=== PATIENT | female | born 1970 | race Caucasian/White ===

== ENCOUNTER 2016-07-25 18:33 | Emergency (ER) | payer SELFPAY ==
[~2016-07-25] VITALS: Ht 149.9 cm; Wt 72.6 kg
--- NOTE | 2016-07-25 18:50 | NUR ---
CALLED PT FOR TRIAGE ASSESSMENT, NO ANSWER.
[2016-07-25 18:57] VITALS: BP 153/98
--- NOTE | 2016-07-25 20:18 | NUR ---
AMBULATED TO ER OF3
--- NOTE | 2016-07-25 20:30 | NUR ---
PT PRESENTS TO ER W/C/O HEADACHE X1 WEEK. PT STATES HER CHILDREN WERE SENT HOME FROM SCHOOL W/LICE, SO SHE SPRAYED HER OWN HEAD W/RAID IN EFFORT TO PREVENT HERSELF FROM GETTING THE LICE, AND IMMEDIATELY FELT RASH AND PAIN ON HER SCALP, AND INTERMITTENT HEADACHE SINCE THAT TIME. HX DM.
[2016-07-25 21:15] VITALS: BP 135/80
--- NOTE | 2016-07-25 21:15 | NUR ---
Patient discharged with v/s stable. Written and verbal after care instructions given and explained. Patient alert, oriented and verbalized understanding of instructions. Ambulatory with steady gait. All questions addressed prior to discharge. ID band removed. Patient advised to follow up with PMD. Rx of FIORICET [id number] TAB, 1 TAB EVERY 6 HOURS NEEDED FOR HEADACHE , HYDROXYZINE HYDROCHLORIDE 25MG TAB, 1 TAB ORally 4 TIMES A DAY BY MOUTH NEEDED given. Patient educated on indication of medication including possible reaction and side effects. Opportunity to ask questions provided and answered.
== END 2016-07-25 21:15 | disposition home or self-care (01) ==
LOC: MED 18:33
DX: G44.209 Tension-type headache, unspecified, not intractable (principal); S00.01XA Abrasion of scalp, initial encounter; E11.9 Type 2 diabetes mellitus without complications; X58.XXXA Exposure to other specified factors, initial encounter; Y93.89 Activity, other specified; Y92.89 Other specified places as the place of occurrence of the external cause; Y99.8 Other external cause status

== ENCOUNTER 2017-10-23 07:10 | Emergency (ER) | payer MEDICAID ==
[~2017-10-23] VITALS: Ht 149.9 cm; Wt 61.2 kg
--- NOTE | 2017-10-23 07:13 | NUR ---
PT JAVY MOJICA. TAKEN TO BED 11
--- NOTE | 2017-10-23 07:23 | NUR ---
PT. CAME IN VIA BLS DUE TO ABD PAIN AND VOMITING X 3 DAYS. PT. IS AAOX4 , RR EVEN AND UNLABORED. PT. DENIES SOB, PT HAS 8/10 PAIN ABD PAIN IN THE EPIGASTRIC AREA THAT IS NON RADIATING. PT. DENIES ANY BLOOD IN STOOL OR VOMIT. PT. HAS 6/10 PAIN IN R UPPER CHEST AREA THAT IS NON RADIATING , PT. STATES " I HAVE HAD THIS PROBLEM OF PAIN BECAUSE OF MY BREATHING". ABD ROUND AND SOFT . PT HAS BOYFRIEND AT BEDSIDE. ER MD NOTIFIED. WILL CONTINUE TO MONITOR.
[2017-10-23 07:25] VITALS: BP 129/91
--- NOTE | 2017-10-23 08:09 | NUR ---
PT. UNABLE TO PROVIDE A URINE SAMPLE AT THIS TIME, ER MD OLIVAS NOTIFIED.
[2017-10-23] MEDS ORDERED: ONDANSETRON 4 MG/2 ML VIAL IVP ONE (08:20)
[2017-10-23] MEDS ORDERED: NACL 0.9% 500 ML IV ONE (08:20)
[2017-10-23] MEDS ORDERED: KETOROLAC 30 MG/ML VIAL IVP ONE (08:20)
[2017-10-23 09:04] LABS: BASOPHILS # (AUTO) 0.1 K/uL (0.00-0.22); BASOPHILS % (AUTO) 0.5 % (0.0-2.0); EOSINOPHILS # (AUTO) 0.1 K/uL (0-0.4); EOSINOPHILS % (AUTO) 0.9 % (0.0-4.0); HEMATOCRIT 40.9 % (36-48); HEMOGLOBIN 13.7 g/dL (12.0-16.0); LYMPHOCYTES # (AUTO) 1.2 K/uL (2.5-16.5); LYMPHOCYTES % (AUTO) 7.4 % (20.5-51.1); MEAN CORPUSCULAR HEMOGLOBIN 29 pg (27-31); MEAN CORPUSCULAR HGB CONC 34 g/dL (33-37); MEAN CORPUSCULAR VOLUME 84.9 fL (80-94); MONOCYTES # (AUTO) 0.9 K/uL (0.8-1.0); MONOCYTES % (AUTO) 5.7 % (1.7-9.3); NEUTROPHILS # (AUTO) 13.9 K/uL (1.8-7.7); NEUTROPHILS % (AUTO) 85.5 % (42.2-75.2); PLATELET COUNT (AUTO) 359 K/uL (140-450); RED BLOOD CELL COUNT(AUTO) 4.81 MIL/uL (4.20-5.40); WHITE BLOOD COUNT (AUTO) 16.2 K/uL (4.8-10.8)
[2017-10-23 09:10] LABS: ANION GAP 10.4 (8-16); CARBON DIOXIDE 28.9 mmol/L (21-32); CREATININE 0.9 mg/dL (0.6-1.3); POTASSIUM 3.3 mmol/L (3.5-5.1)
--- NOTE | 2017-10-23 09:10 | NUR ---
PT. IN BED RESTING COMFORTABLY, RR EVEN AND UNLABORED. PT. AAOX4. BED IN LOWEST POSITION. WILL CONTINUE TO MONITOR.
[2017-10-23 09:16] LABS: ALBUMIN 3.2 g/dL (3.4-5.0); TOTAL BILIRUBIN 0.3 mg/dL (0.0-1.0)
[2017-10-23] MEDS ORDERED: NACL 0.9% 1,000 ML IV SCH (10:24)
[2017-10-23] MEDS ORDERED: DOCUSATE SODIUM 100 MG GELCAP PO PRN (10:25)
[2017-10-23] MEDS ORDERED: LORazepam 2 MG/ML VIAL IM/IVP PRN (10:25)
[2017-10-23] MEDS ORDERED: ONDANSETRON 4 MG/2 ML VIAL IM/IVP PRN (10:25)
[2017-10-23] MEDS ORDERED: ACETAMINOPHEN 325 MG TAB PO PRN (10:25)
[2017-10-23] MEDS ORDERED: MORPHINE SULFATE 2 MG/ML SYR IVP PRN (10:25)
[2017-10-23] MEDS ORDERED: ZOLPIDEM 5 MG TAB PO PRN (10:25)
[2017-10-23] MEDS ORDERED: HYDROcodone/APAP 5/325 MG 1 TAB TAB PO PRN (10:25)
--- NOTE | 2017-10-23 10:30 | NUR ---
PT. RESTING COMFORTABLY, RR EVEN AND UNLABORED. BED IN LOWEST POSITION. BOYFRIEND AT BEDSIDE. WILL CONTINUE TO MONITOR.
[2017-10-23 10:57] LABS: PROTHROMBIN TIME 10.2 secs (10.8-13.4)
[2017-10-23 11:09] LABS: CHOL/HDL RATIO 4.1 (1-4.5); MAGNESIUM 1.4 mg/dL (1.8-2.4); PHOSPHORUS 2.2 mg/dL (2.5-4.9); THYROID STIMULATING HORMONE 2.61 uIU/mL (0.34-3.74)
--- NOTE | 2017-10-23 12:07 | NUR ---
PT INFORMED STAFF THAT SHE WISHES TO AMA
--- NOTE | 2017-10-23 12:10 | NUR ---
PT HAS CHANGED HER MIND AND WILL GO THROUGH WITH TRANSFER
--- NOTE | 2017-10-23 12:12 | NUR ---
CALLED KIMBERLYN GONZALES TO GIVE REPORT, CHARGE NURSE WAS AWAY AND NURSE TO TAKE OVER CARE WAS AT [place] SPOKE TO MODESTO HUGGINS PROVIDED PHONE NUMBER AND SAID THAT CHARGE NURSE WOULD CALL BACK OR THE NURSE TAKING OVER.
--- NOTE | 2017-10-23 12:15 | NUR ---
PT. CALLED HER BROTHER, AND DECIDED TO BE TRANSFERRED TO [facility]. PT. STATES " I GUESS IM GOING, MY BROTHER WANTS ME TO GO". PT. IS TO BE TRANSFERRED AT THIS TIME.
[2017-10-23 12:36] VITALS: BP 100/65
--- NOTE | 2017-10-23 12:36 | NUR ---
Patient to be transferred to [facility]. Is being transferred due to INSURANCE COVERAGE AND PANCREATITIS AND ACUTE GASTROENTERITIS . Receiving facility has accepting physician and available space. ER physician has signed transfer form. Patient or responsible green party has agreed to transfer and signed form. Patient belongings inventoried and will be sent with patient. Copy of nursing notes, lab reports, EKG, Physicians Orders and X-rays to be sent with patient. Report called to MIREYA Blackwell RN at receiving facility. [facility] ambulance service has been called for transfer. ETA is 55 MIN .
--- NOTE | 2017-10-23 12:36 | NUR ---
LATE ENTRY: NACL 0.9% 1L @100ML/ HR WAS STOPPED AT 1236PM. 400ML INFUSED.
== END 2017-10-23 12:36 | disposition short-term general hospital (02) ==
LOC: MED 07:10
DX: K52.9 Noninfective gastroenteritis and colitis, unspecified (principal); K85.90 Acute pancreatitis without necrosis or infection, unspecified; E11.9 Type 2 diabetes mellitus without complications
CPT/HCPCS: 36415; 71045; 76705; 80053; 80061; 82150; 83605; 83690; 83735; 84100; 84443; 85025; 85610; 85730; 87040; 96361; 96374; 96375; 99285; J1885; J2405; Q0092; J7030

== ENCOUNTER 2018-04-29 17:06 | Inpatient (IN) | payer MEDICAID ==
[~2018-04-29] VITALS: Ht 149.9 cm; Wt 70.8 kg
[2018-04-29 17:11] VITALS: BP 181/85
[2018-04-29] MEDS ORDERED: ALBUTEROL SULFATE/IPRATROPIU 3 ML SOL IH ONE (17:20)
[2018-04-29] MEDS ORDERED: NACL 0.9% 1,000 ML IV ONE (17:25)
--- NOTE | 2018-04-29 17:33 | NUR ---
X-RAY AT BEDSIDE.
--- NOTE | 2018-04-29 17:37 | NUR ---
RT AT BEDSIDE FOR TREATMENT.
[2018-04-29] MEDS ORDERED: cefTRIAXone 1,000 MG VIAL ONE (17:42)
[2018-04-29] MEDS ORDERED: AZITHROMYCIN 500 MG in DEXTROSE 5% 250 ML IV ONE (17:45)
--- NOTE | 2018-04-29 17:51 | NUR ---
PT TO CT VIA [facility] BY [email or web address].
--- NOTE | 2018-04-29 17:53 | NUR ---
C/O SOB, COUGH, CONGESTION, FATIGUE X 2 DAYS ADDS HAS BEEN USING SON'S ALBUTEROL INHALOR WITH NO RELIEF 3-4 WORD SPEECH WITH MODERATE ACCESSORY MUSCLE USE NOTED TO SUPRACLAVICULAR AND NARES BLE MILD SWELLING HX--DM, HTN RX--METFORMIN, GLIPIZIDE, LISINOPRIL, MAGNESIUM, ASA
--- NOTE | 2018-04-29 18:03 | NUR ---
PT BACK FROM CT.
[2018-04-29] MEDS ORDERED: AZITHROMYCIN 500 MG INJ VIAL IV ONE (18:15)
[2018-04-29 18:21] LABS: BASOPHILS # (AUTO) 0.1 K/uL (0.00-0.22); BASOPHILS % (AUTO) 0.9 % (0.0-2.0); EOSINOPHILS # (AUTO) 0.3 K/uL (0-0.4); HEMATOCRIT 31.1 % (36-48); HEMOGLOBIN 10.2 g/dL (12.0-16.0); LYMPHOCYTES % (AUTO) 20.7 % (20.5-51.1); MEAN CORPUSCULAR HEMOGLOBIN 29 pg (27-31); MEAN CORPUSCULAR HGB CONC 33 g/dL (33-37); MONOCYTES # (AUTO) 0.5 K/uL (0.8-1.0); MONOCYTES % (AUTO) 5.5 % (1.7-9.3); NEUTROPHILS # (AUTO) 6.6 K/uL (1.8-7.7); NEUTROPHILS % (AUTO) 69.9 % (42.2-75.2); PLATELET COUNT (AUTO) 352 K/uL (140-450); RED BLOOD CELL COUNT(AUTO) 3.57 MIL/uL (4.20-5.40); RED CELL DISTRIBUTION WIDTH 13.6 % (11.6-13.7); WHITE BLOOD COUNT (AUTO) 9.5 K/uL (4.8-10.8)
--- NOTE | 2018-04-29 18:28 | NUR ---
REPORT TO RADHAMES SALVADOR
[2018-04-29] MEDS ORDERED: FUROSEMIDE 40 MG/4 ML VIAL IVP ONE (18:35)
[2018-04-29 19:00] LABS: PROTHROMBIN TIME 9.3 secs (10.8-13.4)
[2018-04-29 19:04] LABS: ALBUMIN 2.2 g/dL (3.4-5.0); ANION GAP 8.7 (8-16); CREATININE 0.8 mg/dL (0.6-1.3); POTASSIUM 3.7 mmol/L (3.5-5.1); TOTAL BILIRUBIN 0.2 mg/dL (0.0-1.0)
--- NOTE | 2018-04-29 19:30 | NUR ---
RECEIVED REPORT FROM PREVIOUS RN. PT LAYING IN BED, RR EVEN AND UNLABORED. ALL NEEDS MET.
--- NOTE | 2018-04-29 20:38 | NUR ---
PT LAYING IN BED, RR EVEN AND UNLABORED. VSS. ON 2L O2 NC. PT GIVEN SANDWICH. ALL NEEDS MET AT THIS TIME.
[2018-04-29] MEDS: NACL 0.9% 1,000 ML IV SCH (21:48)
[2018-04-29] MEDS ORDERED: ACETAMINOPHEN 325 MG TAB PO PRN (21:55)
[2018-04-29] MEDS ORDERED: DOCUSATE SODIUM 100 MG GELCAP PO PRN (21:55)
[2018-04-29] MEDS ORDERED: ONDANSETRON 4 MG/2 ML VIAL IM/IVP PRN (21:55)
[2018-04-29] MEDS ORDERED: ZOLPIDEM 5 MG TAB PO PRN (21:55)
[2018-04-29] MEDS ORDERED: LORazepam 2 MG/ML VIAL IM/IVP PRN (21:55)
--- NOTE | 2018-04-29 22:30 | NUR ---
Patient will be admitted to care of DR. MABRY. Admited to TELE. Will go to room 111B Belongings list completed. Report to MODESTO SHORT.
--- NOTE | 2018-04-29 22:32 | NUR ---
PT TAKEN TO TELE FLOOR VIA [facility] BY RN AND EMT
[2018-04-29 22:35] VITALS: BP 134/82
--- NOTE | 2018-04-29 22:35 | NUR ---
PT ARRIVED ON UNIT VIA [facility] WITH ER NURSE AND TECH. PT ABLE TO AMBULATE FROM [facility] INTO BED. PT I SAAOX4. PT IS ON RA WITH RESPIRATIONS EVEN AND UNLABORED. PT HAS NONPRODUCTIVE COUGH. IV ACCESS IN L AC 20G. IV IS PATENT AND INTACT. PT SKIN IS INTACT. NO C/O PAIN AT THIS TIME. MRSA SWAB COLLECTED. VS TAKEN AND WNL. ORIENTED PT TO USE OF CALL LIGHT AND ROOM. BED IS LOCKED, LOW POSITION WITH SIDE RAILS UPX2. BOARD UPDATED. CALL LIGHT WITHIN REACH. WILL CONTINUE TO MONITOR PT.
[2018-04-29 22:42] LABS: CHOL/HDL RATIO 4.4 (1-4.5); FREE T4 (FREE THYROXINE) 0.98 ng/dL (0.76-1.46); MAGNESIUM 1.9 mg/dL (1.8-2.4); PHOSPHORUS 3.5 mg/dL (2.5-4.9); THYROID STIMULATING HORMONE 3.61 uIU/mL (0.34-3.74)
[2018-04-29] MEDS ORDERED: ALBUTEROL SULFATE/IPRATROPIU 3 ML SOL IH PRN (23:00)
[2018-04-29] MEDS ORDERED: DEXTROSE 50% 50 ML SYR IVP PRN (23:15)
[2018-04-29] MEDS ORDERED: GLIP5TAB13 PO (23:23)
[2018-04-29] MEDS ORDERED: METF1000 PO (23:23)
[2018-04-29] MEDS ORDERED: LISI-420 PO (23:23)
[2018-04-29] MEDS ORDERED: INSU100S22 SUBQ (23:23)
--- NOTE | 2018-04-29 23:38 | NUR ---
ORDERED IVF STARTED. RT AT PT BEDSIDE. PT REQUESTING SNACK, SANDWICH AND JUICE GIVEN. NO S/S OF DISTRESS. WILL CONTINUE TO MONITOR.
[2018-04-30] VITALS: BP 144/87
--- NOTE | 2018-04-30 01:59 | NUR ---
PT ASLEEP IN BED. NO SIGNS OR SYMPTOMS OF DISTRESS. WILL CONTINUE TO MONITOR.
[2018-04-30 04:00] VITALS: BP 123/75
--- NOTE | 2018-04-30 04:34 | NUR ---
NO CHANGE IN CONDITION. PT ASLEEP IN BED. NO SIGNS OR SYMPTOMS OF DISTRESS. WILL CONTINUE TO MONITOR.
[2018-04-30] MEDS: BLOOD GLUCOSE MONITORING 1 DEV DEV FS SCH ×4 (05:31→20:00)
[2018-04-30] MEDS: INSULIN LISPRO SLIDING SCALE 100 UNITS/ML VIAL SUBQ PRN ×3 (05:35→20:04)
--- NOTE | 2018-04-30 05:35 | NUR ---
INSULIN COVERAGE GIVEN FOR BS 231. PT TOLERATED WELL. NO SIGNS OR SYMPTOMS OF DISTRESS. WILL CONTINUE TO MONITOR.
--- NOTE | 2018-04-30 07:29 | NUR ---
ENDORSED PT TO DAY SHIFT NURSE FOR CONTINUITY OF CARE. PT IN STABLE CONDITION.
--- NOTE | 2018-04-30 07:30 | NUR ---
RECEIVED PT AAOX4. NO SOB NOTED, ON O2 AT 2LPM VIA [employer]. NO SIGNS OF PAIN AT THIS TIME. IV TO LT AC PATENT AND INTACT. CHEST DIMINISHED AIR ENTRY TO THE BASES, SLIGHT WHEEZING HEARD BILATERALLY. ABDOMEN SOFT, BOWEL SOUND PRESENT. BLE EDEMA +1, PITTING NOTED. INSTRUCTED PT TO CALL FOR ASSISTANCE, CALL LIGHT WITHIN REACH, BED ON LOWEST POSITION, VERBALIZED UNDERSTANDING.
[2018-04-30 08:00] VITALS: BP 153/98
[2018-04-30] MEDS ORDERED: ALBUTEROL SULFATE/IPRATROPIU 3 ML SOL IH PRN (08:30)
[2018-04-30] MEDS: cefTRIAXone 2,000 MG in DEXTROSE 5% 100 ML IV SCH (08:35)
[2018-04-30] MEDS: metFORMIN 500 MG TAB PO SCH ×2 (08:35→17:49)
[2018-04-30] MEDS: AZITHROMYCIN 250 MG TAB PO SCH (08:36)
[2018-04-30] MEDS: LISINOPRIL 20 MG TAB PO SCH (08:36)
--- NOTE | 2018-04-30 08:36 | NUR ---
PATIENT HAS BEEN SCREENED AND CATEGORIZED MODERATE NUTRITION RISK. PATIENT WILL BE SEEN WITHIN 3-5 DAYS OF ADMISSION. 05/02/18 05/04/[address]
--- NOTE | 2018-04-30 08:42 | NUR ---
AWAKE AND ALERT VERBALLY RESPONSIVE C/O SOB POST AMBULATION TO BATHROOM HHN PATIENT ASSESSMENT DONE HHN PRN THERAPY GIVEN AT THIS TIME Addendum: 04/30/18 at 0856 by Osmel Alvarado RT PATIENT C/O OF NASAL DRYNESS WITH SUPPLEMENTAL OXYGEN USAGE SVP RESEARCH AND STRATEGIC ANALYSIS TO ADD HUMIDIFIER
[2018-04-30] MEDS ORDERED: glipiZIDE 5 MG TAB PO SCH (09:00)
[2018-04-30] MEDS ORDERED: FUROSEMIDE 20 MG/2 ML VIAL IVP SCH (09:00)
[2018-04-30] MEDS ORDERED: GLIPIZIDE PO SCH (09:00)
[2018-04-30] MEDS ORDERED: ATORVASTATIN 20 MG TAB PO SCH (09:03)
[2018-04-30 09:44] LABS: BASOPHILS # (AUTO) 0.1 K/uL (0.00-0.22); BASOPHILS % (AUTO) 1.1 % (0.0-2.0); EOSINOPHILS # (AUTO) 0.3 K/uL (0-0.4); EOSINOPHILS % (AUTO) 3.1 % (0.0-4.0); HEMATOCRIT 33.3 % (36-48); HEMOGLOBIN 10.9 g/dL (12.0-16.0); LYMPHOCYTES # (AUTO) 1.8 K/uL (2.5-16.5); LYMPHOCYTES % (AUTO) 17.9 % (20.5-51.1); MEAN CORPUSCULAR HEMOGLOBIN 29 pg (27-31); MEAN CORPUSCULAR HGB CONC 33 g/dL (33-37); MEAN CORPUSCULAR VOLUME 86.9 fL (80-94); MONOCYTES # (AUTO) 0.7 K/uL (0.8-1.0); MONOCYTES % (AUTO) 7.3 % (1.7-9.3); NEUTROPHILS # (AUTO) 6.9 K/uL (1.8-7.7); NEUTROPHILS % (AUTO) 70.6 % (42.2-75.2); PLATELET COUNT (AUTO) 374 K/uL (140-450); RED BLOOD CELL COUNT(AUTO) 3.84 MIL/uL (4.20-5.40); RED CELL DISTRIBUTION WIDTH 13.6 % (11.6-13.7); WHITE BLOOD COUNT (AUTO) 9.8 K/uL (4.8-10.8)
[2018-04-30 09:57] LABS: ANION GAP 10.1 (8-16); CARBON DIOXIDE 32.4 mmol/L (21-32); CREATININE 0.6 mg/dL (0.6-1.3); POTASSIUM 3.5 mmol/L (3.5-5.1)
[2018-04-30 12:00] VITALS: BP 146/92
[2018-04-30] MEDS: ALBUTEROL SULFATE/IPRATROPIU 3 ML SOL IH SCH ×2 (13:00→19:45)
[2018-04-30] MEDS: FUROSEMIDE 40 MG/4 ML VIAL IVP SCH (13:26)
[2018-04-30 13:31] LABS: CHOL/HDL RATIO 4.7 (1-4.5)
[2018-04-30 16:00] VITALS: BP 132/83
--- NOTE | 2018-04-30 16:00 | NUR ---
CONSENT FOR ULTRASOUND GUIDED THORACENTESIS SIGNED BY PT. PROCEDURE RISKS AND BENEFITS EXPLAINED BY DR. MCELROY EARLIER, PT VERBALIZED UNDERSTANDING. PER RADIOLOGY ANGI, PROCEDURE WILL BE DONE TOMORROW FIRST THING IN THE MORNING. DR. MCELROY AND PT MADE AWARE.
--- NOTE | 2018-04-30 17:15 | NUR ---
URINE SPECIMEN COLLECTED AND SENT TO LAB.
--- NOTE | 2018-04-30 17:23 | NUR ---
AWAKE AND ALERT VERBALLY RESPONSIVE PRESENTING WITH INTERMITTENT COUGHING TOLERATED INCENTIVE SPIROMETRY THERAPY WELL WITHOUT INCIDENT ENCOURAGED PATIENT WITH ACKNOWLEDGEMENT TI USE INCENTIVE SPIROMETRY EVERY 1-2 HOURS WHILE AWAKE EDUCATION GIVEN FOR SPUTUM CULTURE COLLECTION SPECIMEN PALCED ON PATIENT TABLE
[2018-04-30] MEDS: glipiZIDE 5 MG TAB PO SCH (17:49)
--- NOTE | 2018-04-30 18:00 | NUR ---
RECEIVED A CALL FROM THE LAB EARLIER THAT SPUTUM PREVIOUSLY COLLECTED WAS CONTAMINATED. ANOTHER SPUTUM SPECIMEN COLLECTED AND SENT TO LAB.
[2018-04-30 18:38] LABS: APPEARANCE,URINE CLEAR (CLEAR); BILIRUBIN,URINE NEGATIVE (NEGATIVE); BLOOD, URINE 1+ (NEGATIVE); COLOR,URINE STRAW (YELLOW); LEUKOCYTE ESTERASE ,URINE 2+ (NEGATIVE); NITRITE, URINE NEGATIVE (NEGATIVE); UGLUCOSE TRACE (NEGATIVE)
[2018-04-30 18:48] LABS: RBC,URINE 0-5 (RARE) /HPF (0-5)
--- NOTE | 2018-04-30 19:00 | NUR ---
PT AWAKE TALKING TO SIGNIFICANT OTHER AT THE BEDSIDE. NO SOB NOTED. NO COMPLAINTS MADE. WILL ENDORSE TO NEXT SHIFT NURSE FOR CONTINUITY OF CARE.
--- NOTE | 2018-04-30 19:35 | NUR ---
RECEIVED REPORT FROM DAY SHIFT NURSE, CHIRAG, AT PT BEDSIDE. PT FAMILY IS AT BEDSIDE. PT IS AAOX4. PT IS ON NC 2L WITH RESPIRATIONS EVEN AND UNLABORED. PT HAS NONPRODUCTIVE COUGH. IV ACCESS IN L AC 20G. IV IS PATENT AND INTACT. PT SKIN IS INTACT. NO C/O PAIN AT THIS TIME. BED IS LOCKED, LOW POSITION WITH SIDE RAILS UP X2. BOARD UPDATED. CALL LIGHT WITHIN REACH. WILL CONTINUE TO MONITOR PT.
[2018-04-30 19:48] LABS: BARBITURATE, URINE NEG. ng/ml (NEG <=200); BENZODIAZEPINE, URINE NEG. ng/mL (NEG <=200); CANNABINOID, URINE NEG. ng/mL (NEG <=50); COCAINE, URINE NEG. ng/mL (NEG <=300); OPIATE, URINE NEG. ng/mL (NEG <=2000); PHENCYCLIDINE SCREEN,URINE NEG. ng/mL (NEG <=25)
--- NOTE | 2018-04-30 19:51 | NUR ---
RCV'D PT ON ROOM AIR WITH SPO2 OF 94%. PT IS SITTING DOWN ON BED IN PAIN SAYING HER SIDE HURTS. FAMILY AT BEDSIDE. RN DEJA EVALUATING PT AT BEDSIDE WELL. HHN GIVEN. PT SAYS IT HELPED HER ALOT. ADVISED PT TO LET ME KNOW IF SHE GETS SOB AT NIGHT. PT VERBALIZED UNDERSTANDING. PT IMPROVED AFTER HHN TX. WILL CONTINUE TO MONITOR.
[2018-04-30] MEDS: HYDROcodone/APAP 5/325 MG 1 TAB TAB PO PRN (19:55)
[2018-04-30 20:00] VITALS: BP 144/78
[2018-04-30] MEDS: INSULIN LANTUS 100 UNITS/ML 10 ML VIAL SUBQ SCH (20:03)
--- NOTE | 2018-04-30 20:04 | NUR ---
RT AT BEDSIDE. EDUCATION ON I.S. GIVEN. PT VERBALIZED UNDERSTANDING. ADMINISTERED SCHEDULED MEDICATION. INSULIN COVERAGE GIVEN FOR BS 196, PER MD ORDERS. PT C/O NAUSEA, ZOFRAN GIVEN. PT C/O PAIN, NORCO GIVEN. PT TOLERATED WELL. NO SIGNS OR SYMPTOMS OF DISTRESS. WILL CONTINUE TO MONITOR.
--- NOTE | 2018-04-30 20:55 | NUR ---
PT NOW SLEEPING IN BED. NO SIGNS OR SYMPTOMS OF DISTRESS. WILL CONTINUE TO MONITOR.
[2018-04-30] MEDS ORDERED: NON-FORMULARY ITEM (Insulin Glargine,Hum.rec.anlog (Lantus Solostar) 20 UNIT) SUBQ SCH (21:00)
[2018-04-30] MEDS: NACL 0.9% 1,000 ML IV SCH (21:51)
--- NOTE | 2018-04-30 22:44 | NUR ---
NO CHANGE IN CONDITION. PT ASLEEP IN BED. NO SIGNS OR SYMPTOMS OF DISTRESS. WILL CONTINUE TO MONITOR.
[2018-05-01] VITALS: BP 139/82
--- NOTE | 2018-05-01 00:11 | NUR ---
NO CHANGE IN CONDITION. WILL CONTINUE TO MONITOR PT.
--- NOTE | 2018-05-01 02:06 | NUR ---
NO CHANGE IN CONDITION. PT ASLEEP IN BED. NO SIGNS OR SYMPTOMS OF DISTRESS. WILL CONTINUE TO MONITOR.
[2018-05-01 04:00] VITALS: BP 137/90
--- NOTE | 2018-05-01 04:10 | NUR ---
VS WNL. NO SIGNS OR SYMPTOMS OF DISTRESS. WILL CONTINUE TO MONITOR.
--- NOTE | 2018-05-01 05:40 | NUR ---
BS CHECKED, 85. NO COVERAGE NEEDED PER MD ORDERS. FOREIGN CLERK AT BEDSIDE.
[2018-05-01] MEDS ORDERED: guaiFENesin DM 200/20 MG-10 ML 10 ML UDC PO PRN (06:20)
--- NOTE | 2018-05-01 07:07 | NUR ---
ENDORSED PT TO DAY SHIFT NURSE FOR CONTINUITY OF CARE. PT IN STABLE CONDITION.
[2018-05-01 07:28] LABS: ANION GAP 10.9 (8-16); CARBON DIOXIDE 31.8 mmol/L (21-32); CREATININE 0.8 mg/dL (0.6-1.3); POTASSIUM 3.7 mmol/L (3.5-5.1)
[2018-05-01] MEDS: BLOOD GLUCOSE MONITORING 1 DEV DEV FS SCH ×4 (07:30→21:36)
[2018-05-01 07:31] LABS: MAGNESIUM 1.7 mg/dL (1.8-2.4); PHOSPHORUS 4.8 mg/dL (2.5-4.9)
[2018-05-01] MEDS: ALBUTEROL SULFATE/IPRATROPIU 3 ML SOL IH SCH ×3 (07:36→19:29)
[2018-05-01 07:44] LABS: BASOPHILS # (AUTO) 0.1 K/uL (0.00-0.22); BASOPHILS % (AUTO) 0.6 % (0.0-2.0); EOSINOPHILS # (AUTO) 0.3 K/uL (0-0.4); EOSINOPHILS % (AUTO) 3.8 % (0.0-4.0); HEMATOCRIT 31.2 % (36-48); HEMOGLOBIN 10.3 g/dL (12.0-16.0); LYMPHOCYTES # (AUTO) 2.3 K/uL (2.5-16.5); LYMPHOCYTES % (AUTO) 26.8 % (20.5-51.1); MEAN CORPUSCULAR HEMOGLOBIN 29 pg (27-31); MEAN CORPUSCULAR HGB CONC 33 g/dL (33-37); MEAN CORPUSCULAR VOLUME 86.8 fL (80-94); MONOCYTES # (AUTO) 0.6 K/uL (0.8-1.0); MONOCYTES % (AUTO) 6.8 % (1.7-9.3); NEUTROPHILS # (AUTO) 5.3 K/uL (1.8-7.7); PLATELET COUNT (AUTO) 377 K/uL (140-450); RED BLOOD CELL COUNT(AUTO) 3.59 MIL/uL (4.20-5.40); RED CELL DISTRIBUTION WIDTH 13.5 % (11.6-13.7); WHITE BLOOD COUNT (AUTO) 8.5 K/uL (4.8-10.8)
[2018-05-01 08:00] VITALS: BP 148/94
[2018-05-01] MEDS: ATORVASTATIN 20 MG TAB PO SCH (08:35)
[2018-05-01] MEDS: metFORMIN 500 MG TAB PO SCH ×2 (08:35→16:51)
[2018-05-01] MEDS: LISINOPRIL 20 MG TAB PO SCH (08:36)
[2018-05-01] MEDS: AZITHROMYCIN 250 MG TAB PO SCH (08:36)
[2018-05-01] MEDS: FUROSEMIDE 40 MG/4 ML VIAL IVP SCH (08:37)
[2018-05-01] MEDS: cefTRIAXone 2,000 MG in DEXTROSE 5% 100 ML IV SCH (08:37)
[2018-05-01] MEDS: glipiZIDE 5 MG TAB PO SCH ×2 (08:38→16:51)
--- NOTE | 2018-05-01 08:47 | NUR ---
ADMINISTERED MEDS TO PT ORDERED. TOLERATED WELL. PT SLEEPING , NO SIGN OF DISTRESS NOTED. CALL LIGHT WITHIN OPT REACH. PT TO GET THORACENTESIS TODAY. BED AT LOWER POSITION. WILL CONTINUE TO MONITOR PT.
--- NOTE | 2018-05-01 09:53 | NUR ---
FAMILY AT BEDSIDE. PT TO GET THORACENTESIS PROCEDURE AT BESIDE. CONSENT AND TIME OUT FORM IN PT FILE. NO SIGN OF DISTRESS NOTED. ALL SAFETY MEASURE IN PLACE. WILL CONTINUE TO MONITOR PT.
[2018-05-01] MEDS: MAGNESIUM OXIDE 400 MG TAB PO SCH ×2 (10:00→20:22)
--- NOTE | 2018-05-01 10:05 | NUR ---
DR HOLLIS AT THE BEDSIDE. PERFORMING THORACENTESIS PROCEDURE. ARIA OCAMPO AT BEDSIDE. TIME OUT SESSION COMPLETED. PT STABLE. NO SIGN OF DISTRESS NOTED. WILL CONTINUE TO MONITOR PT.
--- NOTE | 2018-05-01 10:23 | NUR ---
THORACENTESIS PROCEDURE COMPLETED. 1000 ML OUTPUT FROM RT SIDE OF THE LUNGS. PT TOLERATED WELL. NO SIGN OF DISTRESS NOTED. SAMPLE SENT TO THE LAB FOR POSSIBLE FURTHER ANALYSIS. WILL CONTINUE TO MONITOR PT.
[2018-05-01] MEDS: INSULIN LISPRO SLIDING SCALE 100 UNITS/ML VIAL SUBQ PRN ×2 (11:30→20:33)
--- NOTE | 2018-05-01 13:00 | NUR ---
CHECKED ON PT. PT FAMILY AT BEDSIDE. ASKING ABOUT THE PROCEDURE DONE IN AM. INFORMED HER THAT FLUID HAS BEEN SENT TO LAB, NO OTHER SIGN OF DISTRESS NOTED. WILL INFORM FAMILY FOR ANY CHANGE OR NEW FINDINGS IN PATIENT. VERBALSIED UNDERSTANDING. VERBALIZED UNDERSTANDING. WILL CONTINUE TO MONITOR PT.
[2018-05-01 16:00] VITALS: BP 113/75
--- NOTE | 2018-05-01 16:59 | NUR ---
CHECKED ON PT. SLEEPING ON HER BED, DENISES ANY DISCOMFORT. DENIES ANY PAIN . BS 133. ADMINISTERED MEDS ORDERED TO PT. TOLERATED WELL. CALL LIGHT WTIHIN PT REACH. NO SIGN OF DISTRESS NOTED. WILL CONTINUE TO MONITOR TO PT.
--- NOTE | 2018-05-01 19:30 | NUR ---
RECEIVED REPORT FROM BEVERLY AT BEDSIDE FOR CONTINUITY OF CARE. PT AAOX4. PT IV NOTED LAC 20G NS 10ML/HR. NO SOB NO S/S OF DISTRESS ON 2L NC. BED LOWERED CALL LIGHT WITHIN REACH. PT POST OP THORACENTESIS. WILL CONTINUE TO MONITOR.
[2018-05-01 20:00] VITALS: BP 130/82
--- NOTE | 2018-05-01 20:00 | NUR ---
ENDORSED PT TO PM NURSE AT BEDSIDE. PT IN STABLE CONDITION.
[2018-05-01 20:27] LABS: APPEARANCE,SPUN,BODY FLUID CLEAR (CLEAR); APPEARANCE,UNSPUN,BODY FLUID CLEAR (CLEAR); COLOR,BODY FLUID LT YELLOW (LT YELLOW); SPECIMENTYPE,BODY FLUID THORACENTHESIS
[2018-05-01] MEDS: INSULIN LANTUS 100 UNITS/ML 10 ML VIAL SUBQ SCH (20:33)
[2018-05-01 20:38] LABS: GLUCOSE,BODY FLUID 138 mg/dL
[2018-05-01 20:40] LABS: TOTAL VOLUME,BODY FLUID 1000 mL
[2018-05-01] MEDS: NACL 0.9% 1,000 ML IV SCH (21:51)
[2018-05-01 21:52] LABS: RBC, BODY FLUID 236 /cu. mm.
[2018-05-01 21:53] LABS: WBC, BODY FLUID 190 /cu. mm.
[2018-05-01 23:45] VITALS: BP 122/73
--- NOTE | 2018-05-02 | NUR ---
PT SLEEPING NO SOB NO S/S OF DISTRESS. WILL CONTINUE TO MONITOR.
[2018-05-02] MEDS: HYDROcodone/APAP 5/325 MG 1 TAB TAB PO PRN (01:42)
[2018-05-02 04:00] VITALS: BP 130/70
[2018-05-02] MEDS: BLOOD GLUCOSE MONITORING 1 DEV DEV FS SCH ×4 (05:08→21:00)
[2018-05-02] MEDS: glipiZIDE 5 MG TAB PO SCH ×2 (06:32→16:21)
[2018-05-02 06:34] LABS: BASOPHILS # (AUTO) 0.1 K/uL (0.00-0.22); BASOPHILS % (AUTO) 0.9 % (0.0-2.0); EOSINOPHILS # (AUTO) 0.4 K/uL (0-0.4); EOSINOPHILS % (AUTO) 3.7 % (0.0-4.0); HEMATOCRIT 27.4 % (36-48); LYMPHOCYTES # (AUTO) 2.1 K/uL (2.5-16.5); LYMPHOCYTES % (AUTO) 21.2 % (20.5-51.1); MEAN CORPUSCULAR HEMOGLOBIN 29 pg (27-31); MEAN CORPUSCULAR HGB CONC 33 g/dL (33-37); MEAN CORPUSCULAR VOLUME 86.9 fL (80-94); MONOCYTES # (AUTO) 0.7 K/uL (0.8-1.0); NEUTROPHILS # (AUTO) 6.7 K/uL (1.8-7.7); NEUTROPHILS % (AUTO) 67.2 % (42.2-75.2); PLATELET COUNT (AUTO) 324 K/uL (140-450); RED BLOOD CELL COUNT(AUTO) 3.16 MIL/uL (4.20-5.40); RED CELL DISTRIBUTION WIDTH 13.3 % (11.6-13.7)
[2018-05-02 06:49] LABS: ANION GAP 7.1 (8-16); CARBON DIOXIDE 32.8 mmol/L (21-32); CREATININE 0.7 mg/dL (0.6-1.3); POTASSIUM 3.9 mmol/L (3.5-5.1)
[2018-05-02] MEDS: ALBUTEROL SULFATE/IPRATROPIU 3 ML SOL IH SCH ×3 (06:51→18:51)
--- NOTE | 2018-05-02 06:51 | NUR ---
PT SLEEPING WITH NO SIGNS OF DISTRESS NOTED AT THIS TIME NO HHN GIVEN
[2018-05-02 07:01] LABS: MAGNESIUM 1.7 mg/dL (1.8-2.4); PHOSPHORUS 4.1 mg/dL (2.5-4.9)
--- NOTE | 2018-05-02 07:15 | NUR ---
ENDORSED REPORT TO DAYSHIFT NURSE AT BEDSIDE FOR CONTINUITY OF CARE.
--- NOTE | 2018-05-02 07:20 | NUR ---
RECEIVED PT FROM CRANE CHASER NURSEMAGDALENA, PT IS AWAKE AND LYING ON THE BED WITH SIDE RAILS UP AND CALL LIGHT WITHIN REACH, PT HAS AN IV LINE ON THE LEFT AC G. 20 ON SALINE LOCK, INTACT, BEDSIDE COMMODE IS IN PLACE, PT DENIES PAIN AND NO SIGN OF DISTRESS NOTED. WILL CONTINUE TO MONITOR PT.
[2018-05-02 08:00] VITALS: BP 116/75
[2018-05-02] MEDS: metFORMIN 500 MG TAB PO SCH ×2 (08:18→16:21)
[2018-05-02] MEDS: AZITHROMYCIN 250 MG TAB PO SCH (08:19)
[2018-05-02] MEDS: ATORVASTATIN 20 MG TAB PO SCH (08:19)
[2018-05-02] MEDS: LISINOPRIL 20 MG TAB PO SCH (08:19)
[2018-05-02] MEDS: cefTRIAXone 2,000 MG in DEXTROSE 5% 100 ML IV SCH (08:20)
[2018-05-02] MEDS: FUROSEMIDE 40 MG/4 ML VIAL IVP SCH (08:22)
--- NOTE | 2018-05-02 08:33 | NUR ---
PT IS AWAKE AND SEATED ON THE BED, WAS ASSISTED TO THE BEDSIDE COMMODE, AND BACK TO BED, VITAL SIGNS TAKEN PRIOR TO MEDICATION ADMINISTRATION AND RESULT IS WITHIN NORMAL LIMITS, PT WAS ABLER TO TOLERATED THE ORAL MEDICATIONS WELL THE IV MEDICATIONS, NO SIGN OF DISTRESS NOTED AND WILL CONTINUE TO MONITOR PT.
[2018-05-02] MEDS: FLUCONAZOLE 100 MG TAB PO SCH ×2 (09:30→10:43)
--- NOTE | 2018-05-02 10:00 | NUR ---
IV LINE IS LEAKING AND ATTEMPTED TO START A NEW LINE TWICE ON THE RT ARM BUT VEIN IS NOT GOOD ENOUGH. WILL ATTEMPT TO RE-INSERT LATER.
--- NOTE | 2018-05-02 11:39 | NUR ---
PT IS AWAKE AND SEATED ON THE BED, VITAL SIGNS TAKEN AND IS WITHIN NORMAL LIMIT, BLOOD GLUCOSE CHECK DONE AND RESULT IS 108, NO INSULIN COVERAGE NEEDED, NO SIGN OF DISTRESS NOTED AND WILL CONTINUE TO MONITOR PT.
--- NOTE | 2018-05-02 11:45 | NUR ---
A NEW IV LINE WAS STARTED ON THE PT'S RT FA G. 22 ON SALINE LOCK.
[2018-05-02 12:00] VITALS: BP 127/86
--- NOTE | 2018-05-02 13:31 | NUR ---
PT SLEEPING WOULD NOT WAKE UP FOR BREATHING TX NO TX GIVEN NO SIGNS OF DISTRESS NOTED AT THIS TIME MODESTO BORJA NOTIFIED
[2018-05-02 16:00] VITALS: BP 142/92
--- NOTE | 2018-05-02 17:51 | NUR ---
PT WAS TRANSFERRED TO MED-SURG NOW, HEART MONITOR WAS REMOVED AND HANDED TO CERAMIC ENGINEERING PROFESSOR, ROSE.
--- NOTE | 2018-05-02 18:58 | NUR ---
SPUTUM CUP LEFT AT BEDSIDE. PT UNABLE TO PRODUCE SPUTUM AT THIS TIME.
--- NOTE | 2018-05-02 19:15 | NUR ---
ENDORSED PT TO SUPERVISOR EPOXY FABRICATION NURSEMAGDALENA FOR CONTINUITY OF CARE, PT IS STABLE AT THIS TIME.
--- NOTE | 2018-05-02 19:16 | NUR ---
RECEIVED REPORT FROM DAYSHIFT NURSE AT BEDSIDE FOR CONTINUTY OF CARE. PT AAOX4. PT IV NOTED RAC 20G SALINE LOCK. NO SOB NO S/S OF DISTRESS ON RA. BED LOWERED CALL LIGHT WITHIN REACH WILL CONTINUE TO MONITOR.
[2018-05-02 20:00] VITALS: BP 128/74
[2018-05-02] MEDS: INSULIN LANTUS 100 UNITS/ML 10 ML VIAL SUBQ SCH (21:08)
[2018-05-02] MEDS: NACL 0.9% 1,000 ML IV SCH (21:51)
[2018-05-03] VITALS: BP 122/75
[2018-05-03] MEDS: BLOOD GLUCOSE MONITORING 1 DEV DEV FS SCH ×3 (06:44→15:31)
[2018-05-03] MEDS: glipiZIDE 5 MG TAB PO SCH (06:52)
[2018-05-03] MEDS: ALBUTEROL SULFATE/IPRATROPIU 3 ML SOL IH SCH ×2 (07:00→13:00)
--- NOTE | 2018-05-03 07:15 | NUR ---
ENDORSED REPORT TO DAYSHIFT FOR CONTINUITY OF CARE.
--- NOTE | 2018-05-03 07:21 | NUR ---
RECEIVED BEDSIDE REPORT FROM WINDOWS DESKTOP SUPPORT NURSE. PT IS AWAKE, RESTING IN BED, AOX4. NO S/S DISTRESS. DENIES PAIN AND DISCOMFORT. PT IS AMBULATORY. SKIN INTACT. IV SITE PATENT AND ASYMPTOMATIC, ON SL. HAS EXPLAINED POC TO PT THIS MORNING. PT TO BE D/C HOME TODAY. ALL SAFETY PRECAUTIONS IN PLACE, WILL CONTINUE TO MONITOR.
[2018-05-03 08:00] VITALS: BP 134/86
[2018-05-03] MEDS ORDERED: MAGNESIUM OXIDE 400 MG TAB PO SCH (09:00)
[2018-05-03] MEDS: cefTRIAXone 2,000 MG in DEXTROSE 5% 100 ML IV SCH (09:01)
[2018-05-03] MEDS: metFORMIN 500 MG TAB PO SCH (09:01)
--- NOTE | 2018-05-03 09:01 | NUR ---
SCHEDULED ABX ADMINISTERED. PT DENIES PAIN AND DISCOMFORT. ALL SAFETY PRECAUTIONS IN PLACE, WILL CONTINUE TO MONITOR.
[2018-05-03] MEDS: ATORVASTATIN 20 MG TAB PO SCH (09:02)
[2018-05-03] MEDS: LISINOPRIL 20 MG TAB PO SCH (09:02)
[2018-05-03] MEDS: FUROSEMIDE 40 MG/4 ML VIAL IVP SCH (09:03)
--- NOTE | 2018-05-03 09:45 | NUR ---
(05/03/18) RD INITIAL ASSESSMENT COMPLETED PLEASE REFER TO NUTRITION ASSESSMENT UNDER CARE ACTIVITY FOR ESTIMATED NUTRITIONAL NEEDS. RD RECOMMENDATIONS: 1. CONTINUE ON CARDIAC/CCHO 60 GM DIET TOLERATED. 2. CONSULT RDN PRN. 3. RD WILL F/U 3-5 DAYS; MODERATE RISK. 4. RDN PROVIDED CARDIAC/DM DIET EDUCATION TO PATIENT; PT ACCEPTED CARDIAC/DM DIET EDUCATION. JONAH FRITZ, , RDN
--- NOTE | 2018-05-03 11:30 | NUR ---
BLOOD GLUCOSE CHECKED WITH 92 MG/DL RESULT. NO SLIDING SCALE COVERAGE NEEDED.
--- NOTE | 2018-05-03 13:48 | NUR ---
PT RESTING IN BED, WATCHING TV. DENIES PAIN AND DISCOMFORT. WILL CONTINUE TO MONITOR.
[2018-05-03] MEDS ORDERED: FURO-572 PO (13:59)
[2018-05-03] MEDS ORDERED: ATOR20TA40 PO (13:59)
[2018-05-03] MEDS ORDERED: SULF-58 PO (15:18)
[2018-05-03] MEDS ORDERED: AZIT250T11 PO (15:26)
--- NOTE | 2018-05-03 15:31 | NUR ---
BLOOD GLUCOSE IS 65 MG/DL. NO SYMPTOMS OF HYPOGLYCEMIA. GAVE PT CHOCOLATE PUDDING (SUGAR) AND ONE APPLE JUICE.
[2018-05-03 16:00] VITALS: BP 146/88
--- NOTE | 2018-05-03 16:00 | NUR ---
DISCHARGE PAPERWORK, INCLUDING INSTRUCTIONS TO F/U WITH PCP AND NEW RX, GIVEN TO PT. INSTRUCTED PT TO SEEK EMS OR SEE PCP IMMEDIATELY IF CHEST PAIN, WORSENING SOB, SIGNIFICANT WEIGHT CHANGES. CHF TEACHING GIVEN. PT REFUSED FLU VACCINE AND PNEUMOVAX. VACCINATION DECLINATION TEACHING GIVEN. PT VERBALIZED COMPLETE UNDERSTANDING OF ALL D/C TEACHING. IV SITE REMOVED WITH MINIMAL BLOOD LOSS AND LUMEN COMPLETELY INTACT. ID BANDS REMOVED. ALL PERSONAL BELONGINGS WITH PT. PT IN STABLE CONDITION. AWAITING FAMILY MEMBER TO MINK RANCHER PT FROM HOSPITAL.
--- NOTE | 2018-05-03 17:15 | NUR ---
PT LEFT UNIT AND WILL GO HOME VIA PRIVATE VEHICLE WITH FAMILY. ALL PERSONAL BELONGINGS WITH PT.
== END 2018-05-03 17:15 | disposition home or self-care (01) | DRG 720 ==
LOC: MED 17:06 → MTU 21:51
PROVIDERS: ADMIT General Practice; ATTEND General Practice
PROC: 0W993ZZ Drainage of Right Pleural Cavity, Percutaneous Approach (ICD-10-PCS; principal; 2018-05-01)
DX: A41.9 Sepsis, unspecified organism (principal); N17.0 Acute kidney failure with tubular necrosis; E43 Unspecified severe protein-calorie malnutrition; I50.43 Acute on chronic combined systolic (congestive) and diastolic (congestive) heart failure; J18.9 Pneumonia, unspecified organism; E11.21 Type 2 diabetes mellitus with diabetic nephropathy; I11.0 Hypertensive heart disease with heart failure; D64.9 Anemia, unspecified; B37.49 Other urogenital candidiasis; I16.0 Hypertensive urgency; E11.65 Type 2 diabetes mellitus with hyperglycemia; J98.11 Atelectasis; E66.9 Obesity, unspecified; R31.9 Hematuria, unspecified; E83.42 Hypomagnesemia; F15.10 Other stimulant abuse, uncomplicated; E78.2 Mixed hyperlipidemia; Z68.31 Body mass index [BMI] 31.0-31.9, adult; Z87.891 Personal history of nicotine dependence; Z79.4 Long term (current) use of insulin; Z71.3 Dietary counseling and surveillance
CPT/HCPCS: 36415; 71045; 71250; 76604; 76942; 80048; 80053; 80305; 81001; 82150; 82607; 82728; 82746; 82945; 82948; 83036; 83540; 83615; 83690; 83735; 83880; 84100; 84134; 84157; 84439; 84443; 84484; 85025; 85045; 85610; 85730; 87040; 87070; 87075; 87081; 87086; 87102; 87116; 87190; 87205; 87206; 87804; 89051; 93925; 93970; 94640; 96365; 96368; 99285; J0456; J0696; J1815; J1940; J2001; J7030; J7060; J7620; Q0092

== ENCOUNTER 2018-05-09 23:40 | Inpatient (IN) | payer MEDICAID ==
[~2018-05-09] VITALS: Ht 149.9 cm; Wt 63.0 kg
[~2018-05-09 23:40] MED LIST: ATOR20TA40 PO; AZIT250T11 PO; FURO-572 PO; GLIP5TAB13 PO; INSU100S22 SUBQ; LISI-420 PO; METF1000 PO
[2018-05-09 23:44] VITALS: BP 145/90
--- NOTE | 2018-05-09 23:44 | NUR ---
TO BED # 6 AMBULATORY, REPORT GIVEN TO JULIEN SALVADOR
--- NOTE | 2018-05-09 23:58 | NUR ---
X-Ray at bedside.
[2018-05-10 00:22] LABS: HEMOGLOBIN 10.7 g/dL (12.0-16.0); MEAN CORPUSCULAR HEMOGLOBIN 28 pg (27-31); MEAN CORPUSCULAR HGB CONC 32 g/dL (33-37); MEAN CORPUSCULAR VOLUME 87.4 fL (80-94); PLATELET COUNT (AUTO) 425 K/uL (140-450); RED BLOOD CELL COUNT(AUTO) 3.78 MIL/uL (4.20-5.40); RED CELL DISTRIBUTION WIDTH 14.2 % (11.6-13.7); WHITE BLOOD COUNT (AUTO) 14.4 K/uL (4.8-10.8)
--- NOTE | 2018-05-10 00:28 | NUR ---
PT BIB SELF C/P COUGH AND SOB FOR PAST WEEK/SINCE D/C FROM HOSPITAL FOR SAME S/S. PT STATES SHE WAS PRESCRIBED HOME ABX AND FINISHED MEDS. PT IS SPEAKING FULL CLEAR SENTENCES, RR EVEN AND UNLABORED, BL UPPER BS COARSE, BL LOWER BS CLEAR/DIMINISHED. PT HAS DRY, HACKING COUGH. PT IS SITTING IN BED, AT BEDSIDE, ER MD AWARE OF PT STATUS. PMH DM, HTN
[2018-05-10 00:33] LABS: EOSINOPHILS % (MANUAL) 3 % (0-4); LYMPHOCYTES % (MANUAL) 17 % (20-46); MONOCYTES % (MANUAL) 5 % (5-12)
[2018-05-10 00:40] LABS: APPEARANCE,URINE HAZY (CLEAR); BILIRUBIN,URINE NEGATIVE (NEGATIVE); BLOOD, URINE 3+ (NEGATIVE); COLOR,URINE YELLOW (YELLOW); LEUKOCYTE ESTERASE ,URINE NEGATIVE (NEGATIVE); NITRITE, URINE NEGATIVE (NEGATIVE); UGLUCOSE 3+ (NEGATIVE)
[2018-05-10 00:44] LABS: ALBUMIN 2.8 g/dL (3.4-5.0); CREATININE 0.8 mg/dL (0.6-1.3); POTASSIUM 3.8 mmol/L (3.5-5.1); TOTAL BILIRUBIN 0.2 mg/dL (0.0-1.0)
[2018-05-10] MEDS ORDERED: NACL 0.9% 1,000 ML IV ONE (00:45)
[2018-05-10] MEDS ORDERED: VANCOMYCIN 1,000 MG in DEXTROSE 5% 250 ML IV ONE (00:45)
[2018-05-10] MEDS ORDERED: PIPERACILLIN/TAZOBACTAM 3.375 GM in DEXTROSE 5% 50 ML IV ONE (00:45)
[2018-05-10 00:48] LABS: ANION GAP 10.9 (8-16); CARBON DIOXIDE 26.9 mmol/L (21-32)
[2018-05-10 00:56] LABS: RBC,URINE 0-5 (RARE) /HPF (0-5); WBC,URINE 0-5 (RARE) /HPF (0-5)
[2018-05-10] MEDS ORDERED: PIPERACILLIN/TAZOBACTAM 3.375 GM VIAL IV ONE ×2 (00:56→05:06)
[2018-05-10] MEDS ORDERED: VANCOMYCIN 1,000 MG VIAL ONE (00:56)
[2018-05-10 00:57] LABS: YEAST,URINE Rare /HPF (None Seen)
--- NOTE | 2018-05-10 00:58 | NUR ---
Dr. Grullon evaluating patient at bedside.
[2018-05-10 00:59] LABS: BARBITURATE, URINE NEGATIVE ng/ml (NEG <=200); BENZODIAZEPINE, URINE NEGATIVE ng/mL (NEG <=200); CANNABINOID, URINE NEGATIVE ng/mL (NEG <=50); COCAINE, URINE NEGATIVE ng/mL (NEG <=300); OPIATE, URINE NEGATIVE ng/mL (NEG <=2000); PHENCYCLIDINE SCREEN,URINE NEGATIVE ng/mL (NEG <=25)
[2018-05-10] MEDS ORDERED: INSULIN REGULAR, HUMAN 100 UNIT/ML VIAL SUBQ ONE (01:55)
--- NOTE | 2018-05-10 02:00 | NUR ---
PT LAYING IN BED AWAKE, IN NO RESPIRATORY DISTRESS, AT BEDSIDE.
--- NOTE | 2018-05-10 03:20 | NUR ---
RESIDENT DOCTOR EVALUATING PATIENT
[2018-05-10] MEDS ORDERED: ZOLPIDEM 5 MG TAB PO PRN (03:30)
[2018-05-10] MEDS ORDERED: MORPHINE SULFATE 4 MG/ML SYR IVP PRN (03:30)
[2018-05-10] MEDS ORDERED: DOCUSATE SODIUM 100 MG GELCAP PO PRN (03:30)
[2018-05-10] MEDS ORDERED: ONDANSETRON 4 MG/2 ML VIAL IM/IVP PRN (03:30)
[2018-05-10] MEDS ORDERED: LORazepam 2 MG/ML VIAL IM/IVP PRN (03:30)
--- NOTE | 2018-05-10 03:43 | NUR ---
PT IN BED SLEEPING , VSS, PENDING ADMISSION
--- NOTE | 2018-05-10 03:55 | NUR ---
ADMITTED A 47 Y/O FEMALE FROM [facility] WITH CHIEF COMPLAINT OF DIFFICULTY OF BREATHING. PATIENT AMBULATE TO TRANSFER TO BED.PATIENT ALERT ,ORIENTED X4. ABLE TO VERBALIZED HER NEEDS AND FOLLOW COMMANDS. SKIN INTACT. MRSA NASAL SWAB DONE. PERSONAL BELONGINGS AT BEDSIDE. ROUTINE ADMISSION CARE DONE AND CARRY OUT ORDERS. DISCUSSED PLAN OF CARE AND VERBALIZED UNDERSTANDING. FALL PRECAUTION APPLIED. CALL LIGHT WITHIN REACH. EXPLAINED TO USE THE CALL LIGHTS FOR ASSISTANCE. ALL NEEDS ATTENDED. WILL CONTINUE TO MONITOR.
--- NOTE | 2018-05-10 03:55 | NUR ---
Patient will be admitted to care of DR MABRY. Admited to TELE. Will go to [id number]. Belongings list completed. Report to MODESTO BRIGHT.
[2018-05-10 03:58] LABS: PROTHROMBIN TIME 9.2 secs (10.8-13.4)
[2018-05-10 04:06] LABS: CHOL/HDL RATIO 3.2 (1-4.5); FREE T4 (FREE THYROXINE) 0.93 ng/dL (0.76-1.46); MAGNESIUM 1.7 mg/dL (1.8-2.4); PHOSPHORUS 3.4 mg/dL (2.5-4.9); THYROID STIMULATING HORMONE 3.79 uIU/mL (0.34-3.74)
[2018-05-10] MEDS ORDERED: DEXTROSE 50% 50 ML SYR IVP PRN (04:20)
[2018-05-10] MEDS: NACL 0.9% 1,000 ML IV SCH (04:24)
[2018-05-10] MEDS: FUROSEMIDE 40 MG/4 ML VIAL IVP SCH ×2 (04:52→09:13)
[2018-05-10] MEDS ORDERED: ALBUTEROL SULFATE/IPRATROPIU 3 ML SOL IH PRN (04:55)
[2018-05-10] MEDS ORDERED: FUROSEMIDE 40 MG/4 ML VIAL IVP ONE (04:57)
[2018-05-10] MEDS ORDERED: PIPER/TAZO 3.375GM/D5W PREMIX 50 ML IV SCH (05:00)
[2018-05-10] MEDS ORDERED: MAGNESIUM OXIDE 400 MG TAB PO SCH (05:30)
--- NOTE | 2018-05-10 07:20 | NUR ---
ENDORSEMENT GIVEN TO AM SHIFT RN AT BEDSIDE FOR CONTINUITY OF CARE. PATIENT IN STABLE CONDITION.
--- NOTE | 2018-05-10 07:21 | NUR ---
Received report from pm nurse Rajan. Ultrasound techs at bedside for test. Pt awake, FLACC 0, respirations even & nonlabored on O2 @ 2lpm via n/c. Call light within reach.
[2018-05-10 08:00] VITALS: BP 131/76
[2018-05-10] MEDS: BLOOD GLUCOSE MONITORING 1 DEV DEV FS SCH ×4 (08:02→21:02)
[2018-05-10] MEDS ORDERED: NON-FORMULARY ITEM (Atorvastatin Calcium 20 MG) PO SCH (09:00)
[2018-05-10] MEDS ORDERED: FUROSEMIDE 20 MG TAB PO SCH (09:00)
[2018-05-10] MEDS ORDERED: LACTOBACILLUS RHAMNOSUS GG 1 EACH CAP PO SCH (09:00)
[2018-05-10] MEDS: LISINOPRIL 20 MG TAB PO SCH (09:13)
[2018-05-10] MEDS: ACETAMINOPHEN 325 MG TAB PO PRN ×2 (09:14→21:07)
[2018-05-10] MEDS: metFORMIN 500 MG TAB PO SCH ×2 (09:14→20:31)
--- NOTE | 2018-05-10 09:20 | NUR ---
Pt amb from bed to toilet with steady gait, with nasal canula off. Needs min cues to avoid obstacles in room while maneuvering IV pole. Pt voided x1 in toilet, able to provide pericare & handwashing independently. Returned to sitting at edge of bed. Pt observed with mild SOB without O2 supp, SaO2 90-93% in room air. Reapplied n/c with O2 @ 2Lpm. SaO2 increased 93-94%. No SOB. Call light within reach. Left hand IV asymptomatic with ongoing NS @ 10ml/hr.
[2018-05-10 12:00] VITALS: BP 114/72
[2018-05-10] MEDS ORDERED: FLUCONAZOLE 100 MG TAB PO SCH (12:00)
--- NOTE | 2018-05-10 12:10 | NUR ---
Pt sitting up at edge of bed eating lunch, no SOB, no c/o discomfort at this time. Left hand IV asymptomatic with ongoing NS @ 10ml/hr. Call light within reach.
--- NOTE | 2018-05-10 15:00 | NUR ---
Pt c/o 310 pain to left brachial area r/t infiltrated IV. Warm compress applied. Left hand IV intact & asypmtomatic. Call light within reach.
[2018-05-10] MEDS: HYDROcodone/APAP 5/325 MG 1 TAB TAB PO PRN (15:24)
[2018-05-10 16:00] VITALS: BP 125/72
[2018-05-10] MEDS: glipiZIDE 5 MG TAB PO SCH (17:14)
--- NOTE | 2018-05-10 17:30 | NUR ---
Pt sitting up in bed, no c/o discomfort, respirations even & nonlabored on O2 @ 2lpm via n/c. Spouse at bedside. Pt interacting appropriately. Call light within reach.
--- NOTE | 2018-05-10 19:17 | NUR ---
Report given to pm nurse Rajan.
--- NOTE | 2018-05-10 19:20 | NUR ---
RECEIVED PATIENT WALKING IN THE HALLWAY ACCOMPANIED BY FAMILY MEMBER. RESPIRATION EVEN AND UNLABORED. EXPLAINED TO PATIENT PLAN OF CARE. PATIENT ABLE TO VERBALIZED HER NEEDS AND OBEY COMMANDS. FALL PRECAUTION APPLIED. CALL LIGHT WITHIN REACH. WILL CONTINUE TO MONITOR.
[2018-05-10 20:00] VITALS: BP 129/79
--- NOTE | 2018-05-10 20:00 | NUR ---
V/S TAKEN AND RECORDED WNL. PATIENT ACCOMPANIED BY FAMILY MEMBERS. ENCOURAGED TO USE CALL LIGHT FOR ASSISTANCE AND VERBALIZED UNDERSTANDING. FALL PRECAUTION APPLIED. CALL LIGHT WITHIN REACH.
[2018-05-10] MEDS: INSULIN LANTUS 100 UNITS/ML 10 ML VIAL SUBQ SCH (20:26)
[2018-05-10] MEDS: INSULIN LISPRO SLIDING SCALE 100 UNITS/ML VIAL SUBQ PRN (20:27)
[2018-05-10] MEDS: ATORVASTATIN 20 MG TAB PO SCH (20:32)
--- NOTE | 2018-05-10 21:00 | NUR ---
SCHEDULE MEDICATION GIVEN TOLERATED WELL. NO S/S OF DISTRESS NOTED AT THIS TIME. APPLIED WARM COMPRESS TO HER LEFT ARM FOR PAIN. PAIN MEDICATION GIVEN PER PATIENT REQUEST.[address]L IN [address]. SEEN PATIENT RESTING COMFORTABLE ON BED. CALL LIGHT WITHIN REACH. ALL NEEDS ATTENDED.
[2018-05-11] VITALS: BP 107/61
--- NOTE | 2018-05-11 | NUR ---
SEEN PATIENT ASLEEP. V/S TAKEN AND RECORDED. NO S/S OF DISTRESS NOTED. ALL NEEDS ATTENDED.
--- NOTE | 2018-05-11 02:00 | NUR ---
CHECKED PATIENT ASLEEP IN HIGH FOWLERS POSITION. RESPIRATION EVEN AND UNLABORED. CALL LIGHT WITHIN REACH. WILL CONTINUE TO MONITOR.
[2018-05-11 04:00] VITALS: BP 114/70
--- NOTE | 2018-05-11 04:00 | NUR ---
PATIENT RESTING, NO S/S OF DISTRESS NOTED. CALL LIGHT WITHIN REACH. ALL NEEDS ATTENDED.
[2018-05-11] MEDS: NACL 0.9% 1,000 ML IV SCH (04:20)
[2018-05-11 06:19] LABS: BASOPHILS # (AUTO) 0.1 K/uL (0.00-0.22); BASOPHILS % (AUTO) 1.2 % (0.0-2.0); EOSINOPHILS # (AUTO) 0.3 K/uL (0-0.4); EOSINOPHILS % (AUTO) 2.9 % (0.0-4.0); HEMATOCRIT 30.6 % (36-48); LYMPHOCYTES # (AUTO) 1.1 K/uL (2.5-16.5); LYMPHOCYTES % (AUTO) 9.8 % (20.5-51.1); MEAN CORPUSCULAR HEMOGLOBIN 29 pg (27-31); MEAN CORPUSCULAR HGB CONC 33 g/dL (33-37); MEAN CORPUSCULAR VOLUME 88.1 fL (80-94); MONOCYTES # (AUTO) 0.9 K/uL (0.8-1.0); NEUTROPHILS # (AUTO) 8.6 K/uL (1.8-7.7); NEUTROPHILS % (AUTO) 78.1 % (42.2-75.2); PLATELET COUNT (AUTO) 366 K/uL (140-450); RED BLOOD CELL COUNT(AUTO) 3.47 MIL/uL (4.20-5.40); RED CELL DISTRIBUTION WIDTH 13.9 % (11.6-13.7)
[2018-05-11] MEDS: BLOOD GLUCOSE MONITORING 1 DEV DEV FS SCH ×4 (06:22→21:34)
[2018-05-11] MEDS ORDERED: glipiZIDE 5 MG TAB PO SCH (06:30)
[2018-05-11] MEDS: glipiZIDE 5 MG TAB PO SCH ×2 (06:37→16:38)
--- NOTE | 2018-05-11 07:10 | NUR ---
GAVE REPORT TO AM SHIFT RN AT BEDSIDE FOR CONTINUITY OF CARE. ALL NEEDS ATTENDED. PATIENT IN STABLE CONDITION.CALL LIGHT WITHIN REACH.
--- NOTE | 2018-05-11 07:15 | NUR ---
PT REPORT RECEIVED AT BEDSIDE FROM PACKAGING SUPERVISOR NURSE. PT IS SLEEPING AT THIS TIME. NO S/S OF DISTRESS OR SOB NOTED AT THIS TIME. PT IS ON 2L O2 NC. SKIN IS INTACT. THORACENTESIS IS PLANNED FOR TODAY FOR PLURAL EFFUSION, CONSENT HAS ALREADY BEEN SIGNED. IV SITE NOTED IN THE L HAND, 22 GAUGE, INFUSING NS 10 ML/HR. BED IS IN LOW POSITION, CALL LIGHT WITHIN REACH. WILL CONTINUE TO MONITOR PT.
[2018-05-11 07:32] LABS: ANION GAP 11.7 (8-16); CARBON DIOXIDE 29.6 mmol/L (21-32); CREATININE 0.8 mg/dL (0.6-1.3); POTASSIUM 4.3 mmol/L (3.5-5.1)
[2018-05-11 07:37] LABS: MAGNESIUM 1.9 mg/dL (1.8-2.4); PHOSPHORUS 4.7 mg/dL (2.5-4.9)
--- NOTE | 2018-05-11 07:54 | NUR ---
PATIENT HAS BEEN SCREENED AND CATEGORIZED HIGH NUTRITION RISK. PATIENT WILL BE SEEN WITHIN 1-2 DAYS OF ADMISSION. 05/11/[address]
[2018-05-11 08:00] VITALS: BP 113/73
[2018-05-11] MEDS: LISINOPRIL 20 MG TAB PO SCH (08:50)
[2018-05-11] MEDS: metFORMIN 500 MG TAB PO SCH ×2 (08:51→21:26)
[2018-05-11] MEDS: FUROSEMIDE 40 MG/4 ML VIAL IVP SCH (08:51)
--- NOTE | 2018-05-11 11:31 | NUR ---
SATURATION 84% ON ROOM AIR POST HHN THERAPY PLACED BACK ON SUPPLEMENTAL OXYGEN AT 2 LPM VIA DANIE WU/RN NOTIFIED ACUTE CARE ASSISTANT TO MONITOR
--- NOTE | 2018-05-11 11:58 | NUR ---
CURRENT VS: BP 99/53, TEMP 100.2, O2 95% ON 2L NC, HR 92, RR 18. MD NOTIFIED OF PT'S DECREASED BP AND ELEVATED TEMP. IV FLUID RATE INCREASED TO 50 ML/HR PER ORDER. ICE PACKS APPLIED TO PATIENT FOR COOLING, BLANKETS REMOVED, AIR CONDITIONER ON. WILL CONTINUE TO MONITOR PT.
[2018-05-11 12:00] VITALS: BP 99/53
--- NOTE | 2018-05-11 12:26 | NUR ---
PT WENT TO THE BATHROOM, NO C/O DIZZINESS OR SOB WHILE AMBULATING. NO C/O PAIN. PT EATING LUNCH NOW. CALL LIGHT WITHIN REACH. WILL CONTINUE TO MONITOR.
--- NOTE | 2018-05-11 12:49 | NUR ---
VS RECHECKED: BP 141/84, TEMP 99.6 AT THIS TIME. PT ATE 90% OF HER LUNCH, IV FLUIDS INFUSING 50 ML/HR. WILL CONTINUE TO MONITOR PT.
--- NOTE | 2018-05-11 13:13 | NUR ---
05/11/18 RD INITIAL ASSESSMENT COMPLETED PLEASE REFER TO NUTRITION ASSESSMENT UNDER CARE ACTIVITY FOR ESTIMATED NUTRITIONAL NEEDS. 1. [facility] 2. RECOMMEND GLUCERNA QD TO MEET ENERGY NEEDS 3. RD OFFERED NUTRITION EDUCATION, PATIENT REFUSED 4. RD TO FOLLOW-UP 3-5 DAYS, MODERATE RISK ZACH HOOKS RD
--- NOTE | 2018-05-11 13:50 | NUR ---
RECHECKED PT'S VITAL SIGNS. AT THIS TIME: BP 118/70, HR 99, TEMP 99.1, O2 95% ON 2L, RESP 18. WILL CONTINUE TO MONITOR PT.
[2018-05-11] MEDS: HYDROcodone/APAP 5/325 MG 1 TAB TAB PO PRN (15:08)
[2018-05-11 16:00] VITALS: BP 125/78
--- NOTE | 2018-05-11 16:00 | NUR ---
PT HAD US GUIDED THORACENTESIS OF THE R LUNG. 600 ML OF CLEAR YELLOW FLUID DRAINED, AND TAKEN TO LAB. PT TOLERATED WELL. PT WILL HAVE CHEST POST-PROCEDURE X-RAY. Addendum: 05/11/18 at 1617 by Leatha Candelaria RN DR GALEANA PERFORMED THORACENTESIS. CONSENT SIGNED, AND TIME-OUT FORM WAS COMPLETED.
--- NOTE | 2018-05-11 16:45 | NUR ---
POST-THORACENTESIS X RAY PERFORMED AT THIS TIME
[2018-05-11 18:07] LABS: GLUCOSE,BODY FLUID 139 mg/dL
--- NOTE | 2018-05-11 19:15 | NUR ---
ENDORSED PT TO [employer] IN STABLE CONDITION
--- NOTE | 2018-05-11 19:25 | NUR ---
RECEIVED FROM AM RN IN BED SLEEPING. WAKES UP EASILY WHEN TOUCHED OR CALLED BY NAME. NO SOB. NO RESTLESSNESS. CALL LIGHT WITH IN REACH. ENCOURAGED TO CALL FOR ANY HELP SHE MAY NEED OR IF IN PAIN. TELEMETRY MONITORING.
[2018-05-11 20:22] LABS: APPEARANCE,SPUN,BODY FLUID CLEAR (CLEAR); APPEARANCE,UNSPUN,BODY FLUID HAZY (CLEAR); COLOR,BODY FLUID COLORLESS (LT YELLOW); POLYNUCLEAR, BODY FLUID 16 %; RBC, BODY FLUID 916 /cu. mm.; SPECIMENTYPE,BODY FLUID THORACENTESIS; TOTAL VOLUME,BODY FLUID 600 mL; WBC, BODY FLUID 196 /cu. mm.
[2018-05-11] MEDS: ATORVASTATIN 20 MG TAB PO SCH (21:26)
[2018-05-11] MEDS: CARVEDILOL 3.125 MG TAB PO SCH (21:26)
[2018-05-11 21:27] VITALS: BP 125/76
[2018-05-11] MEDS: INSULIN LANTUS 100 UNITS/ML 10 ML VIAL SUBQ SCH (21:38)
--- NOTE | 2018-05-11 23:22 | NUR ---
SLEEPING AT THIS TIME.
[2018-05-12 00:45] VITALS: BP 90/60
--- NOTE | 2018-05-12 01:36 | NUR ---
PT. WOKE UP AT THIS TIME AND PROVIDED WITH SNACK REQUESTED. A/O X 4. ROM X 4.
--- NOTE | 2018-05-12 03:00 | NUR ---
SLEEPING. CALL LIGHT WITH IN REACH. NO COMPLAINTS. SLEEPING WELL.
[2018-05-12] MEDS: NACL 0.9% 1,000 ML IV SCH (03:29)
[2018-05-12 05:00] VITALS: BP 124/76
--- NOTE | 2018-05-12 05:44 | NUR ---
SLEPT WELL THIS SHIFT. NO COMPLAINTS OF PAIN DONE.
[2018-05-12] MEDS: glipiZIDE 5 MG TAB PO SCH ×2 (06:02→16:30)
[2018-05-12] MEDS: BLOOD GLUCOSE MONITORING 1 DEV DEV FS SCH ×4 (06:03→21:17)
[2018-05-12 06:46] LABS: BASOPHILS # (AUTO) 0.1 K/uL (0.00-0.22); BASOPHILS % (AUTO) 1.1 % (0.0-2.0); EOSINOPHILS # (AUTO) 0.5 K/uL (0-0.4); EOSINOPHILS % (AUTO) 4.3 % (0.0-4.0); HEMATOCRIT 29.4 % (36-48); HEMOGLOBIN 9.7 g/dL (12.0-16.0); LYMPHOCYTES # (AUTO) 1.3 K/uL (2.5-16.5); LYMPHOCYTES % (AUTO) 12.1 % (20.5-51.1); MEAN CORPUSCULAR HEMOGLOBIN 29 pg (27-31); MEAN CORPUSCULAR HGB CONC 33 g/dL (33-37); MEAN CORPUSCULAR VOLUME 87.5 fL (80-94); MONOCYTES # (AUTO) 0.8 K/uL (0.8-1.0); MONOCYTES % (AUTO) 7.8 % (1.7-9.3); NEUTROPHILS % (AUTO) 74.7 % (42.2-75.2); PLATELET COUNT (AUTO) 354 K/uL (140-450); RED BLOOD CELL COUNT(AUTO) 3.36 MIL/uL (4.20-5.40); RED CELL DISTRIBUTION WIDTH 14.1 % (11.6-13.7); WHITE BLOOD COUNT (AUTO) 10.7 K/uL (4.8-10.8)
[2018-05-12 06:50] LABS: ANION GAP 11.9 (8-16); CREATININE 0.8 mg/dL (0.6-1.3); POTASSIUM 4.9 mmol/L (3.5-5.1)
[2018-05-12 06:54] LABS: MAGNESIUM 1.9 mg/dL (1.8-2.4); PHOSPHORUS 4.5 mg/dL (2.5-4.9)
--- NOTE | 2018-05-12 07:15 | NUR ---
RECEIVED BEDSIDE REPORT FROM TOOL SHARPENER NURSE. PATIENT IS ALERTED AND ORIENTED X4. NO SIGN OF DISTRESS WITH 2L NC. PATIENT HAS TELE MONITOR ATTACHED. PATIENT AMBULATES WITH MINIMAL ASSISTANCE. SKIN INTACT, DRY, WARM AND CLEAN. IV ON LAC 22G INFUSING NS AT 10ML/HR. IV SITE IS CLEAN, INTACT AND PATENT. PATIENT IS CONTINENT. BED IN LOW POSITION, CALL LIGHT WITHIN REACH. WILL CONTINUE TO MONITOR.
[2018-05-12 08:00] VITALS: BP 133/79
[2018-05-12] MEDS: metFORMIN 500 MG TAB PO SCH ×2 (10:17→20:29)
[2018-05-12] MEDS: LISINOPRIL 20 MG TAB PO SCH (10:17)
[2018-05-12] MEDS: CARVEDILOL 3.125 MG TAB PO SCH ×2 (10:18→21:00)
--- NOTE | 2018-05-12 10:22 | NUR ---
ADMINISTERED MEDS ORDERED. PATIENT TOLERATED WELL. NO SIGNS OF DISTRESS. WILL CONTINUE TO MONITOR.
[2018-05-12 12:00] VITALS: BP 102/62
--- NOTE | 2018-05-12 12:15 | NUR ---
PATIENT IS SLEEPING. VITAL SIGNS ARE STABLE. NO SIGNS OF DISTRESS. WILL CONTINUE TO MONITOR.
[2018-05-12] MEDS ORDERED: ALBUTEROL SULFATE/IPRATROPIU 3 ML SOL IH SCH (13:00)
--- NOTE | 2018-05-12 14:23 | NUR ---
PATIENT IS SLEEPING. NO SIGNS OF DISTRESS. WILL CONTINUE TO MONITOR THE PATIENT
[2018-05-12 16:00] VITALS: BP 143/65
--- NOTE | 2018-05-12 16:00 | NUR ---
PATIENT IS TALKING ON HER PHONE. VITAL SIGNS ARE WITHIN NORMAL. NO SIGNS OF DISTRESS. WILL CONTINUE TO MONITOR.
--- NOTE | 2018-05-12 17:28 | NUR ---
HELD GLIPIZIDE DUE TO PT'S BLOOD GLUCOSE OF 83. WILL CONTINUE TO MONITOR.
--- NOTE | 2018-05-12 19:05 | NUR ---
GAVE BEDSIDE REPORT TO ENGINEERING SECRETARY NURSE FOR CONTINUITY OF CARE. PATIENT ENDORSED IN STABLE CONDITION. NO SIGNS OF DISTRESS.
--- NOTE | 2018-05-12 19:10 | NUR ---
RECEIVED REPORT FROM DAYSHIFT NURSE AT BEDSIDE FOR CONTINUITY OF CARE. PT AAOX4. PT IV NOTED LAC 22G NS 10. NO SOB NO S/S OF DISTRESS ON 2L NC O2. BED LOWERED CALL LIGHT WITHIN REACH WILL CONTINUE TO MONITOR.
[2018-05-12 20:00] VITALS: BP 153/82
[2018-05-12] MEDS: ATORVASTATIN 20 MG TAB PO SCH (20:29)
[2018-05-12] MEDS: HYDROcodone/APAP 5/325 MG 1 TAB TAB PO PRN (20:30)
[2018-05-12] MEDS: INSULIN LANTUS 100 UNITS/ML 10 ML VIAL SUBQ SCH (20:40)
[2018-05-12] MEDS: INSULIN LISPRO SLIDING SCALE 100 UNITS/ML VIAL SUBQ PRN (20:40)
[2018-05-12] MEDS ORDERED: guaiFENesin 20 MG/ML UDC PO PRN (20:55)
[2018-05-13] VITALS: BP 133/87
[2018-05-13] MEDS: NACL 0.9% 1,000 ML IV SCH (01:17)
[2018-05-13 04:00] VITALS: BP 103/84
[2018-05-13] MEDS: glipiZIDE 5 MG TAB PO SCH (05:52)
[2018-05-13] MEDS: BLOOD GLUCOSE MONITORING 1 DEV DEV FS SCH ×2 (06:42→11:30)
[2018-05-13 06:59] LABS: BASOPHILS # (AUTO) 0.1 K/uL (0.00-0.22); BASOPHILS % (AUTO) 1.2 % (0.0-2.0); EOSINOPHILS # (AUTO) 0.5 K/uL (0-0.4); HEMATOCRIT 27.8 % (36-48); HEMOGLOBIN 9.1 g/dL (12.0-16.0); LYMPHOCYTES # (AUTO) 1.9 K/uL (2.5-16.5); LYMPHOCYTES % (AUTO) 23.3 % (20.5-51.1); MEAN CORPUSCULAR HEMOGLOBIN 29 pg (27-31); MEAN CORPUSCULAR HGB CONC 33 g/dL (33-37); MONOCYTES # (AUTO) 0.9 K/uL (0.8-1.0); NEUTROPHILS # (AUTO) 4.8 K/uL (1.8-7.7); NEUTROPHILS % (AUTO) 58.5 % (42.2-75.2); PLATELET COUNT (AUTO) 333 K/uL (140-450); RED BLOOD CELL COUNT(AUTO) 3.16 MIL/uL (4.20-5.40); RED CELL DISTRIBUTION WIDTH 13.8 % (11.6-13.7); WHITE BLOOD COUNT (AUTO) 8.3 K/uL (4.8-10.8)
--- NOTE | 2018-05-13 07:15 | NUR ---
ENDORSED REPORT TO DAYSHIFT NURSE AT BEDSIDE FOR CONTINUITY OF CARE.
--- NOTE | 2018-05-13 07:16 | NUR ---
RECEIVED BEDSIDE REPORT FROM KNITTING DEMONSTRATOR NURSE. PATIENT IS APHASIC. TBAR TO AEROSOL MIST. SACRAL WOUND AND ABD WOUND, DRESSINGS ARE CLEAN, DRY AND INTACT. RECTAL BAG AND SUTTON IN PLACE. PATIENT IS INCONTINENT. PICC LINE LEONARDO INFUSING MORPHINE DRIP AT 44. CLEAN, DRY AND INTACT. FALL RISK PROTOCOL IN PLACE. TELE MONITOR IN PLACE. CONTACT PRECAUTIONS ESBL AND MDRO URINE, MDRO WOUND. BED IN LOW POSITION. CALL LIGHT WITHIN REACH. WILL CONTINUE TO MONITOR. FAMILY AT BEDSIDE.
[2018-05-13 07:40] LABS: CARBON DIOXIDE 30.5 mmol/L (21-32); CREATININE 0.7 mg/dL (0.6-1.3); POTASSIUM 4.5 mmol/L (3.5-5.1)
[2018-05-13 07:49] LABS: MAGNESIUM 1.9 mg/dL (1.8-2.4); PHOSPHORUS 3.8 mg/dL (2.5-4.9)
[2018-05-13 08:00] VITALS: BP 108/66
[2018-05-13] MEDS ORDERED: FUROSEMIDE 40 MG/4 ML VIAL IVP SCH (09:00)
[2018-05-13] MEDS ORDERED: CARV3.122 PO (09:41)
[2018-05-13] MEDS ORDERED: FURO-570 PO (09:41)
[2018-05-13] MEDS: CARVEDILOL 3.125 MG TAB PO SCH (09:58)
[2018-05-13] MEDS: metFORMIN 500 MG TAB PO SCH (09:58)
--- NOTE | 2018-05-13 10:00 | NUR ---
ADMINISTERED MEDS. PATIENT TOLERATED WELL. DR MCELROY SAID TO GIVE LASIX AND LISINOPRIL LATER IF B/P STILL OK. BED IN LOW POSITION. CALL LIGHT WITHIN REACH
[2018-05-13 12:00] VITALS: BP 118/53
[2018-05-13] MEDS: LISINOPRIL 20 MG TAB PO SCH (12:54)
--- NOTE | 2018-05-13 12:55 | NUR ---
ADMINISTERED LISINOPRIL AND LASIX. VITALS ARE WNL. WILL CONTINUE TO MONITOR
--- NOTE | 2018-05-13 13:10 | NUR ---
EDUCATED PATIENT ON DISEASE PROCESS, ABN S/SX, WHEN TO GO TO THE ER, EDUCATED ON REFUSAL OF PNA AND FLU VACCINES, EDUCATED ON F/U W PCP AND GET LOSS CONTROL TECHNICIAN REFERRAL, EDUCATED ON MEDS IT IS SENT TO HER PHARMACY ELECTRONICALLY. REMOVED IV, TIP INTACT. REMOVED ID BAND. PATIENT LEFT IN STABLE CONDITION.
== END 2018-05-13 13:10 | disposition home or self-care (01) | DRG 469 ==
LOC: MED 23:40 → MTU 05-10 03:34
PROVIDERS: ADMIT General Practice; ATTEND General Practice
PROC: 0W993ZZ Drainage of Right Pleural Cavity, Percutaneous Approach (ICD-10-PCS; principal; 2018-05-11)
DX: N17.0 Acute kidney failure with tubular necrosis (principal); J96.00 Acute respiratory failure, unspecified whether with hypoxia or hypercapnia; I50.43 Acute on chronic combined systolic (congestive) and diastolic (congestive) heart failure; E43 Unspecified severe protein-calorie malnutrition; J18.9 Pneumonia, unspecified organism; J91.8 Pleural effusion in other conditions classified elsewhere; D68.59 Other primary thrombophilia; E11.21 Type 2 diabetes mellitus with diabetic nephropathy; I11.0 Hypertensive heart disease with heart failure; E11.65 Type 2 diabetes mellitus with hyperglycemia; E11.69 Type 2 diabetes mellitus with other specified complication; I27.20 Pulmonary hypertension, unspecified; E83.42 Hypomagnesemia; B37.3 Candidiasis of vulva and vagina; D64.9 Anemia, unspecified; R65.10 Systemic inflammatory response syndrome (SIRS) of non-infectious origin without acute organ dysfunction; R31.9 Hematuria, unspecified; F15.10 Other stimulant abuse, uncomplicated; E02 Subclinical iodine-deficiency hypothyroidism; E78.5 Hyperlipidemia, unspecified; E66.9 Obesity, unspecified; Z68.28 Body mass index [BMI] 28.0-28.9, adult; Z79.2 Long term (current) use of antibiotics; Z79.84 Long term (current) use of oral hypoglycemic drugs
CPT/HCPCS: 36415; 71045; 76604; 76942; 80048; 80053; 80305; 81001; 82150; 82945; 82948; 83605; 83690; 83735; 83880; 84100; 84157; 84439; 84443; 84484; 85025; 85610; 85730; 87040; 87070; 87075; 87081; 87086; 87102; 87116; 87190; 87205; 87206; 88305; 88342; 89051; 93005; 94640; 96361; 96365; 96368; 96372; 99285; J1815; J1940; J2001; J2543; J3370; J7030; J7060; J7620; Q0092

== ENCOUNTER 2018-06-08 16:26 | Emergency (ER) | payer MEDICAID ==
[~2018-06-08] VITALS: Ht 149.9 cm; Wt 68.5 kg
[~2018-06-08 16:26] MED LIST changes: -AZIT250T11 PO; +CARV3.122 PO; +FURO-570 PO; -FURO-572 PO
[2018-06-08 16:51] VITALS: BP 135/81
--- NOTE | 2018-06-08 17:08 | NUR ---
47 Y/O F W/ C/O OF CHEST PAIN STATES, "MY HEART HURTS", PATIENT WAS GIVEN PRESCRIPTION OF CARVIDOL, PATIENT ALREADY TAKING MEDICATION, HAS BEEN DOUBLING DOSE. PT DENIES N/V/D; SKIN IS INTACT, PINK/WARM/DRY; AAOX4, PERRL, WITH EVEN AND STEADY GAIT; LUNGS CLEAR BL, BREATHING UNLABORED; HR EVEN AND REGULAR, BL PERIPHERAL PULSES PRESENT; BS ACTIVE X4, NO TENDERNESS TO PALPATION, NO HEPATOSPLENOMEGALLY PALPATED, RESONANT TO PERCUSSION; PT STATES 10/10 PAIN AT THIS TIME; VSS; PATIENT POSITIONED FOR COMFORT; HOB ELEVATED; BEDRAILS UP X2; BED DOWN. HX: CHF, DM, PENUMONIA RX ON FILE
--- NOTE | 2018-06-08 17:10 | NUR ---
URINE COLLECTED AT THIS TIME.
[2018-06-08] MEDS ORDERED: ASPI-1718 PO (17:18)
[2018-06-08] MEDS ORDERED: METF1000 PO (17:18)
[2018-06-08] MEDS ORDERED: GLIP5TER PO (17:18)
[2018-06-08] MEDS ORDERED: OMEP20TC12 PO (17:18)
[2018-06-08] MEDS ORDERED: CARV3.12 PO (17:18)
[2018-06-08] MEDS ORDERED: FERR325E14 PO (17:18)
[2018-06-08 18:07] LABS: BASOPHILS # (AUTO) 0.1 K/uL (0.00-0.22); BASOPHILS % (AUTO) 1.2 % (0.0-2.0); EOSINOPHILS # (AUTO) 0.4 K/uL (0-0.4); EOSINOPHILS % (AUTO) 4.1 % (0.0-4.0); HEMATOCRIT 36.2 % (36-48); HEMOGLOBIN 11.9 g/dL (12.0-16.0); LYMPHOCYTES # (AUTO) 1.4 K/uL (2.5-16.5); LYMPHOCYTES % (AUTO) 15.1 % (20.5-51.1); MEAN CORPUSCULAR HEMOGLOBIN 28 pg (27-31); MEAN CORPUSCULAR HGB CONC 33 g/dL (33-37); MEAN CORPUSCULAR VOLUME 85.5 fL (80-94); MONOCYTES # (AUTO) 0.6 K/uL (0.8-1.0); MONOCYTES % (AUTO) 6.3 % (1.7-9.3); NEUTROPHILS # (AUTO) 6.7 K/uL (1.8-7.7); NEUTROPHILS % (AUTO) 73.3 % (42.2-75.2); PLATELET COUNT (AUTO) 367 K/uL (140-450); RED BLOOD CELL COUNT(AUTO) 4.23 MIL/uL (4.20-5.40); RED CELL DISTRIBUTION WIDTH 13.7 % (11.6-13.7); WHITE BLOOD COUNT (AUTO) 9.2 K/uL (4.8-10.8)
[2018-06-08 18:19] LABS: ANION GAP 9.5 (8-16); CARBON DIOXIDE 30.8 mmol/L (21-32); CREATININE 0.8 mg/dL (0.6-1.3); POTASSIUM 4.3 mmol/L (3.5-5.1)
[2018-06-08 18:25] LABS: ALBUMIN 2.9 g/dL (3.4-5.0); TOTAL BILIRUBIN 0.3 mg/dL (0.0-1.0)
[2018-06-08 18:32] LABS: PROTHROMBIN TIME 9.1 secs (10.8-13.4)
[2018-06-08 19:04] VITALS: BP 135/82
--- NOTE | 2018-06-08 19:05 | NUR ---
Patient discharged with v/s stable. Written and verbal after care instructions given and explained. Patient verbalized understanding. Ambulatory with steady gait. All questions addressed prior to discharge. Advised to follow up with PMD.
== END 2018-06-08 19:05 | disposition home or self-care (01) ==
LOC: MED 16:26
DX: R07.89 Other chest pain (principal); R05 Cough
CPT/HCPCS: 36415; 71045; 80053; 83880; 84484; 85025; 85610; 85730; 93005; 99284; Q0092

== ENCOUNTER 2018-09-05 10:12 | Inpatient (IN) | payer MEDICAID ==
[~2018-09-05] VITALS: Ht 149.9 cm; Wt 80.3 kg
[~2018-09-05 10:12] MED LIST changes: +ASPI-1718 PO; +CARV3.12 PO; +FERR325E14 PO; +GLIP5TER PO; +OMEP20TC12 PO
[2018-09-05 10:21] VITALS: BP 189/75
--- NOTE | 2018-09-05 10:27 | NUR ---
Patient ambulated to bed 5 with family. RN evaluating patient at bedside.
--- NOTE | 2018-09-05 10:27 | NUR ---
BIB SON. AAO X4 C/O SOB X4 DAYS. PT STATES COUGH WITH LIGHT YELLOW PHLEGM. TELLY UPPER LOBES WHEEZING UPON AUSCULTATION. DRY HACKING COUGH. PT O2 SAT 98% RA. PT STATES FEVER AND CHILLS LAST NIGHT. PER PT WAS RECENTLY HOSPITALIZED FOR PNA. PT HAS A HX OF CHF AND PT JUST TOOK LASIX 40 MG 1 TAB. HOB UP. BED SIDE RAILS UP X1. ON LOW BED POSITION, LOCKED. ER MADE AWARE OF PT STATUS.
--- NOTE | 2018-09-05 10:35 | NUR ---
DR OLIVAS AT BEDSIDE FOR PT EVALUATION
[2018-09-05] MEDS ORDERED: NITROGLYCERIN 2% 1 GM PKT TP ONE (10:50)
[2018-09-05] MEDS ORDERED: ALBUTEROL SULFATE/IPRATROPIU 3 ML SOL IH ONE (10:50)
[2018-09-05 11:14] LABS: BASOPHILS # (AUTO) 0.1 K/uL (0.00-0.22); BASOPHILS % (AUTO) 0.9 % (0.0-2.0); EOSINOPHILS # (AUTO) 0.4 K/uL (0-0.4); EOSINOPHILS % (AUTO) 3.3 % (0.0-4.0); HEMATOCRIT 28.2 % (36-48); HEMOGLOBIN 9.4 g/dL (12.0-16.0); LYMPHOCYTES # (AUTO) 1.6 K/uL (2.5-16.5); LYMPHOCYTES % (AUTO) 14.3 % (20.5-51.1); MEAN CORPUSCULAR HEMOGLOBIN 28 pg (27-31); MEAN CORPUSCULAR HGB CONC 33 g/dL (33-37); MEAN CORPUSCULAR VOLUME 84.1 fL (80-94); MONOCYTES # (AUTO) 0.9 K/uL (0.8-1.0); MONOCYTES % (AUTO) 7.9 % (1.7-9.3); NEUTROPHILS # (AUTO) 8.2 K/uL (1.8-7.7); NEUTROPHILS % (AUTO) 73.6 % (42.2-75.2); PLATELET COUNT (AUTO) 304 K/uL (140-450); RED BLOOD CELL COUNT(AUTO) 3.35 MIL/uL (4.20-5.40); RED CELL DISTRIBUTION WIDTH 14.1 % (11.6-13.7); WHITE BLOOD COUNT (AUTO) 11.1 K/uL (4.8-10.8)
--- NOTE | 2018-09-05 11:14 | NUR ---
PT AAO X4. O2 SATURATION 100% RA. ACTING AND CONVERSING APPROPRIATELY. NO SIGNS AND SYMPTOMS OF RESPIRATORY DISTRESS NOTED. WILL CONTINUE TO MONITOR.
[2018-09-05 11:20] LABS: APPEARANCE,URINE SLIGHTLY HAZY (CLEAR); BILIRUBIN,URINE NEGATIVE (NEGATIVE); BLOOD, URINE 2+ (NEGATIVE); COLOR,URINE YELLOW (YELLOW); LEUKOCYTE ESTERASE ,URINE NEGATIVE (NEGATIVE); NITRITE, URINE NEGATIVE (NEGATIVE); PH,URINE 5.5 (5.0-9.0); UGLUCOSE NEGATIVE (NEGATIVE)
[2018-09-05 11:23] LABS: ANION GAP 8.4 (8-16); CARBON DIOXIDE 30.2 mmol/L (21-32); CREATININE 0.9 mg/dL (0.6-1.3); POTASSIUM 3.6 mmol/L (3.5-5.1)
[2018-09-05 11:27] LABS: PROTHROMBIN TIME 9.7 secs (10.8-13.4)
[2018-09-05 11:29] LABS: ALBUMIN 2.8 g/dL (3.4-5.0); TOTAL BILIRUBIN 0.3 mg/dL (0.0-1.0)
[2018-09-05 11:30] LABS: WBC,URINE NONE SEEN /HPF (0-5)
[2018-09-05 11:31] LABS: HYALINE CASTS, URINE 0-10 /LPF (None Seen)
[2018-09-05 11:40] VITALS: BP 155/83
[2018-09-05] MEDS ORDERED: PIPERACILLIN/TAZOBACTAM 3.375 GM in DEXTROSE 5% 50 ML IV ONE (11:40)
[2018-09-05] MEDS ORDERED: MORPHINE SULFATE 2 MG/ML SYR IVP PRN (11:55)
[2018-09-05] MEDS ORDERED: HYDROcodone/APAP 7.5/325 MG 1 TAB PO PRN (11:55)
[2018-09-05] MEDS ORDERED: ACETAMINOPHEN 325 MG TAB PO PRN (11:55)
[2018-09-05] MEDS ORDERED: PIPERACILLIN/TAZOBACTAM 3.375 GM VIAL IV ONE (11:58)
[2018-09-05] MEDS ORDERED: CARV6.25 PO (12:20)
[2018-09-05] MEDS ORDERED: FURO-570 PO (12:20)
[2018-09-05] MEDS ORDERED: LISI30TA6 PO (12:20)
--- NOTE | 2018-09-05 12:40 | NUR ---
Patient will be admitted to care of Dr. Mercado. Admited to Med Surg. Will go to [id number]. Belongings list completed. Report to MODESTO Valentine.
--- NOTE | 2018-09-05 12:40 | NUR ---
PATIENT WAS TRANSFERRED FROM ED, AMBULATED TO BED, STEADY GAIT. REPORT WAS GIVEN AT BEDSIDE. VS WAS TAKEN. MRSA WAS SWABBED. PATIENT WAS AWAKE, ALERT. RESPIRATION EVEN, UNLABOR ON ROOM AIR. SKIN DRY AND WARM. IV PATENT AND INTACT. DENIED PAIN, SOB AT THIS TIME. PATIENT WAS ORIENTED TO ROOM ,STAFF, AND CALL LIGHT. PLAN OF CARE WAS DISCUSSED WITH PATIENT. BED AT LOW POSITION, SIDE RAILS UP. CALL LIGHT WITHIN REACH
[2018-09-05 12:46] LABS: BARBITURATE, URINE NEG. ng/ml (NEG <=200); BENZODIAZEPINE, URINE NEG. ng/mL (NEG <=200); CANNABINOID, URINE NEG. ng/mL (NEG <=50); COCAINE, URINE NEG. ng/mL (NEG <=300); OPIATE, URINE NEG. ng/mL (NEG <=2000); PHENCYCLIDINE SCREEN,URINE NEG. ng/mL (NEG <=25)
[2018-09-05] MEDS ORDERED: FUROSEMIDE 40 MG/4 ML VIAL IVP SCH (12:48)
[2018-09-05 12:49] LABS: CHOL/HDL RATIO 4.2 (1-4.5); MAGNESIUM 1.8 mg/dL (1.8-2.4); THYROID STIMULATING HORMONE 4.65 uIU/mL (0.34-3.74)
[2018-09-05] MEDS: NACL 0.9% 1,000 ML IV SCH (13:39)
[2018-09-05] MEDS ORDERED: ALBUTEROL SULFATE/IPRATROPIU 3 ML SOL IH PRN (13:45)
[2018-09-05] MEDS ORDERED: LISI-420 PO (13:47)
[2018-09-05] MEDS ORDERED: DEXTROSE 50% 50 ML SYR IVP PRN (14:10)
--- NOTE | 2018-09-05 14:30 | NUR ---
PATIENT WAS SLEEPING COMFORTABLY. RESPIRATION EVEN, UNLABOR ON ROOM AIR. NO DISTRESS NOTED AT THIS TIME
[2018-09-05] MEDS: AZITHROMYCIN 250 MG in DEXTROSE 5% 250 ML IV SCH (15:10)
--- NOTE | 2018-09-05 15:57 | NUR ---
PATIENT COMPLAINED OF IV SITE GOT SWOLLEN. IV 20G WAS REMOVED, CATHETER INTACT, NO ACTIVE BLEEDING SEEN. NEW IV 22G WAS INSERTED ON RIGHT FOREARM. PATIENT TOLERATED WELL
[2018-09-05 16:00] VITALS: BP 147/81
[2018-09-05] MEDS: metFORMIN 500 MG TAB PO SCH (16:48)
[2018-09-05] MEDS: FUROSEMIDE 40 MG/4 ML VIAL IVP SCH (16:48)
[2018-09-05] MEDS: BLOOD GLUCOSE MONITORING 1 DEV DEV FS SCH ×2 (16:49→20:22)
[2018-09-05] MEDS: INSULIN LISPRO SLIDING SCALE 100 UNITS/ML VIAL SUBQ PRN (16:55)
--- NOTE | 2018-09-05 17:00 | NUR ---
ADMINISTERED SCHEDULED MEDICATIONS TO PATIENT. AT BEDSIDE. PT DENIES PAIN AT THIS TIME. PATIENT RESTING IN BED. WILL CONTINUE TO MONITOR.
--- NOTE | 2018-09-05 18:19 | NUR ---
PATIENT WAS AWAKE, ALERT. RESPIRATION EVEN, UNLABOR ON ROOM AIR. IV PATENT AND INTACT. NO DISTRESS NOTED AT THIS TIME
[2018-09-05 18:55] VITALS: BP 141/78
--- NOTE | 2018-09-05 19:01 | NUR ---
PATIENT COMPLAINED OF "NOT FEELING TOO GOOD", WITH HEADACHE 3/10. DENIED PAIN CHEST PAIN, SOB. NO WHEEZING UPON AUSCULTATION. VS WAS STABLE. PAIN MED WAS GIVEN PER ORDER.
--- NOTE | 2018-09-05 19:34 | NUR ---
ENDORSEMENT GIVEN TO PACKER SAUSAGE AND WIENER NURSE. PATIENT IS STABLE AT THIS TIME
--- NOTE | 2018-09-05 19:35 | NUR ---
RECEIVED FROM AM RN IN BED SLEEPING. NO RESTLESSNESS. WOKE UP EASILY WHEN TOUCHED. ABLE TO VERBALIZE NEEDS WELL. AFEBRILE. DX. OF PNA. RE-ORIENTED TO CALL LIGHT USE. NO COMPLAINTS DONE. ENCOURAGED TO CALL FOR ANY HELP SHE MAY NEED.
[2018-09-05] MEDS: glipiZIDE ER 5 MG TABER PO SCH (20:21)
[2018-09-05] MEDS: ONDANSETRON 4 MG/2 ML VIAL IM/IVP PRN (20:21)
[2018-09-05] MEDS: CARVEDILOL 6.25 MG TAB PO SCH (20:22)
[2018-09-05] MEDS: INSULIN LANTUS 100 UNITS/ML 10 ML VIAL SUBQ SCH (20:22)
--- NOTE | 2018-09-05 20:29 | NUR ---
BLOOD SUGAR DONE PER FINGERSTICK. 74 AND NO INSULIN COVERAGE ADMINISTERED. PROVIDED WITH DM SNACK. GOOD AFFECT. SPOUSE IN HERE VISITING. DENIES PAIN. HELADIO IVP ADMINISTERED RT STATED SHE IS NAUSEOUS . PT. ON IV ABT . VERBALIZING WELL.
[2018-09-05] MEDS: ALBUTEROL SULFATE/IPRATROPIU 3 ML SOL IH SCH (20:49)
[2018-09-05] MEDS ORDERED: FUROSEMIDE 40 MG TAB PO SCH (21:00)
--- NOTE | 2018-09-06 00:15 | NUR ---
PT. STILL AWAKE AND MALE PT. FROM 106 IN HERE AND STILL VISITING HER. ADVISED MALE PT. AND PT. TO SLEEP AND REST NOW. "OK" NO COMPLAINTS DONE.
[2018-09-06 00:26] VITALS: BP 144/83
--- NOTE | 2018-09-06 02:15 | NUR ---
SLEEPING. NO RESTLESSNESS. CALL LIGHT WITH IN REACH.
--- NOTE | 2018-09-06 04:02 | NUR ---
PT. CHECKED. SLEEPING WELL. CALL LIGHT WITH IN REACH.
[2018-09-06] MEDS: BLOOD GLUCOSE MONITORING 1 DEV DEV FS SCH ×4 (05:08→20:09)
--- NOTE | 2018-09-06 05:50 | NUR ---
PATIENT HAS BEEN SCREENED AND CATEGORIZED LOW NUTRITION RISK. PATIENT WILL BE SEEN WITHIN 7 DAYS OF ADMISSION. 09/12/18 JONAH FRITZ MS, RDN
--- NOTE | 2018-09-06 05:52 | NUR ---
AM PERSONAL HYGIENE RENDERED BY CNAS. NO COMPLAINTS DONE. WENT BACK TO BED EASILY. ABLE TO VERBALIZE NEEDS WELL.
[2018-09-06] MEDS: ALBUTEROL SULFATE/IPRATROPIU 3 ML SOL IH SCH ×3 (07:00→19:41)
--- NOTE | 2018-09-06 07:31 | NUR ---
ENDORSED TO THE NEXT RN FOR CONTINUITY OF CARE AWAKE AND ALERT. VERBALIZING WELL.
[2018-09-06 07:45] LABS: BASOPHILS # (AUTO) 0.1 K/uL (0.00-0.22); BASOPHILS % (AUTO) 1.1 % (0.0-2.0); EOSINOPHILS # (AUTO) 0.4 K/uL (0-0.4); HEMATOCRIT 25.9 % (36-48); LYMPHOCYTES # (AUTO) 1.9 K/uL (2.5-16.5); LYMPHOCYTES % (AUTO) 18.9 % (20.5-51.1); MEAN CORPUSCULAR HEMOGLOBIN 29 pg (27-31); MEAN CORPUSCULAR HGB CONC 35 g/dL (33-37); MEAN CORPUSCULAR VOLUME 83.5 fL (80-94); MONOCYTES # (AUTO) 0.8 K/uL (0.8-1.0); MONOCYTES % (AUTO) 8.4 % (1.7-9.3); NEUTROPHILS # (AUTO) 6.7 K/uL (1.8-7.7); NEUTROPHILS % (AUTO) 67.6 % (42.2-75.2); PLATELET COUNT (AUTO) 306 K/uL (140-450); RED CELL DISTRIBUTION WIDTH 14.2 % (11.6-13.7); WHITE BLOOD COUNT (AUTO) 9.9 K/uL (4.8-10.8)
--- NOTE | 2018-09-06 07:46 | NUR ---
RECEIVED HAND OFF REPORT FROM DOOR MANAGER NURSE PT AWAKE IN BED. PT APPEARS STABLE AND IN NO APPARENT DISTRESS. ALL SAFETY MEASURES ARE IN PLACE. WILL CONTINUE TO MONITOR.
[2018-09-06 07:52] LABS: ANION GAP 12.8 (8-16); POTASSIUM 3.8 mmol/L (3.5-5.1)
[2018-09-06 08:02] LABS: MAGNESIUM 1.8 mg/dL (1.8-2.4); PHOSPHORUS 4.8 mg/dL (2.5-4.9)
[2018-09-06] MEDS: FERROUS SULFATE 325 MG TABEC PO SCH (08:50)
[2018-09-06] MEDS: CARVEDILOL 6.25 MG TAB PO SCH ×2 (08:51→20:11)
[2018-09-06] MEDS: metFORMIN 500 MG TAB PO SCH ×2 (08:51→17:00)
[2018-09-06] MEDS: LISINOPRIL 20 MG TAB PO SCH (08:52)
[2018-09-06] MEDS: LACTOBACILLUS RHAMNOSUS GG 1 EACH CAP PO SCH (08:52)
[2018-09-06] MEDS: FUROSEMIDE 40 MG/4 ML VIAL IVP SCH ×2 (08:53→17:00)
--- NOTE | 2018-09-06 10:15 | NUR ---
PT COMPLAINED OF 7/10 PAIN MEDICATION WILL ADMINISTER PAIN MEDICATION PER ORDERS.
[2018-09-06] MEDS: glipiZIDE ER 5 MG TABER PO SCH ×2 (10:23→20:11)
--- NOTE | 2018-09-06 10:41 | NUR ---
FREQUENT ROUNDING ON PT PT IS STABLE AND IN NO APPARENT DISTRESS. ALL SAFETY MEASURES ARE IN PLACE. WILL CONTINUE TO MONITOR.
[2018-09-06] MEDS: NACL 0.9% 1,000 ML IV SCH (11:54)
--- NOTE | 2018-09-06 13:05 | NUR ---
FREQUENT ROUNDING PT IS STABLE AND IN NO APPARENT DISTRESS ALL SAFETY MEASURES ARE IN PLACE WILL CONTINUE TO MONITOR.
[2018-09-06] MEDS: AZITHROMYCIN 250 MG in DEXTROSE 5% 250 ML IV SCH (15:26)
[2018-09-06 16:00] VITALS: BP 140/71
--- NOTE | 2018-09-06 16:05 | NUR ---
FREQUENT ROUNDING PT IS STABLE AND IN NO APPARENT DISTRESS ALL SAFETY MEASURES ARE IN PLACE WILL CONTINUE TO MONITOR.
--- NOTE | 2018-09-06 19:41 | NUR ---
RECIEVED ENDORSEMENT FROM RN DAYSHIFT NURSE AT BEDSIDE FOR CONTINUITY OF CARE, PT IN STABLE CONDITION.
--- NOTE | 2018-09-06 19:41 | NUR ---
ENDORSED PT TO NIGHT NURSE PT IS STABLE AND IN NO APPARENT DISTRESS. ALL SAFETY MEASURES ARE IN PLACE.
--- NOTE | 2018-09-06 19:48 | NUR ---
PATIENT ASKED TO PROVIDE SPUTUM SAMPLE BUT IS CURRENTLY UNABLE. PATIENT'S COUGH IS DRY. SPUTUM SAMPLE CUP LEFT AT BEDSIDE AND WITHIN REACH.
--- NOTE | 2018-09-06 20:00 | NUR ---
PT IN BED WITH ALL FALLS PRECAUTIONS OBSERVED. PT C/O THAT SHE HAD VOMITED X2 AND WOULD LIKE SOMETHING FOR NAUSEAS AND A SHOWER.
[2018-09-06] MEDS: ONDANSETRON 4 MG/2 ML VIAL IM/IVP PRN (20:13)
[2018-09-06] MEDS: INSULIN LISPRO SLIDING SCALE 100 UNITS/ML VIAL SUBQ PRN (20:26)
[2018-09-06] MEDS: INSULIN LANTUS 100 UNITS/ML 10 ML VIAL SUBQ SCH (20:28)
--- NOTE | 2018-09-06 20:30 | NUR ---
PT GIVEN ZOFRAN IVP AND ASSISTED TO SHOWER. PT AMBULATED WITH STANDBY ASSIST TO THE SHOWER ROOM.
--- NOTE | 2018-09-06 23:00 | NUR ---
PT MOVED FORM ROOM 120B TO ROOM 115 TO BE CLOSER TO .
[2018-09-07] VITALS: BP 147/79
--- NOTE | 2018-09-07 00:30 | NUR ---
PT IN BED SITTING UP ALL FALLS PRECAUTIONS OBSERVED AND AT BEDSIDE. V/S FOLLOWS T 97 P 77 R 18 B/P 02 98% ON ROOM AIR. NO C/O VOICED BY PT. IV SITE INTACT AND RUNNING N/S AT 10 TO KVO.
--- NOTE | 2018-09-07 03:00 | NUR ---
PT IN BED SLEEPING NO S/S OF PAIN OR DISTRESS NOTED.
[2018-09-07 06:25] LABS: BASOPHILS # (AUTO) 0.1 K/uL (0.00-0.22); BASOPHILS % (AUTO) 0.8 % (0.0-2.0); EOSINOPHILS # (AUTO) 0.5 K/uL (0-0.4); EOSINOPHILS % (AUTO) 4.6 % (0.0-4.0); HEMATOCRIT 26.2 % (36-48); HEMOGLOBIN 8.9 g/dL (12.0-16.0); LYMPHOCYTES % (AUTO) 19.3 % (20.5-51.1); MEAN CORPUSCULAR HEMOGLOBIN 29 pg (27-31); MEAN CORPUSCULAR HGB CONC 34 g/dL (33-37); MEAN CORPUSCULAR VOLUME 83.6 fL (80-94); MONOCYTES # (AUTO) 0.9 K/uL (0.8-1.0); MONOCYTES % (AUTO) 8.8 % (1.7-9.3); NEUTROPHILS # (AUTO) 6.9 K/uL (1.8-7.7); NEUTROPHILS % (AUTO) 66.5 % (42.2-75.2); PLATELET COUNT (AUTO) 293 K/uL (140-450); RED BLOOD CELL COUNT(AUTO) 3.14 MIL/uL (4.20-5.40); RED CELL DISTRIBUTION WIDTH 14.5 % (11.6-13.7); WHITE BLOOD COUNT (AUTO) 10.4 K/uL (4.8-10.8)
[2018-09-07] MEDS: ALBUTEROL SULFATE/IPRATROPIU 3 ML SOL IH SCH ×2 (06:36→13:00)
[2018-09-07 06:43] LABS: ANION GAP 9.9 (8-16); CARBON DIOXIDE 30.7 mmol/L (21-32); CREATININE 0.9 mg/dL (0.6-1.3); POTASSIUM 3.6 mmol/L (3.5-5.1)
[2018-09-07 06:47] LABS: PHOSPHORUS 4.2 mg/dL (2.5-4.9)
--- NOTE | 2018-09-07 06:48 | NUR ---
MORNING F/S IS 61 PT GIVEN 2 JUICES WILL ENDORSE TO NEXT SHIFT TO RECHECK.
--- NOTE | 2018-09-07 07:30 | NUR ---
RECEIVED BEDSIDE REPORT FROM MODESTO SALES. PATIENT ON MED SURGE AND STANDARD PRECAUTIONS IN PLACE. PATIENT AAOX4 AND ON ROOM AIR, NO DISTRESS NOTED. SKIN INTACT. FALL RISK PROTOCOL IN PLACE. IV ON L AC 20 G INFUSING NS AT 10, IV ASYMPTOMATIC PATENT AND INTACT. PATIENT AMBULATORY AND CONTINENT. BED IN LOW POSITION, CALL LIGHT WITHIN REACH, SIDE RAILS X2 UP
[2018-09-07] MEDS: BLOOD GLUCOSE MONITORING 1 DEV DEV FS SCH ×2 (07:51→11:30)
[2018-09-07 08:00] VITALS: BP 145/78
[2018-09-07] MEDS: metFORMIN 500 MG TAB PO SCH (08:44)
[2018-09-07] MEDS: FUROSEMIDE 40 MG/4 ML VIAL IVP SCH (08:44)
[2018-09-07] MEDS: CARVEDILOL 6.25 MG TAB PO SCH (08:45)
[2018-09-07] MEDS: LISINOPRIL 20 MG TAB PO SCH (08:45)
[2018-09-07] MEDS: LACTOBACILLUS RHAMNOSUS GG 1 EACH CAP PO SCH (08:45)
[2018-09-07] MEDS: FERROUS SULFATE 325 MG TABEC PO SCH (08:45)
[2018-09-07] MEDS: glipiZIDE ER 5 MG TABER PO SCH (08:46)
--- NOTE | 2018-09-07 08:50 | NUR ---
ADMINISTERED SCHEDULED MEDS. PATIENT TOLERATED WELL
--- NOTE | 2018-09-07 11:22 | NUR ---
PATIENT WATCHING TV, ON ROOM AIR, NO DISTRESS NOTED
[2018-09-07] MEDS: NACL 0.9% 1,000 ML IV SCH (11:54)
[2018-09-07] MEDS ORDERED: CYCLOBENZAPRINE 10 MG TAB PO SCH (13:00)
--- NOTE | 2018-09-07 13:06 | NUR ---
ADMINISTERED SCHEDULED MEDS. PATIENT TOLERATED WELL
--- NOTE | 2018-09-07 14:10 | NUR ---
DISCHARGE INSTRUCTIONS PROVIDED TO PATIENT. PATIENT REFUSED PNA VACCINE AT THIS TIME. SKIN INTACT. INFORMED PATIENT WILL PROVIDE HER WITH BUS PASS, PATIENT VERBALIZED UNDERSTANDING. INSTRUCTED TO RETURN TO NEAREST ER IF SHE EXPERIENCES SOB, FEVER, PAIN, ETC. INFORMED PATIENT TO CONTINUE WITH HOME MEDICATIONS AND PROVIDED WITH FOLLOW UP APPOINTMENT. ALL BELONGINGS SENT HOME WITH PATIENT. REMOVED WRIST BANDS AND IV, IV TIP INTACT. ANSWERED ALL QUESTIONS AND CONCERNS
[2018-09-08 09:22] LABS: FOLIC ACID 14.7 ng/mL (>3.0)
== END 2018-09-07 14:10 | disposition home or self-care (01) | DRG 194 ==
LOC: MED 10:12 → MTU 13:12
PROVIDERS: ADMIT General Practice; ATTEND General Practice
DX: I11.0 Hypertensive heart disease with heart failure (principal); E44.0 Moderate protein-calorie malnutrition; I50.43 Acute on chronic combined systolic (congestive) and diastolic (congestive) heart failure; E11.65 Type 2 diabetes mellitus with hyperglycemia; E66.9 Obesity, unspecified; E02 Subclinical iodine-deficiency hypothyroidism; D63.8 Anemia in other chronic diseases classified elsewhere; Z68.35 Body mass index [BMI] 35.0-35.9, adult; Z71.3 Dietary counseling and surveillance; Z79.84 Long term (current) use of oral hypoglycemic drugs; Z79.4 Long term (current) use of insulin; Z79.899 Other long term (current) drug therapy
CPT/HCPCS: 36415; 71045; 80048; 80053; 80305; 81001; 82150; 82607; 82746; 82948; 83036; 83540; 83605; 83690; 83735; 83880; 84100; 84443; 84484; 85025; 85045; 85610; 85730; 87040; 87081; 93005; 94640; 96365; 99285; J0456; J0696; J1815; J1940; J2270; J2405; J2543; J7030; J7060; J7620; Q0092

== ENCOUNTER 2018-10-26 15:50 | Emergency (ER) | payer MEDICAID ==
[~2018-10-26] VITALS: Ht 149.9 cm; Wt 78.6 kg
[~2018-10-26 15:50] MED LIST changes: -ASPI-1718 PO; -ATOR20TA40 PO; -CARV3.12 PO; -CARV3.122 PO; +CARV6.25 PO; -GLIP5TAB13 PO; -OMEP20TC12 PO
[2018-10-26 15:53] VITALS: BP 137/70
--- NOTE | 2018-10-26 16:00 | NUR ---
Patient ambulated to bed 2. RN evaluating patient at bedside.
--- NOTE | 2018-10-26 16:02 | NUR ---
DR OJEDA AT BEDSIDE FOR PT EVALUATION
[2018-10-26] MEDS ORDERED: ALBUTEROL SULFATE/IPRATROPIU 3 ML SOL IH ONE ×2 (16:20→16:40)
--- NOTE | 2018-10-26 16:26 | NUR ---
RT IS BEDSIDE TO DO BREATHING TX.
--- NOTE | 2018-10-26 16:27 | NUR ---
ADMITTING DX: DIFFICULTY BREATHING HX: CHF DENIES ASTHMA COPD LOC AWAKE AND ALERT VERBALLY RESPONSIVE EDUCATION PROVIDED TO PATIENT WITH ACKNOWLEDGEMENT ON [facility] THERAPY AND RESPIRATORY DRUG FORMENTIONED GIVEN ORDERED ENCOURAGED PATIENT FOR INTERMITTENT DEEP BREATHING DURING THERAPY
[2018-10-26 16:37] LABS: BASOPHILS # (AUTO) 0.1 K/uL (0.00-0.22); BASOPHILS % (AUTO) 1.2 % (0.0-2.0); EOSINOPHILS # (AUTO) 0.4 K/uL (0-0.4); EOSINOPHILS % (AUTO) 4.6 % (0.0-4.0); HEMATOCRIT 30.1 % (36-48); HEMOGLOBIN 10.3 g/dL (12.0-16.0); LYMPHOCYTES # (AUTO) 1.6 K/uL (2.5-16.5); LYMPHOCYTES % (AUTO) 19.2 % (20.5-51.1); MEAN CORPUSCULAR HEMOGLOBIN 29 pg (27-31); MEAN CORPUSCULAR HGB CONC 34 g/dL (33-37); MEAN CORPUSCULAR VOLUME 83.9 fL (80-94); MONOCYTES # (AUTO) 0.7 K/uL (0.8-1.0); MONOCYTES % (AUTO) 8.4 % (1.7-9.3); NEUTROPHILS # (AUTO) 5.5 K/uL (1.8-7.7); NEUTROPHILS % (AUTO) 66.6 % (42.2-75.2); PLATELET COUNT (AUTO) 322 K/uL (140-450); RED BLOOD CELL COUNT(AUTO) 3.59 MIL/uL (4.20-5.40); RED CELL DISTRIBUTION WIDTH 13.5 % (11.6-13.7); WHITE BLOOD COUNT (AUTO) 8.3 K/uL (4.8-10.8)
[2018-10-26] MEDS ORDERED: methylPREDNISolone SS 125 MG/2 ML VIAL IVP ONE (16:40)
[2018-10-26 17:02] LABS: ANION GAP 15.6 (8-16); CARBON DIOXIDE 25.7 mmol/L (21-32); CREATININE 1.7 mg/dL (0.6-1.3); POTASSIUM 4.3 mmol/L (3.5-5.1)
[2018-10-26 17:06] LABS: ALBUMIN 2.9 g/dL (3.4-5.0); TOTAL BILIRUBIN 0.4 mg/dL (0.0-1.0)
[2018-10-26 17:08] LABS: PROTHROMBIN TIME 9.3 secs (10.8-13.4)
[2018-10-26 17:21] LABS: THYROID STIMULATING HORMONE 2.47 uIU/mL (0.34-3.74)
--- NOTE | 2018-10-26 17:25 | NUR ---
PT WALKED TO BATH THEN URINE SAMPLE WAS COLLECTED. SL ESTABLISHED. SOLUMEDROL IVP GIVEN.
[2018-10-26 17:54] LABS: APPEARANCE,URINE HAZY (CLEAR); COLOR,URINE YELLOW (YELLOW)
[2018-10-26 17:55] LABS: BILIRUBIN,URINE NEGATIVE (NEGATIVE); BLOOD, URINE 2+ (NEGATIVE); LEUKOCYTE ESTERASE ,URINE NEGATIVE (NEGATIVE); NITRITE, URINE NEGATIVE (NEGATIVE); UGLUCOSE NEGATIVE (NEGATIVE)
[2018-10-26 17:56] LABS: RBC,URINE 11-20 (MOD) /HPF (0-5); WBC,URINE 0-5 /HPF (0-5)
[2018-10-26 18:12] LABS: BARBITURATE, URINE NEG. ng/ml (NEG <=200); BENZODIAZEPINE, URINE NEG. ng/mL (NEG <=200); CANNABINOID, URINE NEG. ng/mL (NEG <=50); COCAINE, URINE NEG. ng/mL (NEG <=300); OPIATE, URINE NEG. ng/mL (NEG <=2000); PHENCYCLIDINE SCREEN,URINE NEG. ng/mL (NEG <=25)
[2018-10-26 18:13] VITALS: BP 141/82
--- NOTE | 2018-10-26 18:13 | NUR ---
Patient discharged with v/s stable. Written and verbal after care instructions given and explained. Patient alert, oriented and verbalized understanding of instructions. Ambulatory with steady gait. All questions addressed prior to discharge. ID band removed. Patient advised to follow up with PMD. Rx of Albuterol, Levaquin, Tessalon Perles, Prednisone given. Patient educated on indication of medication including possible reaction and side effects. Opportunity to ask questions provided and answered.
== END 2018-10-26 18:13 | disposition home or self-care (01) ==
LOC: MED 15:50
DX: J20.9 Acute bronchitis, unspecified (principal); N17.9 Acute kidney failure, unspecified; E11.9 Type 2 diabetes mellitus without complications; I11.0 Hypertensive heart disease with heart failure; I50.9 Heart failure, unspecified; E03.9 Hypothyroidism, unspecified; Z79.4 Long term (current) use of insulin; Z79.899 Other long term (current) drug therapy
CPT/HCPCS: 36415; 71045; 80053; 80305; 81001; 83880; 84443; 84484; 85025; 85610; 85730; 87086; 93005; 94640; 96374; 99284; G0482; J2930; J7620; Q0092

== ENCOUNTER 2018-11-02 00:19 | Emergency (ER) | payer MEDICAID ==
[~2018-11-02] VITALS: Ht 149.9 cm; Wt 78.5 kg
[2018-11-02 00:22] VITALS: BP 170/97
--- NOTE | 2018-11-02 00:42 | NUR ---
PT C/O OF SHORTNESS OF BREATHE AND VOMITTING X4 SINCE YESTERDAY. BREATHE SOUNDS BILATERALLY CLEAR. RESPIRATIONS EVEN AND UNLABORED. PT STATES PAIN LEVEL 7/10 WITH BREATHING. PT STATES SHE HAS NAUSEA. SAFETY MEASURES IN PLACE. ERMD AT BEDSIDE. WILL CONTINUE TO MONITOR.
[2018-11-02 00:53] LABS: EOSINOPHILS # (AUTO) 0.5 K/uL (0-0.4); HEMOGLOBIN 11.1 g/dL (12.0-16.0); MEAN CORPUSCULAR VOLUME 83.9 fL (80-94)
[2018-11-02 00:59] LABS: BASOPHILS % (AUTO) 0.2 % (0.0-2.0); EOSINOPHILS % (AUTO) 2.7 % (0.0-4.0); HEMATOCRIT 33.3 % (36-48); LYMPHOCYTES # (AUTO) 3.4 K/uL (2.5-16.5); MEAN CORPUSCULAR HEMOGLOBIN 28 pg (27-31); MEAN CORPUSCULAR HGB CONC 33 g/dL (33-37); MONOCYTES # (AUTO) 1.3 K/uL (0.8-1.0); MONOCYTES % (AUTO) 7.4 % (1.7-9.3); NEUTROPHILS # (AUTO) 12.6 K/uL (1.8-7.7); NEUTROPHILS % (AUTO) 70.7 % (42.2-75.2); PLATELET COUNT (AUTO) 404 K/uL (140-450); RED BLOOD CELL COUNT(AUTO) 3.97 MIL/uL (4.20-5.40); RED CELL DISTRIBUTION WIDTH 13.2 % (11.6-13.7)
[2018-11-02 01:03] LABS: ANION GAP 11.4 (8-16); CREATININE 1.3 mg/dL (0.6-1.3); POTASSIUM 4.4 mmol/L (3.5-5.1); WHITE BLOOD COUNT (AUTO) 17.9 K/uL (4.8-10.8)
[2018-11-02 01:08] LABS: ALBUMIN 2.8 g/dL (3.4-5.0); TOTAL BILIRUBIN 0.2 mg/dL (0.0-1.0)
[2018-11-02] MEDS ORDERED: PIPERACILLIN/TAZOBACTAM 3.375 GM in DEXTROSE 5% 50 ML IV ONE (01:15)
[2018-11-02] MEDS ORDERED: INSULIN REGULAR, HUMAN 100 UNIT/ML VIAL SUBQ ONE (01:25)
[2018-11-02 01:39] LABS: APPEARANCE,URINE CLEAR (CLEAR); BILIRUBIN,URINE NEGATIVE (NEGATIVE); BLOOD, URINE 2+ (NEGATIVE); COLOR,URINE YELLOW (YELLOW); LEUKOCYTE ESTERASE ,URINE NEGATIVE (NEGATIVE); NITRITE, URINE NEGATIVE (NEGATIVE); PH,URINE 5.5 (5.0-9.0); UGLUCOSE 1+ (NEGATIVE)
[2018-11-02 01:49] LABS: WBC,URINE 0-5 /HPF (0-5)
[2018-11-02] MEDS ORDERED: PIPERACILLIN/TAZOBACTAM 3.375 GM VIAL IV ONE (01:55)
--- NOTE | 2018-11-02 02:05 | NUR ---
PT AMBULATED TO RESTROOM
[2018-11-02 02:37] VITALS: BP 169/92
--- NOTE | 2018-11-02 03:17 | NUR ---
Patient discharged with v/s stable. Written and verbal after care instructions given and explained. Patient alert, oriented and verbalized understanding of instructions. Ambulatory with steady gait. All questions addressed prior to discharge. ID band removed. Patient advised to follow up with PMD. Rx of PROMETHAZINE, LEVAQUIN WAS given. Patient educated on indication of medication including possible reaction and side effects. Opportunity to ask questions provided and answered.
== END 2018-11-02 02:37 | disposition home or self-care (01) ==
LOC: MED 00:19
DX: R06.00 Dyspnea, unspecified (principal); I11.0 Hypertensive heart disease with heart failure; I50.9 Heart failure, unspecified; E11.9 Type 2 diabetes mellitus without complications; E03.9 Hypothyroidism, unspecified; Z79.4 Long term (current) use of insulin; Z79.899 Other long term (current) drug therapy
CPT/HCPCS: 36415; 71045; 80053; 81001; 83605; 83880; 85025; 87040; 87086; 96365; 96372; 99284; J1815; J2543; Q0092

== ENCOUNTER 2018-11-15 15:03 | Inpatient (IN) | payer MEDICAID ==
[~2018-11-15] VITALS: Ht 149.9 cm; Wt 72.6 kg
[2018-11-15 15:28] VITALS: BP 154/81
--- NOTE | 2018-11-15 15:39 | NUR ---
PT AMBULATED TO [facility]
--- NOTE | 2018-11-15 16:23 | NUR ---
PT AMBULATED TO BED 10
--- NOTE | 2018-11-15 16:38 | NUR ---
PT BIB DAUGHTER. AAO X4 C/O ABDOMINAL PAIN, N/V X 2 WEEKS. PT WENT TO [place] X 3 DAYS AGO AND WAS DX WITH STOMACH ULCERS AND WAS PRESCRIBED WITH SULCRAFATE. PT STATES THAT THERE IS NO RELIEF. SKIN IS PINK/WARM/DRY; AAOX4 WITH EVEN AND STEADY GAIT; PT DENIES ANY FEVER, CP, SOB, OR COUGH AT THIS TIME; PATIENT STATES PAIN OF 9/10 AT THIS TIME; VSS; PATIENT POSITIONED FOR COMFORT; HOB ELEVATED; BEDRAILS UP X1; BED DOWN. ER MD MADE AWARE OF PT STATUS.
[2018-11-15] MEDS ORDERED: NACL 0.9% 1,000 ML IV ONE (16:42)
[2018-11-15] MEDS ORDERED: KETOROLAC 30 MG/ML VIAL IVP ONE (16:45)
[2018-11-15] MEDS ORDERED: MORPHINE SULFATE 4 MG/ML SYR IVP ONE (16:45)
[2018-11-15] MEDS ORDERED: ONDANSETRON 4 MG/2 ML VIAL IVP ONE (16:45)
--- NOTE | 2018-11-15 17:04 | NUR ---
ULTRASOUND AT BEDSIDE
[2018-11-15 17:24] LABS: BASOPHILS # (AUTO) 0.1 K/uL (0.00-0.22); BASOPHILS % (AUTO) 0.8 % (0.0-2.0); EOSINOPHILS # (AUTO) 0.4 K/uL (0-0.4); EOSINOPHILS % (AUTO) 3.5 % (0.0-4.0); HEMATOCRIT 30.9 % (36-48); HEMOGLOBIN 10.5 g/dL (12.0-16.0); LYMPHOCYTES % (AUTO) 8.7 % (20.5-51.1); MEAN CORPUSCULAR HEMOGLOBIN 29 pg (27-31); MEAN CORPUSCULAR HGB CONC 34 g/dL (33-37); MEAN CORPUSCULAR VOLUME 84.1 fL (80-94); MONOCYTES # (AUTO) 0.6 K/uL (0.8-1.0); MONOCYTES % (AUTO) 5.7 % (1.7-9.3); NEUTROPHILS % (AUTO) 81.3 % (42.2-75.2); PLATELET COUNT (AUTO) 320 K/uL (140-450); RED BLOOD CELL COUNT(AUTO) 3.68 MIL/uL (4.20-5.40); RED CELL DISTRIBUTION WIDTH 13.5 % (11.6-13.7)
[2018-11-15 17:32] LABS: PROTHROMBIN TIME 8.6 secs (10.8-13.4)
[2018-11-15 17:33] LABS: ANION GAP 13.3 (8-16); CARBON DIOXIDE 27.2 mmol/L (21-32); CHLORIDE 97 mmol/L (98-107); CREATININE 2.3 mg/dL (0.6-1.3); GFR ARICAN-AMERICAN 29 mL/min (>90); GLUCOSE 383 mg/dL (74-106); POTASSIUM 4.5 mmol/L (3.5-5.1); SODIUM SERUM 133 mmol/L (136-145); UREA NITROGEN, BLOOD 56 mg/dL (7-18)
--- NOTE | 2018-11-15 17:35 | NUR ---
EKG PERFORMED AT BEDSIDE
[2018-11-15 17:38] LABS: ALBUMIN 2.9 g/dL (3.4-5.0); AMYLASE 34 U/L (25-115); ASPARTATE AMINOTRANSFERASE 19 U/L (15-37); GAMMA GLUTAMYL TRANSFERASE 18 U/L (7-51); LIPASE 113 U/L (73-393); MAGNESIUM 1.8 mg/dL (1.8-2.4); TOTAL BILIRUBIN 0.3 mg/dL (0.0-1.0)
[2018-11-15 17:52] LABS: ACETONE, SERUM NEGATIVE (NEGATIVE); URIC ACID 10.7 mg/dL (2.6-7.2)
--- NOTE | 2018-11-15 18:53 | NUR ---
Patient returned from CT scan. RN re-evaluating patient at bedside.
[2018-11-15 18:54] LABS: APPEARANCE,URINE CLEAR (CLEAR); BILIRUBIN,URINE NEGATIVE (NEGATIVE); BLOOD, URINE 3+ (NEGATIVE); COLOR,URINE YELLOW (YELLOW); LEUKOCYTE ESTERASE ,URINE NEGATIVE (NEGATIVE); NITRITE, URINE NEGATIVE (NEGATIVE); PH,URINE 5.5 (5.0-9.0); UGLUCOSE 3+ (NEGATIVE)
[2018-11-15 19:13] LABS: WBC,URINE 0-5 /HPF (0-5)
--- NOTE | 2018-11-15 19:17 | NUR ---
REPORT GIVEN TO JULIEN, CARE TRANSFERED AT THIS TIME.
--- NOTE | 2018-11-15 19:30 | NUR ---
RECEIVED REPORT FROM AM NURSE. PT LAYING IN BED, RR EVEN AND UNLABORED. REPORTS TOLERABLE EPIGASTRIC PAIN AT THIS TIME, DENIES NAUSEA. ALL NEEDS MET.
[2018-11-15 19:35] LABS: BARBITURATE, URINE NEG. ng/ml (NEG <=200); BENZODIAZEPINE, URINE NEG. ng/mL (NEG <=200); CANNABINOID, URINE NEG. ng/mL (NEG <=50); COCAINE, URINE NEG. ng/mL (NEG <=300); OPIATE, URINE POS. ng/mL (NEG <=2000); PHENCYCLIDINE SCREEN,URINE NEG. ng/mL (NEG <=25)
[2018-11-15] MEDS ORDERED: DOCUSATE SODIUM 100 MG GELCAP PO PRN (19:40)
[2018-11-15] MEDS ORDERED: ACETAMINOPHEN 325 MG TAB PO PRN (19:40)
[2018-11-15] MEDS ORDERED: LORazepam 2 MG/ML VIAL IM/IVP PRN (19:40)
[2018-11-15] MEDS ORDERED: HYDROcodone/APAP 5/325 MG 1 TAB TAB PO PRN (19:40)
[2018-11-15] MEDS ORDERED: MORPHINE SULFATE 2 MG/ML SYR IVP PRN (19:40)
--- NOTE | 2018-11-15 19:40 | NUR ---
DR SIMONS RESIDENT MD AT BEDSIDE
[2018-11-15] MEDS ORDERED: DEXTROSE 50% 50 ML SYR IVP PRN (19:45)
[2018-11-15] MEDS ORDERED: LISI30TA6 PO (19:46)
[2018-11-15] MEDS ORDERED: SUCR1TAB7 PO (19:46)
[2018-11-15] MEDS ORDERED: PAX10 PO (19:46)
[2018-11-15] MEDS ORDERED: PANT40EC PO (19:46)
[2018-11-15] MEDS ORDERED: BENZ200C4 PO (19:46)
[2018-11-15] MEDS ORDERED: FERR325E14 PO (19:46)
[2018-11-15] MEDS ORDERED: ASPI-1173 PO (19:46)
[2018-11-15] MEDS ORDERED: DIPH25CA86 PO (19:46)
[2018-11-15] MEDS ORDERED: BACL10TA4 PO (19:46)
--- NOTE | 2018-11-15 20:00 | NUR ---
Patient will be admitted to care of DR MABRY. Admited to TELE. Will go to room 105A. Belongings list completed. Report to NANCI SALVADOR AT BEDSIDE.
--- NOTE | 2018-11-15 20:07 | NUR ---
RECEIVED BEDSIDE REPORT FROM CHEMICAL RECLAMATION EQUIPMENT OPERATORMODESTO SEALS VIA RAMSES. PT A/O X4. PERSON, PLACE, TIME AND EVENT. ABLE TO MAKE NEEDS KNOWN. DISCUSSED PLAN OF CARE. VERBALIZED UNDERSTANDING. STANDARD PRECAUTIONS. ROOM AIR. NO SIGNS OF RESP DISTRESS. SKIN IS INTACT. L AC 22G INFUSING SALINE LOCK. PATENT AND INTACT. CONTINENT. AMBULATORY. STEADY GAIT. BED IN LOWEST POSITION. CALL LIGHT WITHIN REACH. WILL CONTINUE TO MONITOR.
[2018-11-15] MEDS ORDERED: ALUMINUM HYD/MAG/SIMETHICONE 30 ML UDC PO SCH (20:15)
[2018-11-15 20:24] LABS: MAGNESIUM 1.8 mg/dL (1.8-2.4); PHOSPHORUS 4.5 mg/dL (2.5-4.9); THYROID STIMULATING HORMONE 1.65 uIU/mL (0.34-3.74)
[2018-11-15] MEDS ORDERED: DICYCLOMINE HCL LIQUID 10 MG/5 ML UDC PO SCH (20:25)
[2018-11-15] MEDS ORDERED: LIDOCAINE VISCOUS 2% 20 ML UDC PO SCH (20:30)
[2018-11-15] MEDS ORDERED: INSULIN LANTUS 100 UNITS/ML 10 ML VIAL SUBQ ONE (21:00)
[2018-11-15] MEDS ORDERED: metFORMIN 500 MG TAB PO SCH (21:00)
[2018-11-15] MEDS ORDERED: FUROSEMIDE 40 MG TAB PO SCH (21:00)
[2018-11-15] MEDS ORDERED: glipiZIDE ER 5 MG TABER PO SCH (21:00)
[2018-11-15] MEDS: BLOOD GLUCOSE MONITORING 1 DEV DEV FS SCH (21:23)
[2018-11-15] MEDS: SUCRALFATE 1 GM TAB PO SCH (21:25)
[2018-11-15] MEDS: BACLOFEN 10 MG TAB PO SCH (21:25)
[2018-11-15] MEDS: CARVEDILOL 6.25 MG TAB PO SCH (21:26)
[2018-11-15] MEDS: FERROUS SULFATE 325 MG TABEC PO SCH (21:37)
[2018-11-15] MEDS: INSULIN LISPRO SLIDING SCALE 100 UNITS/ML VIAL SUBQ PRN (21:41)
--- NOTE | 2018-11-15 21:49 | NUR ---
GLIPIZIDE SCHEDULED FOR 2100 UNABLE TO ADMINISTER. MEDICATION NOT AVAILABLE. NOT IN PT CASSETTE AND UNABLE TO OVERRIDE IN MED PYXIS. CHARGE NURSE AND REAL ESTATE TRANSACTION MANAGER MADE AWARE.
--- NOTE | 2018-11-15 22:10 | NUR ---
FOLLOWING SIGNS PLACED ABOVE DOOR: NPO AFTER MIDNIGHT, BLOOD STOOL OCCULT COLLECTION, STRICT I/O, AND RESTRICTION OF 1.5 L DAILY INTAKE.
--- NOTE | 2018-11-16 | NUR ---
RECIEVED PT AAOX4 , NID ,IV SITE INTACT AND PATENT , ON O2 3LPM/NC , ON TELE , PLAN OF CARE DISCUSSED AND VEBALIZE UNDERSTANDING , BED IN LOW POSITION ,SIDERAILS UPX2 ,CALL LIGHT WITHIN REACH , WILL CONT. TO MONITOR , ON BED ALARM
--- NOTE | 2018-11-16 00:23 | NUR ---
PT NO SIGNS OF DISTRESS. VITALS WNL. NO PAIN REPORTED. SINUS RHYTHM. CALL LIGHT WITHIN REACH. WILL CONTINUE TO MONITOR.
[2018-11-16 00:24] VITALS: BP 89/58
--- NOTE | 2018-11-16 02:48 | NUR ---
PT IS SLEEPING IN BED. EASILY AROUSABLE. DENIES PAIN. NO SOB. NO SIGNS OF DISTRESS. WILL CONTINUE TO MONITOR.
[2018-11-16 04:00] VITALS: BP 136/70
--- NOTE | 2018-11-16 04:31 | NUR ---
PT COMPLAINS OF NAUSEA. REQUESTS ZOFRAN. WILL MEDICATE WITH ZOFRAN PRN. WILL CONTINUE TO MONITOR.
[2018-11-16] MEDS: ONDANSETRON 4 MG/2 ML VIAL IM/IVP PRN ×2 (04:33→10:49)
--- NOTE | 2018-11-16 06:00 | NUR ---
PT IS EASILY AROUSABLE. NO SIGNS OF DISTRESS. EVEN CHEST RISE. ABLE TO MAKE NEEDS KNOWN. CALL LIGHT WITHIN REACH. WILL CONTINUE TO MONITOR.
[2018-11-16] MEDS: BLOOD GLUCOSE MONITORING 1 DEV DEV FS SCH ×4 (06:54→21:00)
--- NOTE | 2018-11-16 06:54 | NUR ---
BLOOD SUGAR 157. WILL ADMINISTER 2 UNITS HUMALOG PER SLIDING SCALE. PT REPORTS ABD PAIN 6/10. WILL ADMINISTER NORCO PRN. WILL CONTINUE TO MONITOR.
[2018-11-16] MEDS ORDERED: NACL 0.9% 1,000 ML IV SCH ×2 (06:57→12:45)
[2018-11-16] MEDS ORDERED: FUROSEMIDE 40 MG TAB PO SCH (06:59)
[2018-11-16] MEDS: INSULIN LISPRO SLIDING SCALE 100 UNITS/ML VIAL SUBQ PRN (07:02)
--- NOTE | 2018-11-16 07:16 | NUR ---
ENDORSED PT TO DAYSHIFT MODESTO DWYER FOR CONTINUITY OF CARE. PT IS IN STABLE CONDITION. VITALS ARE WNL. BED IN LOWEST POSITION. CALL LIGHT WITHIN REACH.
--- NOTE | 2018-11-16 07:17 | NUR ---
RECEIVED ENDORSEMENT FROM CHARGER OPERATOR HELPER NURSE NANCI. PATIENT IS SLEEPING, EASILY AROUSABLE. PATIENT IS AAOX4, ERITREAN SPEAKING. RESPIRATIONS ARE EVEN AND UNLABORED ON ROOM AIR. PATIENT DENIES ANY PAIN AT THIS TIME. LEFT AC 22G IV INTACT AND SL. PLAN OF CARE WAS REVIEWED WITH PATIENT, PATIENT VERBALIZED UNDERSTANDING. SAFETY MEASURES IN PLACE, CALL LIGHT WITHIN REACH.
[2018-11-16 07:34] LABS: ANION GAP 10.5 (8-16); CARBON DIOXIDE 30.6 mmol/L (21-32); CREATININE 2.2 mg/dL (0.6-1.3); POTASSIUM 4.1 mmol/L (3.5-5.1)
[2018-11-16 07:37] LABS: BASOPHILS # (AUTO) 0.1 K/uL (0.00-0.22); BASOPHILS % (AUTO) 0.8 % (0.0-2.0); EOSINOPHILS # (AUTO) 0.4 K/uL (0-0.4); HEMATOCRIT 25.9 % (36-48); HEMOGLOBIN 8.9 g/dL (12.0-16.0); LYMPHOCYTES # (AUTO) 1.9 K/uL (2.5-16.5); LYMPHOCYTES % (AUTO) 21.3 % (20.5-51.1); MEAN CORPUSCULAR HEMOGLOBIN 29 pg (27-31); MEAN CORPUSCULAR HGB CONC 35 g/dL (33-37); MEAN CORPUSCULAR VOLUME 84.4 fL (80-94); MONOCYTES # (AUTO) 0.6 K/uL (0.8-1.0); MONOCYTES % (AUTO) 6.4 % (1.7-9.3); NEUTROPHILS % (AUTO) 66.5 % (42.2-75.2); PLATELET COUNT (AUTO) 273 K/uL (140-450); RED BLOOD CELL COUNT(AUTO) 3.06 MIL/uL (4.20-5.40); RED CELL DISTRIBUTION WIDTH 13.6 % (11.6-13.7)
[2018-11-16 07:55] LABS: CHOL/HDL RATIO 4.8 (1-4.5); MAGNESIUM 1.8 mg/dL (1.8-2.4); PHOSPHORUS 4.5 mg/dL (2.5-4.9)
[2018-11-16 08:00] VITALS: BP 129/55
[2018-11-16] MEDS: glipiZIDE 5 MG TAB PO SCH ×2 (08:09→16:30)
--- NOTE | 2018-11-16 08:10 | NUR ---
ADMINISTERED SCHEDULED MEDICATION. PATIENT TOLERATED WELL. NO OTHER NEEDS AT THIS TIME, WILL CONTINUE TO MONITOR.
--- NOTE | 2018-11-16 08:32 | NUR ---
PATIENT HAS BEEN SCREENED AND CATEGORIZED HIGH NUTRITION RISK. PATIENT WILL BE SEEN WITHIN 1-2 DAYS OF ADMISSION. 11/16/[address]
[2018-11-16] MEDS: CARVEDILOL 6.25 MG TAB PO SCH ×2 (09:01→22:20)
[2018-11-16] MEDS: PANTOPRAZOLE 40 MG TABEC PO SCH (09:01)
[2018-11-16] MEDS: PARoxetine 10 MG TAB PO SCH (09:02)
[2018-11-16] MEDS: BACLOFEN 10 MG TAB PO SCH (09:02)
[2018-11-16] MEDS: SUCRALFATE 1 GM TAB PO SCH (09:02)
[2018-11-16] MEDS: FERROUS SULFATE 325 MG TABEC PO SCH (09:02)
--- NOTE | 2018-11-16 09:05 | NUR ---
ADMINISTERED SCHEDULED MEDICATIONS. PATIENT TOLERATED WELL. NO OTHER NEEDS AT THIS TIME, WILL CONTINUE TO MONITOR.
--- NOTE | 2018-11-16 09:20 | NUR ---
PREOP CHECKLIST COMPLETED. PATIENT HAS SIGNED CONSENT FOR EGD. Addendum: 11/16/18 at 0954 by Vicky Warren RN SCHEDULED AT 11 AM PER CHARGE NURSE CHIRAG.
--- NOTE | 2018-11-16 10:20 | NUR ---
PATIENT VOMITED 100 ML OF CLEAR EMESIS. DR. GARCIA PRESENT AT BEDSIDE. NO OTHER NEEDS AT THIS TIME.
[2018-11-16] MEDS ORDERED: diphenhydrAMINE 50 MG/ML VIAL ONE (10:36)
[2018-11-16] MEDS ORDERED: fentaNYL 0.05 MG/ML VIAL ONE (10:36)
[2018-11-16] MEDS ORDERED: MIDAZOLAM 2 MG/2 ML VIAL ONE (10:36)
--- NOTE | 2018-11-16 10:49 | NUR ---
PATIENT DRY HEAVING. ADMINISTERED ZOFRAN PRN IVP FOR NAUSEA AND VOMITING. PATIENT WAS OBSERVED AMBULATING FROM RESTROOM TO BED WITH UNSTEADY GAIT. PATIENT PLACED ON SAFETY MEASURES. YELLOW ID BAND, GOWN, AND SOCKS WERE PLACED. BED ALARM IS ON.
[2018-11-16] MEDS: NACL 0.9% 1,000 ML IV SCH (10:58)
--- NOTE | 2018-11-16 11:10 | NUR ---
PATIENT LEFT FOR EGD. WILL CONTINUE TO MONITOR UPON RETURN
[2018-11-16] MEDS: MIDAZOLAM 2 MG/2 ML VIAL IVP SCH ×2 (11:51→12:30)
[2018-11-16] MEDS: fentaNYL 0.05 MG/ML VIAL IVP SCH ×2 (11:52→12:30)
[2018-11-16] MEDS: PROMETHAZINE 25 MG/ML VIAL IVP SCH ×2 (11:53→12:30)
[2018-11-16 12:30] VITALS: BP 66/26
--- NOTE | 2018-11-16 12:30 | NUR ---
PATIENT RETURNED FROM EGD. RECEIVED REPORT FROM OR NURSE, BRYCE. PATIENT AROUSED BUT WENT BACK TO SLEEP.
--- NOTE | 2018-11-16 12:32 | NUR ---
VS WERE OBTAINED. CALLED A RAPID RESPONSE FOR LOW BP OF 66/26. PATIENT BECAME UNRESPONSIVE. BLOOD SUGAR WAS CHECKED, NS SALINE BOLUS WAS GIVEN, NARCAN WAS GIVEN AND BP WENT UP TO 96/52. PATIENT BECAME RESPONSIVE. NEW IV WAS INSERTED. NO OTHER NEEDS AT THIS TIME, WILL CONTINUE TO MONITOR.
[2018-11-16] MEDS ORDERED: NALOXONE PFS 2 MG/2 ML SYR ONE (12:48)
--- NOTE | 2018-11-16 12:56 | NUR ---
RAPID RESPONSE FINISHED, PATIENT IS STABLE AT THIS TIME.
[2018-11-16] MEDS ORDERED: AMMONIA AROMATIC 1 INHL INH ONE (12:58)
[2018-11-16] MEDS ORDERED: MAGNESIUM CITRATE 300 ML BTL PO SCH (13:00)
[2018-11-16] MEDS: LACTULOSE 20 GM/30 ML UDC PO SCH ×3 (13:00→22:19)
[2018-11-16] MEDS: SENNA 8.6 MG TAB PO SCH ×2 (13:00→16:53)
--- NOTE | 2018-11-16 13:00 | NUR ---
PATIENT IS STILL SEDATED FROM PROCEDURE. SHE IS AROUSABLE BUT MEDS WERE HELD UNTIL PATIENT IS COMPLETELY ALERT.
[2018-11-16] MEDS ORDERED: SODIUM FERRIC GLUCONATE 125 MG in NACL 0.9% 100 ML IV SCH (14:00)
[2018-11-16] MEDS ORDERED: NALOXONE 0.4 MG/ML VIAL IVP ONE (14:05)
--- NOTE | 2018-11-16 14:30 | NUR ---
11/16/18 RD INITIAL ASSESSMENT COMPLETED PLEASE REFER TO NUTRITION ASSESSMENT UNDER CARE ACTIVITY FOR ESTIMATED NUTRITIONAL NEEDS. 1. CONTINUE NPO MEDICALLY NECESSARY 2. IF/WHEN PATIENT BECOMES MEDICALLY STABLE, AND VOMITING RESOLVED, CONSIDER ADVANCING TO CARDIAC AND CCHO 60 GM SOFT DIET. 3. IF PATIENT DOES NOT IMPROVE AND DOES NOT TOLERATE SOLID FOODS OR LIQUIDS, CONSIDER TPN 4. RD TO FOLLOW-UP 2-3 DAYS, HIGH RISK ZACH HOOKS RD
[2018-11-16 16:00] VITALS: BP 110/56
--- NOTE | 2018-11-16 16:21 | NUR ---
PATIENT SLEEPING, EASILY AROUSABLE. VS ARE STABLE, WILL CONTINUE TO MONITOR.
[2018-11-16] MEDS: METOCLOPRAMIDE 10 MG TAB PO SCH (16:30)
--- NOTE | 2018-11-16 16:30 | NUR ---
PATIENT IS SLEEPING, EASILY AROUSABLE. PATIENT IS STILL SEDATED. MEDICATIONS WERE NOT ADMINISTERED. DR. BARNES AWARE THAT PATIENT IS STILL SLEEPING. PER , HOLD OFF 24 HOUR URINE UNTIL PATIENT IS AWAKE.
--- NOTE | 2018-11-16 16:54 | NUR ---
1700 MEDICATIONS ALSO HELD UNTIL PATIENT FULLY AWAKE TO AVOID ASPIRATION.
--- NOTE | 2018-11-16 18:02 | NUR ---
PATIENT SLEEPING, EASILY AROUSABLE. PATIENT SEEMS MORE ALERT BUT IS STILL LETHARGIC. VS ARE STABLE AT THIS TIME. WILL CONTINUE TO MONITOR.
--- NOTE | 2018-11-16 19:23 | NUR ---
ENDORSED TO CEMENT LOADER NURSE JONES FOR CONTINUITY OF CARE. PATIENT IS STABLE AT THIS TIME. Addendum: 11/16/18 at 1925 by Vicky Warren RN PATIENT AMBULATED TO RESTROOM, PATIENT IS NOW FULLY ALERT. INSTRUCTED TO CEMENT LOADER TO BEGIN 24 HOUR URINE COLLECTION.
[2018-11-16 20:00] VITALS: BP 140/70
[2018-11-16] MEDS: POLYETHYLENE GLYCOL 17 GM/PKT PO SCH (21:00)
--- NOTE | 2018-11-16 22:00 | NUR ---
MADE ROUNDS , RESPIRATION EVEN AND UNLABORED , NO COMPLAIN MADE AT THIS TIME , CALL LIGHT WITHIN REACH.
[2018-11-16] MEDS: AMITRIPTYLINE 10 MG TAB PO SCH (22:20)
[2018-11-17] VITALS (7 sets, daily range): BP systolic 102–168; BP diastolic 54–90
--- NOTE | 2018-11-17 | NUR ---
MADE ROUNDS , RESPIRATION EVEN AND UNLABORED , NO COMPLAIN MADE AT THIS TIME , CALL LIGHT WITHIN REACH
--- NOTE | 2018-11-17 02:00 | NUR ---
VOIDED FREELY , AMBULATORY TO THE REST ROOM . ON 24 HRS URINE COLLECTION.
--- NOTE | 2018-11-17 04:00 | NUR ---
MADE ROUNDS ,RESPIRATION EVEN AND UNLABORED , NO COMPLAIN MADE AT THIS TIME , CALL LIGHT WITHIN REACH
[2018-11-17] MEDS: BLOOD GLUCOSE MONITORING 1 DEV DEV FS SCH ×4 (06:18→21:00)
[2018-11-17 06:22] LABS: T4 (THYROXINE) 6.5 ug/dL (4.5-12.0)
[2018-11-17] MEDS: glipiZIDE 5 MG TAB PO SCH ×2 (06:22→17:34)
[2018-11-17] MEDS: METOCLOPRAMIDE 10 MG TAB PO SCH ×3 (06:23→17:38)
--- NOTE | 2018-11-17 07:25 | NUR ---
ENDORSED TO AM SHIFT . WITH STABLE CONDITION
--- NOTE | 2018-11-17 07:26 | NUR ---
RECEIVED BEDSIDE REPORT FROM GREY GOODS TESTER RN. PATIENT RESTING IN BED, NO SIGNS OF DISTRESS ON RA, PATIENT DOES HAVE ORDER FOR SUPPLEMENTAL O2 AT 2L VIA NC. REMINDED PATIENT TO WEAR NASAL CANULA. NO C/O PAIN. SAFETY PRECAUTIONS IN PLACE. IV INFUSING WELL AT 50ML/HR TO RIGHT HAND IV. IV SITE WRAPPED IN PROTECTIVE GAUZE, NO C/O OF PAIN OR TENDERNESS AT IV SITE. WILL CONTINUE TO MONITOR.
[2018-11-17 07:28] LABS: BASOPHILS # (AUTO) 0.1 K/uL (0.00-0.22); BASOPHILS % (AUTO) 0.8 % (0.0-2.0); EOSINOPHILS # (AUTO) 0.4 K/uL (0-0.4); EOSINOPHILS % (AUTO) 4.2 % (0.0-4.0); HEMATOCRIT 25.6 % (36-48); HEMOGLOBIN 8.7 g/dL (12.0-16.0); LYMPHOCYTES # (AUTO) 1.3 K/uL (2.5-16.5); LYMPHOCYTES % (AUTO) 13.6 % (20.5-51.1); MEAN CORPUSCULAR HEMOGLOBIN 29 pg (27-31); MEAN CORPUSCULAR HGB CONC 34 g/dL (33-37); MEAN CORPUSCULAR VOLUME 85.3 fL (80-94); MONOCYTES # (AUTO) 0.7 K/uL (0.8-1.0); NEUTROPHILS # (AUTO) 7.2 K/uL (1.8-7.7); NEUTROPHILS % (AUTO) 74.4 % (42.2-75.2); PLATELET COUNT (AUTO) 297 K/uL (140-450); RED CELL DISTRIBUTION WIDTH 13.6 % (11.6-13.7); WHITE BLOOD COUNT (AUTO) 9.7 K/uL (4.8-10.8)
[2018-11-17 07:55] LABS: ANION GAP 12.5 (8-16); CARBON DIOXIDE 27.3 mmol/L (21-32); CREATININE 1.5 mg/dL (0.6-1.3); POTASSIUM 3.8 mmol/L (3.5-5.1)
[2018-11-17] MEDS: SENNA 8.6 MG TAB PO SCH ×3 (09:46→17:37)
[2018-11-17] MEDS: PANTOPRAZOLE 40 MG TABEC PO SCH (09:46)
[2018-11-17] MEDS: LACTULOSE 20 GM/30 ML UDC PO SCH ×5 (09:46→21:00)
[2018-11-17] MEDS: CARVEDILOL 6.25 MG TAB PO SCH ×2 (09:47→20:55)
[2018-11-17] MEDS: POLYETHYLENE GLYCOL 17 GM/PKT PO SCH ×3 (09:47→21:00)
--- NOTE | 2018-11-17 09:50 | NUR ---
ADMINISTERED SCHEDULED MEDICATIONS, PATIENT TOLERATED WELL. NO C/O PAIN, IV INFUSING WELL TO RIGHT HAND 22 GAUGE. BP WAS ELEVATED AT 168/90, PATIENT RECEIVED BLOOD PRESSURE MEDICATIONS. WILL RECHECK IN 1 HOUR. SAFETY PRECAUTIONS IN PLACE. CALL LIGHT IN REACH.
[2018-11-17] MEDS: NACL 0.9% 1,000 ML IV SCH (09:56)
[2018-11-17] MEDS: PARoxetine 10 MG TAB PO SCH (09:56)
[2018-11-17 12:07] LABS: FOLIC ACID 7.5 ng/mL (>3.0)
[2018-11-17] MEDS: INSULIN LISPRO SLIDING SCALE 100 UNITS/ML VIAL SUBQ PRN ×3 (12:33→21:01)
--- NOTE | 2018-11-17 12:35 | NUR ---
ADMINISTERED SCHEDULED MEDICATIONS AND 4 UNITS OF HUMALOG FOR GLUCOSE OF 224. NO SIGNS OF DISTRESS OR C/O PAIN. WILL CONTINUE TO MONITOR.
--- NOTE | 2018-11-17 13:45 | NUR ---
PATIENT WATCHING TV. NO SIGNS OF DISTRESS CALL LIGHT IN REACH. WILL CONTINUE TO MONITOR.
--- NOTE | 2018-11-17 15:05 | NUR ---
PATIENT RESTING IN BED, TALKING ON PHONE. NO SIGNS OF DISTRESS. ALL NEEDS MET AT THIS TIME. WILL CONTINUE TO MONITOR.
--- NOTE | 2018-11-17 17:42 | NUR ---
ADMINISTERED SCHEDULED MEDICATIONS AND 2 UNITS OF HUMALOG FOR GLUCOSE OF 188. SAFEY PRECAUTIONS IN PLACE. PATIENT SATING 95% ON RA. CALL LIGHT IN REACH. NO SIGNS OF DISTRESS. NO C/O PAIN.
--- NOTE | 2018-11-17 19:25 | NUR ---
GAVE REPORT TO WEB SITE DESIGNER RN, RANJEET. PATIENT IN TABLE CONDITION.
--- NOTE | 2018-11-17 19:30 | NUR ---
RECEIVED FROM AM RN IN BED SITTING UP. GOOD AFFECT. SMILING. N O COMPLAINTS DONE. PT. GETTING READY AND WAITING FOR A VISITOR . IVP SITE INTACT AND NO INFILTRATION. NO PAIN COMPLAINT AT THIS TIME. CALL LIGHT WITH IN REACH. NO SOB. CARE PLANS FOR THE NIGHT DISCUSSED WITH HER.
--- NOTE | 2018-11-17 19:39 | NUR ---
24 HOUR URINE COLLECTION DONE AND SENT TO LAB.
[2018-11-17] MEDS: AMITRIPTYLINE 10 MG TAB PO SCH (20:55)
--- NOTE | 2018-11-17 21:21 | NUR ---
PT. REFUSED LACTULOSE AND MIRALAX. RESIDENT MD AGUIRRE AWARE.
--- NOTE | 2018-11-18 02:04 | NUR ---
PT. SLEEPING WELL AT THIS TIME. NO SOB. NO RESTLESSNESS. CALL LIGHT WITH IN REACH.
--- NOTE | 2018-11-18 04:24 | NUR ---
SLEEPING WELL. NO RESTLESSNESS. CALL LIGHT WITH IN REACH.
[2018-11-18] MEDS: BLOOD GLUCOSE MONITORING 1 DEV DEV FS SCH ×2 (05:24→12:02)
[2018-11-18] MEDS: METOCLOPRAMIDE 10 MG TAB PO SCH ×2 (05:29→12:23)
[2018-11-18] MEDS: glipiZIDE 5 MG TAB PO SCH (05:29)
[2018-11-18] MEDS: INSULIN LISPRO SLIDING SCALE 100 UNITS/ML VIAL SUBQ PRN ×2 (05:30→12:31)
--- NOTE | 2018-11-18 05:56 | NUR ---
PT. BLOOD SUGAR TAKEN PER FINGERSTICK = 190. ABLE TO VERBALIZE NEEDS WELL. CALL LIGHT WITH IN REACH. PT. NO COMPLAINTS DONE.
--- NOTE | 2018-11-18 07:05 | NUR ---
RECEIVED BEDSIDE REPORT FROM PACKING ROOM INSPECTOR NURSE. PATIENT ON MED SURGE FLOOR AND STANDARD PRECAUTIONS IN PLACE. PATIENT AAOX4, ON ROOM AIR, NO DISTRESS NOTED. SKIN INTACT, AMBULATORY AND CONTINENT. IV ON R AC 22G INFUSING NS AT 50, IV PATENT AND INTACT. BED IN LOW POSITION, CALL LIGHT WITHIN REACH, SIDE RAILS X2 UP
[2018-11-18 07:20] LABS: BASOPHILS # (AUTO) 0.1 K/uL (0.00-0.22); BASOPHILS % (AUTO) 0.9 % (0.0-2.0); EOSINOPHILS # (AUTO) 0.5 K/uL (0-0.4); EOSINOPHILS % (AUTO) 5.4 % (0.0-4.0); HEMATOCRIT 24.5 % (36-48); HEMOGLOBIN 8.3 g/dL (12.0-16.0); LYMPHOCYTES # (AUTO) 1.6 K/uL (2.5-16.5); LYMPHOCYTES % (AUTO) 18.4 % (20.5-51.1); MEAN CORPUSCULAR HEMOGLOBIN 29 pg (27-31); MEAN CORPUSCULAR HGB CONC 34 g/dL (33-37); MEAN CORPUSCULAR VOLUME 85.5 fL (80-94); MONOCYTES # (AUTO) 0.7 K/uL (0.8-1.0); MONOCYTES % (AUTO) 8.5 % (1.7-9.3); NEUTROPHILS # (AUTO) 5.7 K/uL (1.8-7.7); NEUTROPHILS % (AUTO) 66.8 % (42.2-75.2); PLATELET COUNT (AUTO) 268 K/uL (140-450); RED BLOOD CELL COUNT(AUTO) 2.86 MIL/uL (4.20-5.40); RED CELL DISTRIBUTION WIDTH 13.7 % (11.6-13.7); WHITE BLOOD COUNT (AUTO) 8.5 K/uL (4.8-10.8)
[2018-11-18 07:32] LABS: ANION GAP 10.2 (8-16); CARBON DIOXIDE 24.8 mmol/L (21-32); CREATININE 1.3 mg/dL (0.6-1.3)
[2018-11-18 07:44] LABS: MAGNESIUM 2.1 mg/dL (1.8-2.4); PHOSPHORUS 3.4 mg/dL (2.5-4.9)
[2018-11-18 08:00] VITALS: BP 152/84
[2018-11-18] MEDS: CARVEDILOL 6.25 MG TAB PO SCH (08:34)
[2018-11-18] MEDS: PARoxetine 10 MG TAB PO SCH (08:35)
[2018-11-18] MEDS: LACTULOSE 20 GM/30 ML UDC PO SCH ×2 (08:35→12:23)
[2018-11-18] MEDS: POLYETHYLENE GLYCOL 17 GM/PKT PO SCH (08:35)
[2018-11-18] MEDS: SENNA 8.6 MG TAB PO SCH ×2 (08:36→12:23)
[2018-11-18] MEDS: PANTOPRAZOLE 40 MG TABEC PO SCH (08:36)
--- NOTE | 2018-11-18 08:46 | NUR ---
ADMINISTERED SCHEDULED MEDS. PATIENT TOLERATED WELL
[2018-11-18] MEDS ORDERED: ELA10 PO (11:04)
[2018-11-18] MEDS ORDERED: FURO-570 PO (11:09)
--- NOTE | 2018-11-18 11:25 | NUR ---
PATIENT AMBULATED TO RESTROOM
--- NOTE | 2018-11-18 12:25 | NUR ---
ADMINISTERED SCHEDULED MEDS
--- NOTE | 2018-11-18 15:27 | NUR ---
Search Engine Optimization Strategist Notes: I met with patient at bedside to discuss discharge plan. She reported she has never received home health services before. I provided her with information on home health services. Patient is in agreement with home health services. I confirmed with her, her home address [address] [place] [address]. I called and spoke with Winchman/Crane Operator Génesis , fax regarding MD's home health order. Per Génesis, I can contact [facility] , fax , authorization for home health [id number] and can contact [facility] for fww, / , fax , authorization [id number]. I called and spoke with Chelsie from [facility], she stated they will review referral and call me back. I called and spoke with Gilberto from [facility], he stated they don't have a service parts driver available today to deliver fww to hospital, however, one of their drivers is able to deliver fww to patient's home tomorrow, he is unsure what time, Charge Nurse Ambar made aware.
--- NOTE | 2018-11-18 16:17 | NUR ---
Media Production Manager Note: Jose Guerrier from [email or web address] , fax , they checked insurance eligibility benefits and at this time they are not accepting [facility] referrals, unable to accept referral. I faxed referral to another home health company ([facility] [phone]) Bench Lay Out Technician Génesis , fax told me to contact. Addendum: 11/18/18 at 1622 by Eloise ARGUELLO I spoke with Mary from [facility], I obtained their fax number from her. Addendum: 11/18/18 at 1623 by Eloise ARGUELLO [facility] fax number
--- NOTE | 2018-11-18 16:39 | NUR ---
Instant Potato Processing Supervisor Notes: Per Mary from [facility] [phone], they are not accepting [facility] referrals at this time.
--- NOTE | 2018-11-18 16:40 | NUR ---
PATIENT DISCHARGED ORDERED HOME. PATIENT REFUSED PNA VACCINE, FLU VACCINE NOT IN SEASON. ALL BELONGING SENT HOME WITH PATIENT. SKIN INTACT. EDUCATED PATIENT TO FOLLOW UP WITH PCP WITHIN 1 WEEK AND TO CONTINUE MEDICATIONS AND NEW MEDICATIONS, PROVIDED PATIENT WITH PRESCRIPTIONS. PATIENT VERBALIZED UNDERSTANDING. REMOVED WRIST BANDS AND IVS, BOTH IV TIPS INTACT. INSTRUCTED TO RETURN TO NEAREST ER IF SHE EXPERIENCES SOB, FEVER, PAIN, ETC SOON POSSIBLE. ANSWERED ALL QUESTIONS AND CONCERNS. PROVIDED PATIENT WITH HOSPITAL FWW AND REMINDED PATIENT TO RETURN FWW BACK TOMORROW WHEN HOME HEALTH DELIVERS HER OWN PERSONAL FWW TO HER HOME. PATIENT THEN STATED SHE WOULD RATHER JUST WAIT FOR HER OWN WALKER TO BE DELIVERED THAN TO HAVE TO COME BACK THE NEXT DAY TO RETURN HOSPITAL FWW. PATIENT DID NOT GO HOME WITH HOSPITAL FWW. CHARGE NURSE AWARE.
--- NOTE | 2018-11-19 15:50 | NUR ---
Museum Assistant Note: Late entry for 11/18/18: I faxed inquiry to [facility], fax . Per Eleanor from [facility] , they are able to accept referral and will send a nurse to patient's home tomorrow 11/19/18.
== END 2018-11-18 16:40 | disposition home health service (06) | DRG 241 ==
LOC: MED 15:03 → MTU 19:41
PROVIDERS: ADMIT General Practice; ATTEND General Practice
PROC: 0D778ZZ Dilation of Stomach, Pylorus, Via Natural or Artificial Opening Endoscopic (ICD-10-PCS; principal; 2018-11-16 11:00)
PROC: 0DB68ZX Excision of Stomach, Via Natural or Artificial Opening Endoscopic, Diagnostic (ICD-10-PCS; 2018-11-16 11:00)
DX: K29.70 Gastritis, unspecified, without bleeding (principal); N17.0 Acute kidney failure with tubular necrosis; I50.43 Acute on chronic combined systolic (congestive) and diastolic (congestive) heart failure; E87.3 Alkalosis; E44.0 Moderate protein-calorie malnutrition; K31.3 Pylorospasm, not elsewhere classified; E11.22 Type 2 diabetes mellitus with diabetic chronic kidney disease; E87.1 Hypo-osmolality and hyponatremia; K21.9 Gastro-esophageal reflux disease without esophagitis; E78.5 Hyperlipidemia, unspecified; I13.0 Hypertensive heart and chronic kidney disease with heart failure and stage 1 through stage 4 chronic kidney disease, or unspecified chronic kidney disease; F41.9 Anxiety disorder, unspecified; E86.0 Dehydration; G89.29 Other chronic pain; D63.8 Anemia in other chronic diseases classified elsewhere; E66.9 Obesity, unspecified; E86.9 Volume depletion, unspecified; N18.4 Chronic kidney disease, stage 4 (severe); Z68.32 Body mass index [BMI] 32.0-32.9, adult
CPT/HCPCS: 36415; 43245; 71045; 76705; 76770; 80048; 80053; 80305; 81001; 81025; 82009; 82150; 82272; 82570; 82607; 82728; 82746; 82948; 82977; 83036; 83540; 83605; 83690; 83735; 83880; 83935; 84100; 84300; 84436; 84443; 84484; 84550; 84703; 85025; 85045; 85610; 86677; 87040; 87081; 87086; 93005; 93925; 96361; 96374; 96375; 97116; 97161-GP; 99285; G0482; J1200; J1815; J1885; J2250; J2270; J2310; J2405; J2916; J3010; J7030; J8597; Q0092; Q0163

== ENCOUNTER 2018-12-20 21:26 | Emergency (ER) | payer MEDICAID ==
[~2018-12-20] VITALS: Ht 149.9 cm; Wt 81.6 kg
[~2018-12-20 21:26] MED LIST changes: +ASPI-1173 PO; +BACL10TA4 PO; +BENZ200C4 PO; +DIPH25CA86 PO; +ELA10 PO; -LISI-420 PO; +LISI30TA6 PO; +PANT40EC PO; +PAX10 PO; +SUCR1TAB7 PO
[2018-12-20 21:45] VITALS: BP 128/72
--- NOTE | 2018-12-20 21:54 | NUR ---
PT TO [facility].
--- NOTE | 2018-12-21 00:06 | NUR ---
PT CALLED. NO RESPONSE.
--- NOTE | 2018-12-21 00:12 | NUR ---
PT CALLED. NO RESPONSE.
--- NOTE | 2018-12-21 00:18 | NUR ---
PT CALLED. NO RESPONSE. PT LWBS AT 006
[2018-12-22] MEDS ORDERED: GLIP5TER PO (04:29)
[2018-12-22] MEDS ORDERED: LISI30TA6 PO (04:29)
== END 2018-12-21 00:06 | disposition left against medical advice (07) ==
LOC: MED 21:26
DX: R06.00 Dyspnea, unspecified (principal); R05 Cough; Z53.21 Procedure and treatment not carried out due to patient leaving prior to being seen by health care provider
CPT/HCPCS: 82948

== ENCOUNTER 2018-12-21 00:48 | Emergency (ER) | payer MEDICAID ==
[~2018-12-21] VITALS: Ht 149.9 cm; Wt 81.6 kg
[2018-12-21 00:54] VITALS: BP 145/90
--- NOTE | 2018-12-21 00:56 | NUR ---
to lobby a/w bed ambulatory
--- NOTE | 2018-12-21 03:30 | NUR ---
PATIENT CALLED TO PUT ON A BED NO RESPONSE
--- NOTE | 2018-12-21 03:35 | NUR ---
CALLED FOR THE SECOND TIME , NO RESPONSE
--- NOTE | 2018-12-21 03:40 | NUR ---
CALLED FOR THE THIRD TIME NO RESPONSE
[2018-12-22] MEDS ORDERED: GLIP5TER PO (04:29)
[2018-12-22] MEDS ORDERED: LISI30TA6 PO (04:29)
== END 2018-12-21 03:30 | disposition left against medical advice (07) ==
LOC: MED 00:48
DX: R05 Cough (principal); R06.00 Dyspnea, unspecified; Z53.21 Procedure and treatment not carried out due to patient leaving prior to being seen by health care provider

== ENCOUNTER 2018-12-21 20:04 | Inpatient (IN) | payer MEDICAID ==
[~2018-12-21] VITALS: Ht 149.9 cm; Wt 81.6 kg
[2018-12-21 20:07] VITALS: BP 97/63
--- NOTE | 2018-12-21 20:07 | NUR ---
PT AMBULATED TO BED 01 WITH STEADY GAIT.
--- NOTE | 2018-12-21 20:15 | NUR ---
48 YO F BIB SELF FROM HOME PRESENTS TO ED C/O DIFFICULTY BREATHING X 5 DAYS. PT STATES "I WENT TO MY DOCTOR TODAY AND SHE SAID MY LUNGS WERE CLEAR BUT SHE TOLD ME TO GO TO THE ER IF I CONTINUE TO FEEL SOB". PT ALSO REPORTS CHEST DISCOMFORT BUT STATES THAT SHE HAS THIS "ALL THE TIME". PT ALSO STATES "MY BLOOD SUGAR WAS 4-SOMETHING AT THE DOCTOR TODAY." -- PT AWAKE, A/O X 4, CALM, COOPERATIVE. ANSWERS QUESTIONS APPROPRIATELY. BEHAVIOR AGE APPROPRIATE. -- SKIN PINK, WARM, DRY. BREATHING EVEN, UNLABORED. LUNGS CTA. SPO2 97% ON RA. PMH-- CHF, KIDNEY FAILIURE STAGE 3, DM, HTN
--- NOTE | 2018-12-21 20:20 | NUR ---
PT AMBULATED TO WITH STEADY GAIT. URINE CUP PROVIDED.
--- NOTE | 2018-12-21 20:30 | NUR ---
ILENE KING EVALUATING AT BEDSIDE.
--- NOTE | 2018-12-21 21:14 | NUR ---
PT TAKEN TO RAD
[2018-12-21 21:24] LABS: BASOPHILS # (AUTO) 0.1 K/uL (0.00-0.22); BASOPHILS % (AUTO) 1.1 % (0.0-2.0); EOSINOPHILS # (AUTO) 0.4 K/uL (0-0.4); EOSINOPHILS % (AUTO) 4.3 % (0.0-4.0); HEMATOCRIT 30.4 % (36-48); HEMOGLOBIN 10.3 g/dL (12.0-16.0); LYMPHOCYTES # (AUTO) 1.9 K/uL (2.5-16.5); MEAN CORPUSCULAR HEMOGLOBIN 29 pg (27-31); MEAN CORPUSCULAR HGB CONC 34 g/dL (33-37); MEAN CORPUSCULAR VOLUME 84.7 fL (80-94); MONOCYTES # (AUTO) 0.7 K/uL (0.8-1.0); MONOCYTES % (AUTO) 7.4 % (1.7-9.3); NEUTROPHILS # (AUTO) 6.9 K/uL (1.8-7.7); NEUTROPHILS % (AUTO) 68.2 % (42.2-75.2); PLATELET COUNT (AUTO) 309 K/uL (140-450); RED BLOOD CELL COUNT(AUTO) 3.59 MIL/uL (4.20-5.40); RED CELL DISTRIBUTION WIDTH 13.7 % (11.6-13.7); WHITE BLOOD COUNT (AUTO) 10.2 K/uL (4.8-10.8)
--- NOTE | 2018-12-21 21:35 | NUR ---
EMT PERFORMING EKG AT BEDSIDE.
[2018-12-21 21:42] LABS: ALBUMIN 2.6 g/dL (3.4-5.0); ANION GAP 10.7 (8-16); CARBON DIOXIDE 28.9 mmol/L (21-32); CREATININE 1.4 mg/dL (0.6-1.3); POTASSIUM 4.6 mmol/L (3.5-5.1); TOTAL BILIRUBIN 0.2 mg/dL (0.0-1.0)
--- NOTE | 2018-12-21 22:30 | NUR ---
PT RESTING COMFORTABLY IN BED AWAKE, ALERT WITH VSS. NO S/SX RESPIRATORY DISTRESS, INCREASED WOB NOTED. SKIN PINK, WARM, DRY. BREATHING EVEN, UNLABORED.
[2018-12-21 22:54] LABS: APPEARANCE,URINE SL CLOUDY (CLEAR); BILIRUBIN,URINE NEGATIVE (NEGATIVE); BLOOD, URINE 1+ (NEGATIVE); COLOR,URINE YELLOW (YELLOW); LEUKOCYTE ESTERASE ,URINE NEGATIVE (NEGATIVE); NITRITE, URINE NEGATIVE (NEGATIVE); UGLUCOSE 2+ (NEGATIVE)
[2018-12-21 23:09] LABS: WBC,URINE 0-5 /HPF (0-5)
--- NOTE | 2018-12-21 23:30 | NUR ---
PT RESTING COMFORTABLY IN BED AWAKE, ALERT WITH VSS. NO S/SX RESPIRATORY DISTRESS, INCREASED WOB NOTED. SKIN PINK, WARM, DRY. BREATHING EVEN, UNLABORED.
--- NOTE | 2018-12-22 00:14 | NUR ---
PT RESTING COMFORTABLY IN BED AWAKE, ALERT WITH VSS. PT EATING CRACKERS. SKIN PINK, WARM, DRY. BREATHING EVEN, UNLABORED.
[2018-12-22] MEDS ORDERED: FAMOTIDINE 20 MG/2 ML VIAL IV PRN (00:15)
[2018-12-22] MEDS ORDERED: DOCUSATE SODIUM 100 MG GELCAP PO PRN (00:15)
[2018-12-22] MEDS ORDERED: ONDANSETRON 4 MG/2 ML VIAL IM/IVP PRN (00:15)
[2018-12-22] MEDS ORDERED: HYDROcodone/APAP 7.5/325 MG 1 TAB PO PRN (00:15)
[2018-12-22] MEDS ORDERED: LORazepam 2 MG/ML VIAL IM/IVP PRN (00:15)
[2018-12-22] MEDS ORDERED: DEXTROSE 50% 50 ML SYR IVP PRN (00:40)
[2018-12-22] MEDS ORDERED: GLUCAGON 1 MG VIAL IVP PRN (00:40)
[2018-12-22 00:50] VITALS: BP 168/88
--- NOTE | 2018-12-22 00:50 | NUR ---
RECEIVED BEDSIDE REPORT FROM ER NURSE. PATIENT IS AWAKE, ALERT, AND COOPERATIVE. ADMITTING DIAGNOSIS CHEST PAIN POSSIBLE ACS. RESPIRATION EVEN UNLABORED ON ROOM AIR. SKIN IS WARM AND DRY. IV PATENT AND INTACT. DENIES PAIN. HEART RATE REGULAR. S1&S2 NOTED. LUNGS SOUNDS CLEAR ON AUSCULTATION. NO DISTRESS NOTED. ABDOMEN SOFT AND NON-TENDER. BOWEL SOUNDS PRESENT IN ALL 4 QUADRANTS. LAST BM 12/21/18. VITALS WERE TAKEN. MRSA SCREEN DONE. PATIENT IS LEGALLY BLIND. ALL SAFETY MEASURES IN PLACE. PLAN OF CARE WAS DISCUSSED. ORIENT PATIENT TO ROOM, STAFF, AND CALL LIGHT. BED IS AT LOW POSITION. CALL LIGHT WITHIN REACH AND VERBALIZES ITS USE. WILL CONTINUE TO MONITOR.
--- NOTE | 2018-12-22 00:50 | NUR ---
Patient will be admitted to care of Dr. Mercado. Admited to TELE. Will go to room 122B. Belongings list completed. Report to MODESTO Bryan .
[2018-12-22 00:58] LABS: PROTHROMBIN TIME 8.7 secs (10.8-13.4)
[2018-12-22 01:22] LABS: BARBITURATE, URINE NEG. ng/ml (NEG <=200); BENZODIAZEPINE, URINE NEG. ng/mL (NEG <=200); CANNABINOID, URINE NEG. ng/mL (NEG <=50); COCAINE, URINE NEG. ng/mL (NEG <=300); OPIATE, URINE POS. ng/mL (NEG <=2000); PHENCYCLIDINE SCREEN,URINE NEG. ng/mL (NEG <=25)
[2018-12-22 01:24] LABS: CHOL/HDL RATIO 5.9 (1-4.5); FREE T4 (FREE THYROXINE) 0.87 ng/dL (0.76-1.46); MAGNESIUM 2.4 mg/dL (1.8-2.4); PHOSPHORUS 3.4 mg/dL (2.5-4.9)
[2018-12-22] MEDS ORDERED: ALBUTEROL SULFATE/IPRATROPIU 3 ML SOL IH PRN (01:35)
--- NOTE | 2018-12-22 01:58 | NUR ---
PATIENT IN BED ON THE PHONE NO DISTRESS NOTED. WILL CONTINUE TO MONITOR
[2018-12-22 04:00] VITALS: BP 109/60
--- NOTE | 2018-12-22 04:00 | NUR ---
CHECKED PATIENT. PATIENT SLEEPING RESPIRATION EVEN UNLABORED ON ROOM AIR. NO DISTRESS NOTED. CALL LIGHT WITHIN REACH. WILL CONTINUE TO MONITOR.
[2018-12-22] MEDS ORDERED: hydrALAZINE 20 MG/ML VIAL IVP PRN (04:05)
[2018-12-22] MEDS ORDERED: GLIP5TER PO (04:29)
[2018-12-22] MEDS ORDERED: LISI30TA6 PO (04:29)
[2018-12-22] MEDS ORDERED: ALBUTEROL SULFATE/IPRATROPIU 3 ML SOL IH SCH ×2 (06:00→13:14)
--- NOTE | 2018-12-22 06:15 | NUR ---
PATIENT BLOOD GLUCOSE 433. NOTIFIED THE RESIDENTS AND ORDERED 12UNITS OF INSULIN. WILL MONITOR S/SX OF HYPO-HYPERGLYCEMIA.
--- NOTE | 2018-12-22 06:15 | NUR ---
PATIENT WOKE UP WITH HEADACHE 7/10 PRN TYLENOL GIVEN PER ORDER. WILL MONITOR ITS EFFECTIVENESS.
[2018-12-22] MEDS: ACETAMINOPHEN 325 MG TAB PO PRN (06:16)
[2018-12-22] MEDS: INSULIN LISPRO SLIDING SCALE 100 UNITS/ML VIAL SUBQ PRN ×4 (06:25→20:23)
[2018-12-22] MEDS: BLOOD GLUCOSE MONITORING 1 DEV DEV FS SCH ×4 (06:28→20:16)
[2018-12-22 06:34] LABS: ANION GAP 10.8 (8-16); CARBON DIOXIDE 26.7 mmol/L (21-32); CREATININE 1.4 mg/dL (0.6-1.3); POTASSIUM 4.5 mmol/L (3.5-5.1)
--- NOTE | 2018-12-22 07:08 | NUR ---
ENDORSED PATIENT TO DAY SHIFT NURSE. PATIENT IN STABLE CONDITION.
[2018-12-22 07:24] LABS: BASOPHILS # (AUTO) 0.1 K/uL (0.00-0.22); BASOPHILS % (AUTO) 0.5 % (0.0-2.0); EOSINOPHILS # (AUTO) 0.4 K/uL (0-0.4); EOSINOPHILS % (AUTO) 4.2 % (0.0-4.0); HEMATOCRIT 27.2 % (36-48); HEMOGLOBIN 9.1 g/dL (12.0-16.0); LYMPHOCYTES # (AUTO) 2.2 K/uL (2.5-16.5); LYMPHOCYTES % (AUTO) 21.3 % (20.5-51.1); MEAN CORPUSCULAR HEMOGLOBIN 29 pg (27-31); MEAN CORPUSCULAR HGB CONC 33 g/dL (33-37); MONOCYTES # (AUTO) 0.8 K/uL (0.8-1.0); MONOCYTES % (AUTO) 8.1 % (1.7-9.3); NEUTROPHILS # (AUTO) 6.8 K/uL (1.8-7.7); NEUTROPHILS % (AUTO) 65.9 % (42.2-75.2); PLATELET COUNT (AUTO) 275 K/uL (140-450); RED BLOOD CELL COUNT(AUTO) 3.16 MIL/uL (4.20-5.40); WHITE BLOOD COUNT (AUTO) 10.3 K/uL (4.8-10.8)
--- NOTE | 2018-12-22 07:25 | NUR ---
RECEIVED BEDSIDE REPORT FROM AIRCRAFT TOOL MAKER NURSE, PT IS AWAKE AND ALERT, NO S/S OF ANY ACUTE DISTRESS NOTED. PT IS ON ROOM AIR, SKIN INTACT, IV SITE NOTED ON THE R AC 20 G, SALINE LOCKED. FALL PRECAUTIONS ARE IN PLACE, CALL LIGHT IS WITHIN REACH. WILL CONTINUE TO MONITOR.
[2018-12-22] MEDS ORDERED: PANTOPRAZOLE 40 MG TABEC PO SCH (07:39)
[2018-12-22 08:00] VITALS: BP 161/86
--- NOTE | 2018-12-22 08:02 | NUR ---
PATIENT HAS BEEN SCREENED AND CATEGORIZED HIGH NUTRITION RISK. PATIENT WILL BE SEEN WITHIN 1-2 DAYS OF ADMISSION. 12/22/18-12/23/[address]
[2018-12-22] MEDS ORDERED: CARVEDILOL 6.25 MG TAB PO SCH ×2 (09:00→10:45)
[2018-12-22] MEDS ORDERED: glipiZIDE ER 5 MG TABER PO SCH (09:00)
[2018-12-22] MEDS ORDERED: LISINOPRIL 10 MG TAB PO SCH (09:00)
[2018-12-22] MEDS: ASPIRIN 81 MG TAB.CHEW PO SCH (09:57)
[2018-12-22] MEDS: FERROUS SULFATE 325 MG TABEC PO SCH ×2 (09:57→20:27)
[2018-12-22] MEDS: BACLOFEN 10 MG TAB PO SCH ×2 (09:57→20:26)
[2018-12-22] MEDS: PARoxetine 10 MG TAB PO SCH (09:57)
[2018-12-22] MEDS: FUROSEMIDE 20 MG/2 ML VIAL IVP SCH (09:58)
--- NOTE | 2018-12-22 10:00 | NUR ---
AM MEDS ADMINISTERED, PT TOLERATED WELL. PT C/O A HEADACHE, SAYS THAT TYLENOL DOES NOT USUALLY HELP HER HEADACHES, AND THAT SHE TAKES IBUPROFEN AT HOME. DR DOBBS IS AWARE AND WILL ORDER IBUPROFEN.
[2018-12-22] MEDS ORDERED: IBUPROFEN 600 MG TAB PO PRN (10:20)
--- NOTE | 2018-12-22 10:35 | NUR ---
PT'S BP IS 148/[address] DOBBS IS AWARE.
--- NOTE | 2018-12-22 10:40 | NUR ---
ADMINISTERED THE EXTRA ONE-TIME DOSE OF CARVEDILOL AND ONE-TIME DOSE OF LISINOPRIL PER MD ORDER. WILL RECHECK PT'S BP WITHIN AN HOUR.
[2018-12-22] MEDS ORDERED: LISINOPRIL 5 MG TAB PO SCH (10:45)
[2018-12-22] MEDS ORDERED: ASCORBIC ACID 500 MG TAB PO SCH (11:00)
--- NOTE | 2018-12-22 11:21 | NUR ---
PT'S STEFANO IS 125/74 AT THIS TIME
[2018-12-22 12:00] VITALS: BP 125/74
--- NOTE | 2018-12-22 13:26 | NUR ---
12/22/18 RD INITIAL ASSESSMENT COMPLETED PLEASE REFER TO NUTRITION ASSESSMENT UNDER CARE ACTIVITY FOR ESTIMATED NUTRITIONAL NEEDS. 1. CONTINUE CCHO 60 GM, NA2GM DIET AND FLUID RESTRICTION OF [address] PROVIDED NUTRITION EDUCATION THERAPY FOR HEART FAILURE AND DIABETES. PATIENT ACCEPTED 3. RD TO FOLLOW-UP 5-7 DAYS, LOW RISK ZACH [address]OOKS RD
--- NOTE | 2018-12-22 14:50 | NUR ---
RECEIVED REPORT ABOUT THE PT FROM MODESTO WU, PT IS ASLEEP AND LYING ON THE BED, RESPIRATION IS EVEN AND NO SIGN OF DISTRESS NOTED. WILL MONITOR PT.
--- NOTE | 2018-12-22 14:57 | NUR ---
PT ENDORSED TO JONH SALVADOR FOR CONTINUITY OF CARE.
[2018-12-22 16:00] VITALS: BP 132/69
--- NOTE | 2018-12-22 16:49 | NUR ---
BLOOD GLUCOSE CHECK DONE TO PTY AND RESULT IS 235, INSULIN COVERAGE NEEDED, WILL ADMINISTER INSYULIN.
[2018-12-22] MEDS: glipiZIDE 5 MG TAB PO SCH (17:22)
[2018-12-22] MEDS: CARVEDILOL 6.25 MG TAB PO SCH (17:22)
--- NOTE | 2018-12-22 17:22 | NUR ---
PT IS AWAKE INSULIN 4 UNITS WAS GIVEN ON THE RT UA, ORAL MEDICATIONS WERE GIVEN AND PT TOLERATED IT. WILL MONITORMPT.
--- NOTE | 2018-12-22 19:00 | NUR ---
ENDORSED PATIENT TO SALOON KEEPER NURSE, JULY FOR CONTINUING OF CARE
--- NOTE | 2018-12-22 19:01 | NUR ---
RECEIVED REPORT FROM AM NURSE. PT SITTING UP IN CHAIR AT BEDSIDE. AWAKE, ALERT AND ORIENTED X4. ABLE TO ANSWER QUESTIONS AND FOLLOW COMMANDS. VISIBLE CHEST RISE AND FALL ON ROOM AIR, NO DISTRESS NOTED. LEFT AC 22G INTACT AND PATENT WITH SALINE FLUSH. AT BEDSIDE. PT C/O HEADACHE, GIVEN NORCO 172 BUT PT STATES "IT DIDN'T WORK". ON FALL PRECAUTIONS, BED IN LOW POSITION, BED ALARM ON. PT BLIND, SIGN ABOVE BED. CALL LIGHT WITHIN REACH.
[2018-12-22] MEDS: ALBUTEROL SULFATE/IPRATROPIU 3 ML SOL IH SCH (19:15)
[2018-12-22 20:00] VITALS: BP 116/68
--- NOTE | 2018-12-22 20:23 | NUR ---
MEDICATION ADMINISTERED. INSULIN GIVEN FOR BLOOD GLUCOSE LEVEL 381. PT C/O HEADACHE, WILL INFORM
[2018-12-22] MEDS ORDERED: INSULIN LANTUS 100 UNITS/ML 10 ML VIAL SUBQ SCH ×2 (21:00)
[2018-12-22] MEDS ORDERED: KETOROLAC 15 MG/ML VIAL IVP SCH (21:15)
--- NOTE | 2018-12-22 21:21 | NUR ---
TORADOL ADMINISTERED FOR HEADACHE.
--- NOTE | 2018-12-22 22:21 | NUR ---
ROUNDED ON PT. PT SLEEPING. VISIBLE CHEST RISE AND FALL ON ROOM AIR. NO VISIBLE SIGNS OF DISTRESS. CALL LIGHT WITHIN REACH.
[2018-12-23] VITALS: BP 114/67
--- NOTE | 2018-12-23 | NUR ---
VITALS TAKEN. PT SLEEPING BUT EASILY AWAKEN BY VOICE. DENIES PAIN. CALL LIGHT WITHIN REACH.
--- NOTE | 2018-12-23 02:30 | NUR ---
ASSISTED PT TO BATHROOM AND BACK TO BED. NO C/O DISCOMFORT.
[2018-12-23] MEDS: ACETAMINOPHEN 325 MG TAB PO PRN (02:46)
[2018-12-23 04:00] VITALS: BP 143/79
--- NOTE | 2018-12-23 04:00 | NUR ---
VITALS TAKEN. PT SLEEPING IN RIGHT LATERAL POSITION. EASILY AWAKEN BY TOUCH. BREATHING SYMMETRICAL AND UNLABORED. CALL LIGHT WITHIN REACH.
[2018-12-23] MEDS ORDERED: PANTOPRAZOLE 40 MG TABEC PO SCH (06:30)
[2018-12-23] MEDS: glipiZIDE 5 MG TAB PO SCH (06:32)
[2018-12-23 06:33] LABS: MAGNESIUM 2.5 mg/dL (1.8-2.4); PHOSPHORUS 3.9 mg/dL (2.5-4.9)
[2018-12-23] MEDS: INSULIN LISPRO SLIDING SCALE 100 UNITS/ML VIAL SUBQ PRN ×3 (06:33→12:30)
--- NOTE | 2018-12-23 06:33 | NUR ---
MEDICATION ADMINISTERED. INSULIN GIVEN FOR BLOOD GLUCOSE LEVEL 269
[2018-12-23] MEDS: ALBUTEROL SULFATE/IPRATROPIU 3 ML SOL IH SCH (06:37)
[2018-12-23] MEDS: BLOOD GLUCOSE MONITORING 1 DEV DEV FS SCH ×2 (06:42→10:09)
[2018-12-23 06:45] LABS: MEAN CORPUSCULAR HEMOGLOBIN 29 pg (27-31); MEAN CORPUSCULAR HGB CONC 33 g/dL (33-37); MEAN CORPUSCULAR VOLUME 85.3 fL (80-94); PLATELET COUNT (AUTO) 300 K/uL (140-450); RED BLOOD CELL COUNT(AUTO) 3.52 MIL/uL (4.20-5.40); RED CELL DISTRIBUTION WIDTH 13.6 % (11.6-13.7); WHITE BLOOD COUNT (AUTO) 10.2 K/uL (4.8-10.8)
[2018-12-23 07:08] LABS: ANION GAP 12.6 (8-16); CARBON DIOXIDE 23.9 mmol/L (21-32); CREATININE 1.4 mg/dL (0.6-1.3); POTASSIUM 4.5 mmol/L (3.5-5.1)
--- NOTE | 2018-12-23 07:10 | NUR ---
LAB CALLED TO REPORT BUN 70. ENDORSED TO DAY SHIFT.
--- NOTE | 2018-12-23 07:15 | NUR ---
RECEIVED BEDSIDE REPORT FROM IRRIGATION SYSTEM OPERATOR NURSE. PT SLEEPING IN BED. AROUSED BY NAME, ORIENTED X4. ABLE TO ANSWER QUESTIONS AND FOLLOW COMMANDS. NO S/S OF DISTRESS ON ROOM AIR. LUNG SOUNDS CLEAR,BOWELS SOUNDS ACTIVE. LEFT AC 22G INTACT AND PATENT, SL. NO COMPLAIN OF PAIN. FALL PRECAUTIONS IN PLACE, BED IN LOWEST POSITION, BED ALARM ON. CALL LIGHT WITHIN REACH.
[2018-12-23 08:00] VITALS: BP 107/58
[2018-12-23] MEDS: CARVEDILOL 6.25 MG TAB PO SCH (08:00)
[2018-12-23] MEDS: FERROUS SULFATE 325 MG TABEC PO SCH (08:23)
[2018-12-23] MEDS: BACLOFEN 10 MG TAB PO SCH (08:23)
[2018-12-23] MEDS: ASPIRIN 81 MG TAB.CHEW PO SCH (08:23)
[2018-12-23] MEDS: FUROSEMIDE 20 MG/2 ML VIAL IVP SCH (08:24)
[2018-12-23] MEDS: PARoxetine 10 MG TAB PO SCH (08:29)
[2018-12-23 08:56] LABS: EOSINOPHILS % (MANUAL) 7 % (0-4); LYMPHOCYTES % (MANUAL) 20 % (20-46); MONOCYTES % (MANUAL) 6 % (5-12)
[2018-12-23] MEDS ORDERED: LISINOPRIL 5 MG TAB PO SCH (09:00)
[2018-12-23] MEDS ORDERED: ASCORBIC ACID 500 MG TAB PO SCH (09:00)
--- NOTE | 2018-12-23 10:00 | NUR ---
PT WALKING IN THE HALLWAY, STATING SHE WANTS TO LEAVE. NOTHING WORKS FOR HER HEADACHE. SHE SAID SHE HAS TRIED TYLENOL AND NORCO. SHE SAID HER HEADACHE JUST GOT WORSE AFTER THE BREAKFAST. TOLD PT THAT I WILL ASK THE DR TO GIVE HER SOMETHING DIFFERENT FOR THE HEADACHE, PT AGREED. WALKED HER BACK TO HER ROOM.
--- NOTE | 2018-12-23 10:09 | NUR ---
CHECKED PT'S BLOOD SUGAR 299, WILL GIVE INSULIN. AND DR ORDERED TORADOL IVP FOR HEADACHE
--- NOTE | 2018-12-23 10:25 | NUR ---
PT WALKING IN THE HALLWAY, STATING SHE WANTS TO LEAVE. NOTHING WORKS FOR HER HEADACHE. SHE SAID SHE HAS TRIED TYLENOL AND NORCO. SHE SAID HER HEADACHE JUST GOT WORSE AFTER THE BREAKFAST. TOLD PT THAT I WILL ASK THE DR TO GIVE HER SOMETHING DIFFERENT FOR THE HEADACHE, PT AGREED. WALKED HER BACK TO HER ROOM. Addendum: 12/23/18 at 1054 by José Miguel Hogan RN TIME WAS 1000AM
[2018-12-23] MEDS ORDERED: KETOROLAC 15 MG/ML VIAL IM SCH (10:30)
[2018-12-23] MEDS ORDERED: VITC500 PO (11:09)
[2018-12-23] MEDS ORDERED: PANT40EC28 PO (11:09)
[2018-12-23] MEDS ORDERED: LANTUS SUBQ (11:09)
[2018-12-23] MEDS ORDERED: CARV6.252 PO (11:09)
[2018-12-23] MEDS ORDERED: LISI-424 PO (11:09)
[2018-12-23 12:00] VITALS: BP 154/77
[2018-12-23] MEDS ORDERED: PNEUMOCOCCAL VACCINE 23 MCG/0.5 ML VIAL IMVAC SCH (12:00)
--- NOTE | 2018-12-23 12:15 | NUR ---
PT C/O N/V. WILL GIVE ZOFRAN.
--- NOTE | 2018-12-23 12:30 | NUR ---
PT ATE LUNCH. FINISHED 90% OF THE PLATE.
--- NOTE | 2018-12-23 13:35 | NUR ---
DISCHARGE INSTRUCTIONS AND MED TEACHING GIVEN. PT VERBALIZED UNDERSTANDING. PT IS AWARE OF HER NEXT PCP APPOINTMENT. DC'D IV, TIP INTACT, PRESSURE APPLIED. TELE BOX REMOVED. PT DRESSED HERSELF. PT WHEELED OUT BY CONSTRUCTION ADMINISTRATIVE ASSISTANT.
[2018-12-23 15:07] LABS: FOLIC ACID 8.6 ng/mL (>3.0)
== END 2018-12-23 13:32 | disposition home or self-care (01) | DRG 194 ==
LOC: MED 20:04 → MTU 12-22 00:26
PROVIDERS: ADMIT General Practice; ATTEND General Practice
PROC: 3E0234Z Introduction of Serum, Toxoid and Vaccine into Muscle, Percutaneous Approach (ICD-10-PCS; principal; 2018-12-23)
DX: I13.0 Hypertensive heart and chronic kidney disease with heart failure and stage 1 through stage 4 chronic kidney disease, or unspecified chronic kidney disease (principal); N17.0 Acute kidney failure with tubular necrosis; E44.0 Moderate protein-calorie malnutrition; E11.22 Type 2 diabetes mellitus with diabetic chronic kidney disease; D68.59 Other primary thrombophilia; E11.65 Type 2 diabetes mellitus with hyperglycemia; I50.43 Acute on chronic combined systolic (congestive) and diastolic (congestive) heart failure; K21.9 Gastro-esophageal reflux disease without esophagitis; F32.9 Major depressive disorder, single episode, unspecified; N18.9 Chronic kidney disease, unspecified; F41.9 Anxiety disorder, unspecified; G89.29 Other chronic pain; D63.8 Anemia in other chronic diseases classified elsewhere; D50.9 Iron deficiency anemia, unspecified; Z68.36 Body mass index [BMI] 36.0-36.9, adult; Z86.73 Personal history of transient ischemic attack (TIA), and cerebral infarction without residual deficits; Z79.82 Long term (current) use of aspirin; Z79.4 Long term (current) use of insulin; Z79.899 Other long term (current) drug therapy; Z87.891 Personal history of nicotine dependence; Z23 Encounter for immunization
CPT/HCPCS: 36415; 71045; 71046; 80048; 80053; 80305; 81001; 82140; 82150; 82550; 82607; 82728; 82746; 82948; 83540; 83605; 83615; 83690; 83735; 83880; 84100; 84439; 84443; 84484; 84550; 85025; 85045; 85610; 85730; 87081; 87086; 90732; 93005; 94640; 99285; J1815; J1885; J1940; J2405; J7620; Q0163

== ENCOUNTER 2018-12-23 19:03 | Emergency (ER) | payer MEDICAID ==
[~2018-12-23] VITALS: Ht 149.9 cm; Wt 78.7 kg
[~2018-12-23 19:03] MED LIST changes: -BENZ200C4 PO; +CARV6.252 PO; -ELA10 PO; +LANTUS SUBQ; +LISI-424 PO; -METF1000 PO; -PANT40EC PO; +PANT40EC28 PO; -SUCR1TAB7 PO; +VITC500 PO
--- NOTE | 2018-12-23 19:09 | NUR ---
PT TAKEN TO BED 1.
[2018-12-23 19:13] VITALS: BP 165/83
--- NOTE | 2018-12-23 19:20 | NUR ---
48 Y/O FEMALE, BIB PT WAS HERE THIS MORNING FOR PAUL, DIZZINESS AND ABD PAIN X3 DAYS, CAME BACK TONIGHT STILL C/O OF SAME ISSUE AND NOW WITH VOMITING, PT STATED "AFTER THEY GAVE ME TORADOL I FELT NAUSEATED AND I VOMITTED AT HOME", C/O EPIGASTRIC PAIN 10/10 NON-RADIATING. -DIARRHEA, PT AAOX4, RR EVEN UNLABORED, GCS 15, ED MD DR SAMUELS MADE AWARE, WILL CONTINUE TO MONITOR CLOSELY. BED LOCKED IN LOWEST POSITION. SIDERAIL UPX1.
--- NOTE | 2018-12-23 19:20 | NUR ---
Fly mej[facility] in [facility] - 12/23/18 at 1952 by CASS BIB FAMILY W/ C/O PAUL, DIZZINESS, VOMITING, ABDOMINAL PAIN SINCE YESTERDAY
[2018-12-23] MEDS ORDERED: KETOROLAC 30 MG/ML VIAL IVP ONE (19:25)
[2018-12-23] MEDS ORDERED: ONDANSETRON 4 MG/2 ML VIAL IVP ONE (19:25)
[2018-12-23] MEDS ORDERED: NACL 0.9% 1,000 ML IV ONE (19:25)
[2018-12-23] MEDS ORDERED: diphenhydrAMINE 50 MG/ML VIAL IVP ONE (19:50)
[2018-12-23] MEDS ORDERED: METOCLOPRAMIDE 10 MG/2 ML INJ VIAL IVP ONE (19:50)
--- NOTE | 2018-12-23 21:00 | NUR ---
PT RESTING IN BED, VSS AT THIS TIME. WILL CONTINUE TO MONITOR CLOSELY.
[2018-12-23 22:44] VITALS: BP 117/65
--- NOTE | 2018-12-23 22:44 | NUR ---
Patient discharged with v/s stable. Written and verbal after care instructions given and explained. Patient alert, oriented and verbalized understanding of instructions. Ambulatory with steady gait. All questions addressed prior to discharge. ID band removed. Patient advised to follow up with PMD. Rx of ZOFRAN 8MG, MOTRIN 800MG AND PERCOCET 5MG-325MG given. Patient educated on indication of medication including possible reaction and side effects. Opportunity to ask questions provided and answered.
== END 2018-12-23 22:44 | disposition home or self-care (01) ==
LOC: MED 19:03
DX: R51 Headache (principal); R11.2 Nausea with vomiting, unspecified; I11.0 Hypertensive heart disease with heart failure; I50.9 Heart failure, unspecified; E11.9 Type 2 diabetes mellitus without complications; Z87.448 Personal history of other diseases of urinary system; Z98.890 Other specified postprocedural states; Z79.899 Other long term (current) drug therapy; Z79.82 Long term (current) use of aspirin
CPT/HCPCS: 81002; 82948; 96361; 96374; 96375; 99283; J1200; J2765; J7030

== ENCOUNTER 2019-01-21 00:27 | Emergency (ER) | payer MEDICAID ==
[~2019-01-21] VITALS: Ht 149.9 cm; Wt 87.5 kg
[~2019-01-21 00:27] MED LIST changes: -CARV6.25 PO; -DIPH25CA86 PO; -INSU100S22 SUBQ; -LISI30TA6 PO
[2019-01-21 00:35] VITALS: BP 167/87
[2019-01-21] MEDS: FUROSEMIDE 40 MG/4 ML VIAL IVP ONE (01:19)
[2019-01-21 01:21] LABS: BASOPHILS # (AUTO) 0.1 K/uL (0.00-0.22); BASOPHILS % (AUTO) 0.8 % (0.0-2.0); EOSINOPHILS # (AUTO) 0.4 K/uL (0-0.4); EOSINOPHILS % (AUTO) 3.7 % (0.0-4.0); HEMATOCRIT 26.5 % (36-48); HEMOGLOBIN 8.6 g/dL (12.0-16.0); LYMPHOCYTES # (AUTO) 1.9 K/uL (2.5-16.5); MEAN CORPUSCULAR HEMOGLOBIN 28 pg (27-31); MEAN CORPUSCULAR HGB CONC 33 g/dL (33-37); MEAN CORPUSCULAR VOLUME 87.3 fL (80-94); MONOCYTES # (AUTO) 0.8 K/uL (0.8-1.0); NEUTROPHILS % (AUTO) 71.5 % (42.2-75.2); PLATELET COUNT (AUTO) 308 K/uL (140-450); RED BLOOD CELL COUNT(AUTO) 3.03 MIL/uL (4.20-5.40); RED CELL DISTRIBUTION WIDTH 13.5 % (11.6-13.7); WHITE BLOOD COUNT (AUTO) 11.2 K/uL (4.8-10.8)
[2019-01-21 01:36] LABS: ALBUMIN 2.8 g/dL (3.4-5.0); ANION GAP 11.2 (8-16); CREATININE 1.1 mg/dL (0.6-1.3); POTASSIUM 4.2 mmol/L (3.5-5.1); TOTAL BILIRUBIN 0.3 mg/dL (0.0-1.0)
[2019-01-21 03:30] VITALS: BP 168/88
== END 2019-01-21 03:07 | disposition home or self-care (01) ==
LOC: MED 00:27
DX: R06.02 Shortness of breath (principal); I50.9 Heart failure, unspecified; E11.9 Type 2 diabetes mellitus without complications; I10 Essential (primary) hypertension; Z98.890 Other specified postprocedural states; Z79.4 Long term (current) use of insulin; Z79.899 Other long term (current) drug therapy
CPT/HCPCS: 36415; 71045; 80053; 83880; 84484; 85025; 93005; 96374; 99284; J1940; Q0092

== ENCOUNTER 2019-04-04 05:06 | Inpatient (IN) | payer MEDICAID ==
[~2019-04-04] VITALS: Ht 149.9 cm; Wt 92.1 kg
[2019-04-04 05:10] VITALS: BP 181/94
--- NOTE | 2019-04-04 05:30 | NUR ---
PT ARRIVED TO ED C/O SOB X TODAY. RATES PAIN 7/10 AND DESCRIBES IT PRESSURE. LUNG SOUNDS CLEAR ON UPPER AND ON INSPIRATION AND MILD CRACKLES ON RIGHT LOWER LOBE ON EXPIRATION. VSS. SPO2 95% RA. HEART SOUNDS S1S2 PRESENT. PULSES PRESENT BILAT ON EXTREM. +2 NONPITTING EDEMA PRESENT ON LEFT LEG. STEADY GAIT. PT STATES SHE USES A RECLINER TO SLEEP. A & O X 4 (PERSON, PLACE, , SITUATION). NKA. PMH: CHF,HTN,DM.
--- NOTE | 2019-04-04 05:40 | NUR ---
EKG PERFORMED AT BEDSIDE
--- NOTE | 2019-04-04 07:12 | NUR ---
BLOOD COLLECTED AND SENT TO LAB.
--- NOTE | 2019-04-04 07:15 | NUR ---
RECEIVED REPORT FROM MODESTO STEINER.
--- NOTE | 2019-04-04 07:15 | NUR ---
Pt report given to MODESTO BEST. Transfer of care at this time.
--- NOTE | 2019-04-04 07:30 | NUR ---
XRAY AT BEDSIDE.
--- NOTE | 2019-04-04 07:52 | NUR ---
PT STATES SHE IS STILL HAVING DIFFICULTY TAKING A DEEP BREATH. PT POSITIONED IN BED, HIGH FOWLERS, STATES POSITION CHANGE HELPS.
[2019-04-04 08:04] LABS: BASOPHILS # (AUTO) 0.1 K/uL (0.00-0.22); EOSINOPHILS # (AUTO) 0.4 K/uL (0-0.4); EOSINOPHILS % (AUTO) 3.7 % (0.0-4.0); HEMATOCRIT 29.9 % (36-48); HEMOGLOBIN 9.9 g/dL (12.0-16.0); LYMPHOCYTES # (AUTO) 1.6 K/uL (2.5-16.5); LYMPHOCYTES % (AUTO) 13.8 % (20.5-51.1); MEAN CORPUSCULAR HEMOGLOBIN 29 pg (27-31); MEAN CORPUSCULAR HGB CONC 33 g/dL (33-37); MEAN CORPUSCULAR VOLUME 87.1 fL (80-94); MONOCYTES # (AUTO) 0.7 K/uL (0.8-1.0); MONOCYTES % (AUTO) 5.9 % (1.7-9.3); NEUTROPHILS % (AUTO) 75.6 % (42.2-75.2); PLATELET COUNT (AUTO) 301 K/uL (140-450); RED BLOOD CELL COUNT(AUTO) 3.44 MIL/uL (4.20-5.40); RED CELL DISTRIBUTION WIDTH 14.2 % (11.6-13.7); WHITE BLOOD COUNT (AUTO) 11.9 K/uL (4.8-10.8)
[2019-04-04 08:09] LABS: PROTHROMBIN TIME 8.7 secs (10.8-13.4)
--- NOTE | 2019-04-04 08:20 | NUR ---
PT REQUESTED FOOD, MD GAVE VERBAL ORDER FOR CARDIAC DIET. FOOD TRAY ORDERED.
[2019-04-04 08:22] LABS: ALBUMIN 2.4 g/dL (3.4-5.0); ANION GAP 12.6 (8-16); CARBON DIOXIDE 25.8 mmol/L (21-32); CREATININE 1.4 mg/dL (0.6-1.3); POTASSIUM 4.4 mmol/L (3.5-5.1); TOTAL BILIRUBIN 0.2 mg/dL (0.0-1.0)
--- NOTE | 2019-04-04 08:24 | NUR ---
PT FOOD TRAY ARRIVED, PT SITTING AT SIDE OF BED EATING, VSS STABLE.
[2019-04-04] MEDS ORDERED: ALLO100T21 PO (08:26)
[2019-04-04] MEDS ORDERED: ATOR10TA PO (08:26)
[2019-04-04] MEDS ORDERED: FURO-570 PO (08:26)
[2019-04-04] MEDS ORDERED: ALBUTEROL SULFATE/IPRATROPIU 3 ML SOL IH ONE (08:30)
[2019-04-04] MEDS ORDERED: INSULIN REGULAR, HUMAN 100 UNIT/ML VIAL IVP ONE (08:30)
[2019-04-04] MEDS ORDERED: FUROSEMIDE 100 MG/10 ML VIAL IVP ONE (08:35)
--- NOTE | 2019-04-04 08:38 | NUR ---
RT AT BEDSIDE.
[2019-04-04] MEDS ORDERED: LORazepam 2 MG/ML VIAL IM/IVP PRN (09:30)
[2019-04-04] MEDS ORDERED: MORPHINE SULFATE 2 MG/ML SYR IVP PRN (09:30)
[2019-04-04] MEDS ORDERED: HYDROcodone/APAP 5/325 MG 1 TAB TAB PO PRN (09:30)
[2019-04-04] MEDS ORDERED: DEXTROSE 50% 50 ML SYR IVP PRN (09:30)
[2019-04-04] MEDS ORDERED: ONDANSETRON 4 MG/2 ML VIAL IM/IVP PRN (09:30)
[2019-04-04] MEDS ORDERED: DOCUSATE SODIUM 100 MG GELCAP PO PRN (09:30)
--- NOTE | 2019-04-04 10:10 | NUR ---
FLOOR ORDER OF 1000 ML NS AT 10ML/HR STARTED, LAC. UNABLE TO DOCUMENT IN EMAR AT THIS TIME.
--- NOTE | 2019-04-04 10:11 | NUR ---
ULTRASOUND IS AT BEDSIDE.
--- NOTE | 2019-04-04 10:57 | NUR ---
PT AMBULATED TO THE RESTROOM WITHOUT DIFFICULTY. POSITIONED IN BED FOR COMFORT.
[2019-04-04 11:03] LABS: BARBITURATE, URINE NEG. ng/ml (NEG <=200); BENZODIAZEPINE, URINE NEG. ng/mL (NEG <=200); CANNABINOID, URINE NEG. ng/mL (NEG <=50); COCAINE, URINE NEG. ng/mL (NEG <=300); OPIATE, URINE NEG. ng/mL (NEG <=2000); PHENCYCLIDINE SCREEN,URINE NEG. ng/mL (NEG <=25)
[2019-04-04 11:11] LABS: BILIRUBIN,URINE NEGATIVE (NEGATIVE); BLOOD, URINE 2+ (NEGATIVE); COLOR,URINE YELLOW (YELLOW); LEUKOCYTE ESTERASE ,URINE NEGATIVE (NEGATIVE); NITRITE, URINE NEGATIVE (NEGATIVE); UGLUCOSE 3+ (NEGATIVE)
[2019-04-04 11:30] LABS: APPEARANCE,URINE CLEAR (CLEAR); WBC,URINE 0 /HPF (0-5)
[2019-04-04 12:04] LABS: MAGNESIUM 2.1 mg/dL (1.8-2.4); THYROID STIMULATING HORMONE 4.1 uIU/mL (0.34-3.74)
[2019-04-04] MEDS: NACL 0.9% 1,000 ML IV SCH (12:10)
[2019-04-04] MEDS: BLOOD GLUCOSE MONITORING 1 DEV DEV FS SCH ×3 (12:31→20:59)
[2019-04-04] MEDS: INSULIN LISPRO SLIDING SCALE 100 UNITS/ML VIAL SUBQ PRN ×3 (12:40→21:06)
--- NOTE | 2019-04-04 12:46 | NUR ---
PT B/S 333, GAVE SLIDING SCALE INSULIN. PT FOOD TRAY ARRIVED, EATING LUNCH. PT POSITIONED FOR COMFORT. DENIES PAIN.
--- NOTE | 2019-04-04 13:05 | NUR ---
PT AMBULATED TO RESTROOM. PT POSITIONED BACK IN BED, HAS PRODUCTIVE COUGH. C/O HEADACHE 6-10. PT WOULD LIKE TYLENOL, HAS ORDER OF PRN TYLENOL, WILL GIVE TO PT. PT BED LOWERED X1 SIDERAIL IN PLACE.
[2019-04-04] MEDS: ACETAMINOPHEN 325 MG TAB PO PRN (13:12)
--- NOTE | 2019-04-04 16:52 | NUR ---
PT DAKSHA ZAMBRANO, BS 346. WILL FOLLOW MD SCHMIDT OF SLIDING SCALE, 8 UNITS OF INSILUN LISPRO WILL BE GIVEN PRIOR TO MEAL.
[2019-04-04] MEDS ORDERED: hydrALAZINE 20 MG/ML VIAL IVP PRN ×2 (17:55→18:50)
[2019-04-04 18:00] VITALS: BP 179/90
--- NOTE | 2019-04-04 18:00 | NUR ---
DAKSHA ZAMBRANO, BS 346. PT GIVEN 8 UNITS OF INSULIN LISPRO ACCORDING TO SLIDING SCALE PRIOR TO MEAL
--- NOTE | 2019-04-04 18:00 | NUR ---
ADMITTED A 48F FROM ER .CAME BY [facility] WITH CC OF SOB,COUGH X 4DAYS. AWAKE,ALERT AND ORIENTED X4. ON TELE MONITOR -SR. AMBULATORY. NO SOB NOTED AT THIS TIME. SHE AMBULATE TO BATHROOM PRIOR TO GETTING INTO THE BED. PT IS OBESE. SKIN INTACT. WITH IVF INFUSING WELL ON THE LT AC G#20. CLEAR AND PATENT. ORIENTED TO HOSPITAL ROUTINES . BED ON LOW POSITION. SIDE RIALS UP X2. CALL LIGHT PLACED WITHIN EASY REACH. WILL FOLLOW UP ADMIT ORDERS. WILL CONTINUE TO MONITOR.
--- NOTE | 2019-04-04 18:10 | NUR ---
Patient will be admitted to care of DR MABRY. Admited to MED SURG TELE. Will go to room 119A. Belongings list completed. Report to MODESTO MARIE.
[2019-04-04] MEDS ORDERED: HYDROCHLOROTHIAZIDE 25 MG TAB PO SCH (19:00)
[2019-04-04] MEDS: guaiFENesin/CODEINE 100/10MG 5 ML UDC PO PRN (19:12)
--- NOTE | 2019-04-04 19:15 | NUR ---
ORETIC 25 MG PO GIVEN FOR BP ELEVATED 179/90 PER MD ORDER. BUT MEDICINE UNABLE TO SCAN FOR MISSING OE NUMBER. WILL CONTINUE TO MONITOR.
[2019-04-04] MEDS: FUROSEMIDE 40 MG TAB PO SCH (20:56)
[2019-04-04] MEDS: FERROUS SULFATE 325 MG TABEC PO SCH (20:56)
[2019-04-04] MEDS: ATORVASTATIN 20 MG TAB PO SCH (20:57)
[2019-04-04] MEDS: INSULIN LANTUS 100 UNITS/ML 10 ML VIAL SUBQ SCH (21:05)
--- NOTE | 2019-04-04 21:06 | NUR ---
BLOOD SUGAR WAS CHECKED RESULT 300. INSULIN COVERAGE HUMALOG 6 UNITS SUB Q GIVEN. ALSO LANTUS HS GIVEN. HAD SOME SNACK TAKEN. WILL CONTINUE TO MONITOR.
--- NOTE | 2019-04-04 23:00 | NUR ---
MADE ROUNDS .PT SLEEPING. NO S/S OF ANY DISCOMFORT NOR SOB NOTED.
[2019-04-04 23:24] VITALS: BP 153/90
--- NOTE | 2019-04-05 01:00 | NUR ---
MADE ROUMDS. SLEEPING WELL. NO S/S OF ANY DISTRESS NOTED. WILL CONTINUE TO MONITOR.
--- NOTE | 2019-04-05 03:00 | NUR ---
MADE ROUNDS. PT SLEEPING WELL WITH NO S/S OF ANY DISTRESS NOTED. WILL CONTINUE TO MONITOR.
[2019-04-05 04:49] VITALS: BP 155/67
[2019-04-05] MEDS: BLOOD GLUCOSE MONITORING 1 DEV DEV FS SCH ×4 (05:42→20:39)
[2019-04-05] MEDS: INSULIN LISPRO SLIDING SCALE 100 UNITS/ML VIAL SUBQ PRN ×4 (05:43→20:33)
--- NOTE | 2019-04-05 05:43 | NUR ---
BLOOD SUGAR WAS CHECKED THIS AM RESULT 238. INSULIN COVERAGE GIVEN SUBQ .
[2019-04-05 06:23] LABS: BASOPHILS # (AUTO) 0.1 K/uL (0.00-0.22); BASOPHILS % (AUTO) 0.9 % (0.0-2.0); EOSINOPHILS # (AUTO) 0.5 K/uL (0-0.4); EOSINOPHILS % (AUTO) 4.9 % (0.0-4.0); HEMATOCRIT 28.5 % (36-48); HEMOGLOBIN 9.2 g/dL (12.0-16.0); LYMPHOCYTES # (AUTO) 1.6 K/uL (2.5-16.5); LYMPHOCYTES % (AUTO) 14.8 % (20.5-51.1); MEAN CORPUSCULAR HEMOGLOBIN 28 pg (27-31); MEAN CORPUSCULAR HGB CONC 32 g/dL (33-37); MEAN CORPUSCULAR VOLUME 87.4 fL (80-94); MONOCYTES # (AUTO) 0.7 K/uL (0.8-1.0); MONOCYTES % (AUTO) 6.2 % (1.7-9.3); NEUTROPHILS # (AUTO) 8.1 K/uL (1.8-7.7); NEUTROPHILS % (AUTO) 73.2 % (42.2-75.2); PLATELET COUNT (AUTO) 281 K/uL (140-450); RED BLOOD CELL COUNT(AUTO) 3.26 MIL/uL (4.20-5.40); RED CELL DISTRIBUTION WIDTH 14.2 % (11.6-13.7)
[2019-04-05 06:25] LABS: CARBON DIOXIDE 26.4 mmol/L (21-32); CREATININE 1.5 mg/dL (0.6-1.3); POTASSIUM 4.4 mmol/L (3.5-5.1)
[2019-04-05] MEDS ORDERED: PANTOPRAZOLE 40 MG TABEC PO SCH ×2 (06:30→11:30)
[2019-04-05 06:46] LABS: CHOL/HDL RATIO 7.3 (1-4.5)
--- NOTE | 2019-04-05 07:29 | NUR ---
ENDORSED PT IN STABLE CONDITION TO AM NURSE FOR CONTINUITY OF CARE.
--- NOTE | 2019-04-05 07:30 | NUR ---
RECEIVED BEDSIDE REPORT FROM WIRE TWISTER NURSE. PATIENT IS AWAKE, ALERT AND ORIENTEDX4. NO SIGNS OF DISTRESS ON RA. SKIN IS INTACT. IV ON L AC 20G INFUSING NS AT 10. CLEAN, DRY AND INTACT. TELE MONITOR IN PLACE. PATIENT IS AMBULATORY. CONTINENT. ABLE TO MAKE NEEDS KNOWN. BED IN LOW POSITION. CALL LIGHT WITHIN REACH. WILL CONTINUE TO MONITOR THE PATIENT.
[2019-04-05 08:00] VITALS: BP 167/84
[2019-04-05] MEDS: ECOTRIN 81 MG TABEC PO SCH (08:32)
[2019-04-05] MEDS: FERROUS SULFATE 325 MG TABEC PO SCH ×2 (08:32→20:18)
[2019-04-05] MEDS: FUROSEMIDE 40 MG TAB PO SCH (08:33)
[2019-04-05] MEDS: CARVEDILOL 6.25 MG TAB PO SCH ×2 (08:33→17:18)
[2019-04-05] MEDS: PARoxetine 10 MG TAB PO SCH (08:33)
--- NOTE | 2019-04-05 08:38 | NUR ---
ADMINISTERED MEDS. PATIENT TOLERATED WELL. EDUCATED ON SIDE EFFECTS. WILL CONTINUE TO MONITOR THE PATIENT.
--- NOTE | 2019-04-05 08:52 | NUR ---
PATIENT HAS BEEN SCREENED AND CATEGORIZED MODERATE NUTRITION RISK. PATIENT WILL BE SEEN WITHIN 3-5 DAYS OF ADMISSION. 04/06/19 04/08/[address]
[2019-04-05] MEDS ORDERED: HYDROCHLOROTHIAZIDE 25 MG TAB PO SCH ×2 (09:00→11:00)
[2019-04-05 09:09] LABS: FOLIC ACID 5.7 ng/mL (>3.0)
[2019-04-05] MEDS: NACL 0.9% 1,000 ML IV SCH (09:28)
[2019-04-05] MEDS ORDERED: FUROSEMIDE 20 MG/2 ML VIAL IVP SCH ×4 (10:00→17:00)
--- NOTE | 2019-04-05 10:00 | NUR ---
PATIENT IN NO DISTRESS. WILL CONTINUE TO MONITOR THE PATIENT
[2019-04-05 10:10] VITALS: BP 155/76
[2019-04-05] MEDS ORDERED: ALBUTEROL SULFATE/IPRATROPIU 3 ML SOL IH PRN (10:50)
[2019-04-05] MEDS ORDERED: BISACODYL 5 MG TABEC PO SCH (11:15)
[2019-04-05] MEDS ORDERED: INSULIN LANTUS 100 UNITS/ML 10 ML VIAL SUBQ SCH (11:30)
[2019-04-05 12:00] VITALS: BP 158/79
[2019-04-05] MEDS: METOCLOPRAMIDE 10 MG TAB PO SCH ×3 (12:09→23:16)
--- NOTE | 2019-04-05 12:21 | NUR ---
ADMINISTERED MEDS. PATIENT TOLERATED WELL. NO SIGNS OF DISTRESS. EDUCATED ON MEDS. WILL CONTINUE TO MONITOR.
--- NOTE | 2019-04-05 13:22 | NUR ---
PATIENT IS SLEEPING. NO SIGNS OF DISTRESS. WILL CONTINUE TO MONITOR
--- NOTE | 2019-04-05 14:32 | NUR ---
DC [age] YRS OLD FEMALE WAS ADMITTED FROM HOME WITH A DX OF CHF EXACERBATION. PT HAS A HX OF CHF, DM,HTN AND ANEMIA, AT BASELINE PT IS AMBULATORY WITH NO ASSISTANCE. FOLLOWED CHF PROTOCOL ,IV LASIX AND IVF, CONTINUE HOME MEDS AND KENNEL HELPER CONSULT. DC PLAN TO GO HOME WHEN STABLE CM TO FOLLOW
--- NOTE | 2019-04-05 14:58 | NUR ---
PATIENT IN NO DISTRESS. WILL CONTINUE TO MONITOR THE PATIENT.
[2019-04-05 16:00] VITALS: BP 121/53
--- NOTE | 2019-04-05 16:57 | NUR ---
PATIENT RESTING IN BED. NO SIGNS OF DISTRESS WILL CONTINUE TO MONITOR
--- NOTE | 2019-04-05 17:20 | NUR ---
ADMINISTERED MEDS. PATIENT TOLERATED WELL. EDUCATED ON SIDE EFFECTS. WILL CONTINUE TO MONITOR
--- NOTE | 2019-04-05 18:30 | NUR ---
PATIENT EATING BREAKFAST. NO SIGNS OF DISTRESS. WILL CONTINUE TO MONITOR
--- NOTE | 2019-04-05 19:08 | NUR ---
GAVE BEDSIDE REPORT TO TURBINE ROOM ATTENDANT NURSE. PATIENT ENDORSED IN STABLE CONDITION
--- NOTE | 2019-04-05 19:10 | NUR ---
RECEIVED PT AWAKE SITTING ON SIDE OF THE BED, AAOX4, ABLE TO MAKE NEEDS KNOWN, VITAL SIGNS STABLE, DENIES ANY PAIN, NO SOB NOTED, COARSE LUNG SOUNDS, PLAN OF CARE DISCUSSED, SAFETY MEASURES IN PLACE, CALL LIGHT WITHIN REACH.
[2019-04-05 20:00] VITALS: BP 145/85
[2019-04-05] MEDS: ATORVASTATIN 20 MG TAB PO SCH (20:18)
[2019-04-05] MEDS: FUROSEMIDE 20 MG/2 ML VIAL IVP SCH (20:19)
[2019-04-05] MEDS: INSULIN LANTUS 100 UNITS/ML 10 ML VIAL SUBQ SCH (20:34)
--- NOTE | 2019-04-05 20:50 | NUR ---
BLOOD SUGAR CHECKED WITH 366 RESULT, COVERAGE GIVEN AND LANTUS 30 UNITS GIVEN SUB-Q ORDERED, SNACK PROVIDED, ALL DUE MEDS ADMINISTERED WITH EDUCATION PROVIDED, AT BEDSIDE, ALL NEEDS ATTENDED.
--- NOTE | 2019-04-05 22:00 | NUR ---
PT AMBULATED TO TOILET WITH STEADY GAIT, VOIDED FREELY, BACK TO BED, NO SOB NOTED, MONITORED CLOSELY.
--- NOTE | 2019-04-05 23:30 | NUR ---
PT SLEEPING, EASILY AROUSABLE, VITAL SIGNS STABLE, NO SOB NOTED, PT REFUSED DUE REGLAN, RISK AND BENEFITS EXPLAINED, PT STATED NOT NEEDED IT AT THIS TIME, PT WENT BACK TO SLEEP, CONTINUE TO MONITOR CLOSELY.
[2019-04-06] VITALS: BP 128/59
[2019-04-06] MEDS: guaiFENesin/CODEINE 100/10MG 5 ML UDC PO PRN ×2 (03:53→20:23)
[2019-04-06 04:00] VITALS: BP 148/74
--- NOTE | 2019-04-06 04:00 | NUR ---
PT AWAKE, WITH OCCASIONAL COUGH NOTED, MEDICATED PRN WITH ROBITUSSIN, VITAL SIGNS STABLE, DENIES ANY SOB, MONITORED CLOSELY.
[2019-04-06] MEDS: METOCLOPRAMIDE 10 MG TAB PO SCH ×4 (06:00→23:28)
[2019-04-06 06:05] LABS: BASOPHILS # (AUTO) 0.1 K/uL (0.00-0.22); BASOPHILS % (AUTO) 1.1 % (0.0-2.0); EOSINOPHILS # (AUTO) 0.4 K/uL (0-0.4); EOSINOPHILS % (AUTO) 3.5 % (0.0-4.0); HEMATOCRIT 27.6 % (36-48); HEMOGLOBIN 9.1 g/dL (12.0-16.0); LYMPHOCYTES # (AUTO) 1.5 K/uL (2.5-16.5); LYMPHOCYTES % (AUTO) 12.8 % (20.5-51.1); MEAN CORPUSCULAR HEMOGLOBIN 29 pg (27-31); MEAN CORPUSCULAR HGB CONC 33 g/dL (33-37); MEAN CORPUSCULAR VOLUME 87.5 fL (80-94); MONOCYTES # (AUTO) 0.7 K/uL (0.8-1.0); MONOCYTES % (AUTO) 6.4 % (1.7-9.3); NEUTROPHILS # (AUTO) 8.8 K/uL (1.8-7.7); NEUTROPHILS % (AUTO) 76.2 % (42.2-75.2); PLATELET COUNT (AUTO) 285 K/uL (140-450); RED BLOOD CELL COUNT(AUTO) 3.16 MIL/uL (4.20-5.40); RED CELL DISTRIBUTION WIDTH 14.4 % (11.6-13.7); WHITE BLOOD COUNT (AUTO) 11.5 K/uL (4.8-10.8)
[2019-04-06] MEDS: INSULIN LISPRO SLIDING SCALE 100 UNITS/ML VIAL SUBQ PRN ×4 (06:09→20:34)
--- NOTE | 2019-04-06 06:10 | NUR ---
BLOOD SUGAR CHECKED WITH 269 RESULT, REGULAR INSULIN GIVEN, PT REFUSED DUE REGLAN, PT STATED "DON'T NEED THAT ANYMORE, DENIES NAUSEA, MONITORED CLOSELY.
[2019-04-06 06:20] LABS: MAGNESIUM 1.8 mg/dL (1.8-2.4); PHOSPHORUS 4.8 mg/dL (2.5-4.9)
[2019-04-06 06:29] LABS: ANION GAP 13.2 (8-16); CARBON DIOXIDE 24.7 mmol/L (21-32); CREATININE 1.5 mg/dL (0.6-1.3); POTASSIUM 3.9 mmol/L (3.5-5.1)
[2019-04-06] MEDS: BLOOD GLUCOSE MONITORING 1 DEV DEV FS SCH ×4 (06:55→20:34)
--- NOTE | 2019-04-06 07:31 | NUR ---
PT SLEEPING, NO SIGNS OF DISTRESS, REPORT GIVEN TO RN CHARISMA FOR CONTINUITY OF CARE.
--- NOTE | 2019-04-06 07:32 | NUR ---
RECEIVED BEDSIDE REPORT FROM MANAGER MOTOR. PATIENT IS AWAKE, ALERT AND ORIENTED X4. NO SIGNS OF DISTRESS ON RA. SKIN IS INTACT. IV ON L HAND 22G. RESPIRATIONS EVEN, UNLABORED. LUNGS SOUNDS CLEAR ON AUSCULTATION. AMBULATES TO RESTROOM. CONTINENT. ABLE TO MAKES NEEDS KNOWN. BED IN LOWEST POSITION. CALL LIGHT WITHIN REACH. WILL CONTINUE TO MONITOR.
[2019-04-06 08:00] VITALS: BP 124/73
[2019-04-06] MEDS: PANTOPRAZOLE 40 MG TABEC PO SCH (08:47)
[2019-04-06] MEDS: FUROSEMIDE 20 MG/2 ML VIAL IVP SCH ×2 (08:47→20:24)
[2019-04-06] MEDS: FERROUS SULFATE 325 MG TABEC PO SCH ×2 (08:48→20:24)
[2019-04-06] MEDS: HYDROCHLOROTHIAZIDE 25 MG TAB PO SCH (08:48)
[2019-04-06] MEDS: ECOTRIN 81 MG TABEC PO SCH (08:48)
[2019-04-06] MEDS: CARVEDILOL 6.25 MG TAB PO SCH ×2 (08:48→17:00)
[2019-04-06] MEDS: PARoxetine 10 MG TAB PO SCH (08:48)
--- NOTE | 2019-04-06 08:50 | NUR ---
ADMINISTERED MEDS. EDUCATED ON SIDE EFFECTS. PATIENT TOLERATED WELL. WILL CONTINUE TO MONITOR.
[2019-04-06] MEDS: NACL 0.9% 1,000 ML IV SCH (08:58)
[2019-04-06] MEDS ORDERED: INSULIN LANTUS 100 UNITS/ML 10 ML VIAL SUBQ SCH ×2 (09:00)
[2019-04-06] MEDS ORDERED: FUROSEMIDE 20 MG/2 ML VIAL IVP SCH (09:00)
--- NOTE | 2019-04-06 10:35 | NUR ---
PATIENT CONTINUES IN STABLE CONDITION. RESTING IN BED, COMFORTABLY AND SAFELY. ALL NEEDS ANTICIPATED AND MET. CALL LIGHT WITHIN REACH. WILL CONTINUE TO MONITOR.
--- NOTE | 2019-04-06 12:44 | NUR ---
ADMINISTERED MEDS. PATIENT TOLERATED WELL. EDUCATED ON SIDE EFFECTS. WILL CONTINUE TO MONITOR THE PATIENT.
--- NOTE | 2019-04-06 13:54 | NUR ---
PATIENT IS SLEEPING. NO SIGNS OF DISTRESS. WILL CONTINUE TO MONITOR THE PATIENT
--- NOTE | 2019-04-06 16:22 | NUR ---
PATIENT SLEEPING IN BED. NO SIGNS OF DISTRESS. CALL LIGHT WITHIN REACH. WILL CONTINUE TO MONITOR.
--- NOTE | 2019-04-06 17:34 | NUR ---
PATIENT SLEEPING IN THE BED. NO SIGNS OF DISTRESS. CALL LIGHT WITHIN REACH. WILL CONTINUE TO MONITOR.
--- NOTE | 2019-04-06 19:05 | NUR ---
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 PATIENT ENDORSED IN STABLE CONDITION
--- NOTE | 2019-04-06 19:06 | NUR ---
RECEIVED PT ON BED, ON HIGH FOWLERS POSITION, AAOX4, ABLE TO MAKE NEEDS KNOWN, DENIES ANY PAIN, NO SOB NOTED, DIMINISHES LUNG SOUNDS, OCCASIONAL COUGH NOTED, WILL MEDICATE PRN WITH COUGH MEDICINE, IV SITE OUT, CANNULA INTACT, WILL START A NEW IV LINE, PLAN OF CARE DISCUSSED, SAFETY MEASURES IN PLACE, CALL LIGHT WITHIN REACH.
[2019-04-06 20:00] VITALS: BP 147/78
[2019-04-06] MEDS: ATORVASTATIN 20 MG TAB PO SCH (20:24)
--- NOTE | 2019-04-06 20:30 | NUR ---
BLOOD SUGAR CHECKED WITH 284 RESULT, HUMALOG COVERAGE + [place] GIVEN ORDERED, SNACK PROVIDED, DUE MEDS ADMINISTERED WITH EDUCATION PROVIDED, TOLERATED WELL, AT BEDSIDE, ALL NEEDS ATTENDED.
[2019-04-06] MEDS: INSULIN LANTUS 100 UNITS/ML 10 ML VIAL SUBQ SCH (20:33)
--- NOTE | 2019-04-06 23:30 | NUR ---
PT SLEEPING, EASILY AROUSABLE, VITAL SIGNS STABLE, DENIES ANY PAIN AND SOB, CONTINUE TO MONITOR CLOSELY.
[2019-04-06] MEDS: ACETAMINOPHEN 325 MG TAB PO PRN (23:50)
--- NOTE | 2019-04-06 23:50 | NUR ---
PT COMPLAINING OF MILD ABDOMINAL PAIN, NO N/V NOTED, MEDICATED WITH TYLENOL PO, TOLERATED WELL, MONITORED CLOSELY.
[2019-04-07] VITALS: BP 137/61
--- NOTE | 2019-04-07 01:53 | NUR ---
PT AWAKE REQUESTING FOR A SNACK, JELLO AND APPLE JUICE GIVEN, MONITORED CLOSELY.
--- NOTE | 2019-04-07 03:35 | NUR ---
PT STATED THAT AFTER WAKING UP BEFORE MIDNIGHT SHE CANNOT GO BACK TO SLEEP, DENIES ANY PAIN OR SOB, DR AQUINO MADE AWARE, MELATONIN PO GIVEN ORDERED, MONITORED CLOSELY.
[2019-04-07] MEDS ORDERED: MELATONIN 3 MG TAB PO SCH (04:00)
[2019-04-07 05:55] LABS: ANION GAP 12.9 (8-16); CREATININE 1.4 mg/dL (0.6-1.3); POTASSIUM 3.9 mmol/L (3.5-5.1)
[2019-04-07] MEDS: METOCLOPRAMIDE 10 MG TAB PO SCH ×3 (06:00→17:29)
[2019-04-07 06:11] LABS: MAGNESIUM 1.8 mg/dL (1.8-2.4); PHOSPHORUS 3.9 mg/dL (2.5-4.9)
[2019-04-07] MEDS: INSULIN LISPRO SLIDING SCALE 100 UNITS/ML VIAL SUBQ PRN ×2 (06:32→08:50)
[2019-04-07] MEDS: INSULIN NPH HUMAN ISOPHANE 100 UNIT/ML VIAL SUBQ SCH ×2 (06:33→17:28)
[2019-04-07] MEDS: BLOOD GLUCOSE MONITORING 1 DEV DEV FS SCH ×5 (06:33→16:00)
--- NOTE | 2019-04-07 06:33 | NUR ---
BLOOD SUGAR CHECKED WITH 315 RESULT, 10 UNITS HUMALOG COVERAGE AND 10 UNITS NPH GIVEN ORDERED, PT NOT IN ANY DISTRESS, MONITORED CLOSELY.
[2019-04-07 06:45] LABS: BASOPHILS # (AUTO) 0.1 K/uL (0.00-0.22); BASOPHILS % (AUTO) 1.1 % (0.0-2.0); EOSINOPHILS # (AUTO) 0.5 K/uL (0-0.4); HEMATOCRIT 27.1 % (36-48); HEMOGLOBIN 9.1 g/dL (12.0-16.0); LYMPHOCYTES # (AUTO) 1.8 K/uL (2.5-16.5); LYMPHOCYTES % (AUTO) 14.5 % (20.5-51.1); MEAN CORPUSCULAR HEMOGLOBIN 29 pg (27-31); MEAN CORPUSCULAR HGB CONC 34 g/dL (33-37); MEAN CORPUSCULAR VOLUME 86.9 fL (80-94); MONOCYTES # (AUTO) 0.7 K/uL (0.8-1.0); MONOCYTES % (AUTO) 5.2 % (1.7-9.3); NEUTROPHILS # (AUTO) 9.5 K/uL (1.8-7.7); NEUTROPHILS % (AUTO) 75.2 % (42.2-75.2); PLATELET COUNT (AUTO) 304 K/uL (140-450); RED BLOOD CELL COUNT(AUTO) 3.12 MIL/uL (4.20-5.40); RED CELL DISTRIBUTION WIDTH 14.1 % (11.6-13.7); WHITE BLOOD COUNT (AUTO) 12.6 K/uL (4.8-10.8)
--- NOTE | 2019-04-07 07:17 | NUR ---
PT AWAKE SITTING ON BED, NO DISTRESS NOTED, REPORT GIVEN TO MODESTO VICTORIA FOR CONTINUITY OF CARE.
--- NOTE | 2019-04-07 07:49 | NUR ---
RECEIVED PT FROM AUTOMATION DRIVER FOR CONTINUITY OF CARE. PT LYING IN BED, AAOX4, ABLE TO MAKE NEEDS KNOWN, DENIES ANY PAIN, NO SOB NOTED, DIMINISHES LUNG SOUNDS, OCCASIONAL COUGH NOTED, WILL MEDICATE PRN WITH COUGH MEDICINE, IV PATENT AND INTACT. PLAN OF CARE DISCUSSED WITH PT AND PT VERBALIZED UNDERSTANDING, SAFETY MEASURES IN PLACE, CALL LIGHT WITHIN REACH. WILL ROUND FREQUENTLY ON PT.
[2019-04-07 08:00] VITALS: BP 162/84
[2019-04-07] MEDS: PARoxetine 10 MG TAB PO SCH (08:45)
[2019-04-07] MEDS: FERROUS SULFATE 325 MG TABEC PO SCH (08:45)
[2019-04-07] MEDS: HYDROCHLOROTHIAZIDE 25 MG TAB PO SCH (08:46)
[2019-04-07] MEDS: CARVEDILOL 6.25 MG TAB PO SCH ×2 (08:46→17:00)
[2019-04-07] MEDS: ECOTRIN 81 MG TABEC PO SCH (08:46)
[2019-04-07] MEDS: PANTOPRAZOLE 40 MG TABEC PO SCH (08:46)
[2019-04-07] MEDS: FUROSEMIDE 20 MG/2 ML VIAL IVP SCH (08:47)
[2019-04-07] MEDS: guaiFENesin/CODEINE 100/10MG 5 ML UDC PO PRN (08:54)
--- NOTE | 2019-04-07 09:27 | NUR ---
ADMINISTERED MORNING MEDS TO PT. PT TOLERATED WELL. ALL NEEDS MET. WILL CONTINUE TO ROUND FREQUENTLY ON PT. BED IN LOW POSITION, CALL LIGHT WITHIN REACH.
[2019-04-07] MEDS: NACL 0.9% 1,000 ML IV SCH (09:28)
--- NOTE | 2019-04-07 11:24 | NUR ---
PT RESTING IN BED. ALL NEEDS MET.
[2019-04-07] MEDS ORDERED: METO10TA98 PO (12:48)
[2019-04-07] MEDS ORDERED: NOV7030 SUBQ (12:48)
--- NOTE | 2019-04-07 13:21 | NUR ---
PT RESTING TALKING ON PHONE. ALL NEEDS MET.
[2019-04-07 14:37] LABS: BASOPHILS # (AUTO) 0.1 K/uL (0.00-0.22); EOSINOPHILS # (AUTO) 0.4 K/uL (0-0.4); EOSINOPHILS % (AUTO) 3.3 % (0.0-4.0); HEMATOCRIT 26.4 % (36-48); HEMOGLOBIN 8.8 g/dL (12.0-16.0); LYMPHOCYTES # (AUTO) 1.6 K/uL (2.5-16.5); LYMPHOCYTES % (AUTO) 12.2 % (20.5-51.1); MEAN CORPUSCULAR HEMOGLOBIN 29 pg (27-31); MEAN CORPUSCULAR HGB CONC 33 g/dL (33-37); MEAN CORPUSCULAR VOLUME 86.3 fL (80-94); MONOCYTES % (AUTO) 7.5 % (1.7-9.3); NEUTROPHILS # (AUTO) 9.9 K/uL (1.8-7.7); PLATELET COUNT (AUTO) 299 K/uL (140-450); RED BLOOD CELL COUNT(AUTO) 3.06 MIL/uL (4.20-5.40); RED CELL DISTRIBUTION WIDTH 14.1 % (11.6-13.7)
[2019-04-07] MEDS ORDERED: ISOS20TA13 PO ×2 (14:49→17:22)
--- NOTE | 2019-04-07 15:35 | NUR ---
PT ASLEEP. ALL NEEDS MET.
[2019-04-07 16:00] VITALS: BP 109/48
--- NOTE | 2019-04-07 17:20 | NUR ---
PT RESTING IN BED. ALL NEEDS MET. WILL CONTINUE TO ROUND FREQUENTLY ON PT.
[2019-04-07] MEDS ORDERED: INSU10SU2 SC (17:22)
--- NOTE | 2019-04-07 18:57 | NUR ---
PT DISCHARGED HOME FOR SELF CARE. PT VERBALIZED UNDERSTANDING OF DISCHARGE TEACHING. PT SIGNED ALL PAPERWORK AND VERBALIZED UNDERSTANDING OF FOLLOW-UP DR'S APPT. IV REMOVED WITH TIP INTACT. ALL PERSONAL BELONGINGS TAKEN WITH PT. PT DISCHARGED IN STABLE CONDITION AND WAS ACCOMPANIED BY HER FAMILY.
== END 2019-04-07 18:50 | disposition home or self-care (01) | DRG 194 ==
LOC: MED 05:06 → MTU 09:28
PROVIDERS: ADMIT General Practice; ATTEND General Practice
DX: I13.0 Hypertensive heart and chronic kidney disease with heart failure and stage 1 through stage 4 chronic kidney disease, or unspecified chronic kidney disease (principal); N17.0 Acute kidney failure with tubular necrosis; K31.84 Gastroparesis; E11.21 Type 2 diabetes mellitus with diabetic nephropathy; Z68.41 Body mass index [BMI] 40.0-44.9, adult; E11.43 Type 2 diabetes mellitus with diabetic autonomic (poly)neuropathy; I16.0 Hypertensive urgency; I50.43 Acute on chronic combined systolic (congestive) and diastolic (congestive) heart failure; E11.22 Type 2 diabetes mellitus with diabetic chronic kidney disease; E78.5 Hyperlipidemia, unspecified; D64.9 Anemia, unspecified; F15.10 Other stimulant abuse, uncomplicated; F41.9 Anxiety disorder, unspecified; E66.9 Obesity, unspecified; Z91.14 Patient's other noncompliance with medication regimen; K21.9 Gastro-esophageal reflux disease without esophagitis; Z83.3 Family history of diabetes mellitus; N18.3 Chronic kidney disease, stage 3 (moderate)
CPT/HCPCS: 36415; 71045; 80048; 80053; 80305; 81001; 81025; 82140; 82150; 82607; 82728; 82746; 82948; 83036; 83540; 83605; 83690; 83735; 83880; 84100; 84443; 84484; 85025; 85045; 85610; 85730; 87081; 93005; 93970; 94640; 96374; 96375; 99285; J1644; J1815; J1940; J2060; J7620; J8597; Q0092

== ENCOUNTER 2019-04-15 01:50 | Emergency (ER) | payer MEDICAID ==
[~2019-04-15] VITALS: Ht 149.9 cm; Wt 93.9 kg
[~2019-04-15 01:50] MED LIST changes: +ALLO100T21 PO; +ATOR10TA PO; -BACL10TA4 PO; -GLIP5TER PO; +INSU10SU2 SC; +ISOS20TA13 PO; -LISI-424 PO; +METO10TA98 PO; +NOV7030 SUBQ; -VITC500 PO
[2019-04-15 01:55] VITALS: BP 187/99
--- NOTE | 2019-04-15 02:08 | NUR ---
PT AMBULATED TO THE RESTROOM AND THEN TO BED #9
[2019-04-15] MEDS ORDERED: NACL 0.9% 2,000 ML IV ONE (02:10)
--- NOTE | 2019-04-15 02:42 | NUR ---
48 Y/O FEMALE PRESENTS TO ED, C/O HIGH BLOOD SUGAR. PT STATES TAKING BLOOD SUGAR AND READ "TOO HIGH TO READ". PT STATES BEING COMPLIANT WITH INSULIN REGIMEN BUT NOT COMPLIANT WITH DIET. PT DENIES ANY ABDOMINAL. NO SOB/DIFFICULTY BREATHING. PT VSS. ERMD AWARE. WILL CONTINUE TO MONITOR.
[2019-04-15 02:43] LABS: ANION GAP 11.5 (8-16); CARBON DIOXIDE 26.8 mmol/L (21-32); CREATININE 1.3 mg/dL (0.6-1.3); POTASSIUM 4.3 mmol/L (3.5-5.1)
[2019-04-15 04:07] VITALS: BP 187/99
--- NOTE | 2019-04-15 04:07 | NUR ---
PT DISCHARGED WITH PAPERWORK. EDUCATED PT REGARDING MEDICATIONS AND D/C DIAGNOSIS. PT VERBALIZED UNDERSTANDING OF TEACHING. PT BLOOD SUGAR WAS 393. REFUSED FURTHER TREATMENT AND REQUESTED TO BE DISCHARGED. PT VSS. ALL QUESTIONS ANSWERED.
== END 2019-04-15 04:07 | disposition home or self-care (01) ==
LOC: MED 01:50
DX: E11.65 Type 2 diabetes mellitus with hyperglycemia (principal); I50.9 Heart failure, unspecified; I11.0 Hypertensive heart disease with heart failure; Z79.82 Long term (current) use of aspirin; Z79.899 Other long term (current) drug therapy; Z79.4 Long term (current) use of insulin
CPT/HCPCS: 36415; 80048; 82948; 96360; 96361; 99283

== ENCOUNTER 2019-04-19 02:26 | Emergency (ER) | payer MEDICAID ==
[~2019-04-19] VITALS: Ht 149.9 cm; Wt 93.2 kg
[2019-04-19 02:30] VITALS: BP 154/84
--- NOTE | 2019-04-19 02:30 | NUR ---
TO BED # 02 AMBULATORY
--- NOTE | 2019-04-19 02:45 | NUR ---
48 Y/O FEMALE ARRIVED TO ED C/O SOB, CHEST PAIN X 1HR AGO. PT STATES HER HEART FEELS LIKE ITS "SHAKING." PT STATES THE FEELING OF SHAKING COMES AND GOES BUT IT JUST TURNED CONSTANT THIS PAST 1HR. HEART SOUNDS S1S2 PRESENT. EKG SHOWS NSR LUNG SOUNDS CLEAR ALL THROUGHOUT. SOB PRESENT WITH LABORED AND EVEN BREATHING. SPO2 99% ON 2LNC. PT STATES SHE HAS CHEST PAIN AND RATES IT 9/10 AND DESCRIBES IT PRESSURE. A & O X4. NO USE OF ACCESSORY MUSCLE. COUGH PRESENT D/T FLUIDS IN LUNGS FROM HF. VSS. BS 337. NKA. PMH: HF, DM, HTN, FORMER [employer] USER (QUIT 1 YR AGO.)
[2019-04-19] MEDS ORDERED: FUROSEMIDE 100 MG/10 ML VIAL IVP ONE (02:50)
--- NOTE | 2019-04-19 03:00 | NUR ---
XR AT BEDSIDE.
--- NOTE | 2019-04-19 03:05 | NUR ---
EKG PERFORMED AT BEDSIDE
--- NOTE | 2019-04-19 03:05 | NUR ---
EKG BEING DONE BY PREET KNOWLES.
[2019-04-19 03:20] LABS: ALBUMIN 2.8 g/dL (3.4-5.0); ANION GAP 10.5 (8-16); CARBON DIOXIDE 29.6 mmol/L (21-32); CREATININE 1.5 mg/dL (0.6-1.3); POTASSIUM 4.1 mmol/L (3.5-5.1); TOTAL BILIRUBIN 0.3 mg/dL (0.0-1.0)
[2019-04-19 03:40] LABS: BASOPHILS # (AUTO) 0.1 K/uL (0.00-0.22); EOSINOPHILS # (AUTO) 0.5 K/uL (0-0.4); EOSINOPHILS % (AUTO) 3.9 % (0.0-4.0); HEMATOCRIT 28.6 % (36-48); HEMOGLOBIN 9.4 g/dL (12.0-16.0); LYMPHOCYTES # (AUTO) 2.1 K/uL (2.5-16.5); LYMPHOCYTES % (AUTO) 16.1 % (20.5-51.1); MEAN CORPUSCULAR HEMOGLOBIN 29 pg (27-31); MEAN CORPUSCULAR HGB CONC 33 g/dL (33-37); MEAN CORPUSCULAR VOLUME 87.3 fL (80-94); MONOCYTES # (AUTO) 1.1 K/uL (0.8-1.0); MONOCYTES % (AUTO) 8.3 % (1.7-9.3); NEUTROPHILS # (AUTO) 9.4 K/uL (1.8-7.7); NEUTROPHILS % (AUTO) 70.7 % (42.2-75.2); PLATELET COUNT (AUTO) 367 K/uL (140-450); RED BLOOD CELL COUNT(AUTO) 3.28 MIL/uL (4.20-5.40); RED CELL DISTRIBUTION WIDTH 14.2 % (11.6-13.7)
[2019-04-19 04:03] LABS: WHITE BLOOD COUNT (AUTO) 13.2 K/uL (4.8-10.8)
[2019-04-19 04:27] VITALS: BP 130/65
== END 2019-04-19 04:27 | disposition home or self-care (01) ==
LOC: MED 02:26
DX: R07.89 Other chest pain (principal); R06.02 Shortness of breath; E11.9 Type 2 diabetes mellitus without complications; I50.9 Heart failure, unspecified; I11.0 Hypertensive heart disease with heart failure; Z79.899 Other long term (current) drug therapy; Z79.82 Long term (current) use of aspirin; Z79.4 Long term (current) use of insulin; Z98.890 Other specified postprocedural states
CPT/HCPCS: 36415; 71045; 80053; 82948; 83880; 84484; 85025; 93005; 96374; 99284; J1940; Q0092

== ENCOUNTER 2019-04-28 20:49 | Emergency (ER) | payer MEDICAID ==
[~2019-04-28] VITALS: Ht 149.9 cm; Wt 81.6 kg
[2019-04-28 20:53] VITALS: BP 160/90
--- NOTE | 2019-04-28 20:57 | NUR ---
TO LOBBY A/W BED AMBULATORY
--- NOTE | 2019-04-28 22:40 | NUR ---
PT CALLED WITH NO RESPONSE.
== END 2019-04-28 22:40 | disposition left against medical advice (07) ==
LOC: MED 20:49
DX: R11.2 Nausea with vomiting, unspecified (principal); R06.89 Other abnormalities of breathing; Z53.21 Procedure and treatment not carried out due to patient leaving prior to being seen by health care provider; R05 Cough; M79.606 Pain in leg, unspecified; R22.40 Localized swelling, mass and lump, unspecified lower limb

== ENCOUNTER 2019-05-09 14:36 | Emergency (ER) | payer MEDICAID ==
[~2019-05-09] VITALS: Ht 149.9 cm; Wt 94.3 kg
[2019-05-09 14:40] VITALS: BP 161/106
--- NOTE | 2019-05-09 14:49 | NUR ---
Ambulated to [facility]. Awaiting bed availability.
--- NOTE | 2019-05-09 15:19 | NUR ---
dr lópez at bedside evaluating pt.
--- NOTE | 2019-05-09 15:20 | NUR ---
PT AMBULATED TO BED 02.
--- NOTE | 2019-05-09 15:20 | NUR ---
Difficulty breathing, headache, bilateral leg pain x 2 week, today worse. Blood Sugar 324.Pt awake ,alert, ambulatory with steady gait.sce,cbs not in distress. Allergies: NKA Med Hx: CHF, DM
[2019-05-09] MEDS ORDERED: ONDANSETRON 4 MG/2 ML VIAL IVP ONE (15:30)
[2019-05-09 16:12] LABS: BASOPHILS # (AUTO) 0.1 K/uL (0.00-0.22); BASOPHILS % (AUTO) 0.5 % (0.0-2.0); EOSINOPHILS % (AUTO) 0.4 % (0.0-4.0); HEMATOCRIT 28.7 % (36-48); HEMOGLOBIN 9.4 g/dL (12.0-16.0); LYMPHOCYTES # (AUTO) 1.6 K/uL (2.5-16.5); LYMPHOCYTES % (AUTO) 13.2 % (20.5-51.1); MEAN CORPUSCULAR HEMOGLOBIN 29 pg (27-31); MEAN CORPUSCULAR HGB CONC 33 g/dL (33-37); MONOCYTES # (AUTO) 2.3 K/uL (0.8-1.0); MONOCYTES % (AUTO) 18.6 % (1.7-9.3); NEUTROPHILS # (AUTO) 8.1 K/uL (1.8-7.7); NEUTROPHILS % (AUTO) 67.3 % (42.2-75.2); PLATELET COUNT (AUTO) 321 K/uL (140-450); RED BLOOD CELL COUNT(AUTO) 3.26 MIL/uL (4.20-5.40); RED CELL DISTRIBUTION WIDTH 14.4 % (11.6-13.7); WHITE BLOOD COUNT (AUTO) 12.1 K/uL (4.8-10.8)
[2019-05-09 16:26] LABS: ANION GAP 10.7 (8-16); CARBON DIOXIDE 25.3 mmol/L (21-32); CREATININE 1.2 mg/dL (0.6-1.3)
[2019-05-09 16:30] LABS: ALBUMIN 2.5 g/dL (3.4-5.0); TOTAL BILIRUBIN 0.3 mg/dL (0.0-1.0)
[2019-05-09 16:39] LABS: PROTHROMBIN TIME 9.2 secs (10.8-13.4)
[2019-05-09] MEDS ORDERED: ONDANSETRON 4 MG/2 ML VIAL ONE (16:42)
--- NOTE | 2019-05-09 17:35 | NUR ---
urine sample collected
[2019-05-09 17:44] LABS: APPEARANCE,URINE CLEAR (CLEAR); BILIRUBIN,URINE NEGATIVE (NEGATIVE); BLOOD, URINE 2+ (NEGATIVE); COLOR,URINE YELLOW (YELLOW); LEUKOCYTE ESTERASE ,URINE NEGATIVE (NEGATIVE); NITRITE, URINE NEGATIVE (NEGATIVE); UGLUCOSE 3+ (NEGATIVE)
[2019-05-09 17:55] LABS: RBC,URINE 50-80 /HPF (0-5); WBC,URINE NONE SEEN /HPF (0-5)
--- NOTE | 2019-05-09 18:20 | NUR ---
pt went to ct scan.
--- NOTE | 2019-05-09 18:34 | NUR ---
back from ct scan.
--- NOTE | 2019-05-09 19:02 | NUR ---
REPORT RECEIVED FROM MODESTO SINGLETON.
--- NOTE | 2019-05-09 19:19 | NUR ---
Dr. Turner examining patient.
--- NOTE | 2019-05-09 19:26 | NUR ---
PATIENT IS RESTING WITH EYES CLOSED. WILL CONTINUE TO MONITOR.
[2019-05-09 19:40] VITALS: BP 141/98
== END 2019-05-09 19:40 | disposition home or self-care (01) ==
LOC: MED 14:36
DX: I11.0 Hypertensive heart disease with heart failure (principal); I50.9 Heart failure, unspecified; R11.2 Nausea with vomiting, unspecified; R60.0 Localized edema; E11.9 Type 2 diabetes mellitus without complications; Z87.448 Personal history of other diseases of urinary system; Z98.890 Other specified postprocedural states; Z79.899 Other long term (current) drug therapy; Z79.4 Long term (current) use of insulin; Z79.82 Long term (current) use of aspirin
CPT/HCPCS: 36415; 71045; 74176; 80053; 81001; 81025; 82948; 83605; 83690; 83880; 84484; 85025; 85610; 85730; 87040; 87086; 93005; 96374; 99284; J2405; Q0092

== ENCOUNTER 2019-06-08 20:37 | Emergency (ER) | payer MEDICAID ==
[~2019-06-08] VITALS: Ht 149.9 cm; Wt 94.9 kg
[2019-06-08 20:50] VITALS: BP 134/80
--- NOTE | 2019-06-08 20:57 | NUR ---
TO LOBBY A/W BED AMBULATORY
--- NOTE | 2019-06-08 22:08 | NUR ---
PT AMBULATED TO CHAIR B.
[2019-06-08 23:06] VITALS: BP 134/80
--- NOTE | 2019-06-08 23:06 | NUR ---
Patient discharged with v/s stable. Pt was seen, treated, and discharged by Marlee Teixeira. Written and verbal after care instructions given and explained. Patient alert, oriented and verbalized understanding of instructions. Ambulatory with steady gait. All questions addressed prior to discharge. ID band removed. Patient advised to follow up with PMD. Rx of Albuterol elizabeth, Albuterol inh, Ibuprofen, and Promethazine given. Patient educated on indication of medication including possible reaction and side effects. Opportunity to ask questions provided and answered.
== END 2019-06-08 23:06 | disposition home or self-care (01) ==
LOC: MED 20:37
DX: J06.9 Acute upper respiratory infection, unspecified (principal); E11.9 Type 2 diabetes mellitus without complications; I11.0 Hypertensive heart disease with heart failure; I50.9 Heart failure, unspecified; Z98.890 Other specified postprocedural states; Z79.4 Long term (current) use of insulin; Z79.82 Long term (current) use of aspirin; Z79.899 Other long term (current) drug therapy
CPT/HCPCS: 99283

== ENCOUNTER 2019-12-15 10:10 | Inpatient (IN) | payer MEDICAID ==
[~2019-12-15] VITALS: Ht 149.9 cm; Wt 87.5 kg
[~2019-12-15 10:10] MED LIST changes: +METO10TA11 PO; -METO10TA98 PO
[2019-12-15 10:19] VITALS: BP 162/90
--- NOTE | 2019-12-15 10:30 | NUR ---
PATIENT AMBULATED TO BED 1. HANDED URINE CUP.
--- NOTE | 2019-12-15 10:50 | NUR ---
C/O R JAW PAIN 6/10 X3-4 DAYS, WELL INCREASING SOB OVER THE LAST WEEK. PT STATES HER R EYE HAS ALSO BEEN "DRAINING" OVER THE LAST 3-4 DAYS WELL. PT REPORTS HX OF CHF AND STATES SHE IS FREQUENTLY SOB BUT FEELS LIKE IT IS GETTING INCREASINGLY WORSE. PAINFUL BUMP NOTED TO THE BOTTOM OF R JAW. O2 RA IS 98% RA, 19 RR PER MINUTE. PT DENIES FEVER. BED IN LOW POSITION, SIDE RAIL UP X1.
--- NOTE | 2019-12-15 11:04 | NUR ---
PT PLACED ON BEDSIDE PRINT COLOR MATCHER AT THIS TIME
[2019-12-15] MEDS ORDERED: KETOROLAC 15 MG/ML VIAL IVP ONE (11:45)
[2019-12-15 12:11] LABS: BASOPHILS % (AUTO) 0.1 % (0.0-2.0); EOSINOPHILS # (AUTO) 0.3 K/uL (0-0.4); EOSINOPHILS % (AUTO) 2.8 % (0.0-4.0); HEMATOCRIT 29.5 % (36-48); HEMOGLOBIN 9.7 g/dL (12.0-16.0); LYMPHOCYTES # (AUTO) 1.8 K/uL (2.5-16.5); LYMPHOCYTES % (AUTO) 15.5 % (20.5-51.1); MEAN CORPUSCULAR HEMOGLOBIN 28 pg (27-31); MEAN CORPUSCULAR HGB CONC 33 g/dL (33-37); MEAN CORPUSCULAR VOLUME 86.1 fL (80-94); MONOCYTES # (AUTO) 0.8 K/uL (0.8-1.0); NEUTROPHILS # (AUTO) 8.6 K/uL (1.8-7.7); NEUTROPHILS % (AUTO) 74.6 % (42.2-75.2); PLATELET COUNT (AUTO) 355 K/uL (140-450); RED BLOOD CELL COUNT(AUTO) 3.43 MIL/uL (4.20-5.40); RED CELL DISTRIBUTION WIDTH 13.4 % (11.6-13.7); WHITE BLOOD COUNT (AUTO) 11.6 K/uL (4.8-10.8)
[2019-12-15 12:43] LABS: ALBUMIN 1.7 g/dL (3.4-5.0); ANION GAP 14.2 (8-16); CARBON DIOXIDE 22.6 mmol/L (21-32); CREATININE 1.5 mg/dL (0.6-1.3); POTASSIUM 3.8 mmol/L (3.5-5.1); TOTAL BILIRUBIN 0.2 mg/dL (0.0-1.0)
[2019-12-15 12:53] LABS: CREATINE KINASE MB 1.3 ng/mL (0-3.6)
[2019-12-15] MEDS ORDERED: INSULIN REGULAR, HUMAN 100 UNIT/ML VIAL IV ONE (13:05)
--- NOTE | 2019-12-15 13:42 | NUR ---
Provided with sugar free jello. Puente by Dr. Joseph.
[2019-12-15] MEDS ORDERED: FUROSEMIDE 40 MG/4 ML VIAL IVP SCH (13:55)
[2019-12-15] MEDS ORDERED: ASPIRIN 325 MG TAB PO ONE (14:30)
[2019-12-15] MEDS ORDERED: FUROSEMIDE 20 MG/2 ML VIAL IVP ONE (15:04)
[2019-12-15] MEDS: NACL 0.9% 1,000 ML IV SCH (15:08)
[2019-12-15] MEDS ORDERED: ZOLPIDEM 5 MG TAB PO PRN (15:10)
[2019-12-15] MEDS ORDERED: DOCUSATE SODIUM 100 MG GELCAP PO PRN (15:10)
[2019-12-15] MEDS ORDERED: POTASSIUM CHLORIDE 10 MEQ TABER PO PRN (15:10)
[2019-12-15] MEDS ORDERED: guaiFENesin DM 200/20 MG-10 ML 10 ML UDC PO PRN (15:10)
[2019-12-15 16:17] LABS: CHOL/HDL RATIO 6.8 (1-4.5); FREE T4 (FREE THYROXINE) 1.1 ng/dL (0.76-1.46); MAGNESIUM 1.7 mg/dL (1.8-2.4); THYROID STIMULATING HORMONE 2.09 uIU/mL (0.34-3.74)
--- NOTE | 2019-12-15 16:36 | NUR ---
PT RESTING IN BED, NO NEW NEEDS AT THIS TIME.
--- NOTE | 2019-12-15 17:00 | NUR ---
PT STATES SHE IS HAVING PAIN 8/10 TO R JAW. WILL ADMIN PRN PAIN MEDICATION
[2019-12-15] MEDS: HYDROcodone/APAP 7.5/325 MG 1 TAB PO PRN (17:03)
[2019-12-15 17:13] VITALS: BP 158/82
--- NOTE | 2019-12-15 17:13 | NUR ---
PT BROUGHT TO ROOM 125A. RECEIVED REPORT FROM WAXER TENDER. C/O: SOB. DX: CHF EXACERBATION. HX: CHF, DM. PT CAME FROM HOME. NSR. A&OX4. XRAY: MILD CARDIOMEGALY, HYPO EXPANDED LUNGS. PT IS ON RA. IV: RT AC 20 RUNNING 20ML. VS STABLE.LAST BLOOD SUGAR: 353, 8 UNITS HUMULIN R GIVEN AT 1335 IN ER. PT IS A FULL CODE. SKIN IS INTACT.
--- NOTE | 2019-12-15 17:30 | NUR ---
STARTED 1ST DOSE OF ROCEPHIN. NO REACTION
--- NOTE | 2019-12-15 17:33 | NUR ---
Patient will be admitted to care of . Admited to TELEMETRY. Will go to room 125A. Belongings list completed. Report to MODESTO SHORT.
[2019-12-15] MEDS: carvediloL 6.25 MG TAB PO SCH (17:40)
[2019-12-15] MEDS: ISOSORBIDE DINITRATE 20 MG TAB PO SCH (17:41)
--- NOTE | 2019-12-15 19:10 | NUR ---
RECEIVED BEDSIDE REPORT FROM DAY SHIFT NURSE FOR CONTINUITY OF CARE. PT IS AWAKE AND ALERT. LAYING IN HIGH FOWLERS POSITION WATCHING TV. PT IS A&O X4. ON RA WITH BREATHING THAT IS UNLABORED. PT IS ON TELE MONITORING, SR. SKIN IS WARM, DRY, AND INTACT. IV IS PATENT AND INTACT IN THE RIGHT AC 20 GAUGE RUNNING NS AT 20 ML PER HOUR. PT IS ON STRICT I&O AND HOB AT 30 DEGREES. PT IS UNIVERSAL PRECAUTIONS. PLAN OF CARE WAS DISCUSSED. BED IS IN THE LOWEST POSITION AND CALL LIGHT IS WITHIN REACH. PT IS STABLE AT THIS TIME.
--- NOTE | 2019-12-15 19:43 | NUR ---
TRANSFER OF CARE TO PM RN. NO SIGNS OF DISTRESS. PT IS STABLE. VS STABLE.
[2019-12-15 20:00] VITALS: BP 125/64
[2019-12-15] MEDS ORDERED: BLOOD GLUCOSE MONITORING 1 DEV DEV FS SCH (20:00)
--- NOTE | 2019-12-15 20:00 | NUR ---
CHECKED PT'S BS PER ORDER AND BS READING IS 324. WILL CALL DOCTOR TO ASSESS WHETHER THEY WOULD LIKE TO PUT IN ORDERS FOR A SLIDING SCALE INSULIN.
[2019-12-15] MEDS: ATORVASTATIN 20 MG TAB PO SCH (20:34)
[2019-12-15] MEDS: FUROSEMIDE 40 MG/4 ML VIAL IVP SCH (20:34)
[2019-12-15] MEDS ORDERED: FUROSEMIDE 40 MG TAB PO SCH (21:00)
--- NOTE | 2019-12-15 21:00 | NUR ---
PT IS AWAKE AND SPEAKING APPROPRIATELY. A&O X4. PT WAS ASSISTED TO THE RESTROOM AND NOTICED A BIT OF UNSTEADY GAIT. FALL PRECAUTIONS ARE IN PLACE NOW. PT STATES THAT SHE HAS TROUBLE SEEING BUT DOES NOT HAVE TROUBLE WALKING. INSTRUCTED PT TO CALL ON THE CALL LIGHT IF SHE NEEDS TO GET UP SO WE CAN ASSIST HER TO THE RESTROOM. PT VERBALIZED UNDERSTANDING. SHE IS STABLE AT THIS TIME.
--- NOTE | 2019-12-15 21:55 | NUR ---
CONTACTED DOCTOR TELECOMMUNICATIONS MANAGER FOR DR. GUPTA. INFORMED HER THAT PT DOES NOT HAVE AN INSULIN SLIDING SCALE ORDER BUT HER BS IS 324. DR. EVANS ORDERED D50 PUSHES, ACCU CHECK ACHS, AND INSULIN HUMALOG PER SLIDING SCALE. WILL ADMINISTER ONCE VERIFIED BY PHARMACY.
[2019-12-15] MEDS ORDERED: DEXTROSE 50% 50 ML SYR IVP PRN (22:00)
--- NOTE | 2019-12-15 22:00 | NUR ---
CALLED AFTER HOURS PHARMACY AND ASKED TO VERIFY NEW MED ORDERS. PHARMACY SAID THEY WILL VERIFY SHORTLY.
[2019-12-15] MEDS: INSULIN LISPRO SLIDING SCALE 100 UNITS/ML VIAL SUBQ PRN (22:19)
[2019-12-15] MEDS: BLOOD GLUCOSE MONITORING 1 DEV DEV FS SCH (22:26)
[2019-12-16] VITALS: BP 107/44
--- NOTE | 2019-12-16 | NUR ---
PT WAS ASSISTED TO THE RESTROOM PER HARMONIC ANALYST. GAIT IS UNSTEADY. PT IS AWAKE AND ALERT. NO COMPLAINTS OF PAIN, ONLY WITH MOVEMENT. BREATHING IS UNLABORED. IV IS PATENT AND RUNNING NS AT 20 ML PER HOUR PER ORDER.
--- NOTE | 2019-12-16 00:13 | NUR ---
URINE SAMPLE COLLECTED AND SENT TO LAB PER ORDER REQUEST.
--- NOTE | 2019-12-16 02:30 | NUR ---
PT IS AWAKE AND ALERT. NO DISTRESS NOTED. A&O X 4. IV FLUIDS ARE RUNNING AT 20 ML PER HOUR PER ORDER. IV IS PATENT AND INTACT. BED IS IN LOWEST POSITION AND CALL LIGHT IS WITHIN REACH.
[2019-12-16 02:36] LABS: APPEARANCE,URINE CLEAR (CLEAR); BILIRUBIN,URINE NEGATIVE (NEGATIVE); BLOOD, URINE 1+ (NEGATIVE); COLOR,URINE YELLOW (YELLOW); LEUKOCYTE ESTERASE ,URINE NEGATIVE (NEGATIVE); NITRITE, URINE NEGATIVE (NEGATIVE); UGLUCOSE 3+ (NEGATIVE)
[2019-12-16 03:17] LABS: WBC,URINE 0-5 /HPF (0-5); YEAST,URINE Many /HPF (None Seen)
[2019-12-16 03:39] LABS: BARBITURATE, URINE NEGATIVE ng/ml (NEG <=200); BENZODIAZEPINE, URINE NEGATIVE ng/mL (NEG <=200); CANNABINOID, URINE NEGATIVE ng/mL (NEG <=50); COCAINE, URINE NEGATIVE ng/mL (NEG <=300); OPIATE, URINE NEGATIVE ng/mL (NEG <=2000); PHENCYCLIDINE SCREEN,URINE NEGATIVE ng/mL (NEG <=25)
[2019-12-16 04:00] VITALS: BP 128/60
--- NOTE | 2019-12-16 04:30 | NUR ---
ROUNDED ON PT. SHE IS ASLEEP. CHEST RISE AND FALL IS SYMMETRICAL. NO SIGNS OF PAIN NOTED. BREATHING IS UNLABORED. WILL CONTINUE TO MONITOR.
[2019-12-16 05:39] LABS: BASOPHILS # (AUTO) 0.1 K/uL (0.00-0.22); BASOPHILS % (AUTO) 0.8 % (0.0-2.0); EOSINOPHILS # (AUTO) 0.5 K/uL (0-0.4); EOSINOPHILS % (AUTO) 4.4 % (0.0-4.0); HEMOGLOBIN 8.6 g/dL (12.0-16.0); LYMPHOCYTES # (AUTO) 2.3 K/uL (2.5-16.5); LYMPHOCYTES % (AUTO) 20.7 % (20.5-51.1); MEAN CORPUSCULAR HEMOGLOBIN 28 pg (27-31); MEAN CORPUSCULAR HGB CONC 33 g/dL (33-37); MEAN CORPUSCULAR VOLUME 85.6 fL (80-94); MONOCYTES # (AUTO) 0.8 K/uL (0.8-1.0); MONOCYTES % (AUTO) 7.1 % (1.7-9.3); NEUTROPHILS # (AUTO) 7.6 K/uL (1.8-7.7); PLATELET COUNT (AUTO) 328 K/uL (140-450); RED BLOOD CELL COUNT(AUTO) 3.04 MIL/uL (4.20-5.40); RED CELL DISTRIBUTION WIDTH 13.3 % (11.6-13.7); WHITE BLOOD COUNT (AUTO) 11.3 K/uL (4.8-10.8)
[2019-12-16] MEDS: BLOOD GLUCOSE MONITORING 1 DEV DEV FS SCH ×4 (06:08→21:00)
[2019-12-16] MEDS: INSULIN LISPRO SLIDING SCALE 100 UNITS/ML VIAL SUBQ PRN ×4 (06:10→21:08)
--- NOTE | 2019-12-16 06:19 | NUR ---
PT'S ACCU CHECK READING WAS 173 AND SHE RECEIVED 2 UNITS HUMALOG PER SLIDING SCALE.
[2019-12-16 06:48] LABS: ANION GAP 10.5 (8-16); CARBON DIOXIDE 24.7 mmol/L (21-32); CREATININE 1.4 mg/dL (0.6-1.3); POTASSIUM 3.2 mmol/L (3.5-5.1)
--- NOTE | 2019-12-16 07:15 | NUR ---
ENDORSED PT TO DAY SHIFT NURSE FOR CONTINUITY OF CARE. PT IS STABLE AT THIS TIME. PLAN OF CARE WAS DISCUSSED.
[2019-12-16 08:00] VITALS: BP 130/69
[2019-12-16] MEDS: FUROSEMIDE 40 MG/4 ML VIAL IVP SCH ×2 (08:44→21:03)
[2019-12-16] MEDS: carvediloL 6.25 MG TAB PO SCH ×2 (08:44→17:54)
[2019-12-16] MEDS: ECOTRIN 81 MG TABEC PO SCH (08:45)
[2019-12-16] MEDS: ISOSORBIDE DINITRATE 20 MG TAB PO SCH ×3 (08:45→17:54)
[2019-12-16] MEDS: PARoxetine 10 MG TAB PO SCH (08:45)
[2019-12-16] MEDS: PANTOPRAZOLE 40 MG TABEC PO SCH (08:45)
--- NOTE | 2019-12-16 08:57 | NUR ---
SEEN BY FIELD ARTILLERY CREWMEMBER. PATIENT COMPLAINING HUNGRY WHEN INFORMED STATUS IS NPO EXCEPT MEDS. WILL FIND OUT WITH .
--- NOTE | 2019-12-16 09:04 | NUR ---
PATIENT HAS BEEN SCREENED AND CATEGORIZED MODERATE NUTRITION RISK. PATIENT WILL BE SEEN WITHIN 3-5 DAYS OF ADMISSION. 12/18/19 12/20/[address]
[2019-12-16 09:14] LABS: T3 UPTAKE 30 % (24-39); T4 (THYROXINE) 5.7 ug/dL (4.5-12.0)
[2019-12-16 12:00] VITALS: BP 154/77
--- NOTE | 2019-12-16 12:15 | NUR ---
DISCHARGE PLANNING: THIS IS A 49 Y/O FEMALE PATIENT FROM HOME, WHO WAS BIBA DUE TO WORSENING SOB. PAST MEDICAL HISTORY INCLUDE CHF, DIABETES, HTN, ANXIETY, ANEMIA AND MEDICAL NON COMPLIANCE. INITIAL DIAGNOSIS OF CHF, SOB. CURRENT LABS INCLUDE WBC 11.3, H/H 8.6/26.0, NA/K 139/3.2, BUN/CREA 17/1.4, MAG 1.7. ON INSULIN SLIDING SCALE, ROCEPHIN, LASIX. CARDIO CONSULT IN PLACE AND SEEN - ORDERED REPEAT ECHO, LAST ECHO LAST YEAR EF 35-40%. DC PLAN BACK TO HOME ONCE STABLE. Addendum: 12/20/19 at 1104 by Kassidy Jimenez CM DC PLAN TO HOME DISCUSSED WITH DOMI MUÑOZ OF [facility]. INFORMED HER THAT THE PATIENT WILL BE NEEDING OUTPATIENT FOLLOW UP WITH AN EENT. SHE STATED TO JUST FAX THE ORDER AND WILL MAKE REFERRAL. DR. GUPTA MADE AWARE.
[2019-12-16] MEDS: NACL 0.9% 1,000 ML IV SCH (15:08)
[2019-12-16 16:00] VITALS: BP 150/77
--- NOTE | 2019-12-16 19:18 | NUR ---
temp 100.0 continuity of care endorsed to hamida fuchs Rn,pA
--- NOTE | 2019-12-16 19:30 | NUR ---
RECEIVED REPORT FROM AM NURSE. PATIENT IS IN STABLE CONDITION AT THIS TIME. ON ROOM AIR. A/OX4, SKIN IS WARM, DRY, INTACT, RESPIRATIONS EVEN AND UNLABORED. NO COMPLAINTS OF PAIN AT THIS TIME. PATIENT IS ABLE TO MAKE NEEDS KNOWN. CALL LIGHT IS WITHIN REACH. SAFETY PRECAUTIONS IN PLACE. WILL CONTINUE TO MONITOR.
[2019-12-16 20:00] VITALS: BP 135/82
[2019-12-16] MEDS: metroNIDAZOLE 500 MG/NS PREMIX 100 ML IV SCH (21:02)
[2019-12-16] MEDS: ATORVASTATIN 20 MG TAB PO SCH (21:03)
--- NOTE | 2019-12-16 21:16 | NUR ---
ADMINISTERED SCHEDULED MEDICATION. EDUCATION PROVIDED. PATIENT TOLERATED WELL.
--- NOTE | 2019-12-16 23:20 | NUR ---
PATIENT REPORTED PAIN IN HER BILATERAL EXTREMITY, PAIN LEVEL 6/10. MEDICATED ORDERED.
[2019-12-16] MEDS: HYDROcodone/APAP 7.5/325 MG 1 TAB PO PRN (23:24)
[2019-12-17] VITALS: BP 153/79
--- NOTE | 2019-12-17 00:54 | NUR ---
PATIENT COMPLAINING OF NAUSEA. BUT REPORTS THAT NOTHING IS UPCOMING UP. SAT PATIENT ON EDGE OF BED. PROVIDED VOMIT BAG AND CRACKERS. PATIENT CONTINUE TO BE STABLE WILL CONTINUE TO MONITOR.
[2019-12-17 04:00] VITALS: BP 160/77
[2019-12-17] MEDS: metroNIDAZOLE 500 MG/NS PREMIX 100 ML IV SCH ×3 (04:24→20:11)
--- NOTE | 2019-12-17 05:15 | NUR ---
PATIENT IS SLEEPING. VISIBLE CHEST RISE NOTED. WILL CONTINUE TO MONITOR.
[2019-12-17 05:27] LABS: BASOPHILS # (AUTO) 0.1 K/uL (0.00-0.22); EOSINOPHILS # (AUTO) 0.4 K/uL (0-0.4); EOSINOPHILS % (AUTO) 2.9 % (0.0-4.0); HEMATOCRIT 25.7 % (36-48); HEMOGLOBIN 8.5 g/dL (12.0-16.0); LYMPHOCYTES # (AUTO) 1.9 K/uL (2.5-16.5); LYMPHOCYTES % (AUTO) 15.2 % (20.5-51.1); MEAN CORPUSCULAR HEMOGLOBIN 29 pg (27-31); MEAN CORPUSCULAR HGB CONC 33 g/dL (33-37); MEAN CORPUSCULAR VOLUME 86.1 fL (80-94); MONOCYTES # (AUTO) 0.9 K/uL (0.8-1.0); MONOCYTES % (AUTO) 7.5 % (1.7-9.3); NEUTROPHILS # (AUTO) 9.1 K/uL (1.8-7.7); NEUTROPHILS % (AUTO) 73.4 % (42.2-75.2); PLATELET COUNT (AUTO) 323 K/uL (140-450); RED BLOOD CELL COUNT(AUTO) 2.99 MIL/uL (4.20-5.40); RED CELL DISTRIBUTION WIDTH 13.7 % (11.6-13.7); WHITE BLOOD COUNT (AUTO) 12.4 K/uL (4.8-10.8)
[2019-12-17] MEDS: BLOOD GLUCOSE MONITORING 1 DEV DEV FS SCH ×4 (06:36→20:11)
[2019-12-17] MEDS: INSULIN LISPRO SLIDING SCALE 100 UNITS/ML VIAL SUBQ PRN ×4 (06:37→20:28)
--- NOTE | 2019-12-17 07:37 | NUR ---
ENDORSED CARE TO AM NURSE. PATIENT IS IN STABLE CONDITION.
[2019-12-17 07:44] LABS: MAGNESIUM 1.7 mg/dL (1.8-2.4); PHOSPHORUS 3.1 mg/dL (2.5-4.9)
[2019-12-17 08:28] VITALS: BP 145/73
[2019-12-17] MEDS: PARoxetine 10 MG TAB PO SCH (08:41)
[2019-12-17] MEDS: PANTOPRAZOLE 40 MG TABEC PO SCH (08:42)
[2019-12-17] MEDS: carvediloL 6.25 MG TAB PO SCH ×2 (08:42→16:47)
[2019-12-17] MEDS: ECOTRIN 81 MG TABEC PO SCH (08:42)
[2019-12-17] MEDS: ISOSORBIDE DINITRATE 20 MG TAB PO SCH ×3 (08:42→16:47)
[2019-12-17] MEDS: FUROSEMIDE 40 MG/4 ML VIAL IVP SCH (08:43)
--- NOTE | 2019-12-17 10:34 | NUR ---
RESTING DURING MORNING ROUNDS. NO COMPLAINTS PRESENTED. IV ACCESS INTACT AND PATENT. CALL LIGHT WITHIN REACH. GOOD APPETITE. CARDIO ROUNDED, NO NEW ORDERS NOTED. BLE SWELLING IMPROVING, RIGHT 2+ PITTING, LEFT TRACE EDEMA.
[2019-12-17 12:28] VITALS: BP 124/76
[2019-12-17 14:55] LABS: ANION GAP 15.6 (8-16); CARBON DIOXIDE 20.5 mmol/L (21-32); CREATININE 1.5 mg/dL (0.6-1.3); POTASSIUM 4.1 mmol/L (3.5-5.1)
[2019-12-17] MEDS: NACL 0.9% 1,000 ML IV SCH (15:08)
--- NOTE | 2019-12-17 15:26 | NUR ---
awake, sitting on bed, no complaints presented.
[2019-12-17 16:21] VITALS: BP 148/81
[2019-12-17] MEDS: HYDROcodone/APAP 7.5/325 MG 1 TAB PO PRN (16:54)
[2019-12-17] MEDS: FUROSEMIDE 40 MG/5 ML ORAL SOL UDC PO SCH (17:02)
--- NOTE | 2019-12-17 18:23 | NUR ---
CHF improving sa shown on patient lower extremities edema. will endorse to next shift for continuity of care.
--- NOTE | 2019-12-17 19:15 | NUR ---
RECEIVED BEDSIDE SHIFT REPORT FROM DAY SHIFT NURSE. PT SITTING IN BED. PT IS AWAKE, ALERT, ORIENTED, AND ABLE TO MAKE NEEDS KNOWN. PT IS AMBULATORY BUT WITH WOBBLY GAIT, SAFETY MEASURES IN PLACE. RESPIRATIONS ARE EVEN AND UNLABORED TO ROOM AIR. SKIN IS WARM, DRY, AND INTACT. SWELLING NOTED ON LEFT JAW, TRACE EDEMA ALSO NOTED ON BLE. ABDOMEN IS SOFT AND NON-TENDER. IV ACCESS ON RIGHT WRIST G22 PATENT AND INTACT, IVF INFUSING WELL. PT DENIES ANY PAIN OR DISCOMFORT AT THIS TIME. NO REQUESTS MADE. CALL LIGHT WITHIN REACH. WILL CONTINUE TO MONITOR.
[2019-12-17 20:00] VITALS: BP 124/66
[2019-12-17] MEDS: ATORVASTATIN 20 MG TAB PO SCH (20:11)
--- NOTE | 2019-12-17 20:28 | NUR ---
VITAL SIGNS STABLE. SCHEDULED MEDS GIVEN. PT DENIES ANY PAIN OR DISCOMFORT AT THIS TIME. NO REQUESTS MADE. SAFETY MEASURES IN PLACE, CALL LIGHT WITHIN REACH. WILL CONTINUE TO MONITOR.
--- NOTE | 2019-12-17 21:57 | NUR ---
PT ASLEEP. VISIBLE CHEST RISE AND FALL NOTED. NO S/SX OF DISTRESS AT THIS TIME. PT KEPT COMFORTABLE. SAFETY MEASURES IN PLACE. CALL LIGHT WITHIN REACH. WILL CONTINUE TO MONITOR.
[2019-12-18] VITALS: BP 116/51
--- NOTE | 2019-12-18 00:15 | NUR ---
VITAL SIGNS ARE STABLE. PT CURRENTLY USING HER PHONE. PT NOT IN DISTRESS, DENIES ANY PAIN OR DISCOMFORT AT THIS TIME. SAFETY MEASURES IN PLACE. CALL LIGHT WITHIN REACH. WILL CONTINUE TO MONITOR.
[2019-12-18] MEDS: HYDROcodone/APAP 7.5/325 MG 1 TAB PO PRN ×3 (00:26→21:52)
--- NOTE | 2019-12-18 00:26 | NUR ---
PT COMPLAINED OF SUDDEN LOWER BACK PAIN 10/05. PRN PAIN MEDICATION GIVEN ORDERED.
--- NOTE | 2019-12-18 02:11 | NUR ---
ROUNDS MADE. PT SLEEPING COMFORTABLY, NO S/SX OF DISTRESS/PAIN NOTED. KEPT COMFORTABLE. SAFETY MEASRUES IN PLACE. CALL LIGHT WITHIN REACH. WILL CONTINUE TO MONITOR.
[2019-12-18 04:00] VITALS: BP 158/78
--- NOTE | 2019-12-18 04:08 | NUR ---
VITAL SIGNS STABLE. PT DENIES ANY PAIN OR DISCOMFORT AT THIS TIME. PT KEPT SAFE AND COMFORTABLE. SAFETY MEASURES IN PLACE, CALL LIGHT WITHIN REACH. WILL CONTINUE TO MONITOR.
[2019-12-18] MEDS: metroNIDAZOLE 500 MG/NS PREMIX 100 ML IV SCH ×3 (04:54→20:06)
[2019-12-18] MEDS: BLOOD GLUCOSE MONITORING 1 DEV DEV FS SCH ×4 (06:27→20:05)
[2019-12-18] MEDS: INSULIN LISPRO SLIDING SCALE 100 UNITS/ML VIAL SUBQ PRN ×4 (06:28→20:07)
--- NOTE | 2019-12-18 06:37 | NUR ---
BLOOD SUGAR 258. INSULIN COVERAGE GIVEN ORDERED. WILL CONTINUE TO MONITOR.
[2019-12-18 06:42] LABS: BASOPHILS # (AUTO) 0.1 K/uL (0.00-0.22); BASOPHILS % (AUTO) 1.2 % (0.0-2.0); EOSINOPHILS # (AUTO) 0.4 K/uL (0-0.4); EOSINOPHILS % (AUTO) 3.7 % (0.0-4.0); HEMATOCRIT 27.1 % (36-48); HEMOGLOBIN 8.9 g/dL (12.0-16.0); LYMPHOCYTES # (AUTO) 1.9 K/uL (2.5-16.5); LYMPHOCYTES % (AUTO) 16.1 % (20.5-51.1); MEAN CORPUSCULAR HEMOGLOBIN 28 pg (27-31); MEAN CORPUSCULAR HGB CONC 33 g/dL (33-37); MEAN CORPUSCULAR VOLUME 86.7 fL (80-94); MONOCYTES # (AUTO) 0.7 K/uL (0.8-1.0); MONOCYTES % (AUTO) 5.6 % (1.7-9.3); NEUTROPHILS # (AUTO) 8.8 K/uL (1.8-7.7); NEUTROPHILS % (AUTO) 73.4 % (42.2-75.2); PLATELET COUNT (AUTO) 365 K/uL (140-450); RED BLOOD CELL COUNT(AUTO) 3.13 MIL/uL (4.20-5.40); RED CELL DISTRIBUTION WIDTH 13.6 % (11.6-13.7)
[2019-12-18 07:04] LABS: ANION GAP 13.8 (8-16); CARBON DIOXIDE 22.3 mmol/L (21-32); CREATININE 1.6 mg/dL (0.6-1.3); MAGNESIUM 1.8 mg/dL (1.8-2.4); POTASSIUM 4.1 mmol/L (3.5-5.1)
--- NOTE | 2019-12-18 07:10 | NUR ---
GAVE BEDSIDE SHIFT REPORT TO DAY SHIFT NURSE. PATIENT IN STABLE CONDITION.
[2019-12-18 08:00] VITALS: BP 119/68
[2019-12-18] MEDS: PARoxetine 10 MG TAB PO SCH (08:37)
[2019-12-18] MEDS: carvediloL 6.25 MG TAB PO SCH ×2 (08:37→17:20)
[2019-12-18] MEDS: ECOTRIN 81 MG TABEC PO SCH (08:37)
[2019-12-18] MEDS: FUROSEMIDE 40 MG/5 ML ORAL SOL UDC PO SCH ×2 (08:37→17:20)
[2019-12-18] MEDS: PANTOPRAZOLE 40 MG TABEC PO SCH (08:38)
[2019-12-18] MEDS: ISOSORBIDE DINITRATE 20 MG TAB PO SCH ×3 (08:44→17:20)
[2019-12-18] MEDS: ONDANSETRON 4 MG/2 ML VIAL IM/IVP PRN (09:23)
--- NOTE | 2019-12-18 09:41 | NUR ---
Nausea, emesis is more of phlegm. anti emetic given. Instructed to keep upright after meals. right [place] swelling slightly improved, denies pain at this time.
[2019-12-18 12:15] VITALS: BP 141/81
[2019-12-18 15:51] VITALS: BP 153/92
[2019-12-18] MEDS: NACL 0.9% 1,000 ML IV SCH (15:55)
--- NOTE | 2019-12-18 19:05 | NUR ---
RECEIVED BEDSIDE SHIFT REPORT FROM DAY SHIFT NURSE. PT SITTING IN BED. PT IS AWAKE, ALERT, ORIENTED, AND ABLE TO MAKE NEEDS KNOWN. PT IS AMBULATORY BUT WITH WOBBLY GAIT, SAFETY MEASURES IN PLACE. RESPIRATIONS ARE EVEN AND UNLABORED TO ROOM AIR. SKIN IS WARM, DRY, AND INTACT. SWELLING NOTED ON LEFT JAW, TRACE EDEMA ALSO NOTED ON BLE. ABDOMEN IS SOFT AND NON-TENDER. IV ACCESS ON LEFT FOREARM G22 PATENT AND INTACT, IVF INFUSING WELL. PT DENIES ANY PAIN OR DISCOMFORT AT THIS TIME. NO REQUESTS MADE. CALL LIGHT WITHIN REACH. WILL CONTINUE TO MONITOR.
[2019-12-18 20:00] VITALS: BP 127/68
[2019-12-18] MEDS: ATORVASTATIN 20 MG TAB PO SCH (20:06)
--- NOTE | 2019-12-18 20:10 | NUR ---
VITAL SIGNS STABLE. SCHEDULED MEDS GIVEN. BLOOD SUGAR 284. INSULIN COVERAGE GIVEN ORDERED. CALL LIGHT WITHIN REACH. WILL CONTINUE TO MONITOR.
[2019-12-18] MEDS: ACETAMINOPHEN 325 MG TAB PO PRN (21:45)
--- NOTE | 2019-12-18 21:52 | NUR ---
PT COMPLAINED OF LOWER BACK PAIN. PRN PAIN MEDICATION GIVEN ORDERED. WILL CONTINUE TO MONITOR.
[2019-12-19] VITALS: BP 112/86
--- NOTE | 2019-12-19 00:12 | NUR ---
VITAL SIGNS STABLE. PT DENIES ANY PAIN OR DISCOMFORT. NO REQUESTS MADE. PT KEPT COMFORTABLE. CALL LIGHT WITHIN REACH. WILL CONTINUE TO MONITOR.
[2019-12-19] MEDS: ONDANSETRON 4 MG/2 ML VIAL IM/IVP PRN ×2 (02:02→08:40)
--- NOTE | 2019-12-19 02:18 | NUR ---
PT ASLEEP. NO S/SX OF PAIN OR DISCOMFORT NOTED. KEPT SAFE AND COMFORTABLE. CALL LIGHT WITHIN REACH. WILL CONTINUE TO MONITOR.
[2019-12-19 04:00] VITALS: BP 136/64
--- NOTE | 2019-12-19 04:00 | NUR ---
VITAL SIGNS STABLE. SCHEDULED MEDICATION GIVEN ORDERED. PT DENIES PAIN. WILL CONTINUE TO MONITOR.
[2019-12-19] MEDS: metroNIDAZOLE 500 MG/NS PREMIX 100 ML IV SCH ×3 (04:02→20:58)
--- NOTE | 2019-12-19 05:03 | NUR ---
PT ASLEEP. VISIBLE CHEST RISE AND FALL NOTED. NO S/SX OF DISTRESS NOTED. PT KEPT COMFORTABLE. CALL LIGHT WITHIN REACH. WILL CONTINUE TO MONITOR.
[2019-12-19] MEDS: BLOOD GLUCOSE MONITORING 1 DEV DEV FS SCH ×4 (06:32→20:58)
[2019-12-19] MEDS: INSULIN LISPRO SLIDING SCALE 100 UNITS/ML VIAL SUBQ PRN ×3 (06:33→21:00)
--- NOTE | 2019-12-19 07:30 | NUR ---
SHIFT REPORT RECEIVED FROM SUPERVISOR PASTRY NURSE. PT IS AWAKE AND RESTED. PT COMPLAINS OF NAUSEA. NO DISTRESS NOTED. BED IN LOW POSITION. CALL LIGHT IN REACH. WILL CONTINUE TO MONITOR.
[2019-12-19 08:00] VITALS: BP 160/82
[2019-12-19] MEDS: FUROSEMIDE 40 MG/5 ML ORAL SOL UDC PO SCH ×2 (09:05→16:34)
[2019-12-19] MEDS: carvediloL 6.25 MG TAB PO SCH ×2 (09:06→16:35)
[2019-12-19] MEDS: ISOSORBIDE DINITRATE 20 MG TAB PO SCH ×3 (09:06→16:35)
[2019-12-19] MEDS: PARoxetine 10 MG TAB PO SCH (09:06)
[2019-12-19] MEDS: PANTOPRAZOLE 40 MG TABEC PO SCH (09:06)
[2019-12-19] MEDS: ECOTRIN 81 MG TABEC PO SCH (09:07)
[2019-12-19 09:19] LABS: BASOPHILS # (AUTO) 0.2 K/uL (0.00-0.22); BASOPHILS % (AUTO) 1.1 % (0.0-2.0); EOSINOPHILS # (AUTO) 0.6 K/uL (0-0.4); EOSINOPHILS % (AUTO) 4.2 % (0.0-4.0); HEMATOCRIT 26.9 % (36-48); HEMOGLOBIN 8.8 g/dL (12.0-16.0); LYMPHOCYTES # (AUTO) 1.9 K/uL (2.5-16.5); MEAN CORPUSCULAR HEMOGLOBIN 28 pg (27-31); MEAN CORPUSCULAR HGB CONC 33 g/dL (33-37); MEAN CORPUSCULAR VOLUME 86.8 fL (80-94); MONOCYTES # (AUTO) 0.9 K/uL (0.8-1.0); MONOCYTES % (AUTO) 6.5 % (1.7-9.3); NEUTROPHILS # (AUTO) 10.1 K/uL (1.8-7.7); NEUTROPHILS % (AUTO) 74.2 % (42.2-75.2); PLATELET COUNT (AUTO) 386 K/uL (140-450); RED CELL DISTRIBUTION WIDTH 13.7 % (11.6-13.7); WHITE BLOOD COUNT (AUTO) 13.6 K/uL (4.8-10.8)
--- NOTE | 2019-12-19 09:30 | NUR ---
PT TOOK PO MEDS. PT WAS VOMITING. GAVE NAUSEA MEDS. PT IS COOPERATIVE AND SITTING BY SIDE OF BED. NO DISTRESS NOTED. BED IN LOW POSITION. CALL LIGHT IN REACH.
[2019-12-19 10:24] LABS: ANION GAP 14.7 (8-16); CARBON DIOXIDE 23.3 mmol/L (21-32); CREATININE 1.5 mg/dL (0.6-1.3)
[2019-12-19 10:28] LABS: MAGNESIUM 1.8 mg/dL (1.8-2.4); PHOSPHORUS 3.9 mg/dL (2.5-4.9)
[2019-12-19] MEDS: NACL 0.9% 1,000 ML IV SCH (11:55)
[2019-12-19 12:00] VITALS: BP 151/87
--- NOTE | 2019-12-19 12:00 | NUR ---
PT TOOK PO MEDS. PT IS COOPERATIVE AND SITTING BY SIDE OF BED. NO DISTRESS NOTED. BED IN LOW POSITION. CALL LIGHT IN REACH.
--- NOTE | 2019-12-19 14:30 | NUR ---
PT IS LEFT SIDE LATERAL. NO DISTRESS. IV IN PLACE. NO C/O NAUSEA. WILL CONTINUE TO MONITOR.
[2019-12-19 16:00] VITALS: BP 145/79
--- NOTE | 2019-12-19 18:31 | NUR ---
PT IS SITTING INBED. NO DISTRESS. NO COMPLAINS OF PAIN OR NAUSEA. WILL CONTINUE TO MONITOR.
--- NOTE | 2019-12-19 19:20 | NUR ---
SHIFT REPORT GIVEN TO INTEGRATED LOGISTICS OPERATIONS MANAGER NURSE. PT IS STABLE.
--- NOTE | 2019-12-19 19:25 | NUR ---
RECEIVED BEDSIDE REPORT FROM DAY SHIFT NURSE FOR CONTINUITY OF CARE. PT IS AWAKE AND ALERT. A& O X4. ON RA AND LUNG SOUNDS ARE CLEAR BILATERALLY. SR ON TELE MONITORING. COMMODE IS AT THE BEDSIDE FOR VOIDING, INSTRUCTED TO CALL FOR ASSISTANCE IF NEEDING HELP. SKIN IS WARM, DRY, AND INTACT. PITTING EDEMA IN THE LOWER EXTREMITIES. IV IS IN THE LEFT FOREARM 22 GAUGE RUNNING NS AT 50 ML PER HOUR. NO COMPLAINTS OF PAIN AT THIS TIME. NO VOMITING OR DIARRHEA. PLAN OF CARE WAS DISCUSSED. BED IS IN LOWEST POSITION, FALL PRECAUTIONS IN PLACE, AND CALL LIGHT WITHIN REACH.
[2019-12-19 20:00] VITALS: BP 132/69
[2019-12-19] MEDS: HYDROcodone/APAP 7.5/325 MG 1 TAB PO PRN (20:57)
--- NOTE | 2019-12-19 20:57 | NUR ---
PT WAS GIVEN NORCO FOR PAIN IN THE LOWER BACK AT A 6/10. PT STATES IT AN ACHING PAIN THAT GETS WORSE WHEN ITS COLD. BLANKETS WERE PROVIDED FOR COMFORT. HEATER WAS TURNED ON PER PT'S REQUEST.
[2019-12-19] MEDS: ATORVASTATIN 20 MG TAB PO SCH (20:58)
--- NOTE | 2019-12-19 21:00 | NUR ---
BS READING WAS 261 SO PT RECEIVED 6 UNITS OF HUMALOG PER SLIDING SCALE.
[2019-12-19] MEDS ORDERED: VANCOMYCIN PER PHARMACY MC PRN (22:20)
[2019-12-19] MEDS: ACETAMINOPHEN 325 MG TAB PO PRN (23:53)
--- NOTE | 2019-12-19 23:53 | NUR ---
PT WAS GIVEN TYLENOL PRN FOR HEADACHE. PT WAS ALSO GIVEN A SANDWHICH AND JUICE REQUESTED. WILL CONTINUE TO MONITOR PT'S HEADACHE AND PAIN LEVEL.
[2019-12-20] VITALS: BP 133/92
[2019-12-20] MEDS ORDERED: VANCOMYCIN 1,500 MG in DEXTROSE 5% 500 ML IV SCH ×2
[2019-12-20] MEDS ORDERED: VANCOMYCIN 1,000 MG VIAL ONE (00:40)
--- NOTE | 2019-12-20 01:36 | NUR ---
NEW IV IS PLACED IN THE LEFT HAND DUE TO INFILTRATED PRIOR IV. IV IS PATENT AND FLUSHING. NOW RUNNING ANTIBIOTICS ORDERED. WILL CONTINUE TO MONITOR SITE.
--- NOTE | 2019-12-20 02:32 | NUR ---
PT IS ASLEEP. CHEST RISE AND FALL IS SYMMETRICAL. NO SIGNS OF PAIN OR DISTRESS NOTED. IV IS PATENT AND INFUSING ANTIBIOTIC ORDERED. WILL CONTINUE TO MONITOR.
[2019-12-20 04:00] VITALS: BP 128/59
--- NOTE | 2019-12-20 04:15 | NUR ---
PT IS COLD AND ASKED FOR ANOTHER BLANKET. PT IS AWAKE AND ALERT. A&O X4. ON RA WITH NO SOB. BREATHING IS UNLABORED. CALL LIGHT IS WITHIN REACH. WILL CONTINUE TO MONITOR.
[2019-12-20] MEDS: BLOOD GLUCOSE MONITORING 1 DEV DEV FS SCH ×2 (06:05→11:57)
[2019-12-20] MEDS: INSULIN LISPRO SLIDING SCALE 100 UNITS/ML VIAL SUBQ PRN ×2 (06:07→11:56)
--- NOTE | 2019-12-20 06:10 | NUR ---
BS READING IS 266 AND 6 UNITS OF HUMALOG WAS GIVEN PER SLIDING SCALE.
[2019-12-20] MEDS: NACL 0.9% 1,000 ML IV SCH (06:39)
--- NOTE | 2019-12-20 07:15 | NUR ---
RECEIVED PATIENT FROM SOLE SCRAPER NURSE. PATIENT IS CURRENTLY ASLEEP WITH NO SIGNS OF DISTRESS. RESPIRATIONS ARE EVEN AND UNLABORED ON ROOM AIR. SKIN IS INTACT WITH IV PATENT ASYMPTOMATIC AND INFUSING PER ORDER. PATIENT DOES NOT COMPLAIN OF ANY PAIN. SAFETY MEASURES IN PLACE AND WILL CONTINUE TO MONITOR.
--- NOTE | 2019-12-20 07:25 | NUR ---
ENDORSED PT TO DAY SHIFT NURSE FOR CONTINUITY OF CARE. PLAN OF CARE WAS DISCUSSED. PT IS STABLE AT THIS TIME.
[2019-12-20 08:00] VITALS: BP 114/58
[2019-12-20] MEDS: PARoxetine 10 MG TAB PO SCH (08:11)
[2019-12-20] MEDS: ONDANSETRON 4 MG/2 ML VIAL IM/IVP PRN ×2 (08:12→12:07)
[2019-12-20] MEDS: ISOSORBIDE DINITRATE 20 MG TAB PO SCH ×2 (08:16→12:02)
[2019-12-20] MEDS: ECOTRIN 81 MG TABEC PO SCH (08:16)
[2019-12-20] MEDS: carvediloL 6.25 MG TAB PO SCH (08:17)
[2019-12-20] MEDS: PANTOPRAZOLE 40 MG TABEC PO SCH (08:18)
[2019-12-20] MEDS: FUROSEMIDE 40 MG/5 ML ORAL SOL UDC PO SCH (08:18)
--- NOTE | 2019-12-20 08:25 | NUR ---
ADMINISTERED MEDICATIONS PER ORDER AND TOLERATED WELL. PATIENT STATED THAT SHE FEELS NAUSEOUS THEREFORE ZOFRAN HAS BEEN GIVEN. SAFETY MEASURES IN PLACE AND WILL CONTINUE TO MONITOR.
[2019-12-20 09:59] LABS: ANION GAP 10.4 (8-16); CARBON DIOXIDE 25.6 mmol/L (21-32); CREATININE 1.5 mg/dL (0.6-1.3)
--- NOTE | 2019-12-20 10:11 | NUR ---
PATIENT JUST FINISHED USING THE BED SIDE COMMODE AND ASKED FOR IT TO BE DUMPED OUT. PATIENT IS IN NO SIGNS OF DISTRESS. SAFETY MEASURES IN PLACE AND WILL CONTINUE TO MONITOR.
--- NOTE | 2019-12-20 11:16 | NUR ---
ADMINISTRATIVE OFFICER NOTE: YARI CONTACTED SOFÍA RAY [phone] AND LEFT VM TO COMPLETE ASSESSMENT. SW WILL FOLLOW UP. Addendum: 12/20/19 at 1150 by Jeanmarie Chong [facility] Patient: Mary Ray : 1970 Age/Sex: 49/F Unit#: [id number] Room/Bed: 125/A User: Jeanmarie Chong Date: 12/20/19 11:48 Type: CM Discharge Plan Assessment Patient's Orientation Unable To Assess Information Provided By SOFÍA SHOEMAKER Comments SW CONTACTED SOFÍA RAY PER REQUEST OF MODESTO MELENDEZ. Management Specialist, Realtionship and Phone Number SOFÍA SHOEMAKER [phone] [facility] Power of Dispute Resolution Specialist No Does Patient Have a POLST No Identifying Problems No Social Work Triggers Is A Social Work Consult Needed No Mandate Report Filed No Explanation Of Identifying Problems PATIENT IS A 49-YEAR-OLD FEMALE ADMITTED FOR CHF. PATIENT HAS PMHX OF CHF, DIABETES, HYPERTENSION, ANXIETY, HYPERLIPEDEMIA, ANEMIA, AND MEDICAL NONCOMPLIANCE. Admitted From Home Pre-Admission Level Of Functioning Status Independent/Ambulatory Prior Resources/Services Used In Last 12 Months No Prior Resources Used Prior DME No Prior DME Used Living Situation Lives With Family House Patient Had Caregiver No Home Support No Caregiver Issues Financial Issues No Known Financial Issue Referral To The Financial Counselor Needed No Factors/Needs No D/C Needs Identified Pt/Rep Participated In Discharge Plan Yes Patient/Family Agress With Discharge Plan Yes Discharge Plan Comments TENTATIVE DISCHARGE PLAN IS FOR PATIENT TO RETURN HOME. DC Plan Status Initiated
[2019-12-20] MEDS ORDERED: CEPH-1019 PO (11:32)
[2019-12-20] MEDS ORDERED: VANC125C11 PO (11:32)
[2019-12-20] MEDS: HYDROcodone/APAP 7.5/325 MG 1 TAB PO PRN (11:57)
[2019-12-20 12:00] VITALS: BP 116/60
--- NOTE | 2019-12-20 12:09 | NUR ---
ADMINISTERED MEDICATIONS PER ORDER AND TOLERATED WELL. BLOOD GLUCOSE IS CURRENTLY 221 THEREFORE 4 UNITS OF INSULIN HAVE BEEN GIVEN. SAFETY MEASURES IN PLACE AND WILL CONTINUE TO MONITOR.
[2019-12-20 13:23] VITALS: BP 116/61
--- NOTE | 2019-12-20 14:25 | NUR ---
PATIENT HAS BEEN DISCHARGED TO HOME AND ESCORTED OFF OF THE UNIT VIA WHEELCHAIR TO PRIVATE VEHICLE. RESPIRATIONS ARE EVEN AND UNLABORED ON ROOM AIR WITH NO DIFFICULTIES BREATHING. SKIN IS INTACT WITH IV TAKEN OUT WITH LUMEN INTACT AND MINIMAL BLOOD LOSS. ID BANDS HAVE BEEN REMOVED. DISCHARGE TEACHING, MEDICATION ADHERENCE AND MD FOLLOW UP HAVE BEEN PROVIDED AND EXPLAINED TO PATIENT. PATIENT VERBALIZED UNDERSTANDING AND SIGNED ALL PAPERWORK. SAFETY MEASURES IN PLACE AND WILL CONTINUE TO MONITOR.
== END 2019-12-20 14:30 | disposition home or self-care (01) | DRG 198 ==
LOC: MED 10:10 → MMU 15:08 → UNDODISIN 23:05
PROVIDERS: ADMIT Family Medicine; ATTEND Family Medicine
DX: I20.9 Angina pectoris, unspecified (principal); I13.0 Hypertensive heart and chronic kidney disease with heart failure and stage 1 through stage 4 chronic kidney disease, or unspecified chronic kidney disease; D72.829 Elevated white blood cell count, unspecified; I50.43 Acute on chronic combined systolic (congestive) and diastolic (congestive) heart failure; N17.0 Acute kidney failure with tubular necrosis; E11.65 Type 2 diabetes mellitus with hyperglycemia; E43 Unspecified severe protein-calorie malnutrition; E87.1 Hypo-osmolality and hyponatremia; F32.9 Major depressive disorder, single episode, unspecified; H93.12 Tinnitus, left ear; H93.11 Tinnitus, right ear; Z68.39 Body mass index [BMI] 39.0-39.9, adult; E78.5 Hyperlipidemia, unspecified; Z98.891 History of uterine scar from previous surgery; F41.9 Anxiety disorder, unspecified; I88.9 Nonspecific lymphadenitis, unspecified; H60.11 Cellulitis of right external ear; N18.9 Chronic kidney disease, unspecified
CPT/HCPCS: 36415; 70486; 71045; 72100; 76536; 76881; 80048; 80053; 80305; 81001; 81025; 82150; 82550; 82553; 82948; 83036; 83690; 83735; 83880; 84100; 84436; 84439; 84443; 84479; 84484; 85025; 85610; 85730; 87081; 87086; 93005; 96374; 96375; 99285; J0696; J1815; J1885; J1940; J2405; J3370; J3490; J7030; J7060; Q0092

== ENCOUNTER 2020-03-24 08:34 | Inpatient (IN) | payer MEDICAID, SELFPAY ==
[~2020-03-24] VITALS: Ht 142.2 cm; Wt 90.7 kg
[~2020-03-24 08:34] MED LIST changes: -ALLO100T21 PO; -ASPI-1173 PO; +ASPI-1856 PO; -ATOR10TA PO; +ATOR20TA40 PO; -FERR325E14 PO; +GABA100C PO; +HYDR-4420 PO; -ISOS20TA13 PO; +LISI10TA11 PO; -METO10TA11 PO; -NOV7030 SUBQ; -PANT40EC28 PO; -PAX10 PO
[2020-03-24 08:46] VITALS: BP 179/87
--- NOTE | 2020-03-24 08:50 | NUR ---
PT AMB TO BED 8
[2020-03-24] MEDS ORDERED: FUROSEMIDE 40 MG/4 ML VIAL IVP ONE (08:55)
--- NOTE | 2020-03-24 09:15 | NUR ---
Dr. Calvillo is evaluating the patient at bedside.
--- NOTE | 2020-03-24 09:18 | NUR ---
49YO F BIB FRIEND FROM HOME C/O SOB AND MID CP SINCE YESTERDAY. PT REPORTS PAIN /, SHARP, RADIATING TO BACK. COVID TESTED NEGATIVE 03/01/20. IN ED, VSS. HR NORMAL RATE REGULAR RHYTHM. COARSE BREATH SOUNDS ON ALL LUNG FELDMAN. PT WITH SLIGHTLY LABORED BREATHING, 02 SAT IN RA= 97%. PT LAYING IN BED WITH 2 SIDERAILS UP, HEAD OF BED SLIGHTLY ELEVATED. ERMD MADE AWARE OF PT STATUS. MED HX: CHF, DM,HTN, RENAL DISEASE NKA
[2020-03-24 09:20] LABS: BASOPHILS # (AUTO) 0.2 K/uL (0.00-0.22); BASOPHILS % (AUTO) 1.3 % (0.0-2.0); EOSINOPHILS # (AUTO) 0.5 K/uL (0-0.4); EOSINOPHILS % (AUTO) 3.6 % (0.0-4.0); HEMATOCRIT 26.6 % (36-48); HEMOGLOBIN 8.8 g/dL (12.0-16.0); LYMPHOCYTES % (AUTO) 7.5 % (20.5-51.1); MEAN CORPUSCULAR HEMOGLOBIN 28 pg (27-31); MEAN CORPUSCULAR HGB CONC 33 g/dL (33-37); MEAN CORPUSCULAR VOLUME 85.9 fL (80-94); MONOCYTES # (AUTO) 0.6 K/uL (0.8-1.0); MONOCYTES % (AUTO) 4.9 % (1.7-9.3); NEUTROPHILS # (AUTO) 10.9 K/uL (1.8-7.7); NEUTROPHILS % (AUTO) 82.7 % (42.2-75.2); PLATELET COUNT (AUTO) 276 K/uL (140-450); RED BLOOD CELL COUNT(AUTO) 3.09 MIL/uL (4.20-5.40); RED CELL DISTRIBUTION WIDTH 13.9 % (11.6-13.7); WHITE BLOOD COUNT (AUTO) 13.2 K/uL (4.8-10.8)
[2020-03-24 09:29] LABS: ANION GAP 14.1 (8-16); CARBON DIOXIDE 24.7 mmol/L (21-32); POTASSIUM 3.8 mmol/L (3.5-5.1)
--- NOTE | 2020-03-24 09:30 | NUR ---
hydrotechnical specialist at bedside.
--- NOTE | 2020-03-24 09:35 | NUR ---
DORIAN SWAB DONE. SPECIMEN BROUGHT TO LAB.
[2020-03-24] MEDS ORDERED: ONDANSETRON 4 MG/2 ML VIAL IM/IVP PRN (11:20)
[2020-03-24] MEDS ORDERED: guaiFENesin DM 200/20 MG-10 ML 10 ML UDC PO PRN (11:20)
[2020-03-24] MEDS ORDERED: DOCUSATE SODIUM 100 MG GELCAP PO PRN (11:20)
[2020-03-24] MEDS ORDERED: ACETAMINOPHEN 325 MG TAB PO PRN (11:20)
[2020-03-24] MEDS ORDERED: POTASSIUM CHLORIDE 10 MEQ TABER PO PRN (11:20)
[2020-03-24 11:53] LABS: PROTHROMBIN TIME 10.4 secs (10.8-13.4)
[2020-03-24 12:04] LABS: FREE T4 (FREE THYROXINE) 1.12 ng/dL (0.76-1.46); MAGNESIUM 1.8 mg/dL (1.8-2.4); THYROID STIMULATING HORMONE 3.01 uIU/mL (0.34-3.74)
--- NOTE | 2020-03-24 12:19 | NUR ---
MRSA swab collected from both nares and walked to lab.
[2020-03-24 16:15] LABS: APPEARANCE,URINE CLEAR (CLEAR); BILIRUBIN,URINE NEGATIVE (NEGATIVE); BLOOD, URINE 1+ (NEGATIVE); COLOR,URINE YELLOW (YELLOW); LEUKOCYTE ESTERASE ,URINE NEGATIVE (NEGATIVE); NITRITE, URINE NEGATIVE (NEGATIVE); PH,URINE 5.5 (5.0-9.0); UGLUCOSE 2+ (NEGATIVE)
[2020-03-24 16:26] LABS: BARBITURATE, URINE NEGATIVE ng/ml (NEG <=200); BENZODIAZEPINE, URINE NEGATIVE ng/mL (NEG <=200); CANNABINOID, URINE NEGATIVE ng/mL (NEG <=50); COCAINE, URINE NEGATIVE ng/mL (NEG <=300); OPIATE, URINE NEGATIVE ng/mL (NEG <=2000); PHENCYCLIDINE SCREEN,URINE NEGATIVE ng/mL (NEG <=25)
[2020-03-24 17:07] LABS: RBC,URINE 11-20 (MOD) /HPF (0-5); WBC,URINE 0-5 /HPF (0-5)
[2020-03-24] MEDS: carvediloL 6.25 MG TAB PO SCH (17:14)
--- NOTE | 2020-03-24 19:21 | NUR ---
PT WAS UP AND AMBULATED TO RESTROOM, PLACED PT BACK ON MONITOR. PT REQUESTING DINNER TARY, STATING SHE DID NOT RECEIVE ONE. GOT PT'S DINNER TRAY FROM [place], GAVE TO PT. PT SITTING UP AT BEDSIDE EATING. PT DENIES ANY DISTRESS AT THIS TIME.
--- NOTE | 2020-03-24 19:21 | NUR ---
REPORT RECEIVED FROM OSMAN SALVADOR
--- NOTE | 2020-03-24 19:49 | NUR ---
PT AMBULATED TO RESTROOM AND BACK TO ROOM WITH STEADY GAIT. PLACED BACK ON MONITOR. PT ATE 100% OF DINNER TRAY.
--- NOTE | 2020-03-24 19:56 | NUR ---
Fly mejía in EDM - 03/24/20 at 1958 by [email or web address] CHARGE NURSE ADVISED PT WILL PROBABLY NEED A SITTER ON THE TELE FLOOR. PT HAD BEEN GETTING OUT OF BED IN ER WHEN HIS DAUGHTER WAS NOT AT BEDSIDE.
[2020-03-24] MEDS: GABAPENTIN 100 MG CAP PO SCH (20:46)
[2020-03-24] MEDS: FUROSEMIDE 40 MG/4 ML VIAL IVP SCH (20:47)
[2020-03-24] MEDS ORDERED: FUROSEMIDE 40 MG TAB PO SCH (21:00)
[2020-03-24] MEDS: hydrALAZINE 25 MG TAB PO SCH (21:05)
[2020-03-24] MEDS: ZOLPIDEM 5 MG TAB PO PRN (21:05)
[2020-03-24] MEDS: HYDROcodone/APAP 7.5/325 MG 1 TAB PO PRN (21:06)
[2020-03-24] MEDS: INSULIN NPH HUM/REG INSULIN HM 100 UNIT/ML 10 ML VIAL SUBQ SCH (21:06)
[2020-03-24] MEDS: INSULIN LANTUS 100 UNITS/ML 10 ML VIAL SUBQ SCH (21:08)
--- NOTE | 2020-03-24 21:18 | NUR ---
PT C/O SPINE PAIN, 5-10/05, MEDICATED ORDERD AND PATIENT RESPOSITIONED FOR COMFORT. PT ALSO REQUESTING SLLEPING PILL, MEDICATED ORDER.
--- NOTE | 2020-03-24 22:56 | NUR ---
PT SLEEPING AT THIS TIME. RESPIRATIONS REGULAR EVEN AND UNLABORED. PT REMAINS ON BEDSIDE MONITOR.
--- NOTE | 2020-03-24 23:24 | NUR ---
REPORT CALLED TO KAREN SALVADOR ON TELE UNIT, PT BEING TRANSFERED TO ROOM 126B.
--- NOTE | 2020-03-24 23:40 | NUR ---
Patient will be admitted to care of DR GUPTA. Admited to TELE. Will go to room 126B. Belongings list completed. Report to KAREN SALVADOR.
--- NOTE | 2020-03-24 23:55 | NUR ---
RECEIVED PT AAOX4 FROM ER /RNEY - WALKS TO BED . IV SITE INTACT AND PATENT . ON O2 AT 2LPM /NC - O2 SAT WNL . DENIES ANY PAIN AT THIS TIME . ADMISSION ASSESSMENT DONE . MRSA SPECIMEN SENT TO LAB . SAFETY MEASURES IN PLACE . PLAN OF CARE DISCUSSED AND VERBALIZE UNDERSTANDING . ON TELE MONITOR - SR . WILL CONT. TO MONITOR
[2020-03-25] VITALS: BP 153/73
[2020-03-25 04:00] VITALS: BP 155/108
--- NOTE | 2020-03-25 04:00 | NUR ---
MADE ROUNDS , NO S/SX OF ACUTE DISTRESS NOTED - ON TELE MONITOR - SR . CALL LIGHT WITHIN REACH .
[2020-03-25] MEDS ORDERED: DEXTROSE 50% 50 ML SYR IVP PRN (04:40)
[2020-03-25] MEDS: BLOOD GLUCOSE MONITORING 1 DEV DEV FS SCH ×5 (05:35→21:33)
[2020-03-25] MEDS: INSULIN LISPRO SLIDING SCALE 100 UNITS/ML VIAL SUBQ PRN ×4 (05:41→21:40)
--- NOTE | 2020-03-25 06:00 | NUR ---
NO COMPLAIN MADE . CALL LIGHT WITHIN REACH . REQUESTING FLU VACC - WILL ENDORSE
[2020-03-25 06:07] LABS: T4 (THYROXINE) 6.9 ug/dL (4.5-12.0)
[2020-03-25 06:57] LABS: BASOPHILS # (AUTO) 0.1 K/uL (0.00-0.22); BASOPHILS % (AUTO) 1.2 % (0.0-2.0); EOSINOPHILS # (AUTO) 0.6 K/uL (0-0.4); EOSINOPHILS % (AUTO) 4.9 % (0.0-4.0); HEMATOCRIT 27.6 % (36-48); HEMOGLOBIN 9.1 g/dL (12.0-16.0); LYMPHOCYTES # (AUTO) 1.4 K/uL (2.5-16.5); MEAN CORPUSCULAR HEMOGLOBIN 28 pg (27-31); MEAN CORPUSCULAR HGB CONC 33 g/dL (33-37); MONOCYTES # (AUTO) 0.7 K/uL (0.8-1.0); MONOCYTES % (AUTO) 5.9 % (1.7-9.3); NEUTROPHILS # (AUTO) 8.6 K/uL (1.8-7.7); PLATELET COUNT (AUTO) 318 K/uL (140-450); RED CELL DISTRIBUTION WIDTH 14.1 % (11.6-13.7); WHITE BLOOD COUNT (AUTO) 11.4 K/uL (4.8-10.8)
[2020-03-25 07:16] LABS: ANION GAP 14.6 (8-16); CREATININE 1.5 mg/dL (0.6-1.3); POTASSIUM 3.6 mmol/L (3.5-5.1)
--- NOTE | 2020-03-25 07:30 | NUR ---
ENDORSED TO AM SHIFT - PT -STABLE .
--- NOTE | 2020-03-25 07:30 | NUR ---
RECEIVED BEDSIDE REPORT FROM HRBP NURSE KAREN RN, PT RESTING, NO DISTRESS NOTED, ALERT ORIENTED ABLE TO LET NEEDS KNOWN, IV TO L HAND 22 G PATENT INTACT, SL, PT ON NC 2LPM O2, NO SOB NOTED, LUNG SOUNDS DIMINISHED, INITIAL ASSESSMENT DONE, ALL SAFETY PRECAUTION MET, CALL LIGHT WITHIN REACH, WILL CONTINUE TO MONITOR.
[2020-03-25 08:00] VITALS: BP 162/83
[2020-03-25] MEDS: carvediloL 6.25 MG TAB PO SCH ×2 (08:20→17:20)
[2020-03-25] MEDS: lisinopriL 10 MG TAB PO SCH (08:38)
[2020-03-25] MEDS: FUROSEMIDE 40 MG/4 ML VIAL IVP SCH ×2 (08:38→21:34)
[2020-03-25] MEDS: ATORVASTATIN 20 MG TAB PO SCH (08:38)
[2020-03-25] MEDS: GABAPENTIN 100 MG CAP PO SCH ×2 (08:39→21:34)
[2020-03-25] MEDS: ECOTRIN 81 MG TABEC PO SCH (08:39)
[2020-03-25] MEDS: PANTOPRAZOLE 40 MG TABEC PO SCH (08:39)
[2020-03-25] MEDS: hydrALAZINE 25 MG TAB PO SCH ×2 (08:39→21:34)
[2020-03-25] MEDS: INSULIN NPH HUM/REG INSULIN HM 100 UNIT/ML 10 ML VIAL SUBQ SCH ×2 (08:51→21:36)
--- NOTE | 2020-03-25 08:51 | NUR ---
DUE MEDICATIONS ADMINISTERED, PT TOLERATED WELL, NO DISTRESS NOTED, WILL CONTINUE TO MONITOR.
[2020-03-25 12:00] VITALS: BP 156/73
--- NOTE | 2020-03-25 12:35 | NUR ---
PT BLOOD SUGAR 239, INSULIN PER PROTOCOL GIVEN PER DR ORDER. PT TOLERATED WELL, WILL CONTINUE TO MONITOR.
--- NOTE | 2020-03-25 15:30 | NUR ---
PT SLEEPING, NO DISTRESS NOTED, WILL CONTINUE TO MONITOR.
[2020-03-25 16:00] VITALS: BP 135/78
--- NOTE | 2020-03-25 16:10 | NUR ---
PT AMBULATED TO RESTROOM, TOLERATED WELL, WILL CONTINUE TO MONITOR.
--- NOTE | 2020-03-25 17:21 | NUR ---
PT BLOOD SUGAR 202, INSULIN PER PROTOCOL GIVEN, PT TOLERATED WELL, WILL CONTINUE TO MONITOR.
--- NOTE | 2020-03-25 19:21 | NUR ---
ENDORSED PT TO MIDDLE SCHOOL PE TEACHER NURSE LEYLA RN FOR CONTINUOUS OF CARE.
--- NOTE | 2020-03-25 19:22 | NUR ---
RECEIVED BEDSIDE ENDORSEMENT FROM AM SHIFT RN. PT IS AAOX4, NO SOB, ON NC AT 2LPM, O2 SAT WNL, LH 22G, INTACT, AMBULATORY, SAFETY MEASURES IN PLACE, PLAN OF CARE DISCUSSED, CALL LIGHT WITHIN REACH.
[2020-03-25 20:00] VITALS: BP 146/71
[2020-03-25] MEDS: INSULIN LANTUS 100 UNITS/ML 10 ML VIAL SUBQ SCH (21:38)
--- NOTE | 2020-03-25 21:51 | NUR ---
PT IS TALKING ON THE CELLPHONE, LAUGHING, DUE MEDS GIVEN ORDERED, TOLERATED WELL.
[2020-03-26] VITALS: BP 123/67
[2020-03-26 04:00] VITALS: BP 154/86
--- NOTE | 2020-03-26 06:50 | NUR ---
PATIENT HAS BEEN SCREENED AND CATEGORIZED HIGH NUTRITION RISK. PATIENT WILL BE SEEN WITHIN 1-2 DAYS OF ADMISSION. 03/25/20-03/26/20 JONAH FRITZ MS, RDN
[2020-03-26] MEDS: BLOOD GLUCOSE MONITORING 1 DEV DEV FS SCH ×4 (06:52→20:41)
--- NOTE | 2020-03-26 06:52 | NUR ---
PT BS IS 115, NO INSULIN COVERAGE, NO DISTRESS, PT ASLEEP, RESPIRATION EVEN AND UNLABORED, CALL LIGHT WITHIN REACH.
[2020-03-26 07:11] LABS: ANION GAP 13.5 (8-16); CARBON DIOXIDE 27.2 mmol/L (21-32); CREATININE 1.4 mg/dL (0.6-1.3); POTASSIUM 3.7 mmol/L (3.5-5.1)
[2020-03-26 07:17] LABS: BASOPHILS # (AUTO) 0.1 K/uL (0.00-0.22); BASOPHILS % (AUTO) 1.1 % (0.0-2.0); EOSINOPHILS # (AUTO) 0.7 K/uL (0-0.4); EOSINOPHILS % (AUTO) 5.7 % (0.0-4.0); HEMATOCRIT 26.9 % (36-48); HEMOGLOBIN 8.8 g/dL (12.0-16.0); LYMPHOCYTES # (AUTO) 1.5 K/uL (2.5-16.5); LYMPHOCYTES % (AUTO) 12.3 % (20.5-51.1); MEAN CORPUSCULAR HEMOGLOBIN 28 pg (27-31); MEAN CORPUSCULAR HGB CONC 33 g/dL (33-37); MEAN CORPUSCULAR VOLUME 86.6 fL (80-94); MONOCYTES # (AUTO) 0.7 K/uL (0.8-1.0); NEUTROPHILS # (AUTO) 9.1 K/uL (1.8-7.7); NEUTROPHILS % (AUTO) 74.9 % (42.2-75.2); PLATELET COUNT (AUTO) 325 K/uL (140-450); RED BLOOD CELL COUNT(AUTO) 3.11 MIL/uL (4.20-5.40); RED CELL DISTRIBUTION WIDTH 14.2 % (11.6-13.7); WHITE BLOOD COUNT (AUTO) 12.1 K/uL (4.8-10.8)
[2020-03-26 08:00] VITALS: BP 159/76
--- NOTE | 2020-03-26 08:00 | NUR ---
RECEIVED REPORT FROM LANDFILL GAS PLANT FIELD TECHNICIAN FOR CONTINUITY OF CARE. INITIAL ASSESSMENT INITIATED. PATIENT ALERT AWAKE ORIENTED X4, NOT IN NAY DISTRESS NOTED. DENIES PAIN. WITH HEPLOCK ON THE LEFT HAND DRY AND INTACT. ON MONITOR SHOWS SR. NEEDS ATTENDED. WILL CONTINUE TO MONITOR.
[2020-03-26] MEDS: PANTOPRAZOLE 40 MG TABEC PO SCH (09:59)
[2020-03-26] MEDS: ATORVASTATIN 20 MG TAB PO SCH (09:59)
[2020-03-26] MEDS: GABAPENTIN 100 MG CAP PO SCH ×2 (10:00→20:35)
[2020-03-26] MEDS: carvediloL 6.25 MG TAB PO SCH ×2 (10:00→17:35)
[2020-03-26] MEDS: hydrALAZINE 25 MG TAB PO SCH ×2 (10:01→20:35)
[2020-03-26] MEDS: lisinopriL 10 MG TAB PO SCH (10:01)
[2020-03-26] MEDS: ECOTRIN 81 MG TABEC PO SCH (10:01)
[2020-03-26] MEDS: FUROSEMIDE 40 MG/4 ML VIAL IVP SCH (10:01)
[2020-03-26] MEDS: INSULIN NPH HUM/REG INSULIN HM 100 UNIT/ML 10 ML VIAL SUBQ SCH ×2 (10:05→20:41)
[2020-03-26 10:55] LABS: MAGNESIUM 1.8 mg/dL (1.8-2.4); PHOSPHORUS 4.6 mg/dL (2.5-4.9)
--- NOTE | 2020-03-26 11:48 | NUR ---
BS CHECKED-85, NO COVERAGE AT THIS TIME. PATIENT RESTING IN BED. NO C/O OF PAIN. WILL CONTINUE TO MONITOR.
--- NOTE | 2020-03-26 11:50 | NUR ---
(03/26/20) RD INITIAL ASSESSMENT COMPLETED PLEASE REFER TO NUTRITION ASSESSMENT UNDER CARE ACTIVITY FOR ESTIMATED NUTRITIONAL NEEDS. RD RECOMMENDATIONS: 1. CONTINUE ON CARDIAC, CCHO 60 GM DIET TOLERATED. 2. CONSULT RDN PRN. 3. RD WILL F/U 3-5 DAYS; MODERATE RISK. JONAH FRITZ MS, RDN
[2020-03-26 12:00] VITALS: BP 141/77
[2020-03-26] MEDS: HYDROcodone/APAP 7.5/325 MG 1 TAB PO PRN ×2 (13:11→20:19)
[2020-03-26] MEDS: FUROSEMIDE 40 MG TAB PO SCH ×2 (13:11→20:34)
[2020-03-26 16:33] VITALS: BP 157/83
[2020-03-26] MEDS: INSULIN LISPRO SLIDING SCALE 100 UNITS/ML VIAL SUBQ PRN ×2 (17:35→20:42)
--- NOTE | 2020-03-26 19:32 | NUR ---
REPORT GIVEN TO MODESTO ALFARO FOR CONTINUITY OF CARE. PATIENT IN STABLE CONDITION.
--- NOTE | 2020-03-26 19:33 | NUR ---
RECEIVED PT SLEEPING, EASILY AROUSABLE, AAOX4, ABLE TO MAKE NEEDS KNOWN, NO RESP DISTRESS NOTED, PLAN OF CARE DISCUSSED, SAFETY MEASURES IN PLACE, CALL LIGHT WITHIN REACH.
[2020-03-26 20:00] VITALS: BP 126/60
[2020-03-26] MEDS: INSULIN LANTUS 100 UNITS/ML 10 ML VIAL SUBQ SCH (20:41)
--- NOTE | 2020-03-26 20:50 | NUR ---
MEDICATED PRN FOR BACK PAIN WITH NORCO, BLOOD SUGAR CHECKED WITH 212 RESULT, DUE COVERAGE GIVEN, BEDTIME SNACK PROVIDED, DUE MEDS ADMINISTERED AND TOLERATED WELL, ALL NEEDS ATTENDED.
[2020-03-26] MEDS: ZOLPIDEM 5 MG TAB PO PRN (23:02)
--- NOTE | 2020-03-26 23:02 | NUR ---
PT MEDICATED WITH AMBIEN PO PRN FOR INSOMNIA, MONITORED CLOSELY.
[2020-03-27] MEDS ORDERED: FLU VACCINE QS2020-21 0.5 ML SYR IMVAC PRN (02:30)
[2020-03-27 04:00] VITALS: BP 115/58
[2020-03-27] MEDS: HYDROcodone/APAP 7.5/325 MG 1 TAB PO PRN (04:36)
[2020-03-27] MEDS: FUROSEMIDE 40 MG TAB PO SCH ×2 (04:36→12:46)
--- NOTE | 2020-03-27 04:40 | NUR ---
PT AWAKE COMPLAINING OF BACK PAIN, MEDICATED PRN WITH NORCO AND DUE LASIX PO ADMINISTERED, MONITORED CLOSELY.
--- NOTE | 2020-03-27 06:00 | NUR ---
BLOOD SUGAR CHECKED WITH 100 RESULT, NO COVERAGE NEEDED, PT WENT BACK TO SLEEP, MONITORED CLOSELY.
[2020-03-27] MEDS: BLOOD GLUCOSE MONITORING 1 DEV DEV FS SCH ×2 (06:36→12:17)
[2020-03-27 06:56] LABS: BASOPHILS # (AUTO) 0.1 K/uL (0.00-0.22); BASOPHILS % (AUTO) 1.2 % (0.0-2.0); EOSINOPHILS # (AUTO) 0.6 K/uL (0-0.4); HEMATOCRIT 25.7 % (36-48); HEMOGLOBIN 8.6 g/dL (12.0-16.0); LYMPHOCYTES # (AUTO) 1.7 K/uL (2.5-16.5); MEAN CORPUSCULAR HEMOGLOBIN 29 pg (27-31); MEAN CORPUSCULAR HGB CONC 34 g/dL (33-37); MEAN CORPUSCULAR VOLUME 86.3 fL (80-94); MONOCYTES # (AUTO) 0.6 K/uL (0.8-1.0); MONOCYTES % (AUTO) 6.4 % (1.7-9.3); NEUTROPHILS # (AUTO) 6.5 K/uL (1.8-7.7); NEUTROPHILS % (AUTO) 68.4 % (42.2-75.2); PLATELET COUNT (AUTO) 302 K/uL (140-450); RED BLOOD CELL COUNT(AUTO) 2.97 MIL/uL (4.20-5.40); RED CELL DISTRIBUTION WIDTH 14.2 % (11.6-13.7); WHITE BLOOD COUNT (AUTO) 9.5 K/uL (4.8-10.8)
--- NOTE | 2020-03-27 07:15 | NUR ---
PT ASLEEP, NO SIGNS OF DISTRESS, REPORT GIVEN TO MODESTO RUIZ FOR CONTINUITY OF CARE.
[2020-03-27 07:36] LABS: ANION GAP 9.9 (8-16); CARBON DIOXIDE 26.8 mmol/L (21-32); CREATININE 1.6 mg/dL (0.6-1.3); POTASSIUM 3.7 mmol/L (3.5-5.1)
[2020-03-27 08:22] LABS: PHOSPHORUS 5.4 mg/dL (2.5-4.9)
[2020-03-27] MEDS ORDERED: LANTUS SUBQ (08:27)
[2020-03-27] MEDS ORDERED: INSU10SU2 SC (08:27)
[2020-03-27] MEDS ORDERED: ATOR20TA40 PO (08:27)
[2020-03-27] MEDS ORDERED: ASPI-1856 PO (08:27)
[2020-03-27] MEDS ORDERED: HYDR-4420 PO (08:27)
[2020-03-27] MEDS ORDERED: FURO40TA9 PO (08:27)
[2020-03-27] MEDS ORDERED: LISI10TA11 PO (08:27)
[2020-03-27] MEDS ORDERED: CARV6.252 PO (08:27)
[2020-03-27] MEDS ORDERED: POTA10TE30 PO (08:27)
--- NOTE | 2020-03-27 08:27 | NUR ---
RECEIVED REPORT FROM MAGAZINE HAND FOR CONTINUITY OF CARE. PATIENT ALERT AWAKE ORIENTED X4 NOT IN ANY DISTRESS NOTED. INITIAL ASSESSMENT INITIATED. DENIES PAIN AT THIS TIME. NEEDS ATTENDED. WILL CONTINUE TO MONITOR.
[2020-03-27] MEDS: carvediloL 6.25 MG TAB PO SCH (08:41)
[2020-03-27] MEDS: ATORVASTATIN 20 MG TAB PO SCH (08:42)
[2020-03-27] MEDS: GABAPENTIN 100 MG CAP PO SCH (08:42)
[2020-03-27] MEDS: hydrALAZINE 25 MG TAB PO SCH (08:42)
[2020-03-27] MEDS: PANTOPRAZOLE 40 MG TABEC PO SCH (08:42)
[2020-03-27] MEDS: ECOTRIN 81 MG TABEC PO SCH (08:42)
[2020-03-27] MEDS: lisinopriL 10 MG TAB PO SCH (08:43)
[2020-03-27] MEDS: INSULIN NPH HUM/REG INSULIN HM 100 UNIT/ML 10 ML VIAL SUBQ SCH (09:00)
--- NOTE | 2020-03-27 10:00 | NUR ---
PATIENT FELT DIZZY AND SHE WANT TO CHECK HER BS-74, I HOLD THE INSULIN AND GAVE ORANGE JUICE AND SOME CRACKERS,DR. DOBBS IS AWARE. WILL CONTINUE TO MONITOR.
--- NOTE | 2020-03-27 11:45 | NUR ---
BS CHECKED-178, COVER WITH 2 UNITS INSULIN, PATIENT EATING LUNCH AT THIS TIME.
--- NOTE | 2020-03-27 12:30 | NUR ---
PATIENT FELT BETTER, SHE SAID SHE'S READY TO GO HOME, DC PAERS SIGNED AND EXPLAINED TO HER THE FOLLOW UP VIST WITH DR. GARCIA AND VERBALIZED UNDERSTANDING.
--- NOTE | 2020-03-27 13:46 | NUR ---
DISCHARGE TO HOME AMBULATORY ACCOMPANIED BY BUSINESS DEVELOPMENT AGENT, WITH DC INSTRUCTION GIVEN AND VERBALIZED UNDERSTANDING. IN STABLE CONDITION.
== END 2020-03-27 13:43 | disposition home or self-care (01) | DRG 194 ==
LOC: MED 08:34 → MMU 11:12
PROVIDERS: ADMIT Family Medicine; ATTEND Family Medicine
DX: I13.0 Hypertensive heart and chronic kidney disease with heart failure and stage 1 through stage 4 chronic kidney disease, or unspecified chronic kidney disease (principal); N17.0 Acute kidney failure with tubular necrosis; Z20.828 Contact with and (suspected) exposure to other viral communicable diseases; E11.22 Type 2 diabetes mellitus with diabetic chronic kidney disease; F25.9 Schizoaffective disorder, unspecified; E11.21 Type 2 diabetes mellitus with diabetic nephropathy; Z68.41 Body mass index [BMI] 40.0-44.9, adult; E83.39 Other disorders of phosphorus metabolism; E86.0 Dehydration; J44.9 Chronic obstructive pulmonary disease, unspecified; Z98.49 Cataract extraction status, unspecified eye; Z83.3 Family history of diabetes mellitus; Z80.8 Family history of malignant neoplasm of other organs or systems; Z87.891 Personal history of nicotine dependence; Z98.891 History of uterine scar from previous surgery; I50.43 Acute on chronic combined systolic (congestive) and diastolic (congestive) heart failure; I16.1 Hypertensive emergency; D72.829 Elevated white blood cell count, unspecified; E78.2 Mixed hyperlipidemia; D64.9 Anemia, unspecified; N18.31 Chronic kidney disease, stage 3a; R06.00 Dyspnea, unspecified
CPT/HCPCS: 36415; 71045; 76604; 80048; 80305; 81001; 82150; 82948; 83036; 83690; 83735; 83880; 84100; 84436; 84439; 84443; 84479; 84484; 85025; 85610; 85730; 87081; 93005; 96372; 96374; 99285; J1815; J1940

== ENCOUNTER 2020-04-06 14:04 | Emergency (ER) | payer MEDICAID, SELFPAY ==
[~2020-04-06] VITALS: Ht 157.5 cm; Wt 72.6 kg
[~2020-04-06 14:04] MED LIST changes: -FURO-570 PO; +FURO40TA9 PO; -GABA100C PO; +POTA10TE30 PO
--- NOTE | 2020-04-06 14:26 | NUR ---
CC: HEADACHE THIS MORNING AND DIZZINESS/ WEAKNESS/ INCOHERENT SINCE THIS MORNING NKDA PMH: CHF, DM, HTN
--- NOTE | 2020-04-06 15:00 | NUR ---
LABS COLLECTED AND SENT TO LAB
[2020-04-06 15:15] LABS: BASOPHILS % (AUTO) 0.1 % (0.0-2.0); EOSINOPHILS # (AUTO) 0.7 K/uL (0-0.4); EOSINOPHILS % (AUTO) 5.3 % (0.0-4.0); HEMATOCRIT 29.2 % (36-48); HEMOGLOBIN 9.5 g/dL (12.0-16.0); LYMPHOCYTES # (AUTO) 1.7 K/uL (2.5-16.5); LYMPHOCYTES % (AUTO) 13.5 % (20.5-51.1); MEAN CORPUSCULAR HEMOGLOBIN 28 pg (27-31); MEAN CORPUSCULAR HGB CONC 33 g/dL (33-37); MEAN CORPUSCULAR VOLUME 85.5 fL (80-94); MONOCYTES # (AUTO) 0.7 K/uL (0.8-1.0); MONOCYTES % (AUTO) 5.7 % (1.7-9.3); NEUTROPHILS # (AUTO) 9.4 K/uL (1.8-7.7); NEUTROPHILS % (AUTO) 75.4 % (42.2-75.2); PLATELET COUNT (AUTO) 346 K/uL (140-450); RED BLOOD CELL COUNT(AUTO) 3.42 MIL/uL (4.20-5.40); RED CELL DISTRIBUTION WIDTH 13.9 % (11.6-13.7); WHITE BLOOD COUNT (AUTO) 12.5 K/uL (4.8-10.8)
--- NOTE | 2020-04-06 15:16 | NUR ---
Assumed care of pt in ER bed 7.
--- NOTE | 2020-04-06 15:16 | NUR ---
Patient transferre o bed 7 for further care. RN evaluating the patient at bedside.
[2020-04-06 15:38] LABS: ALBUMIN 3.1 g/dL (3.4-5.0); CARBON DIOXIDE 25.9 mmol/L (21-32); CREATININE 1.7 mg/dL (0.6-1.3); POTASSIUM 3.9 mmol/L (3.5-5.1); PROTHROMBIN TIME 9.8 secs (10.8-13.4); TOTAL BILIRUBIN 0.2 mg/dL (0.0-1.0)
--- NOTE | 2020-04-06 15:39 | NUR ---
UA collected via straight cath.
[2020-04-06 16:50] LABS: APPEARANCE,URINE CLEAR (CLEAR); BILIRUBIN,URINE NEGATIVE (NEGATIVE); BLOOD, URINE TRACE-I (NEGATIVE); COLOR,URINE YELLOW (YELLOW); LEUKOCYTE ESTERASE ,URINE NEGATIVE (NEGATIVE); NITRITE, URINE NEGATIVE (NEGATIVE); UGLUCOSE 2+ (NEGATIVE)
--- NOTE | 2020-04-06 17:11 | NUR ---
Pt sleeping eyes closed, visible equal rise and fall of chest, VSS, will continue to monitor.
[2020-04-06 17:29] LABS: WBC,URINE 0-5 /HPF (0-5)
[2020-04-06] MEDS: PROCHLORPERAZINE 10 MG/2 ML VIAL IVP SCH (17:45)
[2020-04-06] MEDS: ACETAMINOPHEN 325 MG TAB PO SCH (17:45)
[2020-04-06 18:50] VITALS: BP 120/74
== END 2020-04-06 18:50 | disposition home or self-care (01) ==
LOC: MED 14:04
DX: R51.9 Headache, unspecified (principal)
CPT/HCPCS: 36415; 70450; 71045; 80053; 81001; 84484; 85025; 85610; 85730; 86886; 86900; 86901; 87086; 93005; 96374; 99285; J0780

== ENCOUNTER 2020-10-16 22:20 | Emergency (ER) | payer MEDICAID, SELFPAY ==
[~2020-10-16] VITALS: Ht 149.9 cm; Wt 86.6 kg
[~2020-10-16 22:20] MED LIST changes: -LISI10TA11 PO; +LISI10TA30 PO
[2020-10-16 22:37] VITALS: BP 169/92
--- NOTE | 2020-10-16 22:47 | NUR ---
PT TAKEN TO BED 11
--- NOTE | 2020-10-16 22:57 | NUR ---
C/o low blood sugar. When tested at home an hour ago, BG was 90. Then recently taken and it was 70 BG. Patient normally does not have low BG normally high BG. Patient feeling light headed, and has a headache. AAOx4. VSS. PMH: DM2, CHF, HTN NKA
[2020-10-16 23:10] LABS: BASOPHILS # (AUTO) 0.2 K/uL (0.00-0.22); BASOPHILS % (AUTO) 1.3 % (0.0-2.0); EOSINOPHILS % (AUTO) 7.5 % (0.0-4.0); LYMPHOCYTES # (AUTO) 1.3 K/uL (2.5-16.5); MEAN CORPUSCULAR HEMOGLOBIN 27 pg (27-31); MEAN CORPUSCULAR HGB CONC 32 g/dL (33-37); MEAN CORPUSCULAR VOLUME 84.9 fL (80-94); MONOCYTES # (AUTO) 0.8 K/uL (0.8-1.0); MONOCYTES % (AUTO) 6.4 % (1.7-9.3); NEUTROPHILS # (AUTO) 9.7 K/uL (1.8-7.7); NEUTROPHILS % (AUTO) 74.8 % (42.2-75.2); PLATELET COUNT (AUTO) 415 K/uL (140-450); RED BLOOD CELL COUNT(AUTO) 4.01 MIL/uL (4.20-5.40); RED CELL DISTRIBUTION WIDTH 15.6 % (11.6-13.7)
--- NOTE | 2020-10-16 23:30 | NUR ---
patient ambulated to the bathroom for urine collection
[2020-10-16 23:53] LABS: ALBUMIN 2.8 g/dL (3.4-5.0); ANION GAP 12.6 (8-16); CARBON DIOXIDE 22.3 mmol/L (21-32); CREATININE 2.2 mg/dL (0.6-1.3); POTASSIUM 4.9 mmol/L (3.5-5.1); TOTAL BILIRUBIN 0.2 mg/dL (0.0-1.0)
--- NOTE | 2020-10-17 | NUR ---
Provided snacks for patient such as chocolate pudding, cranberry juice, and amalia crackers.
--- NOTE | 2020-10-17 00:52 | NUR ---
Dr. Guzman examining patient.
[2020-10-17 01:33] VITALS: BP 177/90
--- NOTE | 2020-10-17 01:33 | NUR ---
Patient discharged with v/s stable. Written and verbal after care instructions given and explained. Patient verbalized understanding. Ambulatory with steady gait. ID band removed. All questions addressed prior to discharge. Advised to follow up with PMD.
== END 2020-10-17 01:33 | disposition home or self-care (01) ==
LOC: MED 22:20
DX: E11.65 Type 2 diabetes mellitus with hyperglycemia (principal); I10 Essential (primary) hypertension; Z87.448 Personal history of other diseases of urinary system; Z79.899 Other long term (current) drug therapy
CPT/HCPCS: 36415; 80053; 81002; 81025; 82948; 83690; 85025; 99283

== ENCOUNTER 2020-11-20 13:32 | Emergency (ER) | payer MEDICAID ==
[~2020-11-20] VITALS: Ht 149.9 cm; Wt 89.8 kg
[2020-11-20 13:38] VITALS: BP 164/88
--- NOTE | 2020-11-20 13:44 | NUR ---
Pt ambulated to ER bed 3 with a steady gait.
--- NOTE | 2020-11-20 13:56 | NUR ---
50 Y/O FEMALE C/O CHEST PAIN 10/05 DESCRIBES PRESSURE NON-RADIATING X3DAYS, AND SOB X 3 DAYS. PT STATES SHE VOMITING, BUT DENIES NAUSEA OR DIARRHEA. PT DENIES DIZZINESS. DENIES SYNCOPE. STATES SHE TOOK RX PRIOR TO ARRIVAL WITH NO RELIEF OF SYMPTOMS. PT IS HAVING LABORED BREATHING, SPO2 98% RA, LUNGS ARE CLEAR THROUGHOUT. PMH: DM2, HTN, CHF NKA
[2020-11-20] MEDS ORDERED: BUMETANIDE 1 MG/4 ML VIAL IV ONE (14:00)
--- NOTE | 2020-11-20 14:09 | NUR ---
Patient returned from x-ray.
[2020-11-20 14:46] LABS: BASOPHILS % (AUTO) 0.3 % (0.0-2.0); EOSINOPHILS # (AUTO) 0.9 K/uL (0-0.4); EOSINOPHILS % (AUTO) 8.1 % (0.0-4.0); HEMATOCRIT 32.6 % (36-48); HEMOGLOBIN 10.3 g/dL (12.0-16.0); LYMPHOCYTES # (AUTO) 1.4 K/uL (2.5-16.5); LYMPHOCYTES % (AUTO) 11.6 % (20.5-51.1); MEAN CORPUSCULAR HEMOGLOBIN 27 pg (27-31); MEAN CORPUSCULAR HGB CONC 32 g/dL (33-37); MEAN CORPUSCULAR VOLUME 85.9 fL (80-94); MONOCYTES # (AUTO) 0.7 K/uL (0.8-1.0); MONOCYTES % (AUTO) 5.7 % (1.7-9.3); NEUTROPHILS # (AUTO) 8.7 K/uL (1.8-7.7); NEUTROPHILS % (AUTO) 74.3 % (42.2-75.2); PLATELET COUNT (AUTO) 346 K/uL (140-450); RED BLOOD CELL COUNT(AUTO) 3.79 MIL/uL (4.20-5.40); RED CELL DISTRIBUTION WIDTH 15.6 % (11.6-13.7); WHITE BLOOD COUNT (AUTO) 11.7 K/uL (4.8-10.8)
[2020-11-20 14:54] LABS: ANION GAP 14.5 (8-16); CARBON DIOXIDE 22.8 mmol/L (21-32); CREATININE 1.9 mg/dL (0.6-1.3); POTASSIUM 5.3 mmol/L (3.5-5.1)
[2020-11-20] MEDS ORDERED: BENZ-196 PO (15:50)
[2020-11-20] MEDS ORDERED: cefTRIAXone 1,000 MG VIAL ONE (15:50)
[2020-11-20] MEDS ORDERED: PRED20TA5 PO (15:50)
[2020-11-20] MEDS ORDERED: AMOX-1000 PO (15:50)
--- NOTE | 2020-11-20 16:15 | NUR ---
PT INFUSING ROCEPHIN WITH NO ISSUES. AWARE OF PENDING D/C. PT IS AGREEABLE TO DISCHARGE PLAN.
--- NOTE | 2020-11-20 16:42 | NUR ---
Patient discharged with v/s stable. Written and verbal after care instructions given and explained. Patient alert, oriented and verbalized understanding of instructions. Ambulatory with steady gait. All questions addressed prior to discharge. ID band removed. Patient advised to follow up with PMD. Rx of AUGMENTIN, PREDNISONE, TESSALON PERLES given. Patient educated on indication of medication including possible reaction and side effects. Opportunity to ask questions provided and answered.
--- NOTE | 2020-11-20 16:42 | NUR ---
IV removed, catheter intact and site benign. Applied folded 4x4 gauze and tape to stop bleeding.
[2020-11-20 16:43] VITALS: BP 163/88
== END 2020-11-20 16:42 | disposition home or self-care (01) ==
LOC: MED 13:32
DX: J18.9 Pneumonia, unspecified organism (principal); I50.9 Heart failure, unspecified; M54.5 Low back pain; E11.9 Type 2 diabetes mellitus without complications; I11.0 Hypertensive heart disease with heart failure; Z79.899 Other long term (current) drug therapy; Z79.82 Long term (current) use of aspirin; Z79.4 Long term (current) use of insulin; Z86.73 Personal history of transient ischemic attack (TIA), and cerebral infarction without residual deficits
CPT/HCPCS: 36415; 71046; 80048; 83880; 84484; 85025; 87426; 93005; 96365; 96375; 99285; J0696; J3490

== ENCOUNTER 2020-11-23 12:33 | Inpatient (IN) | payer MEDICAID, SELFPAY ==
[~2020-11-23] VITALS: Ht 147.3 cm; Wt 90.7 kg
[~2020-11-23 12:33] MED LIST changes: +AMOX-1000 PO; +BENZ-196 PO; +PRED20TA5 PO
[2020-11-23 12:41] VITALS: BP 190/109
--- NOTE | 2020-11-23 12:44 | NUR ---
PT AMBULATED TO LOBBY
--- NOTE | 2020-11-23 13:37 | NUR ---
Patient ambulated with steady gait to bed 5.
--- NOTE | 2020-11-23 13:50 | NUR ---
50 Y/O FEMALE C/O WORSENING SOB AND COUGH. PT WAS SEEN HERE X3 DAYS AGO FOR SOB/COUGH, DX WITH PNEUMONIA AND SENT HOME WITH ANTIBIOTICS AND MEDICATIONS FOR COUGH WELL STEROIDS. PT HAS BEEN EXPERIENCING THE SOB FOR ONE WEEK, AND NOW STATES THE SYMPTOMS ARE WORSENING DESPITE STARTING THE MEDICATIONS. PT STATES SHE IS MORE SOB WHEN WALKING AND LAYING FLAT. SPO2 92% ON RA, PT ON 2L N/C SPO2 98%. CAP REFILL <3 SECONDS. DENIES PAIN. +N/V/D. PT A/O X4 WITH EVEN AND UNLABORED RESPIRATIONS. PT IN GOWN, ON CHICKEN DRESSER PMH: CHF, DM, HTN, ANEMIA NKDA
--- NOTE | 2020-11-23 14:04 | NUR ---
EMT AT BEDSIDE FOR EKG
--- NOTE | 2020-11-23 14:08 | NUR ---
PT AMBULATED TO RESTROOM FOR URINE SAMPLE
--- NOTE | 2020-11-23 14:23 | NUR ---
20 G IV ESTABLISHED TO L AC, BLOOD SAMPLES COLLECTED VIA IV AND HANDED TO ZIPPER SLIDE ATTACHER. URINE SAMPLE ALSO GIVEN TO TECH
[2020-11-23 14:36] LABS: BASOPHILS % (AUTO) 0.3 % (0.0-2.0); EOSINOPHILS % (AUTO) 0.2 % (0.0-4.0); HEMATOCRIT 34.2 % (36-48); HEMOGLOBIN 10.8 g/dL (12.0-16.0); LYMPHOCYTES # (AUTO) 0.5 K/uL (2.5-16.5); LYMPHOCYTES % (AUTO) 2.9 % (20.5-51.1); MEAN CORPUSCULAR HEMOGLOBIN 28 pg (27-31); MEAN CORPUSCULAR HGB CONC 32 g/dL (33-37); MEAN CORPUSCULAR VOLUME 86.9 fL (80-94); MONOCYTES # (AUTO) 0.5 K/uL (0.8-1.0); MONOCYTES % (AUTO) 3.1 % (1.7-9.3); NEUTROPHILS # (AUTO) 15.8 K/uL (1.8-7.7); NEUTROPHILS % (AUTO) 93.5 % (42.2-75.2); PLATELET COUNT (AUTO) 342 K/uL (140-450); RED BLOOD CELL COUNT(AUTO) 3.93 MIL/uL (4.20-5.40); RED CELL DISTRIBUTION WIDTH 15.4 % (11.6-13.7); WHITE BLOOD COUNT (AUTO) 16.9 K/uL (4.8-10.8)
[2020-11-23 14:41] LABS: APPEARANCE,URINE CLEAR (CLEAR); BILIRUBIN,URINE NEGATIVE (NEGATIVE); BLOOD, URINE 2+ (NEGATIVE); LEUKOCYTE ESTERASE ,URINE NEGATIVE (NEGATIVE); NITRITE, URINE NEGATIVE (NEGATIVE); UGLUCOSE 3+ (NEGATIVE)
[2020-11-23 14:45] LABS: COLOR,URINE STRAW (YELLOW)
[2020-11-23 15:05] LABS: ALBUMIN 2.9 g/dL (3.4-5.0); ANION GAP 15.2 (8-16); CARBON DIOXIDE 19.9 mmol/L (21-32); CREATININE 2.5 mg/dL (0.6-1.3); POTASSIUM 5.1 mmol/L (3.5-5.1); TOTAL BILIRUBIN 0.3 mg/dL (0.0-1.0)
[2020-11-23 15:07] LABS: RBC,URINE NONE SEEN /HPF (0-5); WBC,URINE NONE SEEN /HPF (0-5)
--- NOTE | 2020-11-23 15:27 | NUR ---
PT VOMITING. RECEIVED VERBAL ORDER OF ZOFRAN 4MG IVP. PT GIVEN EMESIS BAG. WILL MEDICATE ORDERED.
[2020-11-23] MEDS ORDERED: ONDANSETRON 4 MG/2 ML VIAL ONE (15:29)
[2020-11-23] MEDS ORDERED: ONDANSETRON 4 MG/2 ML VIAL IVP ONE (15:35)
[2020-11-23] MEDS ORDERED: NACL 0.9% 500 ML IV ONE (16:10)
[2020-11-23] MEDS ORDERED: INSULIN REGULAR, HUMAN 100 UNIT/ML VIAL SUBQ ONE (16:10)
[2020-11-23] MEDS ORDERED: FERR325E14 PO (16:46)
[2020-11-23] MEDS ORDERED: LISI40TA12 PO (16:46)
[2020-11-23] MEDS ORDERED: BUME1TAB92 PO (16:46)
[2020-11-23] MEDS ORDERED: GLIP5TER PO (16:46)
[2020-11-23] MEDS ORDERED: POTA10TE30 PO (16:46)
[2020-11-23] MEDS ORDERED: HUM SUBQ (16:47)
--- NOTE | 2020-11-23 16:49 | NUR ---
DORIAN SAMPLE COLLECTED AND HANDED TO OFFICE COORDINATOR
[2020-11-23] MEDS ORDERED: AZITHROMYCIN 1,000 MG in DEXTROSE 5% 500 ML IV ONE (17:20)
[2020-11-23] MEDS ORDERED: DOCUSATE SODIUM 100 MG GELCAP PO PRN (17:45)
[2020-11-23] MEDS ORDERED: LORazepam 2 MG/ML VIAL IM/IVP PRN (17:45)
[2020-11-23] MEDS ORDERED: ACETAMINOPHEN 325 MG TAB PO PRN (17:45)
[2020-11-23] MEDS ORDERED: ZOLPIDEM 5 MG TAB PO PRN (17:45)
[2020-11-23] MEDS ORDERED: ONDANSETRON 4 MG/2 ML VIAL IVP PRN (17:45)
[2020-11-23] MEDS ORDERED: DEXTROSE 50% 50 ML SYR IVP PRN (17:55)
--- NOTE | 2020-11-23 18:01 | NUR ---
DR JOHNSON AT BEDSIDE EVALUATING PT
[2020-11-23] MEDS ORDERED: cefTRIAXone 1,000 MG VIAL ONE (18:20)
[2020-11-23] MEDS ORDERED: AZITHROMYCIN 500 MG INJ VIAL IV ONE (18:21)
[2020-11-23 18:26] LABS: CHOL/HDL RATIO 5.4 (1-4.5); FREE T4 (FREE THYROXINE) 0.79 ng/dL (0.76-1.46); MAGNESIUM 2.2 mg/dL (1.8-2.4); PHOSPHORUS 3.7 mg/dL (2.5-4.9); THYROID STIMULATING HORMONE 0.95 uIU/mL (0.34-3.74)
--- NOTE | 2020-11-23 18:30 | NUR ---
REPORT GIVEN TO ZAC SALVADOR FOR ADMISSION TO [facility] 120[facility]
[2020-11-23] MEDS: NACL 0.9% 1,000 ML IV SCH (18:32)
--- NOTE | 2020-11-23 18:49 | NUR ---
Patient will be admitted to care of DR JOHNSON. Admited to TELEMETRY. Will go to [id number]. Belongings list completed. Report to ZAC SALVADOR.
--- NOTE | 2020-11-23 18:50 | NUR ---
RECEIVED PT FROM ER NURSE AND TECH. VS WERE TAKEN. PT IS IN BED, NO SIGNS OF DISTRESS. DENIES PAIN. WILL ENDORSE TO TECHNICAL SUPPORT ASSISTANT NURSE.
[2020-11-23] MEDS: BUMETANIDE 1 MG TAB PO SCH (18:51)
--- NOTE | 2020-11-23 19:03 | NUR ---
GLUCOSE LEVEL OF 666, CRITICAL LAB. RECEIVED RESULT BY GYM ATTENDANT. WILL ENDORSE TO TREE PRUNER NURSE.
[2020-11-23 19:04] VITALS: BP 190/94
--- NOTE | 2020-11-23 19:20 | NUR ---
MESSAGED DR. JOHNSON ABOUT THE CRITICAL LAB OF GLUCOSE 666. SHE CALLED AND ORDERED 12 UNITS HUMALOG INSULIN NOW. SHE ALSO STATED TO ENDORSE TO RECOVERY SPECIALIST TO MONITOR BLOOD SUGAR AFTER GIVING 2100 INSULINS THAT ARE SCHEDULED. ENDORSED THE ORDERS TO MODESTO TRAYLOR.
[2020-11-23] MEDS ORDERED: INSULIN LISPRO 100 UNITS/ML VIAL SUBQ SCH (19:30)
--- NOTE | 2020-11-23 19:30 | NUR ---
ENDORSED PT TO SALESPERSON RECREATIONAL VEHICLES NURSE FOR CONTINUITY OF CARE. PT IS STABLE AT THIS TIME. PLAN OF CARE DISCUSSED.
--- NOTE | 2020-11-23 20:00 | NUR ---
patient received in bed with beside her alert and coherent, clear speaking in dutch, complain of feeling hungry. But patient's latest BS level was 666, new order was received from Dr. Alcala to cover it with 12 units Regular insulin, given subq, tolerated well by the patient.
--- NOTE | 2020-11-23 20:02 | NUR ---
ABG RESULTS WERE REPORTED TO DR. JOHNSON.
[2020-11-23] MEDS: BLOOD GLUCOSE MONITORING 1 DEV DEV FS SCH (20:30)
[2020-11-23] MEDS: INSULIN LISPRO SLIDING SCALE 100 UNITS/ML VIAL SUBQ PRN (20:31)
[2020-11-23] MEDS: INSULIN LISPRO 100 UNITS/ML VIAL SUBQ SCH (20:36)
[2020-11-23] MEDS: MORPHINE SULFATE 2 MG/ML SYR IVP PRN (20:52)
[2020-11-23] MEDS ORDERED: FUROSEMIDE 40 MG/4 ML VIAL IVP SCH (21:00)
--- NOTE | 2020-11-23 21:00 | NUR ---
BS rechecked = 490 mg/dl, coverage of 10 units humolog plus routine schedule of 10 units same insulin total of 20 units of hulolog was given to her lower right quadrant abd. tolerated well, BP was also elevated at 192/84, patient c/o headache and nausea, vomited x [address] Alcala for hydralazine, 10 mg x 1 now was obtained and Ondansetron 4 mg q 8 hours prn plus Reglan 5 mg routine ivpush.
[2020-11-23 21:05] LABS: PROTHROMBIN TIME 9.4 secs (10.8-13.4)
[2020-11-23] MEDS: glipiZIDE ER 5 MG TABER PO SCH (21:07)
[2020-11-23] MEDS: hydrALAZINE 20 MG/ML VIAL IVP PRN ×2 (21:48→23:52)
[2020-11-23] MEDS: INSULIN LANTUS 100 UNITS/ML 10 ML VIAL SUBQ SCH (21:59)
--- NOTE | 2020-11-23 22:00 | NUR ---
BP was rechecked 137/64 mmHg.
[2020-11-24] VITALS: BP 137/137
--- NOTE | 2020-11-24 | NUR ---
patient was asleep calmly
[2020-11-24 00:14] LABS: BARBITURATE, URINE NEGATIVE ng/ml (NEG <=200); BENZODIAZEPINE, URINE NEGATIVE ng/mL (NEG <=200); CANNABINOID, URINE NEGATIVE ng/mL (NEG <=50); COCAINE, URINE NEGATIVE ng/mL (NEG <=300); OPIATE, URINE NEGATIVE ng/mL (NEG <=2000); PHENCYCLIDINE SCREEN,URINE NEGATIVE ng/mL (NEG <=25)
--- NOTE | 2020-11-24 02:00 | NUR ---
hydralazine due 10 mg/0.5 ml iv push was given, tolerated well by the patient.
[2020-11-24] MEDS: NACL 0.9% 1,000 ML IV SCH ×2 (03:00→13:29)
[2020-11-24] MEDS: hydrALAZINE 20 MG/ML VIAL IVP PRN (03:12)
[2020-11-24 04:00] VITALS: BP 155/76
--- NOTE | 2020-11-24 05:34 | NUR ---
patient was calmly asleep
[2020-11-24 05:45] LABS: HEMATOCRIT 29.7 % (36-48); HEMOGLOBIN 9.6 g/dL (12.0-16.0); MEAN CORPUSCULAR HEMOGLOBIN 28 pg (27-31); MEAN CORPUSCULAR HGB CONC 32 g/dL (33-37); MEAN CORPUSCULAR VOLUME 85.3 fL (80-94); PLATELET COUNT (AUTO) 315 K/uL (140-450); RED BLOOD CELL COUNT(AUTO) 3.48 MIL/uL (4.20-5.40)
[2020-11-24 06:04] LABS: ANION GAP 20.8 (8-16); CARBON DIOXIDE 12.8 mmol/L (21-32); CREATININE 2.2 mg/dL (0.6-1.3); POTASSIUM 4.6 mmol/L (3.5-5.1)
[2020-11-24 06:11] LABS: MAGNESIUM 1.9 mg/dL (1.8-2.4)
[2020-11-24 06:45] LABS: LYMPHOCYTES % (MANUAL) 3 % (20-46); MONOCYTES % (MANUAL) 7 % (5-12)
[2020-11-24] MEDS: BLOOD GLUCOSE MONITORING 1 DEV DEV FS SCH ×4 (06:58→20:50)
[2020-11-24] MEDS: INSULIN LISPRO SLIDING SCALE 100 UNITS/ML VIAL SUBQ PRN (06:59)
--- NOTE | 2020-11-24 07:30 | NUR ---
RECEIVED REPORT FROM MANAGER PLAY NURSE FOR CONTINUITY OF CARE, POC DISCUSSED. PT IS SITTING IN BED ON RA WITH NO ACUTE S/S OF DISTRESS AND CHEST RISING AND FALLING EVEN AND UNLABORED. PT BG WAS REPORTED TO BE 169 AND RECEIVED 2U INSULIN. PT STILL UNABLE TO PRODUCE A SPUTUM CULTURE. PT ON A FLUID RESTRICTION OF 1500. PT DENIES PAIN AT THIS TIME. PT IS SR ON TELE MONITOR. PT HAS A LEFT AC 20 G RUNNING NS @ 100ML/HR. ALL SAFETY MEASURES IN PLACE, CALL LIGHT WITHIN REACH WILL CONTINUE TO MONITOR.
--- NOTE | 2020-11-24 07:34 | NUR ---
all reports were given, transfer of care endorsed.
[2020-11-24 08:00] VITALS: BP 160/89
--- NOTE | 2020-11-24 08:10 | NUR ---
PATIENT HAS BEEN SCREENED AND CATEGORIZED MODERATE NUTRITION RISK. PATIENT WILL BE SEEN WITHIN 3-5 DAYS OF ADMISSION. 11/26/20 11/28/20 [facility]NS REFERRAL RECEIVED FOR UNCONTROLLED DIABETES, CATEGORIZED MODERATE RISK FACTOR. ZACH HOOKS RD
--- NOTE | 2020-11-24 08:21 | NUR ---
MORNING MEDICATION ADMINISTERED PER MD ORDER. PT EDUCATION PROVIDED. ASSESSED BLOOD GLUCOSE AND IT WAS 118, SCHEDULED HUMALOG, 10 UNITS ADMINISTERED PER MD ORDER, PT HAS BREAKFAST AT BEDSIDE AND EDUCATED ON IMPORTANCE OF EATING HER BREAKFAST TO PREVENT HYPOGLYCEMIA. EDUCATED ON S/S OF HYPOGLYCEMIA. PT VERBALIZED UNDERSTANDING. IV SITE INTACT AND PATENT. PT IS IN STABLE CONDITION, ALL SAFETY MEASURES IN PLACE. CALL LIGHT WITHIN REACH. WILL CONTINUE TO MONITOR.
[2020-11-24] MEDS: INSULIN LISPRO 100 UNITS/ML VIAL SUBQ SCH ×2 (08:24→20:52)
[2020-11-24] MEDS: lisinopriL 20 MG TAB PO SCH (08:26)
[2020-11-24] MEDS: BUMETANIDE 1 MG TAB PO SCH (08:26)
[2020-11-24] MEDS: glipiZIDE ER 5 MG TABER PO SCH ×2 (08:27→20:51)
[2020-11-24] MEDS: carvediloL 12.5 MG TAB PO SCH ×2 (08:27→16:53)
[2020-11-24] MEDS: ECOTRIN 81 MG TABEC PO SCH (08:27)
[2020-11-24] MEDS: METOCLOPRAMIDE 10 MG/2 ML INJ VIAL IVP SCH ×3 (08:27→16:52)
[2020-11-24] MEDS: FERROUS SULFATE 325 MG TABEC PO SCH (08:28)
[2020-11-24] MEDS ORDERED: AZITHROMYCIN 250 MG TAB PO SCH ×2 (09:00→18:00)
--- NOTE | 2020-11-24 10:21 | NUR ---
PT IS IN STABLE CONDITION, WITH WINDOW SHADE CUTTER AND MOUNTER AT BEDSIDE. PT VERBALIZED ALL NEEDS MET. ALL SAFETY MEASURES IN PLACE, CALL LIGHT WITHIN REACH. WILL CONTINUE TO MONITOR.
--- NOTE | 2020-11-24 12:52 | NUR ---
PLACED ON NPO AFTER LUNCH FOR PROCEDURE TO RULE OUT CHOLECYSTITIS
--- NOTE | 2020-11-24 14:36 | NUR ---
IV ACCIDENTALLY REMOVED, CATH IN PLACE. NEW IV STARTED ON RIGHT WRIST 22G ON FIRST ATTEMPT. PT TOLERATED INSERTION. FLUIDS RESTARTED. ALL SAFETY MEASURES IN PLACE, CALL LIGHT WITHIN REACH. WILL CONTINUE TO MONITOR.
--- NOTE | 2020-11-24 16:42 | NUR ---
DC PLANNING: CM SPOKE WITH PATIENT AT BEDSIDE. H/O DM AND HTN WITH NON-COMPLIANCE. PATIENT SOMETIMES REQUIRES ASSISTANCE WITH ADL'S, STATES HER HELPS HER. SOMETIMES AMBULATES WITH A FWW, HAS A GLUCOMETER WHICH IS BROKEN. LIVES IN A SINGLE STORY HOUSE WITH HER AND SON, SHE ALSO FOLLOWS UP WITH HER PCP REGULARLY. HOME HEALTH ORDER FOR DIABETIC TEACHING, ATTENDING MD TO GIVE PATIENT A PRESCRIPTION FOR A NEW GLUCOMETER. SPOKE WITH HOME HEALTH AGENCIES-[facility], [facility], [facility]ED[facility], ASSISTED CALLED, NONE ARE ABLE TO ACCEPT PATIENT. CM WILL FOLLOW UP WITH OTHER [facility] CONTRACTED HOME HEALTH AGENCIES, AND WILL FOLLOW FOR NEEDS.
--- NOTE | 2020-11-24 16:48 | NUR ---
PT BLOOD GLUCOSE IS 171, NOT COVERING BY 2 UNITS DUE TO PTS CURRENT DIET IS NPO. PT EDUCATION GIVEN. PT VERBALIZED UNDERSTANDING. UNKNOWN OF WHEN PT CAN BE ABLE TO EAT AGAIN. ALL SAFETY MEASURES IN PLACE, CALL LIGHT WITHIN REACH.
[2020-11-24] MEDS: HYDROcodone/APAP 5/325 MG 1 TAB TAB PO PRN (16:53)
--- NOTE | 2020-11-24 18:04 | NUR ---
BACILIO MEDICATION ADMINISTERED PER MD ORDER, PT EDUCATION PROVIDED. EDUCATED ON IMPORTANCE OF NPO STATUS UNTIL US OF ABD IS COMPLETE. PT VERBALIZED UNDERSTANDING. ALL SAFETY MEASURES IN PLACE, CALL LIGHT WITHIN REACH. WILL CONTINUE TO MONITOR.
[2020-11-24] MEDS: MORPHINE SULFATE 2 MG/ML SYR IVP PRN (20:42)
[2020-11-24] MEDS: INSULIN LANTUS 100 UNITS/ML 10 ML VIAL SUBQ SCH (20:55)
[2020-11-24 21:00] VITALS: BP 151/86
[2020-11-25] MEDS: HYDROcodone/APAP 5/325 MG 1 TAB TAB PO PRN (01:24)
[2020-11-25] MEDS: NACL 0.9% 1,000 ML IV SCH ×2 (01:24→09:45)
[2020-11-25] MEDS: glipiZIDE ER 5 MG TABER PO SCH (01:25)
[2020-11-25 05:30] VITALS: BP 158/87
[2020-11-25 06:01] LABS: BASOPHILS # (AUTO) 0.1 K/uL (0.00-0.22); BASOPHILS % (AUTO) 0.9 % (0.0-2.0); EOSINOPHILS # (AUTO) 0.9 K/uL (0-0.4); EOSINOPHILS % (AUTO) 7.3 % (0.0-4.0); HEMATOCRIT 29.5 % (36-48); HEMOGLOBIN 9.4 g/dL (12.0-16.0); LYMPHOCYTES % (AUTO) 16.3 % (20.5-51.1); MEAN CORPUSCULAR HEMOGLOBIN 28 pg (27-31); MEAN CORPUSCULAR HGB CONC 32 g/dL (33-37); MEAN CORPUSCULAR VOLUME 86.6 fL (80-94); MONOCYTES % (AUTO) 8.1 % (1.7-9.3); NEUTROPHILS # (AUTO) 8.2 K/uL (1.8-7.7); NEUTROPHILS % (AUTO) 67.4 % (42.2-75.2); PLATELET COUNT (AUTO) 311 K/uL (140-450); RED BLOOD CELL COUNT(AUTO) 3.41 MIL/uL (4.20-5.40); RED CELL DISTRIBUTION WIDTH 15.8 % (11.6-13.7); WHITE BLOOD COUNT (AUTO) 12.2 K/uL (4.8-10.8)
[2020-11-25] MEDS: BLOOD GLUCOSE MONITORING 1 DEV DEV FS SCH ×2 (06:24→11:52)
[2020-11-25 06:26] LABS: ANION GAP 13.5 (8-16); CARBON DIOXIDE 19.4 mmol/L (21-32); CREATININE 2.2 mg/dL (0.6-1.3); POTASSIUM 4.9 mmol/L (3.5-5.1)
[2020-11-25] MEDS: INSULIN LISPRO SLIDING SCALE 100 UNITS/ML VIAL SUBQ PRN (06:28)
[2020-11-25 06:33] LABS: PHOSPHORUS 5.7 mg/dL (2.5-4.9)
--- NOTE | 2020-11-25 07:25 | NUR ---
RECEIVED REPORT FROM OPTICAL ELEMENT COATER RN. PATIENT IS RESTING. PATIENT IS NOT SHOWING ANY S/S OF DISTRESS. CALL LIGHT WITHIN REACH. SAFETY MEASURES IN PLACE.
[2020-11-25 08:00] VITALS: BP 171/85
[2020-11-25] MEDS: ECOTRIN 81 MG TABEC PO SCH (08:52)
[2020-11-25] MEDS: carvediloL 12.5 MG TAB PO SCH (08:53)
[2020-11-25] MEDS: lisinopriL 20 MG TAB PO SCH (08:54)
[2020-11-25] MEDS: METOCLOPRAMIDE 10 MG/2 ML INJ VIAL IVP SCH (08:57)
[2020-11-25] MEDS: INSULIN LISPRO 100 UNITS/ML VIAL SUBQ SCH (09:00)
[2020-11-25] MEDS: FERROUS SULFATE 325 MG TABEC PO SCH (09:06)
--- NOTE | 2020-11-25 09:10 | NUR ---
ADMINISTERED SCHEDULED MEDICATIONS. PATIENT VERBALIZED UNDERSTANDING. CALL LIGHT WITHIN REACH. SAFETY MEASURES IN PLACE.
--- NOTE | 2020-11-25 11:00 | NUR ---
CHECKED ON PATIENT. NO S/S OF DISTRESS. CALL LIGHT WITHIN REACH. SAFETY MEASURES IN PLACE.
--- NOTE | 2020-11-25 11:15 | NUR ---
ATTENDING MD AT BEDSIDE WITH PATIENT TO DISCUSS PLAN OF CARE. PATIENT VERBALIZED UNDERSTANDING.
[2020-11-25] MEDS ORDERED: LOSA100T1 PO (11:34)
[2020-11-25 13:13] VITALS: BP 171/85
--- NOTE | 2020-11-25 13:30 | NUR ---
ENDORSED DISCHARGE TO PATIENT. PATIENT VERBALIZED UNDERSTANDING. REMOVED IV CATH, IV CATH INTACT. PATIENT IS STABLE.
== END 2020-11-25 14:30 | disposition home or self-care (01) | DRG 420 ==
LOC: MED 12:33 → MTU 17:46
PROVIDERS: ADMIT Family Medicine; ATTEND Family Medicine
DX: E11.00 Type 2 diabetes mellitus with hyperosmolarity without nonketotic hyperglycemic-hyperosmolar coma (NKHHC) (principal); N17.0 Acute kidney failure with tubular necrosis; A41.9 Sepsis, unspecified organism; I50.43 Acute on chronic combined systolic (congestive) and diastolic (congestive) heart failure; E44.0 Moderate protein-calorie malnutrition; I43 Cardiomyopathy in diseases classified elsewhere; Z68.41 Body mass index [BMI] 40.0-44.9, adult; N18.32 Chronic kidney disease, stage 3b; E11.22 Type 2 diabetes mellitus with diabetic chronic kidney disease; E87.1 Hypo-osmolality and hyponatremia; I13.0 Hypertensive heart and chronic kidney disease with heart failure and stage 1 through stage 4 chronic kidney disease, or unspecified chronic kidney disease; E86.0 Dehydration; Z20.822 Contact with and (suspected) exposure to COVID-19; E78.5 Hyperlipidemia, unspecified; D63.8 Anemia in other chronic diseases classified elsewhere; I11.9 Hypertensive heart disease without heart failure; E78.00 Pure hypercholesterolemia, unspecified; E78.1 Pure hyperglyceridemia; E66.9 Obesity, unspecified; J44.9 Chronic obstructive pulmonary disease, unspecified; Z79.4 Long term (current) use of insulin; Z79.899 Other long term (current) drug therapy; Z86.73 Personal history of transient ischemic attack (TIA), and cerebral infarction without residual deficits
CPT/HCPCS: 36415; 36600; 71045; 76705; 76770; 80048; 80053; 80305; 81001; 82150; 82803; 82947; 82948; 83036; 83605; 83690; 83735; 83874; 83880; 84100; 84439; 84443; 84484; 85025; 85610; 85730; 86140; 87040; 87081; 87086; 93005; 96365; 96366; 99285; J0360; J0456; J0696; J1815; J2270; J2405; J2765; J7060

== ENCOUNTER 2021-02-12 17:11 | Emergency (ER) | payer MEDICAID, SELFPAY ==
[~2021-02-12] VITALS: Ht 149.9 cm; Wt 93.9 kg
[~2021-02-12 17:11] MED LIST changes: -AMOX-1000 PO; -ATOR20TA40 PO; -BENZ-196 PO; +BUME1TAB92 PO; +FERR325E14 PO; -FURO40TA9 PO; +GLIP5TER PO; +HUM SUBQ; -HYDR-4420 PO; -INSU10SU2 SC; -LISI10TA30 PO; +LOSA100T1 PO; -POTA10TE30 PO; -PRED20TA5 PO
[2021-02-12 17:36] VITALS: BP 186/116
--- NOTE | 2021-02-12 18:28 | NUR ---
PT ASKED IF SHE CAN HAVE SOMETHING TO EAT, ASKED ERMD, PER ERMD PT IS OKAY TO EAT AT THIS TIME. PT NOT IN LOBBY OR OUTSIDE.
--- NOTE | 2021-02-12 20:42 | NUR ---
PATIENT CALLED TO PUT ON BED, NO RESPONSE PATIENT LEFT WITHOUT BEING SEEN BY DR. STEEN. NO FURTHER CARE PROVIDED FOR PATIENT.
--- NOTE | 2021-02-12 20:47 | NUR ---
CALLED FOR THE SECOND TIME, NO RESPONSE
--- NOTE | 2021-02-12 20:55 | NUR ---
CALLED FOR THE THIRD TIME NO RESPONSE
== END 2021-02-12 20:42 | disposition left against medical advice (07) ==
LOC: MED 17:11
DX: R06.02 Shortness of breath (principal); R07.9 Chest pain, unspecified; Z53.21 Procedure and treatment not carried out due to patient leaving prior to being seen by health care provider

== ENCOUNTER 2021-04-28 15:28 | Emergency (ER) | payer MEDICAID, SELFPAY ==
[~2021-04-28] VITALS: Ht 149.9 cm; Wt 93.0 kg
[2021-04-28 15:46] VITALS: BP 196/105
[2021-04-28 22:58] LABS: BASOPHILS # (AUTO) 0.1 K/uL (0.00-0.22); EOSINOPHILS # (AUTO) 0.6 K/uL (0-0.4); EOSINOPHILS % (AUTO) 4.2 % (0.0-4.0); HEMATOCRIT 34.7 % (36-48); HEMOGLOBIN 11.3 g/dL (12.0-16.0); LYMPHOCYTES # (AUTO) 1.3 K/uL (2.5-16.5); LYMPHOCYTES % (AUTO) 9.7 % (20.5-51.1); MEAN CORPUSCULAR HEMOGLOBIN 28 pg (27-31); MEAN CORPUSCULAR HGB CONC 32 g/dL (33-37); MEAN CORPUSCULAR VOLUME 86.9 fL (80-94); MONOCYTES # (AUTO) 0.7 K/uL (0.8-1.0); MONOCYTES % (AUTO) 5.1 % (1.7-9.3); NEUTROPHILS # (AUTO) 11.1 K/uL (1.8-7.7); PLATELET COUNT (AUTO) 346 K/uL (140-450); RED CELL DISTRIBUTION WIDTH 15.3 % (11.6-13.7); WHITE BLOOD COUNT (AUTO) 13.9 K/uL (4.8-10.8)
[2021-04-28 23:49] LABS: ANION GAP 12.7 (8-16); CARBON DIOXIDE 25.9 mmol/L (21-32); CREATININE 2.6 mg/dL (0.6-1.3); POTASSIUM 4.6 mmol/L (3.5-5.1); TOTAL BILIRUBIN 0.3 mg/dL (0.0-1.0)
[2021-04-29] MEDS ORDERED: NACL 0.9% 1,000 ML IV ONE
--- NOTE | 2021-04-29 01:23 | NUR ---
PATIENT LEFT WITHOUT BEING SEEN BY DR. POLLARD. NO FURTHER CARE PROVIDED FOR PATIENT.
--- NOTE | 2021-04-29 01:23 | NUR ---
made call to patient to give her updates and no response x3. patient and not in lobby. AWOL
== END 2021-04-29 01:23 | disposition left against medical advice (07) ==
LOC: MED 15:28
DX: J18.9 Pneumonia, unspecified organism (principal); E11.65 Type 2 diabetes mellitus with hyperglycemia; R06.02 Shortness of breath; I10 Essential (primary) hypertension; Z98.890 Other specified postprocedural states; Z79.4 Long term (current) use of insulin; Z79.899 Other long term (current) drug therapy; Z79.82 Long term (current) use of aspirin
CPT/HCPCS: 36415; 71045; 80053; 83880; 84484; 85025; 93005; 99285; Q0092

== ENCOUNTER 2021-05-29 17:17 | Inpatient (IN) | payer MEDICAID, SELFPAY ==
[~2021-05-29] VITALS: Ht 149.9 cm; Wt 86.2 kg
--- NOTE | 2021-05-29 17:26 | NUR ---
PT TAKEN TO ER BED 1 VIA W/C.
[2021-05-29 17:30] VITALS: BP 201/97
--- NOTE | 2021-05-29 17:35 | NUR ---
50 Y/O FEMALE W/C ASSISTED C/O SOB X 1 WEEK. PT WAS SEEN RECENTLY FOR SIMILAR SYMPTOMS X1WEEK. PER PT SYMPTOMS HAVE NOT IMPROVED, TODAY SOB LABORED BREATHING, ACCESSORY MUSCLE USE, SPO2 94% ON RA. LUNG SOUNDS AUSCULTATED BILATERALLY DIMINISHED AT BASES. PT STATES +N/V, DENIES FEVER/CHILLS. PMH: CHF, DM, HTN, ANXIETY NKA
--- NOTE | 2021-05-29 17:37 | NUR ---
VASU FAM A & B GAVE TO ETHYLENE OXIDE PANELBOARD OPERATOR AT PT BEDSIDE.
--- NOTE | 2021-05-29 17:40 | NUR ---
PACKING MACHINE INSPECTOR AT PT BEDSIDE.
--- NOTE | 2021-05-29 17:51 | NUR ---
DR. TILLEY AT PT BEDSIDE FOR FURTHER EVALUATION.
[2021-05-29 18:06] LABS: BASOPHILS % (AUTO) 0.5 % (0.0-2.0); EOSINOPHILS # (AUTO) 0.3 K/uL (0-0.4); EOSINOPHILS % (AUTO) 3.4 % (0.0-4.0); HEMATOCRIT 32.4 % (36-48); HEMOGLOBIN 10.7 g/dL (12.0-16.0); LYMPHOCYTES # (AUTO) 0.6 K/uL (2.5-16.5); LYMPHOCYTES % (AUTO) 6.6 % (20.5-51.1); MEAN CORPUSCULAR HEMOGLOBIN 28 pg (27-31); MEAN CORPUSCULAR HGB CONC 33 g/dL (33-37); MEAN CORPUSCULAR VOLUME 85.9 fL (80-94); MONOCYTES # (AUTO) 0.5 K/uL (0.8-1.0); MONOCYTES % (AUTO) 5.7 % (1.7-9.3); NEUTROPHILS # (AUTO) 7.6 K/uL (1.8-7.7); NEUTROPHILS % (AUTO) 83.8 % (42.2-75.2); PLATELET COUNT (AUTO) 318 K/uL (140-450); RED BLOOD CELL COUNT(AUTO) 3.77 MIL/uL (4.20-5.40); RED CELL DISTRIBUTION WIDTH 14.9 % (11.6-13.7); WHITE BLOOD COUNT (AUTO) 9.1 K/uL (4.8-10.8)
[2021-05-29 18:46] LABS: ALBUMIN 2.8 g/dL (3.4-5.0); ANION GAP 16.4 (8-16); CARBON DIOXIDE 23.1 mmol/L (21-32); POTASSIUM 4.5 mmol/L (3.5-5.1); TOTAL BILIRUBIN 0.8 mg/dL (0.0-1.0)
[2021-05-29] MEDS ORDERED: amLODIPine 5 MG TAB PO ONE (19:00)
[2021-05-29] MEDS ORDERED: BUMETANIDE 1 MG/4 ML VIAL IV ONE (19:00)
--- NOTE | 2021-05-29 19:38 | NUR ---
GAVE REPORT TO MODESTO LYNCH. TRANSFER OF CARE AT THIS TIME.
--- NOTE | 2021-05-29 19:45 | NUR ---
ASSUMED PATIENT CARE, HERE FOR SOB. ALL LABS IN. IV LINE STARTED ON LEFT WRIST ON LOGISTICS SYSTEM ENGINEER, NOTED HIGH BLOOD PRESSURE, GIVEN APRESOLINE AND BUMEX 1MG IV
[2021-05-29] MEDS ORDERED: guaiFENesin DM 200/20 MG-10 ML 10 ML UDC PO PRN (21:25)
[2021-05-29] MEDS ORDERED: ZOLPIDEM 5 MG TAB PO PRN (21:25)
[2021-05-29] MEDS ORDERED: POTASSIUM CHLORIDE 10 MEQ TABER PO PRN (21:25)
[2021-05-29] MEDS ORDERED: DOCUSATE SODIUM 100 MG GELCAP PO PRN (21:25)
[2021-05-29] MEDS ORDERED: INSULIN LISPRO SLIDING SCALE 100 UNITS/ML VIAL SUBQ PRN (21:30)
[2021-05-29] MEDS ORDERED: DEXTROSE 50% 50 ML SYR IVP PRN (21:30)
[2021-05-29 22:01] LABS: PROTHROMBIN TIME 10.4 secs (10.8-13.4)
[2021-05-29] MEDS: FUROSEMIDE 20 MG/2 ML VIAL IVP SCH (22:13)
[2021-05-29 22:14] LABS: CHOL/HDL RATIO 7.3 (1-4.5); FREE T4 (FREE THYROXINE) 1.42 ng/dL (0.76-1.46); MAGNESIUM 2.6 mg/dL (1.8-2.4); PHOSPHORUS 3.7 mg/dL (2.5-4.9); THYROID STIMULATING HORMONE 1.79 uIU/mL (0.34-3.74)
[2021-05-29] MEDS ORDERED: hydrALAZINE 20 MG/ML VIAL ONE (22:24)
[2021-05-29] MEDS: hydrALAZINE 20 MG/ML VIAL IVP PRN (22:25)
--- NOTE | 2021-05-29 22:43 | NUR ---
REPORT CALLED TO BELLA SALVADOR. HYDRALZAZINE 10MG IVP GIVEN FOR BP 194/82
--- NOTE | 2021-05-29 22:45 | NUR ---
RECEIVED PT FROM ER NURSE VIA RAMSES. PT AMBULATED TO HER BED ON HER OWN STRENGTH. PT AXO 4, ON ROOM AIR. PT AFEBRILE, SKIN, WARM DRY AND INTACT. PT IV ON LEFT HAND G20, FLUSHED WITH 10CC NS. PATENT AND INTACT. MRSA SWAB DONE. ORIENTED TO ROOM AND CALL LIGHT. BED IN LOW LOCKED POSITION. ALL PRECAUTIONS IN PLACE. WILL CONTINUE TO MONITOR.
--- NOTE | 2021-05-29 23:00 | NUR ---
PT MOVED TO TELE FLOOR 104B WITH VS ACCEPTABLE.
[2021-05-29] MEDS: HYDROcodone/APAP 7.5/325 MG 1 TAB PO PRN (23:43)
--- NOTE | 2021-05-29 23:45 | NUR ---
PT COMPLAINED OF BACK PAIN. PRN PAIN MEDICATION GIVEN. PT TOLERATED WELL. WILL CONTINUE TO MONITOR.
[2021-05-30] VITALS: BP 151/85
[2021-05-30] MEDS: hydrALAZINE 20 MG/ML VIAL IVP PRN (01:07)
[2021-05-30] MEDS: ONDANSETRON 4 MG/2 ML VIAL IM/IVP PRN ×2 (01:40→17:59)
--- NOTE | 2021-05-30 01:50 | NUR ---
PT COMPLAINING OF N/V. PRN ZOFRAN GIVEN. PT TOLERATED WELL. WILL CONTINUE TO MONITOR.
--- NOTE | 2021-05-30 03:13 | NUR ---
PT ASLEEP. BREATHING EQUAL AND UNLABORED. CALL LIGHT WITHIN REACH. WILL CONTINUE TO MONITOR.
[2021-05-30 04:00] VITALS: BP 138/68
--- NOTE | 2021-05-30 04:56 | NUR ---
PT ASLEEP. VISIBLE CHEST RISE AND FALL NOTED. WILL CONTINUE TO MONITOR.
[2021-05-30] MEDS: BLOOD GLUCOSE MONITORING 1 DEV DEV FS SCH ×4 (06:37→21:45)
--- NOTE | 2021-05-30 06:56 | NUR ---
BLOOD SUGAR WAS 135. NO INSULIN COVERAGE NEEDED.
--- NOTE | 2021-05-30 06:57 | NUR ---
PT STABLE. NO ACUTE EVENTS THROUGHOUT THE NIGHT. NO S/SX OF DISTRESS AT THIS TIME. ALL NEEDS MET. CALL LIGHT WITHIN REACH. WILL ENDORSE TO AM SHIFT NURSE.
--- NOTE | 2021-05-30 07:29 | NUR ---
ENDORSED PT TO AM SHIFT NURSE FOR CONTINUITY OF CARE. PT IS STABLE.
--- NOTE | 2021-05-30 07:30 | NUR ---
RECEIVED BEDSIDE REPORT FROM VAULT CUSTODIAN NURSE, PT SLEEPING, NO DISTRESS NOTED, ON ROOM GONZÁLEZ, NO SOB NOTED, IV TO LEFT HAND 20G PATNET INTACT, SL. PT ON 1400ML FLUID RESTRICTION. INITIAL ASSESSMENT DONE, ALL SAFETY PRECAUTION MET, CALL LIGHT WITHIN REACH, WILL CONTINUE TO MONITOR.
[2021-05-30 08:00] VITALS: BP 141/66
[2021-05-30] MEDS ORDERED: carvediloL 6.25 MG TAB PO SCH (08:00)
[2021-05-30 08:15] LABS: BASOPHILS # (AUTO) 0.1 K/uL (0.00-0.22); BASOPHILS % (AUTO) 0.6 % (0.0-2.0); EOSINOPHILS # (AUTO) 0.3 K/uL (0-0.4); EOSINOPHILS % (AUTO) 3.5 % (0.0-4.0); HEMATOCRIT 30.7 % (36-48); HEMOGLOBIN 10.3 g/dL (12.0-16.0); LYMPHOCYTES # (AUTO) 0.6 K/uL (2.5-16.5); LYMPHOCYTES % (AUTO) 7.3 % (20.5-51.1); MEAN CORPUSCULAR HEMOGLOBIN 29 pg (27-31); MEAN CORPUSCULAR HGB CONC 34 g/dL (33-37); MONOCYTES # (AUTO) 0.7 K/uL (0.8-1.0); MONOCYTES % (AUTO) 8.4 % (1.7-9.3); NEUTROPHILS # (AUTO) 6.8 K/uL (1.8-7.7); NEUTROPHILS % (AUTO) 80.2 % (42.2-75.2); PLATELET COUNT (AUTO) 322 K/uL (140-450); RED BLOOD CELL COUNT(AUTO) 3.57 MIL/uL (4.20-5.40); RED CELL DISTRIBUTION WIDTH 14.9 % (11.6-13.7); WHITE BLOOD COUNT (AUTO) 8.5 K/uL (4.8-10.8)
[2021-05-30 08:26] LABS: ANION GAP 16.4 (8-16); CARBON DIOXIDE 21.9 mmol/L (21-32); CREATININE 2.2 mg/dL (0.6-1.3); POTASSIUM 4.3 mmol/L (3.5-5.1)
[2021-05-30] MEDS ORDERED: BUMETANIDE 1 MG TAB PO SCH (09:00)
[2021-05-30] MEDS ORDERED: glipiZIDE ER 5 MG TABER PO SCH (09:00)
[2021-05-30] MEDS: PANTOPRAZOLE 40 MG TABEC PO SCH (09:06)
[2021-05-30] MEDS: ECOTRIN 81 MG TABEC PO SCH (09:07)
[2021-05-30] MEDS: FERROUS SULFATE 325 MG TABEC PO SCH (09:07)
[2021-05-30] MEDS: FUROSEMIDE 20 MG/2 ML VIAL IVP SCH (09:08)
[2021-05-30] MEDS: HYDROcodone/APAP 7.5/325 MG 1 TAB PO PRN ×2 (09:33→20:32)
--- NOTE | 2021-05-30 09:33 | NUR ---
PT C/O PAIN, MEDICATION PRN PER DR ORDER GIVEN, PT TOLERATED WELL, WILL CONTINUE TO MONITOR.
[2021-05-30 12:00] VITALS: BP 124/64
[2021-05-30 16:00] VITALS: BP 130/66
--- NOTE | 2021-05-30 16:36 | NUR ---
PATIENT HAS BEEN SCREENED AND CATEGORIZED HIGH NUTRITION RISK. PATIENT WILL BE SEEN WITHIN 1-2 DAYS OF ADMISSION. /07/[address]
[2021-05-30] MEDS: carvediloL 12.5 MG TAB PO SCH (16:37)
[2021-05-30] MEDS: glipiZIDE 5 MG TAB PO SCH (16:38)
--- NOTE | 2021-05-30 17:59 | NUR ---
PT VOMITING CLEAR LIQUID, ZOFRAN GIVEN, PT TOLERATED WELL, WILL CONTINUE TO MONITOR.
--- NOTE | 2021-05-30 19:23 | NUR ---
ENDORSED PT TO DISTRICT ADMINISTRATIVE ASSISTANT NURSE FOR CONTINUOS OF CARE.
[2021-05-30 20:00] VITALS: BP 136/74
[2021-05-30] MEDS ORDERED: INSULIN LANTUS 100 UNITS/ML 10 ML VIAL SUBQ SCH (21:00)
[2021-05-30] MEDS: BUMETANIDE 1 MG/4 ML VIAL IV SCH (21:23)
[2021-05-31] MEDS: ACETAMINOPHEN 325 MG TAB PO PRN ×2 (01:21→09:32)
--- NOTE | 2021-05-31 01:25 | NUR ---
BLOOD SUGAR RECHECK (120) TO ENSURE HEAD ACHE NOT DUE TO LOW BLOOD SUGAR. NOTE: AFTER HS (2200). BS CHECKED 1 AJ+2SUGARS GIVEN TO PREVENT HYPOGLYCEMIC EVENT. TYLENOL ADMINISTERED PER PT REQUEST.
[2021-05-31] MEDS: BLOOD GLUCOSE MONITORING 1 DEV DEV FS SCH (06:39)
[2021-05-31 07:07] LABS: T4 (THYROXINE) 9.1 ug/dL (4.5-12.0)
[2021-05-31] MEDS: glipiZIDE 5 MG TAB PO SCH (07:30)
--- NOTE | 2021-05-31 07:30 | NUR ---
RECEIVED PT ON BED AAOX4. NO SOB NOTED. NO C/O PAIN AT THIS TIME. IV TO LT HAND PATENT AND INTACT. CHEST DIMINISHED AIR ENTRY TO THE BASES. ABDOMEN SOFT, SOFT, BOWEL SOUNDS PRESENT. INSTRUCTED PT TO CALL FOR ASSISTANCE, CALL LIGHT WITHIN REACH, PT VERBALIZED UNDERSTANDING.
[2021-05-31 07:40] LABS: BASOPHILS # (AUTO) 0.1 K/uL (0.00-0.22); BASOPHILS % (AUTO) 0.9 % (0.0-2.0); EOSINOPHILS # (AUTO) 0.4 K/uL (0-0.4); EOSINOPHILS % (AUTO) 4.2 % (0.0-4.0); HEMATOCRIT 28.3 % (36-48); HEMOGLOBIN 9.7 g/dL (12.0-16.0); LYMPHOCYTES # (AUTO) 0.9 K/uL (2.5-16.5); MEAN CORPUSCULAR HEMOGLOBIN 30 pg (27-31); MEAN CORPUSCULAR HGB CONC 34 g/dL (33-37); MEAN CORPUSCULAR VOLUME 86.1 fL (80-94); MONOCYTES # (AUTO) 0.9 K/uL (0.8-1.0); MONOCYTES % (AUTO) 9.9 % (1.7-9.3); NEUTROPHILS # (AUTO) 6.9 K/uL (1.8-7.7); PLATELET COUNT (AUTO) 330 K/uL (140-450); RED BLOOD CELL COUNT(AUTO) 3.28 MIL/uL (4.20-5.40); RED CELL DISTRIBUTION WIDTH 14.9 % (11.6-13.7); WHITE BLOOD COUNT (AUTO) 9.2 K/uL (4.8-10.8)
[2021-05-31] MEDS: ONDANSETRON 4 MG/2 ML VIAL IM/IVP PRN (07:56)
[2021-05-31 08:00] VITALS: BP 158/74
[2021-05-31 08:20] LABS: CARBON DIOXIDE 22.5 mmol/L (21-32); CREATININE 2.8 mg/dL (0.6-1.3); POTASSIUM 4.5 mmol/L (3.5-5.1)
[2021-05-31] MEDS ORDERED: BUME1TAB92 PO (09:07)
[2021-05-31] MEDS ORDERED: HYDR-3233 PO (09:07)
[2021-05-31] MEDS: carvediloL 12.5 MG TAB PO SCH (09:18)
[2021-05-31] MEDS: BUMETANIDE 1 MG/4 ML VIAL IV SCH (09:18)
[2021-05-31] MEDS: PANTOPRAZOLE 40 MG TABEC PO SCH (09:19)
[2021-05-31] MEDS: FERROUS SULFATE 325 MG TABEC PO SCH (09:19)
[2021-05-31] MEDS: ECOTRIN 81 MG TABEC PO SCH (09:19)
[2021-05-31 11:00] VITALS: BP 143/80
--- NOTE | 2021-05-31 11:00 | NUR ---
DISCHARGE INSTRUCTIONS GIVEN TO PT WHICH VERBALIZED FULL UNDERSTANDING OF THE INSTRUCTIONS GIVEN AND THE NEED TO FOLLOW UP WITH OWN PCP IN 3-5 DAYS. PT MADE AWARE THAT HER NEW SCRIPTS WERE SENT TO HER PREFERRED PHARMACY. ARM BANDS AND IV REMOVED, CANNULA TIP INTACT.
--- NOTE | 2021-05-31 11:20 | NUR ---
PT WHEELED OUT TO THE FRONT LOBBY IN STABLE CONDITION. NO SOB NOTED. NO COMPLAINTS MADE. PT IS D/C HOME WITH .
--- NOTE | 2021-05-31 12:30 | NUR ---
DC PLANNING PATIENT IS A 50-YEAR-OLD FEMALE ADMITTED ON THE [facility]/ED ON 05/29/2021. DUE TO PATIENT HAVING COMPLAINS OF SHORTHNES OF BREATH, PATIENT HAS DIAGNOSIS OF CONGESTIVE HEART FAILURE; HAS HISTORY OF SEVERAL HOSPITALIZATIONS. SW MET WITH PATIENT AT BEDSIDE DISCUSS AND GATHER HER COLLATERAL INFORMATION. PER PATIENT SHE IS LIVING IN HER CAR WITH HER BOYFRIEND AND SOMETIMES THEY STAY IN FRIENDS HOMES. SHE RELATED HAVING POOR FAMILY SUPPORT DUE TO CONFLICTS WITH HER FAMILY ABOUT HER WAY OF LIVING. WHEN ASKED ABOUT EMERGENCY CONTACTS SHE GIVES VAGUE ANSWERS; PER PATIENT SHE WILL TAKE SW INFORMATION AND RESOURCES TO HOMELESS SHELTERS AND LOW COST HOUSING AND WILL BE FINDING A DETENTION IN ONE OF THE PLACES IN THE LIST OF RESOURCES THIS BONE TENDER PROVIDED; SW ALSO PROVIDED PATIENT WITH EMERGENCY BASIC RESOURCES, SUBSTANCE ABUSE AND FOOD [employer]ALL[employer]. PER PATIENT SHE DO NOT HAVE ANY ADVANCE DIRECTIVES AND WAS NOT INTERESTED ON GETTING INFORMATION PACKET PROVIDED BY [facility] AT THE TIME OF VISIT. PATIENT REPORTED HAVING A WALKER ONLY HIS DME THAT SHE USES WHEN SHE NEEDS. PATIENT ALSO REPORTED NOT HAVING ANY ISSUES GETTING OR TAKING HIS MEDICATIONS THAT CAN GETS FROM A [facility] IN [id number]. PATIENT STATED THAT SHE HAS A PRIMARY DOCTOR HOWEVER; SHE DO NOT FOLLOW UP OFTEN SW DISCUSS THE NEED FOR A FOLLOW UP APPOINTMENT WITHIN 7 DAYS AFTER HIS DISCHARGE AND SHE STATED THAT SHE WILL MAKE HER OWN APPOINTMENT AND WILL ATTEND TO APPOINTMENT. PER PATIENT SHE WILL BE SHORT RANGE [employer] BY HER BOYFRIEND AT [place] FROM [facility] AND WILL BE GOING TO A DETENTION OR A HOTEL AFTER DISCHARGE AND WILL NOT NEED TRANSPORT OR A BUS PASS. SW WILL FOLLOW UP NEEDED.
[2021-06-01] MEDS ORDERED: BUMETANIDE 1 MG/4 ML VIAL IV SCH (09:00)
== END 2021-05-31 11:20 | disposition home or self-care (01) | DRG 194 ==
LOC: MED 17:17 → MTU 20:10
PROVIDERS: ADMIT Family Medicine; ATTEND Family Medicine
DX: I13.0 Hypertensive heart and chronic kidney disease with heart failure and stage 1 through stage 4 chronic kidney disease, or unspecified chronic kidney disease (principal); N17.0 Acute kidney failure with tubular necrosis; J96.01 Acute respiratory failure with hypoxia; E43 Unspecified severe protein-calorie malnutrition; D63.8 Anemia in other chronic diseases classified elsewhere; E83.41 Hypermagnesemia; F25.9 Schizoaffective disorder, unspecified; I50.43 Acute on chronic combined systolic (congestive) and diastolic (congestive) heart failure; E78.2 Mixed hyperlipidemia; I25.10 Atherosclerotic heart disease of native coronary artery without angina pectoris; E11.22 Type 2 diabetes mellitus with diabetic chronic kidney disease; N18.32 Chronic kidney disease, stage 3b; E11.65 Type 2 diabetes mellitus with hyperglycemia; J44.9 Chronic obstructive pulmonary disease, unspecified; F32.A Depression, unspecified; F41.9 Anxiety disorder, unspecified; Z20.822 Contact with and (suspected) exposure to COVID-19; Z79.4 Long term (current) use of insulin; Z79.899 Other long term (current) drug therapy; Z98.891 History of uterine scar from previous surgery; Z80.9 Family history of malignant neoplasm, unspecified; Z83.3 Family history of diabetes mellitus; Z68.38 Body mass index [BMI] 38.0-38.9, adult
CPT/HCPCS: 36415; 71045; 80048; 80053; 82150; 82948; 83036; 83605; 83690; 83735; 83880; 84100; 84436; 84439; 84443; 84479; 84484; 85025; 85610; 85730; 87081; 93005; 96374; 96375; 99285; J0360; J1815; J1940; J2405; J3490

== ENCOUNTER 2021-11-24 03:33 | Emergency (ER) | payer MEDICAID ==
[~2021-11-24] VITALS: Ht 149.9 cm; Wt 78.5 kg
[~2021-11-24 03:33] MED LIST changes: +AZIT250T3 PO; +CEPH-588 PO; +HYDR-3233 PO
[2021-11-24 03:49] VITALS: BP 132/75
--- NOTE | 2021-11-24 03:57 | NUR ---
Patient states " my blood sugar is 457, I feel good now, I do not want to see doctor now. "
--- NOTE | 2021-11-24 03:57 | NUR ---
PATIENT LEFT WITHOUT BEING SEEN BY DR. WISE. NO FURTHER CARE PROVIDED FOR PATIENT.
== END 2021-11-24 03:57 | disposition left against medical advice (07) ==
LOC: MED 03:33
DX: I10 Essential (primary) hypertension (principal)
CPT/HCPCS: 82948

== ENCOUNTER 2022-12-28 14:34 | Inpatient (IN) | payer MEDICAID ==
[~2022-12-28] VITALS: Ht 154.9 cm; Wt 64.9 kg
[~2022-12-28 14:34] MED LIST changes: -LOSA100T1 PO; +LOSA100T2 PO
[2022-12-28 14:42] VITALS: BP 90/58; PULSE 96; RESP 18; O2SAT 100
[2022-12-28] MEDS: DEXTROSE 10% 250 ML IV SCH ×2 (15:25→18:49)
[2022-12-28 15:47] LABS: HEMOGLOBIN 11.4 g/dL (12.0-16.0); MEAN CORPUSCULAR HEMOGLOBIN 30 pg (27-31); MEAN CORPUSCULAR HGB CONC 34 g/dL (33-37); MEAN CORPUSCULAR VOLUME 89.1 fL (80-94); RED BLOOD CELL COUNT(AUTO) 3.81 MIL/uL (4.20-5.40); RED CELL DISTRIBUTION WIDTH 14.2 % (11.6-13.7); WHITE BLOOD COUNT (AUTO) 9.2 K/uL (4.8-10.8)
[2022-12-28 15:58] LABS: PLATELET COUNT (AUTO) 59 K/uL (140-450)
[2022-12-28 16:17] LABS: ALBUMIN 2.5 g/dL (3.4-5.0); ANION GAP 22.6 (8-16); BASOPHILS % (MANUAL) 4 % (0-2); CALCIUM 8.4 mg/dL (8.5-10.1); EOSINOPHILS % (MANUAL) 1 % (0-4); LYMPHOCYTES % (MANUAL) 4 % (20-46); METAMYELOCYTES % 4 % (0-0); MONOCYTES % (MANUAL) 6 % (5-12); MYELOCYTES % 2 % (0-0); POTASSIUM 3.6 mmol/L (3.5-5.1); PROMYELOCYTES % 2 % (0-0); SMUDGE CELLS FEW; TOTAL BILIRUBIN 2.3 mg/dL (0.0-1.0); TOTAL PROTEIN, SERUM 6.8 g/dL (6.4-8.2)
[2022-12-28 16:18] LABS: BURR CELLS 3+; POIKILOCYTOSIS 3+
[2022-12-28 16:21] LABS: CREATININE 7.7 mg/dL (0.6-1.3)
[2022-12-28 16:25] LABS: LACTIC ACID 2.6 mmol/L (0.4-2.0)
[2022-12-28 16:57] LABS: APPEARANCE,URINE CLOUDY (CLEAR); BILIRUBIN,URINE 2+ (NEGATIVE); BLOOD, URINE 2+ (NEGATIVE); COLOR,URINE ORANGE (YELLOW); LEUKOCYTE ESTERASE ,URINE 1+ (NEGATIVE); NITRITE, URINE NEGATIVE (NEGATIVE); PH,URINE 5.5 (5.0-9.0); PROTEIN,URINE 3+ (NEGATIVE); UGLUCOSE NEGATIVE (NEGATIVE)
[2022-12-28 17:14] LABS: FLU A ANTIGEN negative (NEGATIVE); FLU B ANTIGEN negative (NEGATIVE)
[2022-12-28 17:15] LABS: ICTOTEST NEGATIVE (NEGATIVE)
[2022-12-28 17:16] LABS: BACTERIA,URINE 1+ /HPF (None Seen); MUCUS,URINE 1+ /LPF (None Seen); SQUAMOUS EPITHELIAL CELL,UR 4-10 (MOD) /LPF (0-3 (FEW)); TRICHOMONAS,URINE None Seen /HPF (None Seen); YEAST,URINE None Seen /HPF (None Seen)
[2022-12-28] MEDS ORDERED: ONDANSETRON 4 MG/2 ML VIAL IM/IVP PRN (17:20)
[2022-12-28] MEDS ORDERED: ZOLPIDEM 5 MG TAB PO PRN (17:20)
[2022-12-28] MEDS: NACL 0.9% 1,000 ML IV SCH (17:20)
[2022-12-28] MEDS ORDERED: DOCUSATE SODIUM 100 MG GELCAP PO PRN (17:20)
[2022-12-28] MEDS ORDERED: guaiFENesin DM 200/20 MG-10 ML 10 ML UDC PO PRN (17:20)
[2022-12-28] MEDS ORDERED: HYDROcodone/APAP 7.5/325 MG 1 TAB PO PRN (17:20)
[2022-12-28] MEDS ORDERED: POTASSIUM CHLORIDE 10 MEQ TABER PO PRN (17:20)
[2022-12-28 17:56] LABS: CHOL/HDL RATIO 4.1 (1-4.5); FREE T4 (FREE THYROXINE) 1.15 ng/dL (0.76-1.46); INR 1.17 (0.8-1.2); PARTIAL THROMBOPLASTIN TIME 40.8 secs (22-35.6); PHOSPHORUS 5.2 mg/dL (2.5-4.9); PROTHROMBIN TIME 12.2 secs (10.8-13.4); THYROID STIMULATING HORMONE 0.64 uIU/mL (0.34-3.74)
[2022-12-28 19:40] VITALS: O2SAT 98
[2022-12-28 22:30] VITALS: BP 96/57; PULSE 93; RESP 18; TEMP 97.8; O2SAT 97
[2022-12-28 22:33] VITALS: PULSE 93
[2022-12-29] VITALS (10 sets, daily range): BP systolic 100–132; BP diastolic 54–78; PULSE 88–101; RESP 17–21; TEMP 96.7–98; O2SAT 93–99
[2022-12-29] MEDS ORDERED: cefTRIAXone 1,000 MG VIAL ONE (01:05)
[2022-12-29] MEDS: NACL 0.9% 1,000 ML IV SCH (01:12)
[2022-12-29 06:03] LABS: BASOPHILS % (AUTO) 0.2 % (0.0-2.0); EOSINOPHILS # (AUTO) 0.4 K/uL (0-0.4); EOSINOPHILS % (AUTO) 3.4 % (0.0-4.0); HEMATOCRIT 33.9 % (36-48); HEMOGLOBIN 11.5 g/dL (12.0-16.0); LYMPHOCYTES # (AUTO) 0.4 K/uL (2.5-16.5); LYMPHOCYTES % (AUTO) 3.7 % (20.5-51.1); MEAN CORPUSCULAR HEMOGLOBIN 30 pg (27-31); MEAN CORPUSCULAR HGB CONC 34 g/dL (33-37); MEAN CORPUSCULAR VOLUME 88.2 fL (80-94); MONOCYTES # (AUTO) 0.8 K/uL (0.8-1.0); MONOCYTES % (AUTO) 7.6 % (1.7-9.3); NEUTROPHILS # (AUTO) 9.4 K/uL (1.8-7.7); NEUTROPHILS % (AUTO) 85.1 % (42.2-75.2); PLATELET COUNT (AUTO) 40 K/uL (140-450); RED BLOOD CELL COUNT(AUTO) 3.84 MIL/uL (4.20-5.40)
[2022-12-29 06:30] LABS: ANION GAP 17.3 (8-16); CALCIUM 8.3 mg/dL (8.5-10.1); CARBON DIOXIDE 25.4 mmol/L (21-32); POTASSIUM 3.7 mmol/L (3.5-5.1)
[2022-12-29 06:38] LABS: CREATININE 4.1 mg/dL (0.6-1.3)
[2022-12-29] MEDS ORDERED: AZITHROMYCIN 500 MG in DEXTROSE 5% 250 ML IV SCH (09:00)
[2022-12-29] MEDS ORDERED: PANTOPRAZOLE 40 MG TABEC PO SCH (09:00)
[2022-12-30] VITALS (24 sets, daily range): BP systolic 88–142; BP diastolic 42–74; PULSE 98–205; RESP 17–46; TEMP 96.1–100.6; O2SAT 92–100
[2022-12-30 06:59] LABS: ANION GAP 23.1 (8-16); CALCIUM 9.1 mg/dL (8.5-10.1); CARBON DIOXIDE 21.7 mmol/L (21-32); POTASSIUM 4.8 mmol/L (3.5-5.1)
[2022-12-30 07:07] LABS: CREATININE 5.6 mg/dL (0.6-1.3)
[2022-12-30 07:38] LABS: BLOOD GAS BASE EXCESS -1.4 mmol/L (-2.0-2.0); BLOOD GAS HCO3 22.7 mmol/L (22-26); BLOOD GAS PCO2 35.9 mmHg (35-45); BLOOD GAS PH 7.418 (7.35-7.45); BLOOD GAS PO2 74.9 mmHg (75-100)
[2022-12-30 07:39] LABS: BLOOD GAS O2 SAT% 95.4 % (92.0-98.5)
[2022-12-30 08:12] LABS: MEAN CORPUSCULAR HEMOGLOBIN 30 pg (27-31); MEAN CORPUSCULAR HGB CONC 33 g/dL (33-37)
[2022-12-30 08:22] LABS: PLATELET COUNT (AUTO) 25 K/uL (140-450)
[2022-12-30 08:24] LABS: HEMOGLOBIN 12.5 g/dL (12.0-16.0); MEAN CORPUSCULAR VOLUME 90.1 fL (80-94); RED BLOOD CELL COUNT(AUTO) 4.18 MIL/uL (4.20-5.40); WHITE BLOOD COUNT (AUTO) 34.3 K/uL (4.8-10.8)
[2022-12-30 08:28] LABS: HEMATOCRIT 37.7 % (36-48)
[2022-12-30 08:42] LABS: EOSINOPHILS % (MANUAL) 1 % (0-4); MONOCYTES % (MANUAL) 7 % (5-12)
[2022-12-30 08:43] LABS: LYMPHOCYTES % (MANUAL) 4 % (20-46)
[2022-12-30] MEDS ORDERED: VANCOMYCIN PER PHARMACY MC PRN (09:00)
[2022-12-30] MEDS ORDERED: ETOMIDATE 20 MG/10 ML VIAL IVP ONE ×2 (09:22)
[2022-12-30] MEDS ORDERED: ROCURONIUM 50 MG/5 ML VIAL IV ONE ×2 (09:22→09:23)
[2022-12-30] MEDS ORDERED: NACL 0.9% 1,000 ML IV ONE (09:45)
[2022-12-30] MEDS: NOREPINEPHRINE 8 MG in DEXTROSE 5% 250 ML IV PRN (09:45)
[2022-12-30 11:35] LABS: BLOOD GAS BASE EXCESS -4.1 mmol/L (-2.0-2.0); BLOOD GAS O2 SAT% 98.2 % (92.0-98.5); BLOOD GAS PCO2 33.3 mmHg (35-45); BLOOD GAS PH 7.397 (7.35-7.45); BLOOD GAS PO2 115.5 mmHg (75-100)
[2022-12-30 13:34] LABS: T4 (THYROXINE) 4.1 ug/dL (4.5 - 12.0)
[2022-12-30] MEDS: PIPERACILLIN/TAZOBACTAM 2.25 GM in DEXTROSE 5% 50 ML IV SCH ×2 (15:09→21:01)
[2022-12-30] MEDS: BLOOD GLUCOSE MONITORING 1 DEV DEV FS SCH (17:41)
[2022-12-30] MEDS ORDERED: VANCOMYCIN 500 MG in NACL 0.9% 100 ML IV SCH (18:00)
[2022-12-30] MEDS ORDERED: VANCOMYCIN 500 MG in DEXTROSE 5% 100 ML IV SCH (18:00)
[2022-12-30] MEDS ORDERED: AMIODARONE 450 MG in DEXTROSE 5% 250 ML IV STA (18:57)
[2022-12-30] MEDS ORDERED: AMIODARONE 150 MG in DEXTROSE 5% 100 ML IV STA (18:57)
[2022-12-30] MEDS ORDERED: AMIODARONE 150 MG/3 ML VIAL IV ONE (19:03)
[2022-12-30] MEDS ORDERED: AMIODARONE 450 MG/9 ML VIAL IV ONE (19:20)
[2022-12-30] MEDS: ACETAMINOPHEN 325 MG TAB PO PRN (20:28)
[2022-12-30] MEDS: MUPIROCIN CA NASAL 2% 1GM TUBE NS SCH (21:41)
[2022-12-31] VITALS (31 sets, daily range): BP systolic 73–144; BP diastolic 20–79; PULSE 76–165; RESP 12–35; TEMP 96–103.7; O2SAT 10–100
[2022-12-31] MEDS: BLOOD GLUCOSE MONITORING 1 DEV DEV FS SCH ×4 (00:20→18:00)
[2022-12-31] MEDS ORDERED: AMIODARONE 450 MG/9 ML VIAL IV ONE (02:23)
[2022-12-31] MEDS ORDERED: AMIODARONE 450 MG in DEXTROSE 5% 241 ML IV SCH (02:45)
[2022-12-31] MEDS: NOREPINEPHRINE 8 MG in DEXTROSE 5% 250 ML IV PRN (04:27)
[2022-12-31] MEDS: PIPERACILLIN/TAZOBACTAM 2.25 GM in DEXTROSE 5% 50 ML IV SCH ×3 (04:37→20:59)
[2022-12-31 05:28] LABS: BASOPHILS # (AUTO) 0.2 K/uL (0.00-0.22); BASOPHILS % (AUTO) 0.5 % (0.0-2.0); EOSINOPHILS # (AUTO) 0.4 K/uL (0-0.4); EOSINOPHILS % (AUTO) 1.3 % (0.0-4.0); HEMATOCRIT 33.6 % (36-48); HEMOGLOBIN 10.8 g/dL (12.0-16.0); LYMPHOCYTES # (AUTO) 2.4 K/uL (2.5-16.5); LYMPHOCYTES % (AUTO) 7.4 % (20.5-51.1); MEAN CORPUSCULAR HEMOGLOBIN 29 pg (27-31); MEAN CORPUSCULAR HGB CONC 32 g/dL (33-37); MEAN CORPUSCULAR VOLUME 90.8 fL (80-94); MONOCYTES # (AUTO) 1.5 K/uL (0.8-1.0); MONOCYTES % (AUTO) 4.5 % (1.7-9.3); NEUTROPHILS % (AUTO) 86.3 % (42.2-75.2); RED BLOOD CELL COUNT(AUTO) 3.71 MIL/uL (4.20-5.40); RED CELL DISTRIBUTION WIDTH 15.3 % (11.6-13.7)
[2022-12-31 05:29] LABS: ANION GAP 22.7 (8-16); CALCIUM 8.6 mg/dL (8.5-10.1); POTASSIUM 4.7 mmol/L (3.5-5.1)
[2022-12-31 05:35] LABS: CREATININE 4.2 mg/dL (0.6-1.3)
[2022-12-31 05:37] LABS: PLATELET COUNT (AUTO) 16 K/uL (140-450); WHITE BLOOD COUNT (AUTO) 32.4 K/uL (4.8-10.8)
[2022-12-31] MEDS ORDERED: VANCOMYCIN PER PHARMACY MC PRN (08:55)
[2022-12-31] MEDS: CHLORHEXADINE GLUC 2% CLOTH TP SCH (09:00)
[2022-12-31] MEDS: PANTOPRAZOLE 40 MG INJ VIAL IVP SCH (09:42)
[2022-12-31] MEDS ORDERED: ALBUMIN HUMAN 25% 100 ML IV SCH (11:30)
[2022-12-31] MEDS: MUPIROCIN CA NASAL 2% 1GM TUBE NS SCH (17:35)
[2022-12-31] MEDS: OCTREOTIDE ACETATE 1.25 MG in NACL 0.9% 250 ML IV SCH (20:59)
[2022-12-31] MEDS ORDERED: VANCOMYCIN 500 MG in NACL 0.9% 100 ML IV SCH (21:00)
[2022-12-31] MEDS: ACETAMINOPHEN 325 MG TAB PO PRN (22:34)
[2023-01-01] VITALS (45 sets, daily range): BP systolic 89–129; BP diastolic 45–76; PULSE 66–130; RESP 15–26; TEMP 96.4–98.6; O2SAT 98–100
[2023-01-01] MEDS: INSULIN LISPRO SLIDING SCALE 100 UNITS/ML VIAL SUBQ PRN ×4 (01:08→19:23)
[2023-01-01] MEDS: PIPERACILLIN/TAZOBACTAM 2.25 GM in DEXTROSE 5% 50 ML IV SCH ×3 (04:50→20:07)
[2023-01-01 05:35] LABS: HEMATOCRIT 25.9 % (36-48); HEMOGLOBIN 8.4 g/dL (12.0-16.0); MEAN CORPUSCULAR HEMOGLOBIN 29 pg (27-31); MEAN CORPUSCULAR HGB CONC 32 g/dL (33-37); MEAN CORPUSCULAR VOLUME 89.5 fL (80-94); RED BLOOD CELL COUNT(AUTO) 2.89 MIL/uL (4.20-5.40); RED CELL DISTRIBUTION WIDTH 15.5 % (11.6-13.7)
[2023-01-01 05:50] LABS: PLATELET COUNT (AUTO) 18 K/uL (140-450); WHITE BLOOD COUNT (AUTO) 25.8 K/uL (4.8-10.8)
[2023-01-01 06:10] LABS: ALBUMIN 1.8 g/dL (3.4-5.0); ANION GAP 19.5 (8-16); BILIRUBIN,DIRECT 3.1 mg/dL (0.0-0.3); CALCIUM 8.2 mg/dL (8.5-10.1); CARBON DIOXIDE 24.2 mmol/L (21-32); CREATININE 3.2 mg/dL (0.6-1.3); POTASSIUM 4.7 mmol/L (3.5-5.1); TOTAL BILIRUBIN 4.1 mg/dL (0.0-1.0); TOTAL PROTEIN, SERUM 5.3 g/dL (6.4-8.2)
[2023-01-01] MEDS: BLOOD GLUCOSE MONITORING 1 DEV DEV FS SCH ×4 (06:25→18:00)
[2023-01-01 08:20] LABS: LYMPHOCYTES % (MANUAL) 10 % (20-46)
[2023-01-01 08:21] LABS: BASOPHILS % (MANUAL) 0 % (0-2); BLASTS, MANUAL % 0 % (0-0); EOSINOPHILS % (MANUAL) 0 % (0-4); METAMYELOCYTES % 0 % (0-0); MONOCYTES % (MANUAL) 3 % (5-12); MYELOCYTES % 0 % (0-0); OTHER CELLS,MANUAL % 0 (0-0); PLASMA CELLS 0; PLATELET ESTIMATE GIANT PLATELET SEEN; PROMYELOCYTES % 0 % (0-0); SMUDGE CELLS 0
[2023-01-01 08:25] LABS: OVALOCYTES 1+; SCHISTOCYTES 1+; TEAR DROP CELLS 1+
[2023-01-01] MEDS: PANTOPRAZOLE 40 MG INJ VIAL IVP SCH (09:00)
[2023-01-01] MEDS: CHLORHEXADINE GLUC 2% CLOTH TP SCH (09:00)
[2023-01-01] MEDS: NOREPINEPHRINE 8 MG in DEXTROSE 5% 250 ML IV PRN (09:12)
[2023-01-01] MEDS: MUPIROCIN CA NASAL 2% 1GM TUBE NS SCH (17:35)
[2023-01-01] MEDS: OCTREOTIDE ACETATE 1.25 MG in NACL 0.9% 250 ML IV SCH (18:15)
[2023-01-01 19:40] LABS: HEMOGLOBIN A1C 8.7 % (4.8-5.6)
[2023-01-01] MEDS: LACTULOSE 20 GM/30 ML UDC PO SCH (20:07)
[2023-01-01] MEDS: RIFAXIMIN 550 MG TAB PO SCH (20:08)
[2023-01-02] VITALS (44 sets, daily range): BP systolic 85–144; BP diastolic 46–70; PULSE 81–135; RESP 16–31; TEMP 96.8–100.3; O2SAT 96–100
[2023-01-02] MEDS: BLOOD GLUCOSE MONITORING 1 DEV DEV FS SCH ×4 (00:11→18:22)
[2023-01-02] MEDS: INSULIN LISPRO SLIDING SCALE 100 UNITS/ML VIAL SUBQ PRN ×4 (00:14→18:22)
[2023-01-02] MEDS: PIPERACILLIN/TAZOBACTAM 2.25 GM in DEXTROSE 5% 50 ML IV SCH ×3 (05:04→20:13)
[2023-01-02 05:21] LABS: BASOPHILS % (AUTO) 0.2 % (0.0-2.0); EOSINOPHILS # (AUTO) 0.4 K/uL (0-0.4); EOSINOPHILS % (AUTO) 1.9 % (0.0-4.0); HEMOGLOBIN 8.6 g/dL (12.0-16.0); LYMPHOCYTES # (AUTO) 1.2 K/uL (2.5-16.5); LYMPHOCYTES % (AUTO) 5.8 % (20.5-51.1); MEAN CORPUSCULAR HEMOGLOBIN 29 pg (27-31); MEAN CORPUSCULAR HGB CONC 33 g/dL (33-37); MEAN CORPUSCULAR VOLUME 88.7 fL (80-94); MONOCYTES # (AUTO) 0.7 K/uL (0.8-1.0); MONOCYTES % (AUTO) 3.4 % (1.7-9.3); NEUTROPHILS # (AUTO) 18.5 K/uL (1.8-7.7); NEUTROPHILS % (AUTO) 88.7 % (42.2-75.2); PLATELET COUNT (AUTO) 35 K/uL (140-450); RED BLOOD CELL COUNT(AUTO) 2.93 MIL/uL (4.20-5.40); RED CELL DISTRIBUTION WIDTH 15.7 % (11.6-13.7); WHITE BLOOD COUNT (AUTO) 20.8 K/uL (4.8-10.8)
[2023-01-02 05:28] LABS: ANION GAP 19.7 (8-16); CALCIUM 8.3 mg/dL (8.5-10.1); CARBON DIOXIDE 23.1 mmol/L (21-32); POTASSIUM 4.8 mmol/L (3.5-5.1)
[2023-01-02] MEDS: MULTIVITAMIN 1 TAB PO SCH (08:16)
[2023-01-02] MEDS: LACTULOSE 20 GM/30 ML UDC PO SCH ×2 (08:16→20:14)
[2023-01-02] MEDS: RIFAXIMIN 550 MG TAB PO SCH ×2 (08:17→20:14)
[2023-01-02] MEDS: PANTOPRAZOLE 40 MG INJ VIAL IVP SCH (08:17)
[2023-01-02] MEDS: THIAMINE 200 MG/2 ML VIAL IM SCH (08:17)
[2023-01-02] MEDS ORDERED: THIAMINE 200 MG/2 ML VIAL IM SCH (09:00)
[2023-01-02] MEDS: CHLORHEXADINE GLUC 2% CLOTH TP SCH (09:00)
[2023-01-02] MEDS ORDERED: ALBUMIN HUMAN 25% 100 ML IV PRN (13:10)
[2023-01-02] MEDS: MUPIROCIN CA NASAL 2% 1GM TUBE NS SCH (18:22)
[2023-01-02] MEDS: METOCLOPRAMIDE 10 MG/2 ML INJ VIAL IVP SCH (20:14)
[2023-01-03] VITALS (34 sets, daily range): BP systolic 81–136; BP diastolic 42–88; PULSE 71–146; RESP 16–32; TEMP 95.6–100.3; O2SAT 92–100
[2023-01-03] MEDS: BLOOD GLUCOSE MONITORING 1 DEV DEV FS SCH ×5 (00:12→23:52)
[2023-01-03] MEDS: INSULIN LISPRO SLIDING SCALE 100 UNITS/ML VIAL SUBQ PRN ×4 (00:20→23:56)
[2023-01-03] MEDS: NOREPINEPHRINE 8 MG in DEXTROSE 5% 250 ML IV PRN ×2 (03:54→14:38)
[2023-01-03] MEDS: PIPERACILLIN/TAZOBACTAM 2.25 GM in DEXTROSE 5% 50 ML IV SCH ×3 (04:42→20:55)
[2023-01-03] MEDS: METOCLOPRAMIDE 10 MG/2 ML INJ VIAL IVP SCH ×3 (04:52→20:54)
[2023-01-03 05:24] LABS: BASOPHILS # (AUTO) 0.1 K/uL (0.00-0.22); BASOPHILS % (AUTO) 0.3 % (0.0-2.0); EOSINOPHILS # (AUTO) 0.6 K/uL (0-0.4); EOSINOPHILS % (AUTO) 2.8 % (0.0-4.0); HEMATOCRIT 22.9 % (36-48); HEMOGLOBIN 7.5 g/dL (12.0-16.0); LYMPHOCYTES # (AUTO) 1.5 K/uL (2.5-16.5); LYMPHOCYTES % (AUTO) 6.8 % (20.5-51.1); MEAN CORPUSCULAR HEMOGLOBIN 29 pg (27-31); MEAN CORPUSCULAR HGB CONC 33 g/dL (33-37); MEAN CORPUSCULAR VOLUME 89.4 fL (80-94); MONOCYTES # (AUTO) 0.6 K/uL (0.8-1.0); MONOCYTES % (AUTO) 2.5 % (1.7-9.3); NEUTROPHILS # (AUTO) 19.6 K/uL (1.8-7.7); NEUTROPHILS % (AUTO) 87.6 % (42.2-75.2); PLATELET COUNT (AUTO) 51 K/uL (140-450); RED BLOOD CELL COUNT(AUTO) 2.56 MIL/uL (4.20-5.40); RED CELL DISTRIBUTION WIDTH 15.5 % (11.6-13.7); WHITE BLOOD COUNT (AUTO) 22.3 K/uL (4.8-10.8)
[2023-01-03 05:27] LABS: ANION GAP 17.6 (8-16); CALCIUM 8.2 mg/dL (8.5-10.1); CARBON DIOXIDE 24.7 mmol/L (21-32); CREATININE 2.9 mg/dL (0.6-1.3); POTASSIUM 4.3 mmol/L (3.5-5.1)
[2023-01-03] MEDS ORDERED: METOPROLOL 5 MG/5 ML VIAL IV SCH (08:09)
[2023-01-03] MEDS: CHLORHEXADINE GLUC 2% CLOTH TP SCH (09:00)
[2023-01-03] MEDS ORDERED: VANCOMYCIN 500 MG in NACL 0.9% 100 ML IV SCH (09:00)
[2023-01-03 09:16] LABS: BLOOD GAS PCO2 36.6 mmHg (35-45); BLOOD GAS PH 7.373 (7.35-7.45); BLOOD GAS PO2 64.4 mmHg (75-100)
[2023-01-03 09:18] LABS: BLOOD GAS O2 SAT% 91.6 % (92.0-98.5)
[2023-01-03 09:20] LABS: BLOOD GAS HCO3 20.8 mmol/L (22-26)
[2023-01-03 09:21] LABS: BLOOD GAS BASE EXCESS -3.9 mmol/L (-2.0-2.0)
[2023-01-03] MEDS: LACTULOSE 20 GM/30 ML UDC PO SCH ×2 (10:47→20:54)
[2023-01-03] MEDS: PANTOPRAZOLE 40 MG INJ VIAL IVP SCH (10:47)
[2023-01-03] MEDS: THIAMINE 200 MG/2 ML VIAL IM SCH (10:55)
[2023-01-03] MEDS: RIFAXIMIN 550 MG TAB PO SCH ×2 (10:55→20:54)
[2023-01-03] MEDS: MULTIVITAMIN 1 TAB PO SCH (10:57)
[2023-01-03] MEDS: AMIODARONE 450 MG in DEXTROSE 5% 250 ML IV SCH ×2 (11:11→20:54)
[2023-01-03] MEDS: DEXT 5% /NACL 0.9% 1,000 ML IV SCH (13:50)
[2023-01-03] MEDS ORDERED: NON ADHERENT DRESSING TP PRN (16:05)
[2023-01-03] MEDS ORDERED: LIDOCAINE 1% 500 MG/ 50 ML VIAL INJ SCH (17:20)
[2023-01-03] MEDS: MUPIROCIN CA NASAL 2% 1GM TUBE NS SCH (17:35)
[2023-01-03] MEDS ORDERED: MUPIROCIN CA NASAL 2% 1GM TUBE NS ONE (18:47)
[2023-01-03] MEDS ORDERED: HYDRAGUARD CREAM TP ONE (23:49)
[2023-01-04] VITALS (23 sets, daily range): BP systolic 82–115; BP diastolic 38–61; PULSE 64–77; RESP 16–30; TEMP 98.3–99.5; O2SAT 94–100
[2023-01-04] MEDS: NOREPINEPHRINE 8 MG in DEXTROSE 5% 250 ML IV PRN ×2 (00:01→09:40)
[2023-01-04] MEDS: HYDRAGUARD CREAM TP SCH ×2 (00:37→12:08)
[2023-01-04] MEDS: PIPERACILLIN/TAZOBACTAM 2.25 GM in DEXTROSE 5% 50 ML IV SCH ×2 (04:20→12:07)
[2023-01-04] MEDS: METOCLOPRAMIDE 10 MG/2 ML INJ VIAL IVP SCH (04:20)
[2023-01-04] MEDS: AMIODARONE 450 MG in DEXTROSE 5% 250 ML IV SCH ×2 (04:25→11:50)
[2023-01-04] MEDS: BLOOD GLUCOSE MONITORING 1 DEV DEV FS SCH ×2 (06:09→11:50)
[2023-01-04] MEDS: INSULIN LISPRO SLIDING SCALE 100 UNITS/ML VIAL SUBQ PRN ×2 (06:15→12:19)
[2023-01-04 06:16] LABS: HEMATOCRIT 25.8 % (36-48); HEMOGLOBIN 8.3 g/dL (12.0-16.0); MEAN CORPUSCULAR HEMOGLOBIN 29 pg (27-31); MEAN CORPUSCULAR HGB CONC 32 g/dL (33-37); MEAN CORPUSCULAR VOLUME 90.4 fL (80-94); PLATELET COUNT (AUTO) 66 K/uL (140-450); RED BLOOD CELL COUNT(AUTO) 2.85 MIL/uL (4.20-5.40); RED CELL DISTRIBUTION WIDTH 16.2 % (11.6-13.7)
[2023-01-04 06:36] LABS: ANION GAP 23.9 (8-16); CALCIUM 8.5 mg/dL (8.5-10.1); CARBON DIOXIDE 19.9 mmol/L (21-32); CREATININE 3.6 mg/dL (0.6-1.3); POTASSIUM 4.8 mmol/L (3.5-5.1)
[2023-01-04 06:38] LABS: WHITE BLOOD COUNT (AUTO) 27.7 K/uL (4.8-10.8)
[2023-01-04 07:45] LABS: BASOPHILS % (MANUAL) 0 % (0-2); EOSINOPHILS % (MANUAL) 2 % (0-4); LYMPHOCYTES % (MANUAL) 5 % (20-46); METAMYELOCYTES % 3 % (0-0); MONOCYTES % (MANUAL) 2 % (5-12); MYELOCYTES % 0 % (0-0); PROMYELOCYTES % 0 % (0-0)
[2023-01-04 07:46] LABS: BLASTS, MANUAL % 0 % (0-0); OTHER CELLS,MANUAL % 0 (0-0); PLASMA CELLS 0; PLATELET ESTIMATE GIANT PLATELET SEEN
[2023-01-04 07:47] LABS: CORRECTED WHITE BLOOD COUNT 26.1 K/uL (4.5-11.0)
[2023-01-04] MEDS: THIAMINE 200 MG/2 ML VIAL IM SCH (08:32)
[2023-01-04] MEDS: PANTOPRAZOLE 40 MG INJ VIAL IVP SCH (08:35)
[2023-01-04] MEDS: LACTULOSE 20 GM/30 ML UDC PO SCH (08:54)
[2023-01-04] MEDS: RIFAXIMIN 550 MG TAB PO SCH (08:54)
[2023-01-04] MEDS: MULTIVITAMIN 1 TAB PO SCH (08:54)
[2023-01-04] MEDS ORDERED: CHLORHEXADINE GLUC 2% CLOTH TP SCH (09:00)
[2023-01-04] MEDS: DEXT 5% /NACL 0.9% 1,000 ML IV SCH (09:34)
[2023-01-04] MEDS ORDERED: NON ADHERENT DRESSING TP SCH (13:00)
[2023-01-04] MEDS ORDERED: METOCLOPRAMIDE 10 MG/2 ML INJ VIAL IVP SCH (13:00)
[2023-01-04] MEDS ORDERED: MORPHINE SULFATE 50 MG in NACL 0.9% 45 ML IV PRN (14:20)
[2023-01-04] MEDS ORDERED: SODIUM POLYSTYRENE 15 GM/60 ML UDBTL PO ONE (18:30)
[2023-01-06] MEDS ORDERED: EPOETIN ALFA 10,000 UNITS/ML VIAL IV SCH (09:00)
[2023-01-06] MEDS ORDERED: FOAM DRESSING TP SCH (09:00)
== END 2023-01-05 00:20 | DRG 720 ==
LOC: MED 14:34 → MMU 16:55 → MTU 16:55 → MIC 12-30 08:27
PROVIDERS: ADMIT Family Medicine; ATTEND Family Medicine
PROC: 5A1955Z Respiratory Ventilation, Greater than 96 Consecutive Hours (ICD-10-PCS; principal; 2022-12-30)
PROC: 06HY33Z Insertion of Infusion Device into Lower Vein, Percutaneous Approach (ICD-10-PCS; 2022-12-30)
PROC: B54CZZA Ultrasonography of Left Lower Extremity Veins, Guidance (ICD-10-PCS; 2022-12-30)
PROC: 5A1D70Z Performance of Urinary Filtration, Intermittent, Less than 6 Hours Per Day (ICD-10-PCS; 2022-12-30)
PROC: 0BH17EZ Insertion of Endotracheal Airway into Trachea, Via Natural or Artificial Opening (ICD-10-PCS; 2022-12-30)
PROC: 5A1D70Z Performance of Urinary Filtration, Intermittent, Less than 6 Hours Per Day (ICD-10-PCS; 2022-12-31)
PROC: 4A00X4Z Measurement of Central Nervous Electrical Activity, External Approach (ICD-10-PCS; 2023-01-01)
PROC: 5A1D70Z Performance of Urinary Filtration, Intermittent, Less than 6 Hours Per Day (ICD-10-PCS; 2023-01-02)
DX: A41.89 Other specified sepsis (principal); I63.9 Cerebral infarction, unspecified; N17.0 Acute kidney failure with tubular necrosis; J69.0 Pneumonitis due to inhalation of food and vomit; R65.21 Severe sepsis with septic shock; G92.9 Unspecified toxic encephalopathy; I50.43 Acute on chronic combined systolic (congestive) and diastolic (congestive) heart failure; K92.0 Hematemesis; E83.39 Other disorders of phosphorus metabolism; D63.8 Anemia in other chronic diseases classified elsewhere; D69.6 Thrombocytopenia, unspecified; I13.2 Hypertensive heart and chronic kidney disease with heart failure and with stage 5 chronic kidney disease, or end stage renal disease; E11.22 Type 2 diabetes mellitus with diabetic chronic kidney disease; N39.0 Urinary tract infection, site not specified; Z20.822 Contact with and (suspected) exposure to COVID-19; I42.9 Cardiomyopathy, unspecified; N18.6 End stage renal disease; E78.5 Hyperlipidemia, unspecified; I46.9 Cardiac arrest, cause unspecified; I25.10 Atherosclerotic heart disease of native coronary artery without angina pectoris; Z79.4 Long term (current) use of insulin; Z79.899 Other long term (current) drug therapy; Z83.3 Family history of diabetes mellitus; Z80.9 Family history of malignant neoplasm, unspecified
CPT/HCPCS: 31500; 36415; 36600; 70450; 71045; 74018; 80048; 80053; 80076; 80202; 81001; 82140; 82150; 82803; 82948; 83036; 83605; 83615; 83690; 83735; 83880; 84100; 84436; 84439; 84443; 84479; 84484; 85025; 85610; 85730; 87040; 87081; 87086; 87186; 93005; 93880; 94002; 94003; 95816; 96360; 99291; C9113; J0282; J0456; J0696; J1644; J1815; J2001; J2270; J2354; J2543; J2765; J3370; J3411; J3490; J7030; J7060; P9046; Q0092